=== PATIENT | male | born 1965 | race African-American/Black ===

== ENCOUNTER 2024-12-28 14:18 | Inpatient (IN) | payer BC, SELFPAY ==
[2024-12-28] VITALS (17 sets, daily range): BP systolic 101–135; BP diastolic 65–93; PULSE 108–128; RESP 16–36; TEMP 36.1–37.7; O2SAT 98–100; BMI 19.8
--- NOTE | ~2024-12-28 | XR_ITS ---
EXAMINATION: XR chest 1V portable DATE: 01/03/2025 05:56 INDICATION: Respiratory failure TECHNIQUE: frontal view of the chest was obtained. COMPARISON: Chest radiograph and CT dated 01/02/25 FINDINGS: Endotracheal tube tip 4.1 cm above the alejo. Nasogastric tube tip in proximal side port in the body of the stomach. Left upper extremity peripherally inserted central venous catheter (PICC) tip at th e superior cavoatrial junction. Basilar predominant gradient airspace opacities in the right mid to lower and left lower lung zones w ith blunting at costophrenic angles consistent with small to moderate-sized right and small left post erior layering pleural effusions with associated atelectasis and/or pneumonia. No pneumothorax. Heart size is normal. IMPRESSION: 1. Small to moderate-sized right and small left pleural effusions with associated atelectasis and/or pneumonia in the lower lung zones. Reviewed, dictated and finalized at location A. IMPRESSION: 1. Small to moderate-sized right and small left pleural effusions with associat ed atelectasis and/or pneumonia in the lower lung zones.
--- NOTE | ~2024-12-28 | CT_ITS ---
EXAMINATION: CTA chest abdomen pelvis DATE: 12/29/2024 14:23 INDICATION: Tachycardia and tachypnea TECHNIQUE: Computed tomographic angiography (CTA) of the chest, abdomen, and pelvis was performed wit hout and with 100 mL Omnipaque-350 intravenous contrast. Volume-rendered 3D-reconstructions of the ao rta and large arteries were constructed by the technologist on a separate workstation. Automated expo sure control and iterative reconstruction technique were employed. The dose-length product was 526.67 mGy-cm. COMPARISON: None FINDINGS: Chest: Small left and moderate-sized right posterior layering pleural effusions with dependent atelectasis i n both lungs. There are patchy opacities throughout both lungs and favor severe pulmonary edema over pneumonia. No pulmonary embolism. Enlargement of central pulmonary arteries consistent with pulmonary arterial hypertension. Cardiomegaly. There is reflux of injected contrast into the inferior vena cav a and hepatic veins consistent with tricuspid regurgitation. No pericardial effusion. Ectatic ascendi ng thoracic aorta measuring up to 3.9 cm in maximal diameter. No dissection. No pathologically enlarg ed thoracic lymphadenopathy. Moderate lower cervical and mild thoracic spondylosis. Abdomen and pelvis: Gastrojejunostomy tube extending through the stomach with distal tip in the proximal jejunum in the l eft upper quadrant. Hepatomegaly. Gallbladder, spleen, pancreas, bilateral adrenal glands and kidneys are normal. Large amount of stool throughout the colon with distal predominance with the stool fille d rectum measuring up to 6.7 x 9.6 cm diameter. No dilated bowel to suggest obstruction. Abdominal ao rta evident major branch vessels arising from the aorta are normal in caliber with no evident atheros clerotic plaque or dissection. No free intraperitoneal gas or fluid. No pathologically enlarged abdom inal or pelvic lymphadenopathy. Extensive body wall edema. Moderate spondylosis at L5-S1 with right-s ided erosive endplate changes. IMPRESSION: 1. Extensive patchy airspace opacities throughout both lungs and favor severe congestive heart failur e related pulmonary edema over pneumonia. 2. Small left and moderate sized right dependently layering pleural effusions with associated davion sive atelectasis in the dependent lungs. 3. Cardiomegaly with enlargement of the central pulmonary consistent with pulmonary arterial hyperten yovana. 4. Large amount of stool throughout the colon with 9.6 x 6.7 cm ball of stool the rectum consistent w ith likely constipation with fecal impaction. 5. Hepatomegaly. Reviewed, dictated and finalized at location A. IMPRESSION: 1. Extensive patchy airspace opacities throughout both lungs and favor severe c ongestive heart failure related pulmonary edema over pneumonia. 2. Small left and moderate sized right dependently layering pleural effusions w ith associated compressive atelectasis in the dependent lungs. 3. Cardiomegaly with enlargement of the central pulmonary consistent with pulmo nary arterial hypertension. 4. Large amount of stool throughout the colon with 9.6 x 6.7 cm ball of stool t he rectum consistent with likely constipation with fecal impaction. 5. Hepatomegaly.
--- NOTE | ~2024-12-28 | XR_ITS ---
Supine and upright views of the abdomen Clinical history: Small bowel obstruction COMPARISON: 01/03/2025 Findings: NG tube in place. Bowel gas pattern is similar to prior exam. No evidence for free air. No abnormal mass lesion or calcification is seen. Osseous structures are intact. Impression: Stable nonspecific bowel gas pattern with NG tube in place. Reviewed, dictated and finalized at [facility]. Impression: Stable nonspecific bowel gas pattern with NG tube in place.
--- NOTE | ~2024-12-28 | XR_ITS ---
Portable chest x-ray Comparison: 12/29/2024 Clinical History: Respiratory failure Findings: Endotracheal tube and left-sided PICC line are in place. Diffuse pulmonary consolidation i s present. No definite pleural effusion. Cardiomediastinal silhouette is stable. Bones and soft tiss ues are unremarkable. Impression: Diffuse bilateral pulmonary consolidation. Correlate for severe pulmonary edema, diffuse pneumonia, o r ARDS. Support tubes, as above. Reviewed, dictated and finalized at location M. Impression: Diffuse bilateral pulmonary consolidation. Correlate for severe pulmonary edema , diffuse pneumonia, or ARDS. Support tubes, as above.
--- NOTE | ~2024-12-28 | XR_ITS ---
Portable chest x-ray Comparison: 12/28/2024 Clinical History: CHF Findings: Small right pleural effusion present. There is extensive bilateral airspace consolidation. Cardiomediastinal silhouette is stable. Bones and soft tissues are unremarkable. Impression: Extensive bilateral airspace consolidation could reflect severe pulmonary edema versus diffuse pneumo kimberley. Small right pleural effusion. Reviewed, dictated and finalized at [facility]. Impression: Extensive bilateral airspace consolidation could reflect severe pulmonary edema versus diffuse pneumonia. Small right pleural effusion.
--- NOTE | ~2024-12-28 | XR_ITS ---
EXAMINATION: XR chest 1V portable DATE: 01/06/2025 06:05 INDICATION: Pulmonary vascular congestion TECHNIQUE: frontal view of the chest was obtained. COMPARISON: Chest radiograph dated 01/05/2025 FINDINGS: Endotracheal tube tip 4.2 cm above the alejo. Nasogastric tube extends below the left hemidiaphragm with distal tip collimated off the study. Left upper extremity peripherally inserted central venous catheter (PICC) tip at the superior cavoatrial junction. Mild patchy airspace opacities superimposed over hazy opacities in the bilateral mid and lower lung z ones consistent with small bilateral posterior layering pleural effusions with associated atelectasis and/or pneumonia. The cardiomediastinal silhouette is normal. IMPRESSION: 1. Unchanged small bilateral pleural effusions with associated atelectasis and/or pneumonia in the lo wer lung zones. Reviewed, dictated and finalized at location A. IMPRESSION: 1. Unchanged small bilateral pleural effusions with associated atelectasis and/ or pneumonia in the lower lung zones.
--- NOTE | ~2024-12-28 | XR_ITS ---
EXAMINATION: XR chest 1V portable DATE: 01/05/2025 06:08 INDICATION: Intubated TECHNIQUE: frontal view of the chest was obtained. COMPARISON: Chest radiograph dated 01/04/2025 FINDINGS: Endotracheal tube tip 5.0 cm above the alejo. Nasogastric tube proximal side port in the stomach and distal tip collimated beyond the inferior margin of the field of imaging. Left upper extremity perip herally inserted central venous catheter (PICC) tip at the high right atrium. Again seen are hazy opacities in the bilateral lower lung zones with blunting at costophrenic angles consistent with small bilateral pleural effusions and associated atelectasis versus pneumonia. No pne umothorax. The cardiomediastinal silhouette is normal. IMPRESSION: 1. Persistent small bilateral pleural effusions with bibasilar atelectasis and/or pneumonia. Reviewed, dictated and finalized at location A. IMPRESSION: 1. Persistent small bilateral pleural effusions with bibasilar atelectasis and/ or pneumonia.
--- NOTE | ~2024-12-28 | XR_ITS ---
Portable chest x-ray Comparison: 01/06/2025 Clinical History: Respiratory failure Findings: NG tube in place. Left-sided PICC line in place. Small right pleural effusion present. The re is mild to moderate pulmonary edema pattern. Cardiomediastinal silhouette is stable. Bones and so ft tissues are unremarkable. Impression: Mild to moderate pulmonary edema pattern with small right pleural effusion. Support tubes, as above. Reviewed, dictated and finalized at location . Impression: Mild to moderate pulmonary edema pattern with small right pleural effusion. Support tubes, as above.
--- NOTE | ~2024-12-28 | XR_ITS ---
EXAMINATION: XR abdomen/kub 1V DATE: 01/06/2025 06:05 INDICATION: Small bowel obstruction TECHNIQUE: A supine view of the abdomen was obtained. COMPARISON: 01/05/2025 FINDINGS: Nasogastric tube with distal tip near the gastric pylorus and proximal side port in the body the stom ach. Gastrojejunostomy tube which extends from the stomach through the duodenum with distal tip in th e proximal jejunum underlying the left hemidiaphragm. Unchanged large amount of gas scattered through out the colon. No dilated loops of gas-filled small bowel. Unchanged small foreign body projecting ov er the cecum. IMPRESSION: 1. No interval change in a nonspecific bowel gas pattern with prominent gas throughout the colon but no definitive dilated loops of small bowel to suggest obstruction. Reviewed, dictated and finalized at location A. IMPRESSION: 1. No interval change in a nonspecific bowel gas pattern with prominent gas thr oughout the colon but no definitive dilated loops of small bowel to suggest obs truction.
--- NOTE | ~2024-12-28 | XR_ITS ---
Supine and upright views of the abdomen Clinical history: Fecal impaction, ileus COMPARISON: 01/04/2025 at 5:13 AM Findings: NG tube in satisfactory position. No free air evident. There is air distended large and sma ll bowel. Moderate stool in the left colon.. No abnormal mass lesion or calcification is seen. Osseou s structures are intact. Impression: Nonspecific bowel gas pattern with moderate stool left colon. NG tube in place. Reviewed, dictated and finalized at location M. Impression: Nonspecific bowel gas pattern with moderate stool left colon. NG tube in place.
--- NOTE | ~2024-12-28 | XR_ITS ---
EXAMINATION: XR chest 1V portable DATE: 01/10/2025 06:09 INDICATION: Respiratory failure TECHNIQUE: frontal view of the chest was obtained. COMPARISON: Chest radiograph dated 01/09/2025 FINDINGS: No significant change in opacities in the right mid to lower and left lower lung zones. This includes a small right pleural effusion. No pneumothorax. Cardiomegaly. Left upper extremity peripherally ins erted central venous catheter (PICC) tip at the caudal superior vena cava. Partially visualized kenyatta rojejunostomy tube projecting over the visualized upper abdomen. Gaseous distention of the visualized colon. IMPRESSION: 1. Unchanged opacities in the right mid to lower and left lower lung zones which could represent atel ectasis, pneumonia, mild pulmonary edema or some combination thereof. 2. Small right pleural effusion. 3. Cardiomegaly. Reviewed, dictated and finalized at location A. IMPRESSION: 1. Unchanged opacities in the right mid to lower and left lower lung zones whic h could represent atelectasis, pneumonia, mild pulmonary edema or some combinat ion thereof. 2. Small right pleural effusion. 3. Cardiomegaly.
--- NOTE | ~2024-12-28 | XR_ITS ---
EXAMINATION: XR abdomen/kub 1V DATE: 01/05/2025 06:08 INDICATION: Small bowel obstruction TECHNIQUE: A supine view of the abdomen was obtained. COMPARISON: None. FINDINGS: Nasogastric tube tip in the gastric antrum and proximal side port in the body the stomach. Persistent gas within multiple loops of bowel which appear to dilate colonic. No definitive dilated loops of ga s-filled small bowel to suggest obstruction. Interval decrease in the amount of stool seen in the dis talon colon. Persistent small foreign body at the cecum. Small bilateral pleural effusions. IMPRESSION: 1. No significant change in nonspecific bowel gas pattern with prominent gas throughout the colon but no definitive dilated loops of small bowel to suggest obstruction. 2. Small bilateral pleural effusions. Reviewed, dictated and finalized at location A. IMPRESSION: 1. No significant change in nonspecific bowel gas pattern with prominent gas th roughout the colon but no definitive dilated loops of small bowel to suggest ob struction. 2. Small bilateral pleural effusions.
--- NOTE | ~2024-12-28 | XR_ITS ---
Portable chest x-ray Comparison: 01/07/2025 Clinical History: Respiratory failure Findings: Left-sided PICC line in place. Small right pleural effusion present. There is extensive londono zy bilateral airspace disease, right worse than left, sparing the apices. Cardiomediastinal silhouet te is stable. Bones and soft tissues are unremarkable. Impression: Moderate bilateral pulmonary edema, right worse than left, with small right pleural effusion. Correla te clinically for pneumonia. Left-sided PICC line in place. Reviewed, dictated and finalized at location M. Impression: Moderate bilateral pulmonary edema, right worse than left, with small right ple ural effusion. Correlate clinically for pneumonia. Left-sided PICC line in place.
--- NOTE | ~2024-12-28 | XR_ITS ---
XR chest 1V portable Ordering provider: Kelsi Jamil PA-C History: 59 years Male with . hypoxia . Comparison: None. FINDINGS: MEDIASTINUM: The cardiac silhouette is slightly enlarged. Congestive brayden. LUNGS: No pneumothorax. Bilateral alveolar and interstitial opacification suggestive of pulmonary mary ma versus pneumonia. Right moderate pleural effusion. OTHER: No free air under the diaphragm. IMPRESSION: Cardiomegaly with cardiac decompensation and pulmonary edema. Pneumonia is not excluded. A right pleu ral effusion. Reviewed, dictated and finalized at location A. IMPRESSION: Cardiomegaly with cardiac decompensation and pulmonary edema. Pneumonia is not excluded. A right pleural effusion.
--- NOTE | ~2024-12-28 | XR_ITS ---
Portable chest x-ray Comparison: 12/30/2024 Clinical History: Respiratory failure Findings: Endotracheal tube and left-sided PICC line are in place. Small right pleural effusion pres ent. Extensive hazy pulmonary disease present, right worse than left. Cardiomediastinal silhouette i s stable. Bones and soft tissues are unremarkable. Impression: Advanced pulmonary edema pattern, right worse than left. Correlate clinically for pneumonia. Small right pleural effusion. Support tubes, as above. Reviewed, dictated and finalized at location . Impression: Advanced pulmonary edema pattern, right worse than left. Correlate clinically f or pneumonia. Small right pleural effusion. Support tubes, as above.
--- NOTE | ~2024-12-28 | XR_ITS ---
XR abdomen obstructive series 01/02/2025 08:02 Indication: Abdominal distention Procedure: Supine and upright views of the abdomen Comparison: No prior studies for comparison. Findings: There is dilated small bowel and colon throughout the abdomen. Large amount of retained fec al material present in the distal colon or rectum. There is a residual catheter identified in the abd omen of indeterminate location. Cardiomegaly. Small pleural effusions. There is probable interstitial edema. Impression: 1: Dilated small bowel and colon with large amount of retained fecal material in the distal colon and rectum, consistent with fecal impaction with obstruction. 2: Residual catheter fragment present in the abdomen. Consider correlation with CT. 3: Cardiomegaly with pulmonary edema and small pleural effusions. Reviewed, dictated and finalized at location A. Impression: 1: Dilated small bowel and colon with large amount of retained fecal material i n the distal colon and rectum, consistent with fecal impaction with obstruction . 2: Residual catheter fragment present in the abdomen. Consider correlation with CT. 3: Cardiomegaly with pulmonary edema and small pleural effusions.
--- NOTE | ~2024-12-28 | XR_ITS ---
Portable chest x-ray Comparison: 01/08/2025 Clinical History: Respiratory failure Findings: Left-sided PICC line in place. There is extensive hazy bilateral airspace disease, right l jorge worse than left, with relative sparing of the left upper lobe. Small right pleural effusion prese nt. Cardiomediastinal silhouette is stable. Bones and soft tissues are unremarkable. Impression: Moderate pulmonary edema pattern, asymmetrically worse in the right lung than the left, with small ri ght pleural effusion. Correlate clinically for pneumonia. Left-sided PICC line. Reviewed, dictated and finalized at location . Impression: Moderate pulmonary edema pattern, asymmetrically worse in the right lung than t he left, with small right pleural effusion. Correlate clinically for pneumonia. Left-sided PICC line.
--- NOTE | ~2024-12-28 | CT_ITS ---
EXAMINATION: CT chest abdomen pelvis wo con DATE: 01/02/2025 10:02 INDICATION: Residual catheter fragment present in the abdomen TECHNIQUE: Computed tomography (CT) of the chest, abdomen, and pelvis was performed without intraveno us contrast. Automated exposure control and iterative reconstruction technique were employed. The dos e-length product was 393.83 mGy-cm. COMPARISON: KUB dated 01/02/[address] angiogram dated 12/29/2024 FINDINGS: CHEST CT: No significant interval change in small left and small to moderate-sized right posterior layering ple ural effusions with dependent compressive atelectasis developing partial collapse of the bilateral lo wer lobes. Mild residual smooth septal line thickening at the bilateral apices with interval resoluti on of the patchy airspace opacities in the remainder of the lungs consistent consistent with signific ant improvement in previously moderate, now minimal pulmonary edema. Endotracheal tube tip 3.5 cm abo ve the alejo. Left upper extremity peripherally inserted central venous catheter (PICC) tip at the superior cavoatrial junction. Mild cardia megaly. No pericardial effusion. Ectatic ascending thoracic aorta measuring up to 4.0 cm. There is diffuse body wall and mediastinal edema. No pathologically en larged thoracic lymphadenopathy. Lower cervical and mild thoracic spondylosis. ABDOMEN/PELVIS CT: Percutaneous gastrojejunostomy tube with distal tip in the small bowel in the left upper quadrant. Li keith, gallbladder, spleen, pancreas, bilateral adrenal glands and kidneys are normal. Again seen is a large amount of stool scattered throughout the distal colon suggestive of constipation. There is some fluid in the proximal colon consistent with diarrhea. Small foreign body within the cecum which has not changed since position since the prior study. Burdick catheter within the decompressed bladder. The re is additional extensive body wall, mesenteric and retroperitoneal edema. Moderate spondylosis at L 5-S1 with right-sided erosive endplate changes. IMPRESSION: 1. Significant improvement in previously moderate, now minimal pulmonary edema with unchanged small l eft and small to moderate-sized right pleural effusions. 2. Persistent large amount of stool in the distal colon suggestive of constipation with fluid consist ent with diarrhea and the more proximal colon. 3. No change in position of a small foreign body correlating with the finding on the earlier KUB whic h is located along the luminal side of the posterior wall of the cecum which could represent either a n ingested foreign body or a clip fixed to the wall given the lack of movement. Correlate with clinic al/surgical history. Reviewed, dictated and finalized at location A. IMPRESSION: 1. Significant improvement in previously moderate, now minimal pulmonary edema with unchanged small left and small to moderate-sized right pleural effusions. 2. Persistent large amount of stool in the distal colon suggestive of constipat ion with fluid consistent with diarrhea and the more proximal colon. 3. No change in position of a small foreign body correlating with the finding o n the earlier KUB which is located along the luminal side of the posterior wall of the cecum which could represent either an ingested foreign body or a clip f ixed to the wall given the lack of movement. Correlate with clinical/surgical h istory.
--- NOTE | ~2024-12-28 | XR_ITS ---
Portable chest x-ray Comparison: 12/31/2024 Clinical History: Respiratory failure Findings: Endotracheal tube and left-sided PICC line are in place. Small right pleural effusion pres ent. Minimal left pleural effusion present. There is hazy bibasilar airspace disease, right worse maxx n left. Cardiomediastinal silhouette is stable. Bones and soft tissues are unremarkable. Impression: [id number] pulmonary edema pattern, right worse than left, versus possibly pneumonia. Small right pleural effusion and minimal left pleural effusion. Support tubes, as above. Reviewed, dictated and finalized at location . Impression: [id number] pulmonary edema pattern, right worse than left, versus possibl y pneumonia. Small right pleural effusion and minimal left pleural effusion. Support tubes, as above.
--- NOTE | ~2024-12-28 | XR_ITS ---
Portable chest x-ray Comparison: 01/01/2025 Clinical History: Respiratory failure Findings: Endotracheal tube and left-sided PICC line are in place. Small right pleural effusion pres ent. There is mild hazy airspace disease in the right lung, especially the perihilar region and right lung base. Possible minimal left lung base. Cardiomediastinal silhouette is stable. Bones and soft tissues are unremarkable. Impression: Hazy bibasilar airspace disease, right worse than left, most likely asymmetric pulmonary edema. Corre late clinically for pneumonia. Small right pleural effusion. Support tubes, as above. Reviewed, dictated and finalized at location . Impression: Hazy bibasilar airspace disease, right worse than left, most likely asymmetric pulmonary edema. Correlate clinically for pneumonia. Small right pleural effusion. Support tubes, as above.
--- NOTE | ~2024-12-28 | XR_ITS ---
EXAMINATION: XR abdomen gastric tube insert DATE: 01/02/2025 11:20 INDICATION: Nasogastric tube placement TECHNIQUE: A supine view of the abdomen and lower chest was obtained for evaluation of feeding tube placement. COMPARISON: CT dated 01/02/2025 FINDINGS: Nasogastric tube tip in proximal side port in the body of the stomach. Percutaneous gastrostomy tube with distal tip in the jejunum projecting over the subdiaphragmatic left upper quadrant. Gaseous dist ention of the colon. Opacities in the bilateral mid and lower lungs corresponding to the bilateral pl eural effusions and associated atelectasis seen on prior CT. Mild cardiomegaly. IMPRESSION: 1. Nasogastric tube tip in proximal side port in the body of the stomach. Reviewed, dictated and finalized at location A.
--- NOTE | ~2024-12-28 | XR_ITS ---
EXAMINATION: XR chest ET placement DATE: 12/29/2024 15:32 INDICATION: Endotracheal tube placement TECHNIQUE: frontal view of the chest was obtained. COMPARISON: Chest radiograph and CT from earlier in the day on 12/29/2024 FINDINGS: Endotracheal tube tip 2.6 cm above the alejo. Extensive patchy airspace opacities throughout both lore ngs. Blunting at the bilateral cardiophrenic angles and right costophrenic angle corresponding to sma ll left and moderate-sized right pleural effusions on prior CT. Cardiomegaly. IMPRESSION: 1. Endotracheal tube tip in expected position 2.6 similar both the alejo. 2. Persistent diffuse bilateral lung disease and favor congestive heart failure related severe pulmon selvin edema over pneumonia. 2. Small left and moderate-sized pleural effusions. Reviewed, dictated and finalized at location A. IMPRESSION: 1. Endotracheal tube tip in expected position 2.6 similar both the alejo. 2. Persistent diffuse bilateral lung disease and favor congestive heart failure related severe pulmonary edema over pneumonia. 2. Small left and moderate-sized pleural effusions.
--- NOTE | ~2024-12-28 | XR_ITS ---
Portable chest x-ray Comparison: 01/03/2025 Clinical History: Respiratory failure Findings: Endotracheal tube, NG tube, and left-sided PICC line are in place. Small right pleural eff usion present with hazy right basilar and right midlung airspace disease. Probable cardiac airspace d isease. Cardiomediastinal silhouette is stable. Bones and soft tissues are unremarkable. Impression: Bibasilar pulmonary edema/atelectasis with small right pleural effusion. Support tubes, as above. Reviewed, dictated and finalized at location M. Impression: Bibasilar pulmonary edema/atelectasis with small right pleural effusion. Support tubes, as above.
--- NOTE | ~2024-12-28 | US_ITS ---
LEFT UPPER EXTREMITY VENOUS ULTRASOUND Ordering provider: Kelsi Jamil PA-C History: . edema . Comparison: None. FINDINGS: --JUGULAR: Patent and free of thrombus. Normal compressibility, phasic flow and augmentation. --SUBCLAVIAN: Patent and free of thrombus. Normal compressibility, phasic flow and augmentation. --AXILLARY: Patent and free of thrombus. Normal compressibility, phasic flow and augmentation. --BRACHIAL: Patent and free of thrombus. Normal compressibility, phasic flow and augmentation. --CEPHALIC: Patent and free of thrombus. Normal compressibility, phasic flow and augmentation. --BASILIC: Patent and free of thrombus. Normal compressibility, phasic flow and augmentation. --RADIAL: Patent and free of thrombus. Normal compressibility, phasic flow and augmentation. --ULNAR: Patent and free of thrombus. Normal compressibility, phasic flow and augmentation. RIGHT UPPER EXTREMITY VENOUS ULTRASOUND Ordering provider: Kelsi Jamil PA-C History: . edema . Comparison: None. FINDINGS: --JUGULAR: Patent and free of thrombus. Normal compressibility, phasic flow and augmentation. --SUBCLAVIAN: Patent and free of thrombus. Normal compressibility, phasic flow and augmentation. --AXILLARY: Patent and free of thrombus. Normal compressibility, phasic flow and augmentation. --BRACHIAL: Patent and free of thrombus. Normal compressibility, phasic flow and augmentation. --CEPHALIC: Patent and free of thrombus. Normal compressibility, phasic flow and augmentation. --BASILIC: Patent and free of thrombus. Normal compressibility, phasic flow and augmentation. --RADIAL: Patent and free of thrombus. Normal compressibility, phasic flow and augmentation. --ULNAR: Patent and free of thrombus. Normal compressibility, phasic flow and augmentation. IMPRESSION: Negative left and right upper extremity venous US. No deep vein thrombosis. Reviewed, dictated and finalized at location A.
--- NOTE | ~2024-12-28 | XR_ITS ---
EXAMINATION: XR abdomen obstructive series DATE: 01/03/2025 08:21 INDICATION: Ileus. Small bowel obstruction. TECHNIQUE: Frontal supine and upright views of the abdomen were obtained. COMPARISON: CT dated 01/02/2025 FINDINGS: Nasogastric tube tip and proximal side port in the body the stomach. Percutaneous gastrojejunostomy t ube extends from the stomach through the duodenum with the distal tip in the jejunum below the left h emidiaphragm. Scattered gas throughout the colon with large amount of distal colonic stool suggestive of constipation. No dilated loops of gas-filled small bowel to suggest obstruction. No free intraper itoneal gas. Again seen is a small foreign body projecting over the right pelvis in the region of t he cecum. Opacities at the bilateral lower lung zones consistent with small bilateral pleural effusio ns and associated axis and short heart size is normal. IMPRESSION: 1. Large amount of stool in the distal colon which can be seen with constipation. No free intraperin eal gas or dilated bowel to suggest obstruction. 2. Small bilateral pleural effusions with associated basilar atelectasis and/or pneumonia. 3. Unchanged small foreign body projecting over the cecum Reviewed, dictated and finalized at location A. IMPRESSION: 1. Large amount of stool in the distal colon which can be seen with constipati on. No free intraperineal gas or dilated bowel to suggest obstruction. 2. Small bilateral pleural effusions with associated basilar atelectasis and/or pneumonia. 3. Unchanged small foreign body projecting over the cecum
--- NOTE | 2024-12-28 14:32 | ECG_ITS ---
Test Date: 2024-12-28 14:26:13 Measurements Intervals [place] Rate: 122 P: 39 IN: 136 QRS: -60 QRSD: 150 T: 93 QT: 360 QTc: 515 Interpretive Statements SINUS TACHYCARDIA INTRAVENTRICULAR CONDUCTION DELAY [130+ ms QRS DURATION] ST-T WAVE ABNORMALITY, CONSIDER ANTEROLATERAL ISCHEMIA INFERIOR INFARCT, OLD No previous ECG available for comparison Electronically Signed On 12-30-2024 14:08:13 CDT by Edilia Sam M.D.
--- OUTSIDE RECORDS SUMMARY | 2024-12-28 14:33 | XMS_ITS | Continuity of Care Document ---
Author Organization [address] [place] [address] [address] [place] [address] Phone Care Team Providers Care Warehouse Incentive Selector Name Role Phone Mira Mckeon DPM Unavailable Unavailable Allergies, Adverse Reactions, Alerts Substance Reaction Status Criticality No Known Allergies Active No Inform ation Medications Medication Instructions Dosage Effective Dates (start - stop) Status Comments rivastigmine 4.6 mg/24 hour transdermal patch apply 1 patch by transdermal route every day . Do not apply to same area more than once every 14 days. 4.6 MG - Active olanzapine 5 mg tablet take 1 tablet by oral route every day 5 MG - Active risperidone 0.5 mg tablet take 2 tablet by oral route 2 times every day 1 MG - Active acetaminophen 325 mg tablet take 2 tablet by oral route every 6 hours as needed 650 MG - Active Problems Condition Type Effective Dates (start - stop) Clini jon Status Comments No Known Problems Procedures Procedure Date DEBRIDE NAIL 6 OR MORE FRAMES, PURCHASES FITTING OF SPECTACLES, EXCEPT FOR APHAKI A; BIFOCAL EYE EXAM NEW PATIENT TRIM SKIN LESION DEBRIDE NAIL 1-5 DEBRIDE NAIL 1-5 NURSING FAC CARE SUBSEQ TRIM SKIN LESION DEBRIDE NAIL 1-5 NURSING FAC CARE SUBSEQ DEBRIDE NAIL 1-5 NURSING FAC CARE SUBSEQ DEBRIDE NAIL 1- NURSING FAC CARE SUBSEQ TRIM SKIN LESION DEBRIDE NAIL 1- PPE DEBRIDE NAIL 6 OR MORE Paring/cutting 2-4 benign lesions DEBRIDEMENT OF NAIL(S) BY ANY METHOD(S); one TO five Subsequent Nursing Facility Care 2019 Advance Directives Directive Yes / No Effective Date File Name No Information Encounters Encounter Description Practice Location Reason(s) For Visit Diagnoses Date Provider Providers Copied on Encounter [address] [place] [address], [address] [place] [address], [id number], tel:[phone] [facility] No Information 2 ALISIA Rubio. [address] [place] [address], [address] [place] [address], [id number], tel:[phone] [facility] Peripheral vascular disease, unspecifiedTin ea unguium 2 Stoney Ortiz. [address] [facility], [address], [place], [place], [id number], [place]. tel:[phone] Referring Provider: Garrison Bello. [address] [place] [address], [address] [place] [address], [id number], tel:[phone] [facility] Presbyopia 2 ALISIA Lowery. [address] [place] [address], [address] [place] [address], [id number], [place] tel:[phone] [facility] Blurry vision (chief complaint) Combined forms of age-related cataract, bilateral 2 ALISIA Lowery. Referring Provider: Garrison Bello. NURSING FAC CARE SUBSEQ [address] [place] [address], [address] [place] [address], [id number], tel:[phone] [facility] Acquired absence of other left toe(s)Corns and callositiesTin ea unguiumPeriphe ral vascular disease, unspecified Dec- 1 Eveline [address]. [id number] [place] [address], [id number], . tel:[phone] Referring Provider: Garrison Bello. NURSING FAC CARE SUBSEQ [address] [place] [address], [address] [place] [address], [id number], tel:[phone] [facility] Acquired absence of other left toe(s)Corns and callositiesPer ipheral vascular disease, unspecifiedTin ea unguiumXerosis cutis 1 Eveline Messre. [address], [id number], [place]. tel:[phone] Referring Provider: Garrison Bello. NURSING FAC CARE SUBSEQ [address] [place] [address], [address] [place] [address], [id number], tel:[phone] [facility] Peripheral vascular disease, unspecifiedXer osis cutisTinea unguium [address] Evel[address]er. [id number] [place] [address], [id number], [place]. tel:[phone] Referring Provider: Garrison Bello. NURSING FAC CARE SUBSEQ [address] [place] [address], [address] [place] [address], [id number], tel:[phone] [facility] Peripheral vascular disease, unspecifiedAcq uired absence of other left toe(s)Tinea unguium 1 E[address]er. [id number] [place] [address], [id number], [place]. tel:[phone] Referring Provider: Garrison Bello. [address] [place] [address], [address] [place] [address], [place], [place], [id number], tel:[phone] [facility] Peripheral vascular disease, unspecifiedTin ea unguiumCorns and callosities 1 Eveline Messer. [address] [facility], [address], [place], [place], [id number], [place]. tel:[phone] Referring Provider: Garrison Bello. [address] [place] [address], [address] [facility] [address], [place], [place], [id number], [place] tel:[phone] [facility] No Information 1 Zionfabiola Lim. [address] [facility], [address], [place], [place], [id number], [place]. tel:[phone] Referring Provider: Garrison Bello. [address] [place] [address], [address] [facility] [address], [place], [place], [id number], [place] tel:[phone] [facility] Peripheral vascular disease, unspecifiedTin ea unguiumAcquire d absence of other left toe(s) 0 [facility]. [address] [facility], [address], [place], [place], [id number], [place]. tel:[phone] Referring Provider: Garrison Bello. Subsequent Nursing Facility Care [address] [place] [address], [address] [facility] [address], [place], [place], [id number], [place] tel:[phone] [facility] Acquired absence of other left toe(s)Tinea unguiumPeriphe ral vascular disease, unspecifiedCor ns and callosities 0 Luabandar Ortiz. [address] [facility], [address], [place], [place], [id number], [place]. tel:[phone] Referring Provider: Maggie ramos. [address] [place] [address], [address] [facility] [address], [place], [place], [id number], [place] tel:[phone] [facility] No Information 8 Lua Angel. [address] [facility], [address], [place], [place], [id number], [place]. tel:[phone] Family History Family Member Type Diagnosis Age At Onset No Information Payers Payer name Insurance type Covered democrat [place] Marlon vieira(s) Medicaid [facility] [id number] Social History Type Description Quantity Date Captured Comments Sex Male Smoking Status No Information Chief Complaint And Reason For Visit No Information Reason For Referral Reason For Referral No Information Plan Of Treatment Date Type Action Status Patient Education Toenail Fungus: Care In structions completed Patient Education Toenail Fungus: Care In structions completed Patient Education Toenail Fungus: Care In structions completed History Of Present Illness Encounter Date Complaint History Of Prese nt Illness Blurry vision The 55 year old male presents for evaluation of Blurry vision in the right eye and left eye. It occurs all the time. The onset was progressive. The symptom is constant. The condition is moderate. Functional Status Date Functional Assessmen t No Information Instructions Date Instruction Additional Infor mation 1-5 digital nails bi laterally were mycotic and dystrophic nails were debrided both in length and thickness as needed. The nails were debrided using a Dremel and nail nipper. I will follow up in 2-3 months for continued at risk foot care. Related to Tinea unguium Follow up - Return i n 12-15 months for cataract eval. Impression/Plan - Ca taracts are moderate and are affecting visual acuity; however, no treatment recommended at this time. We will monitor for progression. Related to Combined forms of age-related cataract, bilateral All of the calluses were debrided/pared to prevent further tissue breakdown and pain using aseptic technique. the patient tolerated the procedure well and the deformity and contributing prominences were padded/strapped as found necessary. Related to Corns and callosities All of the painful o r problematic thickened or mycotic nails described were debrided in both length and thickness as needed using aseptic technique utilizing both manual and electric debridement and the patient tolerated the procedure well. Related to Tinea unguium Patient was evaluate d for xerosis cutis marked by pronounced anhydrosis, scales , desquamation and fissuring and was ordered a prescription moisturizer to alleviate the symptoms and forestall potentially dangerous tissue breakdowns and infection. The condition will be reevaluated on the next visit. 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 Related to Tinea unguium All of the calluses were debrided/pared to prevent further tissue breakdown and pain using aseptic technique. the patient tolerated the procedure well and the deformity and contributing prominences were padded/strapped as found necessary. Related to Corns and callosities All of the painful o r problematic thickened or mycotic nails described were debrided in both length and thickness as needed using aseptic technique utilizing both manual and electric debridement and the patient tolerated the procedure well. Related to Tinea unguium Patient was evaluate d for xerosis cutis marked by pronounced anhydrosis, scales , desquamation and fissuring and was ordered a prescription moisturizer to alleviate the symptoms and forestall potentially dangerous tissue breakdowns and infection. The condition will be reevaluated on the next visit. 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 Related to Tinea unguium All of the painful o r problematic thickened or mycotic nails described were debrided in both length and thickness as needed using aseptic technique utilizing both manual and electric debridement and the patient tolerated the procedure well Related to Tinea unguium All of the calluses were debrided/pared to prevent further tissue breakdown and pain using aseptic technique. the patient tolerated the procedure well and the deformity and contributing prominences were padded/strapped as found necessary. Related to Corns and callosities 1-5 digital nails ri ght foot was mycotic and dystrophic nails were debrided both in length and thickness as needed. The nails were debrided using a Dremel and nail nipper. I will follow up in 2-3 months for continued at risk foot care. Related to Tinea unguium 1st and 4th metatars als had painful clavi of left foot with no digits. All of the calluses were debrided/pared to prevent further tissue breakdown and pain. 1-5 digital nails right foot were mycotic and dystrophic nails were debrided both in length and thickness as needed. The nails were debrided using a Dremel and nail nipper. I will follow up in 2-3 months for continued at risk foot care. Related to Corns and callosities Assessments Type Assessment Date No Information Patient Care Teams Name Effective Dates (start - stop) Status Members No Information
--- NOTE | 2024-12-28 14:40 | ED_ITS ---
HPI - SOB/Dyspnea General Chief Complaint: Shortness of Breath/Dyspnea <Kelsi Jamil PA-C - Last Filed: 12/28/24 17:07> Stated Complaint: SOB <MARIELLE Burger Last Filed: 12/28/24 17:07> Time Seen by Provider: 12/28/24 14:19 <MARIELLE Burger Last Filed: 12/28/24 17:07> Source: EMS <MARIELLE Burger Last Filed: 12/28/24 17:07> Mode of arrival: EMS <MARIELLE Burger Last Filed: 12/28/24 17:07> Limitations: other (patient is nonverbal) <MARIELLE Burger Last Filed: 12/28/24 17:07> History of Present Illness HPI Narrative: This is a 59 year old male that presents to the ER for low oxygen saturation. Patient found to be tachypneic and hypoxic at his facility. Sent to the ER for further management. <Kelsi Jamil PA-C - Last Filed: 12/28/24 17:07> Related Data Allergies/Adverse Reactions: Allergies Allergy/AdvReac Type Severity Reaction Status Date / Time No Known Allergies Allergy Verified 12/28/24 14:53 <Kelsi Jamil PA-C - Last Filed: 12/28/24 17:07> Review of Systems 2 Review of Systems: ROS unobtainable: Yes unobtainable due to mental status <Kelsi Jamil PA-C - Last Filed: 12/28/24 17:07> [facility] Past Medical History Medical History: Medical History (Updated 12/28/24 @ 17:04 by Zaida Steiner, MANUFACTURER REPRESENTATIVE) Idiopathic progressive neuropathy History of CHF (congestive heart failure) History of epilepsy History of schizophrenia History of gastroesophageal reflux (GERD) <MARIELLE Burger Last Filed: 12/28/24 17:07> Exam 2 Narrative: GENERAL: Chronically ill-appearing, thin, and in no acute distress. HEAD: Normocephalic, atraumatic. EYES: EOMI. ENT: Nares clear, no rhinorrhea or epistaxis. Mucous membranes moist. Oropharynx without tonsillar hypertrophy exudate or other lesions. NECK: Supple. No adenopathy or masses. CHEST: Lung sounds are coarse. No wheezes or rhonchi HEART: Regular rate and rhythm. No murmur heard. Normal peripheral pulses. ABDOMEN: Soft, nontender, nondistended, normal active bowel sounds. EXTREMITIES: Normal range of motion. No edema. SKIN: Warm, dry, no rash or wounds. NEURO: Alert. Does not move any of his limbs independently <Kelsi Jamil PA-C - Last Filed: 12/28/24 17:07> Course Course Emergency Course: I was able to update patient's sibling over the phone <Kelsi Jamil PA-C - Last Filed: 12/28/24 17:07> SOCIAL WORK PROGRAM COORDINATOR/PA Physician Supervision I agree with midlevel documentation; I performed the medical decision making component of this evaluation. I had independent [id number] time with the patient and performed my own independent evaluation and assessment. Patient is nonverbal not able to provide meaningful history or participate in examination. He has terrible appearing cardiac decompensation on bedside x-ray which shows pleural effusions bilaterally, cardiomegaly and potentially infiltrates. He is febrile, tachycardic, tachypneic. Started on appropriate antibiotic coverage and Lasix provided for significant fluid on his lungs causing hypoxemia and we will hold off on any fluid resuscitation given his cardiac function and status. Patient will be admitted to the hospital for further evaluation and care, IV antibiotics and IV diuresis. Hospitalist contacted and in agreement for IMU status. <Chaz Roldan MD - Last Filed: 12/28/24 17:44> Consultations Consultation #1: Spoke with hospitalist about patient and workup who accepts admission < Kelsi Jamil PA-C - Last Filed: 12/28/24 17:07> Date: 12/28/24 <MARIELLE Burger Last Filed: 12/28/24 17:07> Vital Signs Vital signs: Vital Signs Temperature 37.7 C H 12/28/24 14:15 Pulse Rate 120 H 12/28/24 14:15 Respiratory Rate 16 12/28/24 14:15 Blood Pressure 122/82 12/28/24 14:15 Pulse Oximetry 100 12/28/24 14:15 Oxygen Delivery Non-Rebreather Mask 12/28/24 14:15 Oxygen Flow Rate 15 12/28/24 14:15 Temperature 37.7 C H 12/28/24 14:15 Pulse Rate 114 H 12/28/24 16:38 Respiratory Rate 28 H 12/28/24 16:38 Blood Pressure 101/75 12/28/24 16:38 Pulse Oximetry 99 12/28/24 16:38 Oxygen Delivery Nasal Cannula 12/28/24 16:04 Oxygen Flow Rate 4 12/28/24 16:04 <Kelsi Jamil PA-C - Last Filed: 12/28/24 17:07> Vital Signs Temperature 37.7 C H 12/28/24 14:15 Pulse Rate 120 H 12/28/24 14:15 Respiratory Rate 16 12/28/24 14:15 Blood Pressure 122/82 12/28/24 14:15 Pulse Oximetry 100 12/28/24 14:15 Oxygen Delivery Non-Rebreather Mask 12/28/24 14:15 Oxygen Flow Rate 15 12/28/24 14:15 Temperature 37.7 C H 12/28/24 14:15 Pulse Rate 114 H 12/28/24 16:38 Respiratory Rate 28 H 12/28/24 16:38 Blood Pressure 101/75 12/28/24 16:38 Pulse Oximetry 99 12/28/24 16:38 Oxygen Delivery Nasal Cannula 12/28/24 16:04 Oxygen Flow Rate 4 12/28/24 16:04 <Chaz Roldan MD - Last Filed: 12/28/24 17:44> Procedures EJ/Peripheral Line Arm L: EJ/Peripheral Line Date: 12/28/24 <Chaz Roldan MD - Last Filed: 12/28/24 17:44> EJ/Peripheral Line Time: 15:00 <Chaz Roldan MD - Last Filed: 12/28/24 17:44> Time Out Performed: Yes <Chaz Roldan MD - Last Filed: 12/28/24 17:44> Skin Cleansed in Sterile Fashion: Yes <Chaz Roldan MD - Last Filed: 12/28/24 17:44> Ultrasound Guided: Yes <Chaz Roldan MD - Last Filed: 12/28/24 17:44> Size (gauge): 20 <Chaz Roldan MD - Last Filed: 12/28/24 17:44> IV Secured and Dressing Applied: Yes <Chaz Roldan MD - Last Filed: 12/28/24 17:44> Patient Tolerated Procedure: well and no complications <Chaz Roldan MD - Last Filed: 12/28/24 17:44> MDM - SOB/Dyspnea MDM Narrative Medical decision making narrative: Patient presents the emergency department for hypoxia. Reportedly in the 80s on room air at his facility. His lung sounds are coarse. He is borderline febrile and tachycardic. Currently in for L nasal cannula, maintaining oxygen saturation. Given nebulizer treatment, steroid. Blood cultures drawn. Patient started on IV antibiotics. Cbc without leukocytosis. Shows macrocytic anemia hemoglobin of 8.7, I do not have any previous blood work for comparison. Metabolic panel with normal kidney function. BNP is greater than 30,000. Chest x-ray shows cardiomegaly with pulmonary edema and a right-sided pleural effusion. Patient given a dose of IV Lasix. Will be admitted for further management. Spoke with hospitalist about patient and workup accepts admission. G tube seems to be clogged. Will put in consult for GI <Kelsi Jamil PA-C - Last Filed: 12/28/24 17:07> Differential Diagnosis Differential diagnosis: Likely congestive heart failure, community acquired pneumonia and other (DVT, sepsis, acute respiratory failure) <Kelsi Jamil PA-C - Last Filed: 12/28/24 17:07> Lab Data Attestation: I reviewed the patient's lab results. <Kelsi Jamil PA-C - Last Filed: 12/28/24 17:07> Result diagrams: 12/28/24 14:45 12/28/24 14:45 <MARIELLE Burger Last Filed: 12/28/24 17:07> Labs: Lab Results 12/28/24 12/28/24 12/28/24 Range/Units 14:45 14:45 15:01 WBC 6.4 (4.5-10.0) K/mm3 RBC 2.71 L (4.6-6.20) M/mm3 Hgb 8.7 L (14.0-18.0) g/dL Hct 28.7 L (42.0-52.0) % MCV 105.9 H (80-100) fl MCH 32.1 (26-34) pg MCHC 30.3 L (32-36) g/dl RDW 15.0 H (11.5-14.5) % Plt Count 281 (150-375) k/mm3 MPV 10.4 (7.4-10.4) fl Immature Gran % (Auto) 0.6 H (0-0.5) % Neut % (Auto) 72.1 (45.5-73.1) % Lymph % (Auto) 16.2 L (18.3-44.2) % Coke % (Auto) 10.7 H (2.6-8.5) % Eos % (Auto) 0.2 (0-4.4) % Baso % (Auto) 0.2 (0.2-1.2) % Lymph # (Auto) 1.03 (0.9-3.2) K/mm3 Coke # (Auto) 0.7 H (0.1-0.6) K/mm3 Eos # (Auto) 0.0 (0-0.3) K/mm3 Baso # (Auto) 0.0 (0.0-0.1) K/mm3 Abs Immat Gran (auto) 0.04 H (0.00-0.031) K/mm3 Absolute Neuts (auto) 4.6 (1.3-6.7) K/mm3 Absolute Nucleated RBC 0.060 H (0.0-0.012) K/mm3 Band Neutrophils % Not Reportable Nucleated RBC % 0.9 H (0.0-0.2) % Platelet Estimate Adequate (Adequate) Polychromasia 1+ Hypochromasia 1+ Anisocytosis 1+ Target Cells 1+ Schistocytes None seen PT 15.0 H (11.1-14.7) Seconds INR 1.1 APTT 32.5 (22.3-36.8) Seconds Methemoglobin 0.2 (0-1.5) %THb Sodium 144 (137-145) mmol/L Potassium 4.1 (3.4-5.0) mmol/L Chloride 104 (98-107) mmol/L Carbon Dioxide 31 H (22-30) mmol/L Anion Gap 9 (4-12) mmol/L BUN 25 H (9-20) mg/dL Creatinine 0.50 L (0.7-1.3) mg/dL Estim Creat Clear Calc 109 ml/min Estimated GFR > 60 (59 - ) Glucose 109 (65-110) mg/dL Lactic Acid 2.4 H (0.7-2.0) mmol/L Calcium 8.8 (8.4-10.2) mg/dL Total Bilirubin 0.5 (0.2-1.3) mg/dL AST 48 (17-59) U/L ALT 29 (6-50) U/L Alkaline Phosphatase 89 (38-126) U/L C-Reactive Protein 1.9 H (<1.0) mg/dL NT-Pro-B Natriuret Pep > 54181 H Cancelled (19.9-100) pg/mL Total Protein 8.0 (6.3-8.2) g/dL Albumin 3.8 (3.5-5.1) g/dL Urine Color (Yellow) Urine Appearance (Clear) Urine pH (5.0-9.0) Ur Specific [place] (1.001-1.035) Urine Protein (Negative) mg/dL Urine Glucose (UA) (Negative) mg/dL Urine Ketones (Negative) mg/dL Ur Blood (Man) (Negative) Urine Nitrate (Negative) Urine Bilirubin (Negative) Urine Urobilinogen (<2.0) mg/dL Add Ur Microanalysis Leukocyte Esterase Rfl (Negative) RASHMI/UL Urine RBC (0-2) /hpf Urine WBC (0-3) /hpf Ur Squamous Epith Cells (Few) /hpf Urine Bacteria /hpf Urine Casts Urine Mucus /lpf Influenza A (RT-PCR) Negative (Negative) Influenza B (RT-PCR) Negative (Negative) RSV (RT-PCR) Negative (Negative) SARS-CoV-2 RNA (RT-PCR) Negative (Negative) 12/28/24 Range/Units 15:04 WBC (4.5-10.0) K/mm3 RBC (4.6-6.20) M/mm3 Hgb (14.0-18.0) g/dL Hct (42.0-52.0) % MCV (80-100) fl MCH (26-34) pg MCHC (32-36) g/dl RDW (11.5-14.5) % Plt Count (150-375) k/mm3 MPV (7.4-10.4) fl Immature Gran % (Auto) (0-0.5) % Neut % (Auto) (45.5-73.1) % Lymph % (Auto) (18.3-44.2) % Coke % (Auto) (2.6-8.5) % Eos % (Auto) (0-4.4) % Baso % (Auto) (0.2-1.2) % Lymph # (Auto) (0.9-3.2) K/mm3 Coke # (Auto) (0.1-0.6) K/mm3 Eos # (Auto) (0-0.3) K/mm3 Baso # (Auto) (0.0-0.1) K/mm3 Abs Immat Gran (auto) (0.00-0.031) K/mm3 Absolute Neuts (auto) (1.3-6.7) K/mm3 Absolute Nucleated RBC (0.0-0.012) K/mm3 Band Neutrophils % Nucleated RBC % (0.0-0.2) % Platelet Estimate (Adequate) Polychromasia Hypochromasia Anisocytosis Target Cells Schistocytes PT (11.1-14.7) Seconds INR APTT (22.3-36.8) Seconds Methemoglobin (0-1.5) %THb Sodium (137-145) mmol/L Potassium (3.4-5.0) mmol/L Chloride (98-107) mmol/L Carbon Dioxide (22-30) mmol/L Anion Gap (4-12) mmol/L BUN (9-20) mg/dL Creatinine (0.7-1.3) mg/dL Estim Creat Clear Calc ml/min Estimated GFR (59 - ) Glucose (65-110) mg/dL Lactic Acid (0.7-2.0) mmol/L Calcium (8.4-10.2) mg/dL Total Bilirubin (0.2-1.3) mg/dL AST (17-59) U/L ALT (6-50) U/L Alkaline Phosphatase (38-126) U/L C-Reactive Protein (<1.0) mg/dL NT-Pro-B Natriuret Pep (19.9-100) pg/mL Total Protein (6.3-8.2) g/dL Albumin (3.5-5.1) g/dL Urine Color Dark yellow (Yellow) Urine Appearance Clear (Clear) Urine pH 5.5 (5.0-9.0) Ur Specific [place] 1.029 (1.001-1.035) Urine Protein 2+ H (Negative) mg/dL Urine Glucose (UA) Negative (Negative) mg/dL Urine Ketones Trace H (Negative) mg/dL Ur Blood (Man) Negative (Negative) Urine Nitrate Negative (Negative) Urine Bilirubin Negative (Negative) Urine Urobilinogen 2.0 H (<2.0) mg/dL Add Ur Microanalysis Reviewed Leukocyte Esterase Rfl 1+ H (Negative) RASHMI/UL Urine RBC 6-10 H (0-2) /hpf Urine WBC 11-20 H (0-3) /hpf Ur Squamous Epith Cells None seen (Few) /hpf Urine Bacteria None seen /hpf Urine Casts 0-2 Urine Mucus Present /lpf Influenza A (RT-PCR) (Negative) Influenza B (RT-PCR) (Negative) RSV (RT-PCR) (Negative) SARS-CoV-2 RNA (RT-PCR) (Negative) <Kelsi Jamil PA-C - Last Filed: 12/28/24 17:07> Lab Results 12/28/24 12/28/24 12/28/24 Range/Units 14:45 14:45 15:01 WBC 6.4 (4.5-10.0) K/mm3 RBC 2.71 L (4.6-6.20) M/mm3 Hgb 8.7 L (14.0-18.0) g/dL Hct 28.7 L (42.0-52.0) % MCV 105.9 H (80-100) fl MCH 32.1 (26-34) pg MCHC 30.3 L (32-36) g/dl RDW 15.0 H (11.5-14.5) % Plt Count 281 (150-375) k/mm3 MPV 10.4 (7.4-10.4) fl Immature Gran % (Auto) 0.6 H (0-0.5) % Neut % (Auto) 72.1 (45.5-73.1) % Lymph % (Auto) 16.2 L (18.3-44.2) % Coke % (Auto) 10.7 H (2.6-8.5) % Eos % (Auto) 0.2 (0-4.4) % Baso % (Auto) 0.2 (0.2-1.2) % Lymph # (Auto) 1.03 (0.9-3.2) K/mm3 Coke # (Auto) 0.7 H (0.1-0.6) K/mm3 Eos # (Auto) 0.0 (0-0.3) K/mm3 Baso # (Auto) 0.0 (0.0-0.1) K/mm3 Abs Immat Gran (auto) 0.04 H (0.00-0.031) K/mm3 Absolute Neuts (auto) 4.6 (1.3-6.7) K/mm3 Absolute Nucleated RBC 0.060 H (0.0-0.012) K/mm3 Band Neutrophils % Not Reportable Nucleated RBC % 0.9 H (0.0-0.2) % Platelet Estimate Adequate (Adequate) Polychromasia 1+ Hypochromasia 1+ Anisocytosis 1+ Target Cells 1+ Schistocytes None seen PT 15.0 H (11.1-14.7) Seconds INR 1.1 APTT 32.5 (22.3-36.8) Seconds Methemoglobin 0.2 (0-1.5) %THb Sodium 144 (137-145) mmol/L Potassium 4.1 (3.4-5.0) mmol/L Chloride 104 (98-107) mmol/L Carbon Dioxide 31 H (22-30) mmol/L Anion Gap 9 (4-12) mmol/L BUN 25 H (9-20) mg/dL Creatinine 0.50 L (0.7-1.3) mg/dL Estim Creat Clear Calc 109 ml/min Estimated GFR > 60 (59 - ) Glucose 109 (65-110) mg/dL Lactic Acid 2.4 H (0.7-2.0) mmol/L Calcium 8.8 (8.4-10.2) mg/dL Total Bilirubin 0.5 (0.2-1.3) mg/dL AST 48 (17-59) U/L ALT 29 (6-50) U/L Alkaline Phosphatase 89 (38-126) U/L C-Reactive Protein 1.9 H (<1.0) mg/dL NT-Pro-B Natriuret Pep > 95988 H Cancelled (19.9-100) pg/mL Total Protein 8.0 (6.3-8.2) g/dL Albumin 3.8 (3.5-5.1) g/dL Urine Color (Yellow) Urine Appearance (Clear) Urine pH (5.0-9.0) Ur Specific [place] (1.001-1.035) Urine Protein (Negative) mg/dL Urine Glucose (UA) (Negative) mg/dL Urine Ketones (Negative) mg/dL Ur Blood (Man) (Negative) Urine Nitrate (Negative) Urine Bilirubin (Negative) Urine Urobilinogen (<2.0) mg/dL Add Ur Microanalysis Leukocyte Esterase Rfl (Negative) RASHMI/UL Urine RBC (0-2) /hpf Urine WBC (0-3) /hpf Ur Squamous Epith Cells (Few) /hpf Urine Bacteria /hpf Urine Casts Urine Mucus /lpf Influenza A (RT-PCR) Negative (Negative) Influenza B (RT-PCR) Negative (Negative) RSV (RT-PCR) Negative (Negative) SARS-CoV-2 RNA (RT-PCR) Negative (Negative) 12/28/24 Range/Units 15:04 WBC (4.5-10.0) K/mm3 RBC (4.6-6.20) M/mm3 Hgb (14.0-18.0) g/dL Hct (42.0-52.0) % MCV (80-100) fl MCH (26-34) pg MCHC (32-36) g/dl RDW (11.5-14.5) % Plt Count (150-375) k/mm3 MPV (7.4-10.4) fl Immature Gran % (Auto) (0-0.5) % Neut % (Auto) (45.5-73.1) % Lymph % (Auto) (18.3-44.2) % Coke % (Auto) (2.6-8.5) % Eos % (Auto) (0-4.4) % Baso % (Auto) (0.2-1.2) % Lymph # (Auto) (0.9-3.2) K/mm3 Coke # (Auto) (0.1-0.6) K/mm3 Eos # (Auto) (0-0.3) K/mm3 Baso # (Auto) (0.0-0.1) K/mm3 Abs Immat Gran (auto) (0.00-0.031) K/mm3 Absolute Neuts (auto) (1.3-6.7) K/mm3 Absolute Nucleated RBC (0.0-0.012) K/mm3 Band Neutrophils % Nucleated RBC % (0.0-0.2) % Platelet Estimate (Adequate) Polychromasia Hypochromasia Anisocytosis Target Cells Schistocytes PT (11.1-14.7) Seconds INR APTT (22.3-36.8) Seconds Methemoglobin (0-1.5) %THb Sodium (137-145) mmol/L Potassium (3.4-5.0) mmol/L Chloride (98-107) mmol/L Carbon Dioxide (22-30) mmol/L Anion Gap (4-12) mmol/L BUN (9-20) mg/dL Creatinine (0.7-1.3) mg/dL Estim Creat Clear Calc ml/min Estimated GFR (59 - ) Glucose (65-110) mg/dL Lactic Acid (0.7-2.0) mmol/L Calcium (8.4-10.2) mg/dL Total Bilirubin (0.2-1.3) mg/dL AST (17-59) U/L ALT (6-50) U/L Alkaline Phosphatase (38-126) U/L C-Reactive Protein (<1.0) mg/dL NT-Pro-B Natriuret Pep (19.9-100) pg/mL Total Protein (6.3-8.2) g/dL Albumin (3.5-5.1) g/dL Urine Color Dark yellow (Yellow) Urine Appearance Clear (Clear) Urine pH 5.5 (5.0-9.0) Ur Specific [place] 1.029 (1.001-1.035) Urine Protein 2+ H (Negative) mg/dL Urine Glucose (UA) Negative (Negative) mg/dL Urine Ketones Trace H (Negative) mg/dL Ur Blood (Man) Negative (Negative) Urine Nitrate Negative (Negative) Urine Bilirubin Negative (Negative) Urine Urobilinogen 2.0 H (<2.0) mg/dL Add Ur Microanalysis Reviewed Leukocyte Esterase Rfl 1+ H (Negative) RASHMI/UL Urine RBC 6-10 H (0-2) /hpf Urine WBC 11-20 H (0-3) /hpf Ur Squamous Epith Cells None seen (Few) /hpf Urine Bacteria None seen /hpf Urine Casts 0-2 Urine Mucus Present /lpf Influenza A (RT-PCR) (Negative) Influenza B (RT-PCR) (Negative) RSV (RT-PCR) (Negative) SARS-CoV-2 RNA (RT-PCR) (Negative) <Chaz Roldan MD - Last Filed: 12/28/24 17:44> ABG Data ABG results: 12/28/24 15:01 Puncture Site Left radial ABG pH 7.503 H* ABG pCO2 33.1 L ABG pO2 198.6 H ABG PO2/FiO2 Ratio 1.99 ABG HCO3 25.4 ABG O2 Saturation 99.5 ABG O2 Content 14.0 L ABG Base Excess 2.4 A-a Gradient 481.3 Oxyhemoglobin 98.9 Carboxyhemoglobin 0.7 Reduced Hemoglobin 0.2 Total Hemoglobin 9.7 L O2 Delivery Device Non-rebreather mask O2 Liters/Min 15.0 FiO2 100 <Kelsi Jamil PA-C - Last Filed: 12/28/24 17:07> 12/28/24 15:01 Puncture Site Left radial ABG pH 7.503 H* ABG pCO2 33.1 L ABG pO2 198.6 H ABG PO2/FiO2 Ratio 1.99 ABG HCO3 25.4 ABG O2 Saturation 99.5 ABG O2 Content 14.0 L ABG Base Excess 2.4 A-a Gradient 481.3 Oxyhemoglobin 98.9 Carboxyhemoglobin 0.7 Reduced Hemoglobin 0.2 Total Hemoglobin 9.7 L O2 Delivery Device Non-rebreather mask O2 Liters/Min 15.0 FiO2 100 <Chaz Roldan MD - Last Filed: 12/28/24 17:44> Imaging Data Radiologist's impression: ITS Impressions Chest X-Ray 12/28/24 15:31 IMPRESSION: Cardiomegaly with cardiac decompensation and pulmonary edema. Pneumonia is not excluded. A right pleural effusion. Venous Doppler Study 12/28/24 15:55 IMPRESSION: Negative left and right upper extremity venous US. No deep vein thrombosis. <Kelsi Jamil PA-C - Last Filed: 12/28/24 17:07> ECG Data EKG #1: ECG completion date: 12/28/24 <Kelsi Jamil PA-C - Last Filed: 12/28/24 17:07> EKG Interpretation: tachycardia, sinus rhythm, prolonged QT and other (T wave inversions laterally) <Kelsi Jamil PA-C - Last Filed: 12/28/24 17:07> Critical Care Time Critical Care Time Critical Care Time: Yes <Kelsi Jamil PA-C - Last Filed: 12/28/24 17:07> Yes <Chaz Roldan MD - Last Filed: 12/28/24 17:44> Total Critical Care Time: 35 <Kelsi Jamil PA-C - Last Filed: 12/28/24 17:07> 35 <Chaz Roldan MD - Last Filed: 12/28/24 17:44> Discharge Plan Discharge Clinical Impression: Acute hypoxemic respiratory failure, Prolonged QT interval, Gastrostomy tube dysfunction Community acquired pneumonia Qualifiers: Laterality: unspecified laterality Qualified Code(s): J18.9 - Pneumonia, unspecified organism CHF exacerbation Qualifiers: Heart failure type: unspecified Qualified Code(s): I50.9 - Heart failure, unspecified <Kelsi Jamil PA-C - Last Filed: 12/28/24 17:07> Patient Disposition: Still a Patient <Kelsi Jamil PA-C - Last Filed: 12/28/24 17:07> Condition: Serious <MARIELLE Burger Last Filed: 12/28/24 17:07>
[2024-12-28] MEDS: IPRATROPIUM 0.5 MG/ALBUTEROL SULFATE 2.5 MG AMPUL.NEB 3 ML INHALATION (14:47)
[2024-12-28 14:55] LABS: Basophils Percent Auto 0.2 % (0.2-1.2); Eosinophils Percent Auto 0.2 % (0-4.4); Hematocrit 28.7 % (42.0-52.0); Hemoglobin 8.7 g/dL (14.0-18.0); Immature Granulocyte Absolute 0.04 K/mm3 (0.00-0.031); Immature Granulocyte Percent A 0.6 % (0-0.5); Lymphocytes Absolute Auto 1.03 K/mm3 (0.9-3.2); Lymphocytes Percent Auto 16.2 % (18.3-44.2); Mean Corpuscular HGB Conc 30.3 g/dl (32-36); Mean Corpuscular Hemoglobin 32.1 pg (26-34); Mean Corpuscular Volume 105.9 fl (80-100); Mean Platelet Volume 10.4 fl (7.4-10.4); Monocytes Absolute Auto 0.7 K/mm3 (0.1-0.6); Monocytes Percent Auto 10.7 % (2.6-8.5); Neutrophils Absolute Auto 4.6 K/mm3 (1.3-6.7); Neutrophils Percent Auto 72.1 % (45.5-73.1); Nucleated Red Blood Cells Perc 0.9 % (0.0-0.2); Platelet Count Result 281 k/mm3 (150-375); Red Blood Count 2.71 M/mm3 (4.6-6.20); White Blood Count 6.4 K/mm3 (4.5-10.0)
[2024-12-28] MEDS: methylPREDNISolone SOD SUCC 125 MG VIAL IV PUSH (14:59)
[2024-12-28 15:07] LABS: Lactic Acid Reflex 2.4 mmol/L (0.7-2.0)
[2024-12-28 15:09] LABS: Alanine Aminotransferase 29 U/L (6-50); Albumin Level 3.8 g/dL (3.5-5.1); Alkaline Phosphatase 89 U/L (38-126); Anion Gap 9 mmol/L (4-12); Aspartate Amino Transferase 48 U/L (17-59); Bilirubin,Total 0.5 mg/dL (0.2-1.3); Blood Urea Nitrogen 25 mg/dL (9-20); CRP 1.9 mg/dL (<1.0); Calcium 8.8 mg/dL (8.4-10.2); Carbon Dioxide 31 mmol/L (22-30); Chloride 104 mmol/L (98-107); Estimated CRCL calculation 109 ml/min; Estimated Glomerular Filt Rate > 60; Glucose 109 mg/dL (65-110); Potassium 4.1 mmol/L (3.4-5.0); Sodium 144 mmol/L (137-145)
[2024-12-28 15:09] LABS: Alveolar/Arterial O2 Gradient 481.3 mmHg; Base Excess ABG 2.4 mEq/l (+/-2.0); Carboxyhemoglobin 0.7 % THb (0-2.0); Fractional Inspired Oxygen 100 %; HCO3 ABG 25.4 mEq/l (22.0-26.0); Methemoglobin ABG 0.2 %THb (0-1.5); Oxygen Saturation ABG 99.5 % (95.0-100.0); Oxyhemoglobin 98.9 % THb (90.0-100.0); PCO2 ABG 33.1 mmHg (35.0-45.0); PO2 ABG 198.6 mmHg (80.0-100.0); PO2 FiO2 Ratio Arterial Blood 1.99 %; Reduced Hemoglobin 0.2 %THb (0-5.0); Total Hemoglobin 9.7 g/dL (12.0-18.0)
[2024-12-28 15:12] LABS: Device NON-REBREATHER MASK; Modified Allen's Test Pass; Site Drawn LEFT RADIAL; pH ABG 7.503 (7.350-7.450)
[2024-12-28 15:15] LABS: NT Pro B Type Natriuretic Pept > 30000 pg/mL (19.9-100)
[2024-12-28 15:16] LABS: INR 1.1
[2024-12-28 15:17] LABS: Partial Thromboplastin Time 32.5 Seconds (22.3-36.8)
[2024-12-28 15:26] LABS: Add Urine Microscopic? YES; Appearance Urine Clear (Clear); Bacteria Urine None Seen /hpf; Bilirubin Urine Negative (Negative); Blood Urine Negative (Negative); Color Urine Dark Yellow (Yellow); Glucose Urine UA Negative (Negative); Ketones Urine Trace mg/dL (Negative); Leukocyte Esterase Ur 1+ LEU/UL (Negative); Mucus Urine Present /lpf; Need Manual Microscopic Reviewed; Nitrate Urine Negative (Negative); Non Pathogenic Casts 0-2; Protein Urine 2+ mg/dL (Negative); Specific Grav Ur 1.029 (1.001-1.035); Squamous Epithelial Cell Urine None Seen /hpf (Few); pH Urine 5.5 (5.0-9.0)
[2024-12-28 15:31] LABS: Influenza A QL RT-PCR Negative (Negative); Influenza B QL RT-PCR Negative (Negative); RSV RNA, RT-PCR Negative (Negative); SARS-CoV-2 RNA PCR Negative (Negative)
--- NOTE | 2024-12-28 15:35 | PC.NURSE ---
Unable to flush G-tube. [facility] aware.
--- NOTE | 2024-12-28 15:39 | PC.NURSE ---
Blood cultures drawn by ERP.
[2024-12-28] MEDS: FUROSEMIDE INJ 40 MG/4 ML VIAL IV PUSH ×2 (15:40→21:11)
[2024-12-28] MEDS: AZITHROMYCIN 500 MG/NS 250 ML 500 MG/250 ML BAG 250 MG IVPB (15:41)
[2024-12-28] MEDS: ACETAMINOPHEN 650 MG SUPPOSITORY RECTAL (15:41)
[2024-12-28 16:05] LABS: Anisocytosis 1+; Hypochromasia 1+; Platelet Estimate Adequate (Adequate); Polychromasia 1+; Schistocytes None Seen; Target Cells 1+
--- NOTE | 2024-12-28 16:42 | P.HP_ITS ---
H&P: HPI History of Present Illness Date/Time: 12/28/24 16:42 Chief Complaint: Shortness of breath Narrative: 59-year-old male past medical history of CHF, epilepsy, schizophrenia, GERD, nonverbal and G-tube presents with shortness of breath. HPI is limited as patient history shelter and nonverbal. HPI gathered from chart. Patient was having shortness of breath at the shelter and issues with this G-tube severe unable to give him his medications. His lab work in the emergency room shows anemia at 8.7, ABG with pH of 7.503, pCO2 of 33.1, PO2 of 198, on 100% non-rebreather. BUN is 25, creatinine is 0.05, lactic acid is 2.4, C-reactive protein is 1.9[place] [address], UA shows trace ketones 1+ leukocyte esterase. Influenza A/B RSV and COVID negative. Chest x-ray shows cardiomegaly with cardiac decompensation pulmonary edema. Due to severe pulmonary edema it cannot tell if there is underlying pneumonia. Upper extremities are negative for DVT. EKG in the ED shows sinus tachycardia ra te of 122, QTC 515. Patient given 40 of IV Lasix, azithromycin, Rocephin, Solu-Medrol and a breathing treatment in the ED. Review of Systems Review of Systems: Patient is nonverbal ROS unobtainable: Yes unobtainable due to medical condition [facility] Past Medical History Medical History (Updated 12/29/24 @ 00:28 by Zaida Steiner, TORI) Idiopathic progressive neuropathy History of CHF (congestive heart failure) History of epilepsy History of schizophrenia History of gastroesophageal reflux (GERD) Family History Family History (Updated 12/28/24 @ 23:25 by Jaqueline Scales RN) Other Unknown family medical history Social History Social History Smoking status: Unknown if ever smoked Alcohol intake: unknown Substance use: unknown Spiritual care concerns: No Meds Home Medications and Allergies Home Medications ?Medication ?Instructions ?Recorded ?Confirmed ?Type bisacodyl 10 mg rectal suppository 10 mg RECTAL DAILY PRN constipation 12/28/24 12/28/24 History chlorpromazine 50 mg tablet 50 mg feeding tube Q8H 12/28/24 12/28/24 History cholecalciferol (vitamin D3) 25 25 mcg feeding tube DAILY 12/28/24 12/28/24 History mcg (1,000 unit) chewable tablet docusate sodium 50 mg/5 mL oral 100 mg feeding tube DAILY 12/28/24 12/28/24 History liquid folic acid 400 mcg tablet 400 mcg feeding tube DAILY 12/28/24 12/28/24 History gabapentin 100 mg capsule 100 mg feeding tube Q8H 12/28/24 12/28/24 History hydroxyzine HCl 10 mg tablet 10 mg feeding tube Q4H PRN dementia 12/28/24 12/28/24 History hydroxyzine HCl 10 mg/5 mL oral 10 mg feeding tube Q4H PRN anxiety 12/28/24 12/28/24 History solution lactulose 10 gram/15 mL oral 20 g feeding tube Q8H PRN 12/28/24 12/28/24 History solution constipation melatonin 5 mg tablet 5 mg feeding tube HS 12/28/24 12/28/24 History olanzapine 2.5 mg tablet 2.5 mg feeding tube BID 12/28/24 12/28/24 History polyethylene glycol 3350 17 gram 17 g feeding tube DAILY 12/28/24 12/28/24 History oral powder packet (Miralax) valproic acid (as sodium salt) 250 750 mg feeding tube BID 12/28/24 12/28/24 History mg/5 mL oral solution Allergies Allergy/AdvReac Type Severity Reaction Status Date / Time No Known Allergies Allergy Verified 12/28/24 14:53 Vital Signs Vital Signs - 24 hr 12/28/24 14:15 12/28/24 15:01 12/28/24 15:02 Temperature 99.8 F H Pulse Rate 120 H 124 H 123 H Respiratory Rate 16 33 H 23 H Blood Pressure 122/82 Pulse Oximetry 100 Oxygen Delivery Non-Rebreather Mask Oxygen Flow Rate 15 12/28/24 15:06 12/28/24 15:08 12/28/24 15:15 Temperature Pulse Rate 127 H 126 H 124 H Respiratory Rate 36 H 27 H 17 Blood Pressure 135/82 135/82 Pulse Oximetry 100 100 Oxygen Delivery Oxygen Flow Rate 12/28/24 15:15 12/28/24 15:16 12/28/24 15:32 Temperature Pulse Rate 127 H 128 H Respiratory Rate 29 H 28 H Blood Pressure 131/93 H Pulse Oximetry 100 100 99 Oxygen Delivery Nasal Cannula Oxygen Flow Rate 4 12/28/24 16:00 12/28/24 16:04 12/28/24 16:38 Temperature Pulse Rate 115 H 114 H Respiratory Rate 32 H 28 H Blood Pressure 115/82 101/75 Pulse Oximetry 100 100 99 Oxygen Delivery Nasal Cannula Oxygen Flow Rate 4 Exam Narrative: General: Chronically ill HEENT: normocephalic, atraumatic. Mucous membranes moist. EOMI, PERRLA, bilateral sclera anicteric, no conjunctival injection. Neck supple without JVD, lymphadenopathy, or bruit. Respiratory: clear to ascultation bilaterally. No rales/rhonic/wheezes. Cardiovascular: Regular rate and rhythm, normal S1-S2 upon ascultation. No murmurs, rubs, or clicks. PMI is nondisplaced, capillary refill less than 3 second. Abdomen: Soft, round, no pulsatile masses, nondistended and nontender. No rebound, no guarding. No CVA tenderness, no hepatosplenomegaly. Bowel sounds present to all four quadrants. No high pitch or tinkling sounds, resonant to percussion. G-tube Extremities: No cyanosis, clubbing, or edema present. Pulses are palpable 2/2. Hands contracted, upper extremity edema +3, right metatarsal amputations, well- healed Neuro: Alert and orientated x 0. PERRLA. Patient does not follow commands Skin: Warm, dry, and intact, without rash, erythema, or lesion. Psych: Flat H&P: Results Labs Labs: Short CBC 12/28/24 Range/Units 14:45 WBC 6.4 (4.5-10.0) K/mm3 Hgb 8.7 L (14.0-18.0) g/dL Hct 28.7 L (42.0-52.0) % Plt Count 281 (150-375) k/mm3 BMP 12/28/24 14:45 Sodium 144 Potassium 4.1 Chloride 104 Carbon Dioxide 31 H BUN 25 H Creatinine 0.50 L Glucose 109 Calcium 8.8 Liver Function 12/28/24 Range/Units 14:45 Total Bilirubin 0.5 (0.2-1.3) mg/dL AST 48 (17-59) U/L ALT 29 (6-50) U/L Alkaline Phosphatase 89 (38-126) U/L Albumin 3.8 (3.5-5.1) g/dL Urine 12/28/24 Range/Units 15:04 Urine Color Dark yellow (Yellow) Urine Appearance Clear (Clear) Urine pH 5.5 (5.0-9.0) Ur Specific Arthur 1.029 (1.001-1.035) Urine Protein 2+ H (Negative) mg/dL Urine Glucose (UA) Negative (Negative) mg/dL Assessment and Plan Assessment and plan (1) CHF exacerbation: Qualifiers: Heart failure type: unspecified Qualified Code(s): I50.9 - Heart failure, unspecified Code(s): I50.9 - Heart failure, unspecified Status: Acute Assessment and Plan: BNP over 30,000 40 IV Lasix given in ED Cardiology consulted Echocardiogram pending (2) Community acquired pneumonia: Qualifiers: Laterality: unspecified laterality Qualified Code(s): J18.9 - Pneumonia, unspecified organism Code(s): J18.9 - Pneumonia, unspecified organism Status: Acute Assessment and Plan: IV Rocephin and azithromycin Schedule breathing treatments Steroids for possible underlying COPD Legionella pneumococcal pending Repeat chest x-ray in a[facility] (3) Acute hypoxemic respiratory failure: Code(s): J96.01 - Acute respiratory failure with hypoxia Status: Acute Assessment and Plan: Secondary to CHF and pneumonia See plan above (4) UTI (urinary tract infection): Code(s): N39.0 - Urinary tract infection, site not specified Status: Acute Assessment and Plan: IV Rocephin Culture and sensitivity pending (5) Sepsis: Code(s): A41.9 - Sepsis, unspecified organism Status: Acute Assessment and Plan: Secondary to pneumonia and UTI No fluid bolus given to severe pulmonary edema IV Rocephin and azithromycin Repeat lactic Unable give fluid bolus, albumin ordered (6) Elevated troponin: Code(s): R79.89 - Other specified abnormal findings of blood chemistry Status: Acute Assessment and Plan: Likely due to hypoxia from sepsis, CHF and pneumonia EKG showing sinus tachycardia Trend troponins Unable do aspirin as patient peg tube is clogged Weight based Lovenox (7) Prolonged QT interval: Code(s): R94.31 - Abnormal electrocardiogram [ECG] [EKG] Status: Acute Assessment and Plan: Avoid QTC prolonging medications Repeat EKG in a.m. (8) Gastrostomy tube dysfunction: Code(s): K94.23 - Gastrostomy malfunction Status: Acute Assessment and Plan: GI consulted pending recommendations Hold home G-tube meds at this time (9) Anemia: Code(s): D64.9 - Anemia, unspecified Status: Acute Assessment and Plan: Anemia workup No signs of acute bleeding (10) Seizures: Code(s): R56.9 - Unspecified convulsions Status: Acute Assessment and Plan: Unable to give home meds at this time IV valproate ordered Quality VTE Prophylaxis VTE prophylaxis: mechanical ordered and pharmacologic ordered Hospitalist MIPS Advance Care Plan I have confirmed that the patient's Advanced Care Plan is present, code status is documented, or surrogate decision maker is listed in patient medical record.: Yes Medication Reconciliation I have utilized all available resources to obtain, update and review the patients current medications (includes all prescriptions, OTC, herbals, cannabis, and nutritional supplements).: Yes
[2024-12-28 16:52] LABS: Reflex Lactic Acid Yes or No Add Lactic
[2024-12-28 20:42] LABS: Glucose Point of Care 110 mg/dl (65-105)
[2024-12-28 23:00] LABS: Lactic Acid 3.3 mmol/L (0.7-2.0)
--- NOTE | 2024-12-28 23:22 | PC.NURSE ---
This patient, Fito King, was admitted to IMU Room 202-01. Patient/family oriented to hospital policies and general routines including ID bracelet, bed and alarms, visiting hours, pain management, procedures, bathroom and other care routines, personal items, smoking policy, room service/diet, and visiting hours. Information on how to activate the Rapid Response Team has been discussed. Patient/Family are encouraged to report perceived risks to care and to ask questions if they do not understand what they are told or what they should do.
[2024-12-28 23:52] LABS: Troponin I 0.054 ng/mL (0.000-0.034)
[2024-12-29] VITALS (27 sets, daily range): BP systolic 83–124; BP diastolic 62–79; PULSE 68–137; RESP 20–33; TEMP 37.2–37.8; O2SAT 89–100
[2024-12-29] MEDS: VALPROATE SODIUM INJ 250 MG in DEXTROSE 5% IN WATER 50 ML 52.5 MG IVPB ×4 (00:54→18:40)
[2024-12-29] MEDS: ENOXAPARIN 60 MG/0.6 ML SYRINGE 57 MG SUB-Q ×2 (00:54→12:13)
[2024-12-29] MEDS: ALBUMIN HUMAN 25% 25 GM/100 ML 100 ML IVPB (01:56)
[2024-12-29] MEDS: IPRATROPIUM 0.5 MG/ALBUTEROL SULFATE 2.5 MG AMPUL.NEB 3 ML INHALATION (02:41)
[2024-12-29 02:49] LABS: Hematocrit 28.6 % (42.0-52.0); Hemoglobin 8.9 g/dL (14.0-18.0); Immature Granulocyte Absolute 0.04 K/mm3 (0.00-0.031); Immature Granulocyte Percent A 0.6 % (0-0.5); Lymphocytes Absolute Auto 0.78 K/mm3 (0.9-3.2); Lymphocytes Percent Auto 11.1 % (18.3-44.2); Mean Corpuscular HGB Conc 31.1 g/dl (32-36); Mean Corpuscular Hemoglobin 32.1 pg (26-34); Mean Corpuscular Volume 103.2 fl (80-100); Mean Platelet Volume 10.7 fl (7.4-10.4); Monocytes Absolute Auto 0.5 K/mm3 (0.1-0.6); Monocytes Percent Auto 6.7 % (2.6-8.5); Neutrophils Absolute Auto 5.8 K/mm3 (1.3-6.7); Neutrophils Percent Auto 81.6 % (45.5-73.1); Nucleated Red Blood Cells Perc 1.3 % (0.0-0.2); Platelet Count Result 300 k/mm3 (150-375); Red Blood Count 2.77 M/mm3 (4.6-6.20)
[2024-12-29] MEDS: ACETAMINOPHEN 650 MG SUPPOSITORY RECTAL (03:02)
[2024-12-29 03:04] LABS: Iron 47 ug/dL (49-181)
[2024-12-29 03:05] LABS: Anion Gap 15 mmol/L (4-12); Blood Urea Nitrogen 32 mg/dL (9-20); Calcium 8.7 mg/dL (8.4-10.2); Carbon Dioxide 24 mmol/L (22-30); Chloride 106 mmol/L (98-107); Estimated CRCL calculation 91 ml/min; Estimated Glomerular Filt Rate > 60; Glucose 129 mg/dL (65-110); Potassium 4.2 mmol/L (3.4-5.0); Sodium 145 mmol/L (137-145)
[2024-12-29 03:12] LABS: Troponin I 0.059 ng/mL (0.000-0.034)
[2024-12-29 03:16] LABS: Percent Iron Saturation 17 % (20-50)
[2024-12-29 04:12] LABS: Folic Acid 15.1 ng/mL (2.76->20)
--- NOTE | 2024-12-29 04:53 | ECG_ITS ---
Test Date: 2024-12-29 05:06:14 Measurements Intervals [place] Rate: 124 P: 18 PA: 123 QRS: -64 QRSD: 137 T: 79 QT: 348 QTc: 500 Interpretive Statements SINUS TACHYCARDIA RIGHT BUNDLE BRANCH BLOCK INFERIOR INFARCT, OLD ST-T WAVE ABNORMALITY, CONSIDER LATERAL ISCHEMIA WARNING: DATA QUALITY MAY AFFECT INTERPRETATION Compared to ECG 12/28/2024 14:26:13 NO SIGNIFICANT CHANGES Electronically Signed On 12-30-2024 14:16:35 CDT by Edilia Sam M.D.
[2024-12-29] MEDS: SODIUM CHLORIDE 0.9% IV 1,000 ML 999 ML IV CONT (05:05)
[2024-12-29 06:04] LABS: Troponin I 0.068 ng/mL (0.000-0.034)
--- NOTE | 2024-12-29 07:34 | P.PNCROSS_ITS ---
Event Note Event Note Event Note: Nursing staff called because the patient was tachycardic and tachypneic. Patie nt does bilateral upper extremity edema right greater than left. Right upper extremity venous Doppler was negative for DVT. At the time of my evaluation the patient does not move is upper extremities at all in seemed to have some contractures. Mobility for the patient is unknown. Patient does not have any lower extremity edema or edema in the thighs or buttocks or other dependent areas. The patient does have some JVD. ABG earlier in the hospital stay demonstrated respiratory alkalosis. Patient is tachypneic but does not have any labored respirations. He does have a frequent cough. He has been febrile. The patient had been started on empiric antibiotic therapy on admission with Rocephin and azithromycin. Unfortunately the patient also has QT prolongation. Subsequently of stopped the azithromycin in will change the patient's antibiotic therapy to Rocephin,Flagyl and doxycycline. Flagyl is added to cover for possible aspiration given patient is at high risk. Will check MRSA PCR Echocardiogram has already been ordered for a.m. to evaluate cardiac structure and function and cardiology consult has been placed. The patient is having malfunction of his J-tube but his G-tube is still intact. Will reorder some of the patient's home medications that can be administered through the G-tube. However will discontinue hydroxyzine and Thorazine altogether due to patient's QT prolongation. The patient did have lactic acidosis and has had low urine output. I initially ordered a 1.5 L fluid bolus on the patient but after [id number] evaluation I discontinued bolus and instead ordered to fluids ago at 100 mL an hour and so closely monitor the patient's status. Although the patient does have JVD on exam he has febrile in meets criteria for sepsis. I suspect some of the prominence of his jugular veins is due to cachexia and body habitus. As the patient has not been receiving his tube feeds due to J-tube obstruction and I am suspicious he may be be intervascular volume depleted. Will give the 1.5 L with close monitoring. Will stop fluid resuscitation if developing increasing respiratory distress. Will monitor urine output closely. Above component of the patient's respiratory status is due to the fact that he cannot clear his secretions or have affective cough. Vest therapy was ordered. His ABG is consistent with a combination of acute on chronic respiratory alkalosis. Sepsis with pneumonia with high risk for aspiration pneumonia Acute on chronic respiratory alkalosis Acute hypoxic respiratory failure QT prolongation JVD Peripheral vascular disease Schizophrenia with tardive dyskinesia I would not be surprised if the patient's condition gets worse before it gets better. Will transition care to the daytime hospitalist update as to overnight events has been provided. 45 minute spent in critical care activities. Due to a high probability of clinically significant, life threatening deterioration, the patient required my highest level of preparedness to intervene emergently and I personally spent this critical care time directly and personally managing the patient. This critical care time included obtaining a history; examining the patient; pulse oximetry; ordering and review of studies; arranging urgent treatment with development of a management plan; evaluation of patient's response to treatment; frequent reassessment; and discussions with other providers. It was exclusive of separately billable procedures and treating other patients and teaching time. Please see Assessment and Plan section and the rest of the note for further information on patient assessment and treatment.
[2024-12-29 10:33] LABS: MRSA (PCR) NOT DETECTED (NOT DETECTE)
[2024-12-29] MEDS: PERFLUTREN LIPID MICROSPHERES 1.5 ML VIAL DILUTED TO 10 ML TOTAL VOLUME IV PUSH (10:40)
[2024-12-29 10:53] LABS: Hematocrit 27.8 % (42.0-52.0); Hemoglobin 8.1 g/dL (14.0-18.0); Mean Corpuscular HGB Conc 29.1 g/dl (32-36); Mean Corpuscular Hemoglobin 31.4 pg (26-34); Mean Corpuscular Volume 107.8 fl (80-100); Mean Platelet Volume 11.4 fl (7.4-10.4); Platelet Count Result 288 k/mm3 (150-375); Red Blood Count 2.58 M/mm3 (4.6-6.20); Red Cell Distribution Width 15.3 % (11.5-14.5)
[2024-12-29 11:17] LABS: Anion Gap 19 mmol/L (4-12); Blood Urea Nitrogen 39 mg/dL (9-20); Calcium 8.5 mg/dL (8.4-10.2); Carbon Dioxide 19 mmol/L (22-30); Chloride 107 mmol/L (98-107); Estimated CRCL calculation 66 ml/min; Estimated Glomerular Filt Rate > 60; Glucose 110 mg/dL (65-110); Potassium 4.2 mmol/L (3.4-5.0); Sodium 145 mmol/L (137-145)
[2024-12-29] MEDS: metroNIDAZOLE 500 MG/ISO 100ML 500 MG/100 ML BAG 100 MG IVPB ×2 (11:32→17:56)
[2024-12-29] MEDS: DOXYCYCLINE 100 MG/NS 100 ML 100 MG/100 ML BAG IVPB ×2 (11:36→21:02)
[2024-12-29] MEDS: SODIUM CHLORIDE 0.9% IV 800 ML 150 ML IV CONT (11:44)
[2024-12-29 11:48] LABS: Procalcitonin 0.3 ng/mL
--- NOTE | 2024-12-29 11:50 | ECG_ITS ---
Test Date: 2024-12-29 12:00:53 Measurements Intervals [place] Rate: 131 P: 1 HI: 74 QRS: -65 QRSD: 142 T: 101 QT: 340 QTc: 502 Interpretive Statements SINUS TACHYCARDIA WITH SHORT HI INTERVAL RIGHT BUNDLE BRANCH BLOCK INFERIOR INFARCT, OLD ST-T WAVE ABNORMALITY, CONSIDER LATERAL ISCHEMIA Compared to ECG 12/29/2024 05:06:14 NO SIGNIFICANT CHANGES Electronically Signed On 12-30-2024 14:37:57 CDT by Edilia Sam M.D.
--- NOTE | 2024-12-29 12:40 | P.CONCA_ITS ---
Assessment and Plan Assessment and plan (1) CHF exacerbation: Qualifiers: Heart failure type: unspecified Qualified Code(s): I50.9 - Heart failure, unspecified Code(s): I50.9 - Heart failure, unspecified Status: Acute Plan 59-year-old man with schizophrenia, seizures, heart failure with unknown systolic function, who is nonverbal with a G-tube transfer from shelter due to respiratory distress Acute hypoxic respiratory failure -likely multifactorial -antibiotic and diuretic regiment Acute decompensated systolic heart failure -unknown whether this is newly reduced systolic dysfunction -will treat with Lasix 40 mg IV b.i.d. -given lack of lower extremity swelling and unilateral upper extremity swelling, would recommend CTA neck,chest,abdomen for evidence of compression syndrome -once patient is more stable from respiratory standpoint, we will introduce guideline directed medical therapy -overall prognosis is poor Pneumonia -continue antibiotic therapy History of Present Illness History of Present Illness Consult date/time: 12/29/24 12:40 Requesting physician: Zaida Steiner APRN Consult reason: shortness of breath Reason For Visit: Sepsis.Pneumonia.CHF Exacerbation Narrative: 59-year-old man with schizophrenia, seizures, heart failure with unknown systolic function, who is nonverbal with a G-tube transfer from shelter due to respiratory distress. Given his medical condition, limited subjective history was obtainable and all subjective history was obtained through chart review Review of Systems 2 Review of Systems: ROS unobtainable: Yes unobtainable due to medical condition PMFSH Past Medical History Medical History (Updated 12/29/24 @ 07:22 by Linda Mayorga DO) History of jejunostomy tube placement Idiopathic progressive neuropathy History of CHF (congestive heart failure) History of epilepsy History of schizophrenia History of gastroesophageal reflux (GERD) Surgical History Surgical History (Updated 12/29/24 @ 07:22 by Linda Mayorga DO) Status post insertion of percutaneous endoscopic gastrostomy (PEG) tube Family History Family History (Updated 12/28/24 @ 23:25 by Jaqueline Scales RN) Other Unknown family medical history Social History Social History Smoking status: Unknown if ever smoked Alcohol intake: unknown Substance use: unknown Spiritual care concerns: No Meds Home Medications and Allergies Home Medications ?Medication ?Instructions ?Recorded ?Confirmed ?Type bisacodyl 10 mg rectal suppository 10 mg RECTAL DAILY PRN constipation 12/28/24 12/28/24 History chlorpromazine 50 mg tablet 50 mg feeding tube Q8H 12/28/24 12/28/24 History cholecalciferol (vitamin D3) 25 25 mcg feeding tube DAILY 12/28/24 12/28/24 History mcg (1,000 unit) chewable tablet docusate sodium 50 mg/5 mL oral 100 mg feeding tube DAILY 12/28/24 12/28/24 History liquid folic acid 400 mcg tablet 400 mcg feeding tube DAILY 12/28/24 12/28/24 History gabapentin 100 mg capsule 100 mg feeding tube Q8H 12/28/24 12/28/24 History hydroxyzine HCl 10 mg tablet 10 mg feeding tube Q4H PRN dementia 12/28/24 12/28/24 History hydroxyzine HCl 10 mg/5 mL oral 10 mg feeding tube Q4H PRN anxiety 12/28/24 12/28/24 History solution lactulose 10 gram/15 mL oral 20 g feeding tube Q8H PRN 12/28/24 12/28/24 History solution constipation melatonin 5 mg tablet 5 mg feeding tube HS 12/28/24 12/28/24 History olanzapine 2.5 mg tablet 2.5 mg feeding tube BID 12/28/24 12/28/24 History polyethylene glycol 3350 17 gram 17 g feeding tube DAILY 12/28/24 12/28/24 History oral powder packet (Miralax) valproic acid (as sodium salt) 250 750 mg feeding tube BID 12/28/24 12/28/24 History mg/5 mL oral solution Allergies Allergy/AdvReac Type Severity Reaction Status Date / Time No Known Allergies Allergy Verified 12/28/24 14:53 Vital Signs Vital Signs - 24 hr 12/28/24 14:15 12/28/24 15:01 12/28/24 15:02 Temperature 37.7 C H Pulse Rate 120 H 124 H 123 H Respiratory Rate 16 33 H 23 H Blood Pressure 122/82 Pulse Oximetry 100 Oxygen Delivery Non-Rebreather Mask Oxygen Flow Rate 15 12/28/24 15:06 12/28/24 15:08 12/28/24 15:15 Temperature Pulse Rate 127 H 126 H 124 H Respiratory Rate 36 H 27 H 17 Blood Pressure 135/82 135/82 Pulse Oximetry 100 100 Oxygen Delivery Oxygen Flow Rate 12/28/24 15:15 12/28/24 15:16 12/28/24 15:32 Temperature Pulse Rate 127 H 128 H Respiratory Rate 29 H 28 H Blood Pressure 131/93 H Pulse Oximetry 100 100 99 Oxygen Delivery Nasal Cannula Oxygen Flow Rate 4 12/28/24 16:00 12/28/24 16:04 12/28/24 16:38 Temperature Pulse Rate 115 H 114 H Respiratory Rate 32 H 28 H Blood Pressure 115/82 101/75 Pulse Oximetry 100 100 99 Oxygen Delivery Nasal Cannula Oxygen Flow Rate 4 12/28/24 18:44 12/28/24 19:00 12/28/24 20:00 Temperature 36.1 C L Pulse Rate 112 H 108 H Respiratory Rate 28 H 24 H Blood Pressure 121/80 118/65 Pulse Oximetry 100 99 100 Oxygen Delivery Nasal Cannula Oxygen Flow Rate 4 12/28/24 20:00 12/28/24 20:35 12/28/24 22:00 Temperature Pulse Rate 111 H 110 H Respiratory Rate Blood Pressure Pulse Oximetry 98 Oxygen Delivery Nasal Cannula Oxygen Flow Rate 4 12/28/24 23:11 12/29/24 00:00 12/29/24 00:00 Temperature 37.4 C Pulse Rate 117 H 117 H Respiratory Rate 26 H Blood Pressure 126/73 Pulse Oximetry 100 95 Oxygen Delivery Nasal Cannula Oxygen Flow Rate 3 12/29/24 00:31 12/29/24 02:00 12/29/24 02:38 Temperature 37.8 C H 37.7 C H Pulse Rate 122 H 125 H 126 H Respiratory Rate 26 H 28 H Blood Pressure 124/79 Pulse Oximetry 92 Oxygen Delivery Oxygen Flow Rate 12/29/24 02:40 12/29/24 02:55 12/29/24 03:26 Temperature 37.6 C H Pulse Rate 128 H 128 H 125 H Respiratory Rate 33 H 33 H 28 H Blood Pressure 109/68 Pulse Oximetry 96 Oxygen Delivery Oxygen Flow Rate 12/29/24 04:00 12/29/24 04:00 12/29/24 06:00 Temperature Pulse Rate 125 H 123 H Respiratory Rate Blood Pressure Pulse Oximetry 96 Oxygen Delivery Nasal Cannula Oxygen Flow Rate 4 12/29/24 07:47 12/29/24 08:00 12/29/24 09:51 Temperature 37.2 C Pulse Rate 124 H Respiratory Rate 22 H Blood Pressure 112/72 Pulse Oximetry 94 92 99 Oxygen Delivery Nasal Cannula Nasal Cannula Oxygen Flow Rate 4 4 12/29/24 09:59 12/29/24 11:29 12/29/24 12:00 Temperature 37.7 C H Pulse Rate 130 H Respiratory Rate 32 H Blood Pressure 121/74 Pulse Oximetry 89 L 93 94 Oxygen Delivery Nasal Cannula Nasal Cannula Oxygen Flow Rate 3 4 Exam 2 Const: Other: Ill appearing HENMT: Mouth: Yes moist mucous membranes Eyes: EOM: EOMs intact bilaterally Neck: Neck: no JVD Resp: Auscultation: rales Cardio: Rate: tachycardic Rhythm: regular rhythm GI: GI Palp: Yes Soft to palpation Extrem: Other: Right upper extremity swelling. Results Labs and Meds 12/29/24 05:12 12/29/24 10:56 Lab results: Cardiac Enzymes 12/28/24 12/28/24 12/29/24 Range/Units 14:45 23:16 02:30 AST 48 (17-59) U/L Troponin I 0.054 H* 0.059 H* (0.000-0.034) ng/mL 12/29/24 Range/Units 05:12 AST (17-59) U/L Troponin I 0.068 H* (0.000-0.034) ng/mL Coagulation 12/28/24 Range/Units 14:45 PT 15.0 H (11.1-14.7) Seconds APTT 32.5 (22.3-36.8) Seconds CBC 12/28/24 12/29/24 12/29/24 Range/Units 14:45 02:30 05:12 WBC 6.4 7.0 7.0 (4.5-10.0) K/mm3 RBC 2.71 L 2.77 L 2.58 L (4.6-6.20) M/mm3 Hgb 8.7 L 8.9 L 8.1 L (14.0-18.0) g/dL Hct 28.7 L 28.6 L 27.8 L (42.0-52.0) % Plt Count 281 300 288 (150-375) k/mm3 Lymph # (Auto) 1.03 0.78 L (0.9-3.2) K/mm3 Smith # (Auto) 0.7 H 0.5 (0.1-0.6) K/mm3 Eos # (Auto) 0.0 0.0 (0-0.3) K/mm3 Baso # (Auto) 0.0 0.0 (0.0-0.1) K/mm3 Comprehensive Metabolic Panel 12/28/24 12/29/24 12/29/24 Range/Units 14:45 02:30 10:56 Sodium 144 145 145 (137-145) mmol/L Potassium 4.1 4.2 4.2 (3.4-5.0) mmol/L Chloride 104 106 107 (98-107) mmol/L Carbon Dioxide 31 H 24 19 L (22-30) mmol/L BUN 25 H 32 H 39 H (9-20) mg/dL Creatinine 0.50 L 0.59 L 0.82 (0.7-1.3) mg/dL Glucose 109 129 H 110 (65-110) mg/dL Calcium 8.8 8.7 8.5 (8.4-10.2) mg/dL AST 48 (17-59) U/L ALT 29 (6-50) U/L Alkaline Phosphatase 89 (38-126) U/L Total Protein 8.0 (6.3-8.2) g/dL Albumin 3.8 (3.5-5.1) g/dL Intake and Output 12/28/24 12/29/24 12/29/24 23:59 07:59 15:59 Intake Total 250 518.7 586.3 Output Total 350 Balance 250 168.7 586.3 Intake: IV 250 518.7 586.3 Sodium Chloride 0.9% IV 1,000 466.2 533.8 ml @ 999 mls/hr IV CONT .Q1H1M STA Rx#:[id number] Azithromycin 500 mg/Ns 250 ml 250 500 mg In 250 ml @ 250 mls/hr IVPB ONCE STA Rx#:[id number] Valproate Sodium Inj 250 mg In 52.5 52.5 Dextrose 5% in Water 50 ml @ 52 .5 mls/hr IVPB Q6H DANI Rx#: [id number] Oral 0 Output: Catheter Urine 350 Urethral Catheter 350 Other: Number of Bowel Movements Today 1 Patient Weight 12/29/24 23:59 Weight 56.5 kg
--- NOTE | 2024-12-29 12:43 | IVDEFINITY ---
Prior to administration of IV Definity the patient was educated on the risks and benefits of the imaging enhancing agent including potential adverse side effects. The patient verbalized understanding. Allergies were verified. No exclusion criteria were identified and at least one of the following inclusion criteria were met: 1) physician request, 2) patient technically difficult to image (per the [place] [employer] guidelines of two or more segments not discernable within the apical view), or 3) questionable left ventricular function. ?
[2024-12-29 13:05] LABS: Reflex Lactic Acid Yes or No Add Lactic
--- NOTE | 2024-12-29 13:50 | P.PNIM_ITS ---
Progress Note: A&P Assessment and Plan (1) CHF exacerbation: Qualifiers: Heart failure type: unspecified Qualified Code(s): I50.9 - Heart failure, unspecified Code(s): I50.9 - Heart failure, unspecified Status: Acute Assessment and Plan: BNP over 30,000 40 IV Lasix given in ED Echocardiogram pending cardiology following (2) Community acquired pneumonia: Qualifiers: Laterality: unspecified laterality Qualified Code(s): J18.9 - Pneumonia, unspecified organism Code(s): J18.9 - Pneumonia, unspecified organism Status: Acute Assessment and Plan: IV Rocephin and azithromycin Schedule breathing treatments monitor (3) Acute hypoxemic respiratory failure: Code(s): J96.01 - Acute respiratory failure with hypoxia Status: Acute Assessment and Plan: Secondary to CHF and pneumonia See plan above (4) UTI (urinary tract infection): Code(s): N39.0 - Urinary tract infection, site not specified Status: Acute Assessment and Plan: IV Rocephin Culture and sensitivity pending (5) Sepsis: Code(s): A41.9 - Sepsis, unspecified organism Status: Acute Assessment and Plan: Secondary to pneumonia and UTI No fluid bolus given to severe pulmonary edema IV Rocephin and azithromycin Repeat lactic Unable give fluid bolus, albumin ordered (6) Elevated troponin: Code(s): R79.89 - Other specified abnormal findings of blood chemistry Status: Acute Assessment and Plan: Likely due to hypoxia from sepsis, CHF and pneumonia EKG showing sinus tachycardia with short LA Trend troponins Unable do aspirin as patient peg tube is clogged Weight based Lovenox cardiology following (7) Prolonged QT interval: Code(s): R94.31 - Abnormal electrocardiogram [ECG] [EKG] Status: Acute Assessment and Plan: Avoid QTC prolonging medications Repeat EKG in a.m. (8) Gastrostomy tube dysfunction: Code(s): K94.23 - Gastrostomy malfunction Status: Acute Assessment and Plan: Gi consulted restart tube feeds once repositioned (9) Anemia: Code(s): D64.9 - Anemia, unspecified Status: Acute Assessment and Plan: Anemia workup No signs of acute bleeding (10) Seizures: Code(s): R56.9 - Unspecified convulsions Status: Acute Assessment and Plan: Unable to give home meds at this time IV valproate Plan Sepsis with tachycardia lactic acid elevated, EKG showed short LA continue IVF, repeat Lactic acid CTA chest ordered Continue Abx Cardiology following monitor cosely DVT prophylaxis on Sq Lovenox Subjective Date/time seen: 12/29/24 13:50 Interval history: Comfortable at bedside Review of Systems Review of Systems: Patient is nonverbal ROS unobtainable: Yes unobtainable due to medical condition Exam Narrative: General: Chronically ill HEENT: normocephalic, atraumatic. Mucous membranes moist. EOMI, PERRLA, bilateral sclera anicteric, no conjunctival injection. Neck supple without JVD, lymphadenopathy, or bruit. Respiratory: clear to ascultation bilaterally. No rales/rhonic/wheezes. Cardiovascular: Regular rate and rhythm, normal S1-S2 upon ascultation. No murmurs, rubs, or clicks. PMI is nondisplaced, capillary refill less than 3 second. Abdomen: Soft, round, no pulsatile masses, nondistended and nontender. No rebound, no guarding. No CVA tenderness, no hepatosplenomegaly. Bowel sounds p resent to all four quadrants. No high pitch or tinkling sounds, resonant to percussion. G-tube Extremities: No cyanosis, clubbing, or edema present. Pulses are palpable 2/2. Hands contracted, upper extremity edema +3, right metatarsal amputations, well- healed Neuro: Alert and orientated x 0. PERRLA. Patient does not follow commands Skin: Warm, dry, and intact, without rash, erythema, or lesion. Psych: Flat Objective Data Vital Signs Vital Signs: Vital Signs - 24 hr 12/28/24 14:15 12/28/24 15:01 12/28/24 15:02 Temperature 99.8 F H Pulse Rate 120 H 124 H 123 H Respiratory Rate 16 33 H 23 H Blood Pressure 122/82 Pulse Oximetry 100 Oxygen Delivery Non-Rebreather Mask Oxygen Flow Rate 15 12/28/24 15:06 12/28/24 15:08 12/28/24 15:15 Temperature Pulse Rate 127 H 126 H 124 H Respiratory Rate 36 H 27 H 17 Blood Pressure 135/82 135/82 Pulse Oximetry 100 100 Oxygen Delivery Oxygen Flow Rate 12/28/24 15:15 12/28/24 15:16 12/28/24 15:32 Temperature Pulse Rate 127 H 128 H Respiratory Rate 29 H 28 H Blood Pressure 131/93 H Pulse Oximetry 100 100 99 Oxygen Delivery Nasal Cannula Oxygen Flow Rate 4 12/28/24 16:00 12/28/24 16:04 12/28/24 16:38 Temperature Pulse Rate 115 H 114 H Respiratory Rate 32 H 28 H Blood Pressure 115/82 101/75 Pulse Oximetry 100 100 99 Oxygen Delivery Nasal Cannula Oxygen Flow Rate 4 12/28/24 18:44 12/28/24 19:00 12/28/24 20:00 Temperature 97.0 F L Pulse Rate 112 H 108 H Respiratory Rate 28 H 24 H Blood Pressure 121/80 118/65 Pulse Oximetry 100 99 100 Oxygen Delivery Nasal Cannula Oxygen Flow Rate 4 12/28/24 20:00 12/28/24 20:35 12/28/24 22:00 Temperature Pulse Rate 111 H 110 H Respiratory Rate Blood Pressure Pulse Oximetry 98 Oxygen Delivery Nasal Cannula Oxygen Flow Rate 4 12/28/24 23:11 12/29/24 00:00 12/29/24 00:00 Temperature 99.3 F Pulse Rate 117 H 117 H Respiratory Rate 26 H Blood Pressure 126/73 Pulse Oximetry 100 95 Oxygen Delivery Nasal Cannula Oxygen Flow Rate 3 12/29/24 00:31 12/29/24 02:00 12/29/24 02:38 Temperature 100.1 F H 99.9 F H Pulse Rate 122 H 125 H 126 H Respiratory Rate 26 H 28 H Blood Pressure 124/79 Pulse Oximetry 92 Oxygen Delivery Oxygen Flow Rate 12/29/24 02:40 12/29/24 02:55 12/29/24 03:26 Temperature 99.7 F H Pulse Rate 128 H 128 H 125 H Respiratory Rate 33 H 33 H 28 H Blood Pressure 109/68 Pulse Oximetry 96 Oxygen Delivery Oxygen Flow Rate 12/29/24 04:00 12/29/24 04:00 12/29/24 06:00 Temperature Pulse Rate 125 H 123 H Respiratory Rate Blood Pressure Pulse Oximetry 96 Oxygen Delivery Nasal Cannula Oxygen Flow Rate 4 12/29/24 07:47 12/29/24 08:00 12/29/24 08:00 Temperature 98.9 F Pulse Rate 124 H 127 H Respiratory Rate 22 H Blood Pressure 112/72 Pulse Oximetry 94 92 Oxygen Delivery Nasal Cannula Oxygen Flow Rate 4 12/29/24 09:51 12/29/24 09:59 12/29/24 10:00 Temperature Pulse Rate 130 H Respiratory Rate Blood Pressure Pulse Oximetry 99 89 L Oxygen Delivery Nasal Cannula Nasal Cannula Oxygen Flow Rate 4 3 12/29/24 11:29 12/29/24 12:00 12/29/24 12:00 Temperature 99.9 F H Pulse Rate 130 H 132 H Respiratory Rate 32 H Blood Pressure 121/74 Pulse Oximetry 93 94 Oxygen Delivery Nasal Cannula Oxygen Flow Rate 4 Intake/Output Intake/Output: Intake & Output 12/26/24 12/27/24 12/28/24 12/29/24 23:59 23:59 23:59 23:59 Intake Total 300 1205.0 Output Total 350 Balance 300 855.0 Meds/Results Medications: Active Medications Generic Name Dose Route Start Last Admin Trade Name Freq PRN Reason Stop Dose Admin Albuterol/Ipratropium 3 ml 12/28/24 21:13 12/29/24 02:41 Ipratropium 0.5 Mg/Albuterol Sulfate 2.5 Mg Ampul.Neb 3 Ml INHALATION 3 ml Q6HRT PRN Administration Shortness Of Breath Or Wheezing Bisacodyl 10 mg 12/29/24 00:17 Bisacodyl 10 Mg Suppository RECTAL DAILY PRN constipation Docusate Sodium 100 mg 12/29/24 09:00 12/29/24 09:14 Docusate Sodium Liq 100 Mg/10 Ml Udc FEED TUBE Not Given DAILY [facility] Enoxaparin Sodium 57 mg 12/29/24 00:35 12/29/24 12:13 Enoxaparin 60 Mg/0.6 Ml Syringe SUB-Q 57 mg Q12HR DANI Administration Furosemide 40 mg 12/29/24 17:00 Furosemide Inj 40 Mg/4 Ml Vial IV PUSH BID [facility] Gabapentin 100 mg 12/29/24 06:00 12/29/24 13:23 Gabapentin 100 Mg Capsule FEED TUBE Not Given Q8HR DANI Ceftriaxone Sodium 1 gm in 50 mls @ 100 mls/hr 12/29/24 09:00 12/29/24 11:33 Rocephin 1 Gm/Ns 50 Ml IVPB 100 mls/hr Q24H DANI Administration Valproate Sodium 250 mg/ 52.5 mls @ 52.5 mls/hr 12/29/24 07:00 12/29/24 11:43 Dextrose IVPB Infused Q6H DANI Infusion Metronidazole 500 mg in 100 mls @ 100 mls/hr 12/29/24 07:25 12/29/24 13:23 Flagyl 500 Mg/Iso Soln 100 Ml IVPB Infused Q6HR DANI Infusion Doxycycline Hyclate 100 mg in 100 mls @ 100 mls/hr 12/29/24 22:00 Vibramycin 100 Mg/Ns 100 Ml IVPB Q12H [facility] Melatonin 5 mg 12/29/24 21:00 Melatonin 5 Mg Tablet FEED TUBE HS [facility] Olanzapine 2.5 mg 12/29/24 09:00 12/29/24 09:14 Olanzapine 2.5 Mg Tablet FEED TUBE Not Given BID [facility] Polyethylene Glycol 17 gm 12/29/24 09:00 12/29/24 09:14 Polyethylene Glycol 3350 17 Gm Powd.Pack FEED TUBE Not Given DAILY [facility] Prednisone 40 mg 12/29/24 08:00 12/29/24 09:14 Prednisone 20 Mg Tablet PO 01/03/25 07:59 Not Given DAILY@0800 [facility] Valproate Sodium 750 mg 12/29/24 09:00 Valproic Acid Liq 250 Mg/5 Ml Oral Solution Udc FEED TUBE BID [facility] Radiology Results: ITS Impressions Venous Doppler Study 12/28/24 15:55 IMPRESSION: Negative left and right upper extremity venous US. No deep vein thrombosis. Chest X-Ray 12/29/24 06:37 Impression: Extensive bilateral airspace consolidation could reflect severe pulmonary edema versus diffuse pneumonia. Small right pleural effusion. Labs Labs: Laboratory Results - last 24 hr 12/28/24 12/28/24 12/28/24 14:45 14:45 15:01 WBC 6.4 RBC 2.71 L Hgb 8.7 L Hct 28.7 L MCV 105.9 H MCH 32.1 MCHC 30.3 L RDW 15.0 H Plt Count 281 MPV 10.4 Immature Gran % (Auto) 0.6 H Neut % (Auto) 72.1 Lymph % (Auto) 16.2 L [place] % (Auto) 10.7 H Eos % (Auto) 0.2 Baso % (Auto) 0.2 Lymph # (Auto) 1.03 [place] # (Auto) 0.7 H Eos # (Auto) 0.0 Baso # (Auto) 0.0 Abs Immat Gran (auto) 0.04 H Absolute Neuts (auto) 4.6 Absolute Nucleated RBC 0.060 H Band Neutrophils % Not Reportable Nucleated RBC % 0.9 H Platelet Estimate Adequate Polychromasia 1+ Hypochromasia 1+ Anisocytosis 1+ Target Cells 1+ Schistocytes None seen PT 15.0 H INR 1.1 APTT 32.5 Puncture Site Left radial ABG pH 7.503 H* ABG pCO2 33.1 L ABG pO2 198.6 H ABG PO2/FiO2 Ratio 1.99 ABG HCO3 25.4 ABG O2 Saturation 99.5 ABG O2 Content 14.0 L ABG Base Excess 2.4 A-a Gradient 481.3 Oxyhemoglobin 98.9 Carboxyhemoglobin 0.7 Methemoglobin 0.2 Reduced Hemoglobin 0.2 Total Hemoglobin 9.7 L O2 Delivery Device Non-rebreather mask O2 Liters/Min 15.0 FiO2 100 Sodium 144 Potassium 4.1 Chloride 104 Carbon Dioxide 31 H Anion Gap 9 BUN 25 H Creatinine 0.50 L Estim Creat Clear Calc 109 Estimated GFR > 60 Glucose 109 POC Capillary Glucose Lactic Acid 2.4 H Calcium 8.8 Iron TIBC % Saturation Total Bilirubin 0.5 AST 48 ALT 29 Alkaline Phosphatase 89 Troponin I C-Reactive Protein 1.9 H NT-Pro-B Natriuret Pep > 51149 H Cancelled Total Protein 8.0 Albumin 3.8 Vitamin B12 Folate Procalcitonin Urine Color Urine Appearance Urine pH Ur Specific [place] Urine Protein Urine Glucose (UA) Urine Ketones Ur Blood (Man) Urine Nitrate Urine Bilirubin Urine Urobilinogen Add Ur Microanalysis Leukocyte Esterase Rfl Urine RBC Urine WBC Ur Squamous Epith Cells Urine Bacteria Urine Casts Urine Mucus Nasal MRSA (PCR) Influenza A (RT-PCR) Negative Influenza B (RT-PCR) Negative RSV (RT-PCR) Negative SARS-CoV-2 RNA (RT-PCR) Negative 12/28/24 12/28/24 12/28/24 15:04 19:35 22:38 WBC RBC Hgb Hct MCV MCH MCHC RDW Plt Count MPV Immature Gran % (Auto) Neut % (Auto) Lymph % (Auto) [place] % (Auto) Eos % (Auto) Baso % (Auto) Lymph # (Auto) [place] # (Auto) Eos # (Auto) Baso # (Auto) Abs Immat Gran (auto) Absolute Neuts (auto) Absolute Nucleated RBC Band Neutrophils % Nucleated RBC % Platelet Estimate Polychromasia Hypochromasia Anisocytosis Target Cells Schistocytes PT INR APTT Puncture Site ABG pH ABG pCO2 ABG pO2 ABG PO2/FiO2 Ratio ABG HCO3 ABG O2 Saturation ABG O2 Content ABG Base Excess A-a Gradient Oxyhemoglobin Carboxyhemoglobin Methemoglobin Reduced Hemoglobin Total Hemoglobin O2 Delivery Device O2 Liters/Min FiO2 Sodium Potassium Chloride Carbon Dioxide Anion Gap BUN Creatinine Estim Creat Clear Calc Estimated GFR Glucose POC Capillary Glucose 110 H Lactic Acid 3.3 H Calcium Iron TIBC % Saturation Total Bilirubin AST ALT Alkaline Phosphatase Troponin I C-Reactive Protein NT-Pro-B Natriuret Pep Total Protein Albumin Vitamin B12 Folate Procalcitonin Urine Color Dark yellow Urine Appearance Clear Urine pH 5.5 Ur Specific [place] 1.029 Urine Protein 2+ H Urine Glucose (UA) Negative Urine Ketones Trace H Ur Blood (Man) Negative Urine Nitrate Negative Urine Bilirubin Negative Urine Urobilinogen 2.0 H Add Ur Microanalysis Reviewed Leukocyte Esterase Rfl 1+ H Urine RBC 6-10 H Urine WBC 11-20 H Ur Squamous Epith Cells None seen Urine Bacteria None seen Urine Casts 0-2 Urine Mucus Present Nasal MRSA (PCR) Influenza A (RT-PCR) Influenza B (RT-PCR) RSV (RT-PCR) SARS-CoV-2 RNA (RT-PCR) 12/28/24 12/29/24 12/29/24 23:16 02:30 05:12 WBC 7.0 7.0 RBC 2.77 L 2.58 L Hgb 8.9 L 8.1 L Hct 28.6 L 27.8 L MCV 103.2 H 107.8 H MCH 32.1 31.4 MCHC 31.1 L 29.1 L RDW 15.0 H 15.3 H Plt Count 300 288 MPV 10.7 H 11.4 H Immature Gran % (Auto) 0.6 H Neut % (Auto) 81.6 H Lymph % (Auto) 11.1 L [place] % (Auto) 6.7 Eos % (Auto) 0.0 Baso % (Auto) 0.0 L Lymph # (Auto) 0.78 L [place] # (Auto) 0.5 Eos # (Auto) 0.0 Baso # (Auto) 0.0 Abs Immat Gran (auto) 0.04 H Absolute Neuts (auto) 5.8 Absolute Nucleated RBC 0.090 H Band Neutrophils % Nucleated RBC % 1.3 H Platelet Estimate Polychromasia Hypochromasia Anisocytosis Target Cells Schistocytes PT INR APTT Puncture Site ABG pH ABG pCO2 ABG pO2 ABG PO2/FiO2 Ratio ABG HCO3 ABG O2 Saturation ABG O2 Content ABG Base Excess A-a Gradient Oxyhemoglobin Carboxyhemoglobin Methemoglobin Reduced Hemoglobin Total Hemoglobin O2 Delivery Device O2 Liters/Min FiO2 Sodium 145 Potassium 4.2 Chloride 106 Carbon Dioxide 24 Anion Gap 15 H BUN 32 H Creatinine 0.59 L Estim Creat Clear Calc 91 Estimated GFR > 60 Glucose 129 H POC Capillary Glucose Lactic Acid Calcium 8.7 Iron 47 L TIBC 279 % Saturation 17 L Total Bilirubin AST ALT Alkaline Phosphatase Troponin I 0.054 H* 0.059 H* 0.068 H* C-Reactive Protein NT-Pro-B Natriuret Pep Total Protein Albumin Vitamin B12 890.0 Folate 15.1 Procalcitonin Urine Color Urine Appearance Urine pH Ur Specific [place] Urine Protein Urine Glucose (UA) Urine Ketones Ur Blood (Man) Urine Nitrate Urine Bilirubin Urine Urobilinogen Add Ur Microanalysis Leukocyte Esterase Rfl Urine RBC Urine WBC Ur Squamous Epith Cells Urine Bacteria Urine Casts Urine Mucus Nasal MRSA (PCR) Influenza A (RT-PCR) Influenza B (RT-PCR) RSV (RT-PCR) SARS-CoV-2 RNA (RT-PCR) 12/29/24 12/29/24 09:00 10:56 WBC RBC Hgb Hct MCV MCH MCHC RDW Plt Count MPV Immature Gran % (Auto) Neut % (Auto) Lymph % (Auto) [place] % (Auto) Eos % (Auto) Baso % (Auto) Lymph # (Auto) [place] # (Auto) Eos # (Auto) Baso # (Auto) Abs Immat Gran (auto) Absolute Neuts (auto) Absolute Nucleated RBC Band Neutrophils % Nucleated RBC % Platelet Estimate Polychromasia Hypochromasia Anisocytosis Target Cells Schistocytes PT INR APTT Puncture Site ABG pH ABG pCO2 ABG pO2 ABG PO2/FiO2 Ratio ABG HCO3 ABG O2 Saturation ABG O2 Content ABG Base Excess A-a Gradient Oxyhemoglobin Carboxyhemoglobin Methemoglobin Reduced Hemoglobin Total Hemoglobin O2 Delivery Device O2 Liters/Min FiO2 Sodium 145 Potassium 4.2 Chloride 107 Carbon Dioxide 19 L Anion Gap 19 H BUN 39 H Creatinine 0.82 Estim Creat Clear Calc 66 Estimated GFR > 60 Glucose 110 POC Capillary Glucose Lactic Acid 6.0 H* Calcium 8.5 Iron TIBC % Saturation Total Bilirubin AST ALT Alkaline Phosphatase Troponin I C-Reactive Protein NT-Pro-B Natriuret Pep Total Protein Albumin Vitamin B12 Folate Procalcitonin 0.3 Urine Color Urine Appearance Urine pH Ur Specific [place] Urine Protein Urine Glucose (UA) Urine Ketones Ur Blood (Man) Urine Nitrate Urine Bilirubin Urine Urobilinogen Add Ur Microanalysis Leukocyte Esterase Rfl Urine RBC Urine WBC Ur Squamous Epith Cells Urine Bacteria Urine Casts Urine Mucus Nasal MRSA (PCR) Not detected Influenza A (RT-PCR) Influenza B (RT-PCR) RSV (RT-PCR) SARS-CoV-2 RNA (RT-PCR) Quality VTE Prophylaxis VTE prophylaxis: mechanical ordered and pharmacologic ordered
--- NOTE | 2024-12-29 15:13 | WPDCNINT ---
Assessment and Plan Assessment and plan (1) Acute hypoxemic respiratory failure: Code(s): J96.01 - Acute respiratory failure with hypoxia Status: Acute Assessment and Plan: acute hypoxic respiratory failure likely secondary to congestive heart failure leading to pulmonary edema pleural effusions and possibility of community-acquired pneumonia on my examination patient was tachypneic cardiac tachypneic. Due to his mental status and hemodynamic instability we decided to intubate patient patient was transferred to ICU and emergently intubated after discussion with patient's sister. Post intubation chest x-ray received. ventilator settings and ABG reviewed wean FiO2 Lasix IV for the pulmonary edema management of pneumonia as below bronchodilator p.r.n. (2) Cardiomyopathy: Code(s): I42.9 - Cardiomyopathy, unspecified Status: Acute Assessment and Plan: patient does have history of congestive heart failure. 12/29 echocardiogram showed Summary 1. The left ventricle is mildly dilated with severely reduced systolic function. There is mild eccentric left ventricular hypertrophy. The left ventricular ejection fraction is visually estimated to be 15-20%. There is no left ventricular thrombus. 2. The right ventricle is normal in size with reduced systolic function. 3. The left atrium is severely dilated. 4. The aortic valve is trileaflet and thickened. The right coronary cusp is calcified and restricted. There is no hemodynamically significant stenosis. There is moderate aortic regurgitation. 5. The mitral valve leaflets are thickened but opens well. There is mild mitral regurgitation. 6. The tricuspid valve leaflets are sclerotic but opens well. There is moderate tricuspid regurgitation. There is moderate hypertension. The PASP is estimated to be 60 mmHg. 7. Dilated inferior vena cava with <50% collapse upon inspiration consistent with significantly elevated right atrial pressure, 15 mmHg. 8. There is left-sided pleural effusion Continue Lasix cardiology is following (3) CHF exacerbation: Qualifiers: Heart failure type: unspecified Qualified Code(s): I50.9 - Heart failure, unspecified Code(s): I50.9 - Heart failure, unspecified Status: Acute Assessment and Plan: see above (4) Sepsis: Code(s): A41.9 - Sepsis, unspecified organism Status: Acute Assessment and Plan: patient does have UTI and may have pneumonia. Pneumonia can not be community-acquired or aspiration considering his mental status elevated lactic acid can be secondary to sepsis or cardiogenic check procalcitonin continue Rocephin doxycycline and Flagyl blood and urine cultures (5) UTI (urinary tract infection): Code(s): N39.0 - Urinary tract infection, site not specified Status: Acute Assessment and Plan: see above (6) Community acquired pneumonia: Qualifiers: Laterality: unspecified laterality Qualified Code(s): J18.9 - Pneumonia, unspecified organism Code(s): J18.9 - Pneumonia, unspecified organism Status: Acute Assessment and Plan: see above (7) Seizures: Code(s): R56.9 - Unspecified convulsions Status: Acute Assessment and Plan: continue valproic acid and gabapentin (8) Tachycardia: Code(s): R00.0 - Tachycardia, unspecified Status: Acute Assessment and Plan: tachycardia secondary to cardiomyopathy, respiratory failure and possibly sepsis marginally improved after intubation and sedation (9) Swelling of right upper extremity: Code(s): M79.89 - Other specified soft tissue disorders Status: Acute Assessment and Plan: right upper extremity venous Dopplers were negative for DVT (10) Constipation: Qualifiers: Constipation type: chronic idiopathic constipation Qualified Code(s): K59.04 - Chronic idiopathic constipation Code(s): K59.00 - Constipation, unspecified Status: Acute Assessment and Plan: laxatives already ordered (11) Fecal impaction: Code(s): K56.41 - Fecal impaction Status: Acute Plan DVT prophylaxis - Lovenox Stress ulcer prophylaxis - Protonix Nutrition - npo Code Status - I had extensive discussion with patient's sister by phone. I updated her with patient's current status which involves respiratory failure, sepsis, cardiomyopathy. I also discussed goals of care. Patient's sister appears on informed of patient's medical problems and unrealistic of prognosis. She wants patient to be full code at this time. Patient was hence intubated and placed on mechanical ventilation. Total Critical Care Time - 40 minutes Due to a high probability of clinically significant, life threatening deterioration, the patient required my highest level of preparedness to intervene emergently and I personally spent this critical care time directly and personally managing the patient. This critical care time included obtaining a history; examining the patient; pulse oximetry; ordering and review of studies; arranging urgent treatment with development of a management plan; evaluation of patient's response to treatment; frequent reassessment; and discussions with other providers. It was exclusive of separately billable procedures and treating other patients and teaching time. 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 Patient had been tachypneic and hypoxic at the facility hence patient was sent to ER. patient is not responsive and does not answer any questions. . In the ER patient was found to be having diffuse bilateral infiltrates cardiomegaly. Workup in the ER showed anemia at 8.7, ABG with pH of 7.503, pCO2 of 33.1, PO2 of 198, on 100% non-rebreather. BUN is 25, creatinine is 0.05, lactic acid is 2.4, C-reactive protein [place] 1.9[place] [address], UA shows trace ketones 1+ leukocyte esterase. Influenza A/B RSV and COVID negative. Chest x-ray shows cardiomegaly with cardiac decompensation pulmonary edema. Upper extremities are negative for DVT. EKG in the ED shows sinus tachycardia rate of 122, QTC 515. Patient was given IV antibiotics and Lasix and admitted to IMU. Patient remained tachypneic tachycardic and hypoxic. He was given fluid bolus to see if that will help with tachycardia but that did not. Echocardiogram showed low EF of 15-20%. CTA of the chest done which did not show any pulmonary embolism. I was asked to evaluate patient due to persistent tachycardia and tachypnea. When I evaluated the patient patient was not responsive and did not provide any history. He was transferred to ICU and emergently intubated due to tachycardia and tachypnea. I spoke to patient's sister by phone and she wanted patient to be full code. Review of Systems Review of Systems: ROS unobtainable: Yes unobtainable due to medical condition and unobtainable due to mental status PMFSH Past Medical History Medical History History of jejunostomy tube placement Idiopathic progressive neuropathy History of CHF (congestive heart failure) History of epilepsy History of schizophrenia History of gastroesophageal reflux (GERD) Surgical History Surgical History Status post insertion of percutaneous endoscopic gastrostomy (PEG) tube Family History Family History Other Unknown family medical history Social History Social History Smoking status: Unknown if ever smoked Alcohol intake: unknown Substance use: unknown Spiritual care concerns: No Meds Home Medications and Allergies Home Medications ?Medication ?Instructions ?Recorded ?Confirmed ?Type bisacodyl 10 mg rectal suppository 10 mg RECTAL DAILY PRN constipation 12/28/24 12/28/24 History chlorpromazine 50 mg tablet 50 mg feeding tube Q8H 12/28/24 12/28/24 History cholecalciferol (vitamin D3) 25 25 mcg feeding tube DAILY 12/28/24 12/28/24 History mcg (1,000 unit) chewable tablet docusate sodium 50 mg/5 mL oral 100 mg feeding tube DAILY 12/28/24 12/28/24 History liquid folic acid 400 mcg tablet 400 mcg feeding tube DAILY 12/28/24 12/28/24 History gabapentin 100 mg capsule 100 mg feeding tube Q8H 12/28/24 12/28/24 History hydroxyzine HCl 10 mg tablet 10 mg feeding tube Q4H PRN dementia 12/28/24 12/28/24 History hydroxyzine HCl 10 mg/5 mL oral 10 mg feeding tube Q4H PRN anxiety 12/28/24 12/28/24 History solution lactulose 10 gram/15 mL oral 20 g feeding tube Q8H PRN 12/28/24 12/28/24 History solution constipation melatonin 5 mg tablet 5 mg feeding tube HS 12/28/24 12/28/24 History olanzapine 2.5 mg tablet 2.5 mg feeding tube BID 12/28/24 12/28/24 History polyethylene glycol 3350 17 gram 17 g feeding tube DAILY 12/28/24 12/28/24 History oral powder packet (Miralax) valproic acid (as sodium salt) 250 750 mg feeding tube BID 12/28/24 12/28/24 History mg/5 mL oral solution Allergies Allergy/AdvReac Type Severity Reaction Status Date / Time No Known Allergies Allergy Verified 12/28/24 14:53 Vital Signs Vital Signs - 24 hr 12/28/24 15:15 12/28/24 15:15 12/28/24 15:16 Temperature Pulse Rate 124 H 127 H 128 H Respiratory Rate 17 29 H 28 H Blood Pressure 131/93 H Pulse Oximetry 100 100 Oxygen Delivery Oxygen Flow Rate 12/28/24 15:32 12/28/24 16:00 12/28/24 16:04 Temperature Pulse Rate 115 H Respiratory Rate 32 H Blood Pressure 115/82 Pulse Oximetry 99 100 100 Oxygen Delivery Nasal Cannula Nasal Cannula Oxygen Flow Rate 4 4 12/28/24 16:38 12/28/24 18:44 12/28/24 19:00 Temperature 36.1 C L Pulse Rate 114 H 112 H 108 H Respiratory Rate 28 H 28 H 24 H Blood Pressure 101/75 121/80 118/65 Pulse Oximetry 99 100 99 Oxygen Delivery Oxygen Flow Rate 12/28/24 20:00 12/28/24 20:00 12/28/24 20:35 Temperature Pulse Rate 111 H Respiratory Rate Blood Pressure Pulse Oximetry 100 98 Oxygen Delivery Nasal Cannula Nasal Cannula Oxygen Flow Rate 4 4 12/28/24 22:00 12/28/24 23:11 12/29/24 00:00 Temperature 37.4 C Pulse Rate 110 H 117 H Respiratory Rate 26 H Blood Pressure 126/73 Pulse Oximetry 100 95 Oxygen Delivery Nasal Cannula Oxygen Flow Rate 3 12/29/24 00:00 12/29/24 00:31 12/29/24 02:00 Temperature 37.8 C H Pulse Rate 117 H 122 H 125 H Respiratory Rate 26 H Blood Pressure 124/79 Pulse Oximetry 92 Oxygen Delivery Oxygen Flow Rate 12/29/24 02:38 12/29/24 02:40 12/29/24 02:55 Temperature 37.7 C H Pulse Rate 126 H 128 H 128 H Respiratory Rate 28 H 33 H 33 H Blood Pressure Pulse Oximetry Oxygen Delivery Oxygen Flow Rate 12/29/24 03:26 12/29/24 04:00 12/29/24 04:00 Temperature 37.6 C H Pulse Rate 125 H 125 H Respiratory Rate 28 H Blood Pressure 109/68 Pulse Oximetry 96 96 Oxygen Delivery Nasal Cannula Oxygen Flow Rate 4 12/29/24 06:00 12/29/24 07:47 12/29/24 08:00 Temperature 37.2 C Pulse Rate 123 H 124 H Respiratory Rate 22 H Blood Pressure 112/72 Pulse Oximetry 94 92 Oxygen Delivery Nasal Cannula Oxygen Flow Rate 4 12/29/24 08:00 12/29/24 09:51 12/29/24 09:59 Temperature Pulse Rate 127 H Respiratory Rate Blood Pressure Pulse Oximetry 99 89 L Oxygen Delivery Nasal Cannula Nasal Cannula Oxygen Flow Rate 4 3 12/29/24 10:00 12/29/24 11:29 12/29/24 12:00 Temperature 37.7 C H Pulse Rate 130 H 130 H Respiratory Rate 32 H Blood Pressure 121/74 Pulse Oximetry 93 94 Oxygen Delivery Nasal Cannula Oxygen Flow Rate 4 12/29/24 12:00 12/29/24 14:00 Temperature Pulse Rate 132 H 137 H Respiratory Rate Blood Pressure Pulse Oximetry Oxygen Delivery Oxygen Flow Rate Exam Narrative: General: Pt is Drowsy unresponsive Lungs/Chest: Tachypneic and bilateral crackles. Cardiac: tachycardic. Normal S1 S2. No murmurs could be heard due to tachycardia Circulation: Pedal pulses are intact and symmetrical. Abdomen: Normal bowel sounds.. Soft. NT. ND. Extremities: he has left mid tarsal amputation, he has a signed off bone injury on his right hand with looks like a graft, right arm is swollen with edema : Burdick in place Neurologic: patient was drowsy and unresponsive. He open his eyes on sternal rub. Did not follow any commands does not move any extremities. Baseline function unknown. pupils were equal and reactive to light both eyes were asymmetric and bilateral down and out Skin: he has a large sternotomy incision scar in the midline of his chest. Results Labs 12/30/24 02:44 12/30/24 02:44 Labs: Impressions Chest/Abdomen/Pelvis CTA 12/29/24 14:43 IMPRESSION: 1. Extensive patchy airspace opacities throughout both lungs and favor severe congestive heart failure related pulmonary edema over pneumonia. 2. Small left and moderate sized right dependently layering pleural effusions with associated compressive atelectasis in the dependent lungs. 3. Cardiomegaly with enlargement of the central pulmonary consistent with pulmonary arterial hypertension. 4. Large amount of stool throughout the colon with 9.6 x 6.7 cm ball of stool the rectum consistent with likely constipation with fecal impaction. 5. Hepatomegaly. Chest X-Ray 12/29/24 15:33 IMPRESSION: 1. Endotracheal tube tip in expected position 2.6 similar both the alejo. 2. Persistent diffuse bilateral lung disease and favor congestive heart failure related severe pulmonary edema over pneumonia. 2. Small left and moderate-sized pleural effusions. Short CBC 12/28/24 12/29/24 12/29/24 Range/Units 14:45 02:30 05:12 WBC 6.4 7.0 7.0 (4.5-10.0) K/mm3 Hgb 8.7 L 8.9 L 8.1 L (14.0-18.0) g/dL Hct 28.7 L 28.6 L 27.8 L (42.0-52.0) % Plt Count 281 300 288 (150-375) k/mm3 BMP 12/28/24 12/29/24 12/29/24 14:45 02:30 10:56 Sodium 144 145 145 Potassium 4.1 4.2 4.2 Chloride 104 106 107 Carbon Dioxide 31 H 24 19 L BUN 25 H 32 H 39 H Creatinine 0.50 L 0.59 L 0.82 Glucose 109 129 H 110 Calcium 8.8 8.7 8.5 Cardiac Enzymes 12/28/24 12/29/24 12/29/24 Range/Units 23:16 02:30 05:12 Troponin I 0.054 H* 0.059 H* 0.068 H* (0.000-0.034) ng/mL Liver Function 12/28/24 Range/Units 14:45 Total Bilirubin 0.5 (0.2-1.3) mg/dL AST 48 (17-59) U/L ALT 29 (6-50) U/L Alkaline Phosphatase 89 (38-126) U/L Albumin 3.8 (3.5-5.1) g/dL Urine 12/28/24 Range/Units 15:04 Urine Color Dark yellow (Yellow) Urine Appearance Clear (Clear) Urine pH 5.5 (5.0-9.0) Ur Specific [place] 1.029 (1.001-1.035) Urine Protein 2+ H (Negative) mg/dL Urine Glucose (UA) Negative (Negative) mg/dL ECG Interpretation: sinus tachycardia Quality VTE Prophylaxis VTE prophylaxis: pharmacologic ordered Hospitalist MIPS Advance Care Plan I have confirmed that the patient's Advanced Care Plan is present, code status is documented, or surrogate decision maker is listed in patient medical record.: Yes Medication Reconciliation I have utilized all available resources to obtain, update and review the patients current medications (includes all prescriptions, OTC, herbals, cannabis, and nutritional supplements).: Yes
[2024-12-29] MEDS: ETOMIDATE 20 MG/10 ML AMPUL IV PUSH (15:22)
[2024-12-29] MEDS: SUCCINYLCHOLINE CHLORIDE 20 MG/ML 10 ML VIAL 100 MG IV PUSH (15:22)
[2024-12-29] MEDS: MIDAZOLAM HCL (*CRX) 2 MG/2 ML VIAL IV PUSH (15:28)
--- NOTE | 2024-12-29 15:30 | WPDPROCEDUR ---
Procedures Intubation Intubation Date: 12/29/24 Intubation Time: 15:15 Consent: Consent obtained from patient's sister A pre-procedural Time-Out was completed immediately before starting the procedure and confirmed: Patient Identification, Site, Procedure, Patient Position and the Availability of Requisite Equipment: Yes Sedative: etomidate Mg given: 20 Paralytic: succinylcholine Mg given: 100 Laryngoscope: fiber optic video scope Assist device used: fiber optic device ET tube size: 7.5 Tube secured depth (cm): 23 Tube secured location: lips Tube placement confirmation: visualized tube passing through cords, equal breath sounds bilaterally, no breath sounds over epigastrium and confirmation by capnometry Patient tolerated procedure: well Intubation complications: none
[2024-12-29] MEDS: dexmedeTOMIDine 400 MCG/100 ML 400 MCG/100 ML BAG IV CONT (15:39)
--- NOTE | 2024-12-29 16:00 | P.CONGI_ITS ---
Assessment and Plan Assessment and plan (1) Gastrostomy tube dysfunction: Code(s): K94.23 - Gastrostomy malfunction Status: Acute (2) Constipation: Qualifiers: Constipation type: chronic idiopathic constipation Qualified Code(s): K 59.04 - Chronic idiopathic constipation Code(s): K59.00 - Constipation, unspecified Status: Acute (3) Fecal impaction: Code(s): K56.41 - Fecal impaction Status: Acute Plan 1. Malfunction G-tube: Patient has a GJ tube but no information regarding when,why, or where this tube was placed. Nurse states that she was told that the J-tube is chronically clogged and recently there was difficulty flushing the G-tube. Nurse stated that prior to my visit she was able to clear the G-tube. Discussed that we would not be able to replace a GJ tube here so if G-tube stopped working the patient would have to be transferred if IR was unable to place tube. * Patient would likely benefit from a tube replacement, would recommend that longterm PCP follow up with the provider that placed his tube * Okay to continue tube feedings as long as G-tube is flushing 2. Constipation/ fecal impaction: CT showed a large amount of stool throughout the colon with 9.6 x 6.7 cm ball of stool in the rectum consistent with likely constipation with fecal impaction. According to medication list prior to admission the patient had been on a bowel regimen with MiraLax, lactulose, docusate daily and bisacodyl suppository daily. * Mineral oil enema now * Miralax daily * bisacodyl suppository daily Thank you very much for allowing me to share in the care of this patient. This report may have been done utilizing a voice recognition system. Attempts have been made to correct errors. However, there may be uncorrected grammatical, spelling, and recognition errors present. GI Consult Note Consult date/time: 12/29/24 16:00 Reason for consult: malfunctioning G-Tube HPI: Fito King is a 59 year old male with past medical surgical history of GJ tube, CHF, epilepsy, idiopathic progressive neuropathy, schizophrenia, and GERD. According to ER note patient presented to the emergency room 12/28/2024 from longterm for shortness of breath and G-tube difficulty. GI has been consulted for malfunctioning G-tube. The patient admitted for multiple issues including acute respiratory failure, CHF, pneumonia, sepsis, and elevated troponins. Patient with minimal medical surgical history known. Patient has a GJ tube but it is not known where or when this was placed. There was mention that the J tube has been chronically clogged. Earlier today they were having difficulty using the G-tube but RN states that she was finally able to get his G-tube to flush. No subjective information was obtained as the patient is nonverbal. ENDOSCOPY HISTORY: Colonoscopy an EGD history unknown LABS AND STOOL STUDIES: Labs 12/29/2024: Sodium 145, potassium 4.2, BUN 39, creatinine 0.82, GFR >60 WBC 7, Hgb 8, Hct 28, MCV 108, platelets 288 Total bilirubin 0.5, AST 48, ALT 29, Alkaline Phos 89, albumin 3.8 Total iron 47, TIBC 279, iron sat 17, B12 890, folate 15 Lactic acid 6.0, calcium 8.5 BNP > 30,000, CRP 1.9 Troponins positive times IMAGING: CT chestabd/pelvis w/contrast 12/29/2024: FINDINGS: Chest: Small left and moderate-sized right posterior layering pleural effusions with dependent atelectasis in both lungs. There are patchy opacities throughout both lungs and favor severe pulmonary edema over pneumonia. No pulmonary embolism. Enlargement of central pulmonary arteries consistent with pulmonary arterial hypertension. Cardiomegaly. There is reflux of injected contrast into the inferior vena cava and hepatic veins consistent with tricuspid regurgitation. No pericardial effusion. Ectatic ascending thoracic aorta measuring up to 3.9 cm in maximal diameter. No dissection. No pathologically enlarged thoracic lymphadenopathy. Moderate lower cervical and mild thoracic spondylosis. Abdomen and pelvis: Gastrojejunostomy tube extending through the stomach with distal tip in the proximal jejunum in the left upper quadrant. Hepatomegaly. Gallbladder, spleen, pancreas, bilateral adrenal glands and kidneys are normal. Large amount of stool throughout the colon with distal predominance with the stool filled rectum measuring up to 6.7 x 9.6 cm diameter. No dilated bowel to suggest obstruction. Abdominal aorta evident major branch vessels arising from the aorta are normal in caliber with no evident atherosclerotic plaque or dissection. No free intraperitoneal gas or fluid. No pathologically enlarged abdominal or pelvic lymphadenopathy. Extensive body wall edema. Moderate spondylosis at L5-S1 with right-sided erosive endplate changes. IMPRESSION: 1. Extensive patchy airspace opacities throughout both lungs and favor severe congestive heart failure related pulmonary edema over pneumonia. 2. Small left and moderate sized right dependently layering pleural effusions with associated compressive atelectasis in the dependent lungs. 3. Cardiomegaly with enlargement of the central pulmonary consistent with pulmonary arterial hypertension. 4. Large amount of stool throughout the colon with 9.6 x 6.7 cm ball of stool the rectum consistent with likely constipation with fecal impaction. 5. Hepatomegaly. Review of Systems 2 Review of Systems: ROS unobtainable: Yes unobtainable due to medical condition and unobtainable due to mental status PMFSH Past Medical History Medical History (Updated 12/29/24 @ 16:25 by Ml Oconnell APRN) History of jejunostomy tube placement Idiopathic progressive neuropathy History of CHF (congestive heart failure) History of epilepsy History of schizophrenia History of gastroesophageal reflux (GERD) Surgical History Surgical History (Updated 12/29/24 @ 07:22 by Linda Mayorga DO) Status post insertion of percutaneous endoscopic gastrostomy (PEG) tube Family History Family History (Updated 12/28/24 @ 23:25 by Jaqueline Scales RN) Other Unknown family medical history Social History Social History Smoking status: Unknown if ever smoked Alcohol intake: unknown Substance use: unknown Spiritual care concerns: No Meds Home Medications and Allergies Home Medications ?Medication ?Instructions ?Recorded ?Confirmed ?Type bisacodyl 10 mg rectal suppository 10 mg RECTAL DAILY PRN constipation 12/28/24 12/28/24 History chlorpromazine 50 mg tablet 50 mg feeding tube Q8H 12/28/24 12/28/24 History cholecalciferol (vitamin D3) 25 25 mcg feeding tube DAILY 12/28/24 12/28/24 History mcg (1,000 unit) chewable tablet docusate sodium 50 mg/5 mL oral 100 mg feeding tube DAILY 12/28/24 12/28/24 History liquid folic acid 400 mcg tablet 400 mcg feeding tube DAILY 12/28/24 12/28/24 History gabapentin 100 mg capsule 100 mg feeding tube Q8H 12/28/24 12/28/24 History hydroxyzine HCl 10 mg tablet 10 mg feeding tube Q4H PRN dementia 12/28/24 12/28/24 History hydroxyzine HCl 10 mg/5 mL oral 10 mg feeding tube Q4H PRN anxiety 12/28/24 12/28/24 History solution lactulose 10 gram/15 mL oral 20 g feeding tube Q8H PRN 12/28/24 12/28/24 History solution constipation melatonin 5 mg tablet 5 mg feeding tube HS 12/28/24 12/28/24 History olanzapine 2.5 mg tablet 2.5 mg feeding tube BID 12/28/24 12/28/24 History polyethylene glycol 3350 17 gram 17 g feeding tube DAILY 12/28/24 12/28/24 History oral powder packet (Miralax) valproic acid (as sodium salt) 250 750 mg feeding tube BID 12/28/24 12/28/24 History mg/5 mL oral solution Allergies Allergy/AdvReac Type Severity Reaction Status Date / Time No Known Allergies Allergy Verified 12/28/24 14:53 Vital Signs Vital Signs - 24 hr 12/28/24 16:04 12/28/24 16:38 12/28/24 18:44 Temperature Pulse Rate 114 H 112 H Respiratory Rate 28 H 28 H Blood Pressure 101/75 121/80 Pulse Oximetry 100 99 100 Oxygen Delivery Nasal Cannula Oxygen Flow Rate 4 Fraction of Inspired Oxygen 12/28/24 19:00 12/28/24 20:00 12/28/24 20:00 Temperature 97.0 F L Pulse Rate 108 H 111 H Respiratory Rate 24 H Blood Pressure 118/65 Pulse Oximetry 99 100 Oxygen Delivery Nasal Cannula Oxygen Flow Rate 4 Fraction of Inspired Oxygen 12/28/24 20:35 12/28/24 22:00 12/28/24 23:11 Temperature 99.3 F Pulse Rate 110 H 117 H Respiratory Rate 26 H Blood Pressure 126/73 Pulse Oximetry 98 100 Oxygen Delivery Nasal Cannula Oxygen Flow Rate 4 Fraction of Inspired Oxygen 12/29/24 00:00 12/29/24 00:00 12/29/24 00:31 Temperature 100.1 F H Pulse Rate 117 H 122 H Respiratory Rate 26 H Blood Pressure 124/79 Pulse Oximetry 95 92 Oxygen Delivery Nasal Cannula Oxygen Flow Rate 3 Fraction of Inspired Oxygen 12/29/24 02:00 12/29/24 02:38 12/29/24 02:40 Temperature 99.9 F H Pulse Rate 125 H 126 H 128 H Respiratory Rate 28 H 33 H Blood Pressure Pulse Oximetry Oxygen Delivery Oxygen Flow Rate Fraction of Inspired Oxygen 12/29/24 02:55 12/29/24 03:26 12/29/24 04:00 Temperature 99.7 F H Pulse Rate 128 H 125 H Respiratory Rate 33 H 28 H Blood Pressure 109/68 Pulse Oximetry 96 96 Oxygen Delivery Nasal Cannula Oxygen Flow Rate 4 Fraction of Inspired Oxygen 12/29/24 04:00 12/29/24 06:00 12/29/24 07:47 Temperature 98.9 F Pulse Rate 125 H 123 H 124 H Respiratory Rate 22 H Blood Pressure 112/72 Pulse Oximetry 94 Oxygen Delivery Oxygen Flow Rate Fraction of Inspired Oxygen 12/29/24 08:00 12/29/24 08:00 12/29/24 09:51 Temperature Pulse Rate 127 H Respiratory Rate Blood Pressure Pulse Oximetry 92 99 Oxygen Delivery Nasal Cannula Nasal Cannula Oxygen Flow Rate 4 4 Fraction of Inspired Oxygen 12/29/24 09:59 12/29/24 10:00 12/29/24 11:29 Temperature 99.9 F H Pulse Rate 130 H 130 H Respiratory Rate 32 H Blood Pressure 121/74 Pulse Oximetry 89 L 93 Oxygen Delivery Nasal Cannula Oxygen Flow Rate 3 Fraction of Inspired Oxygen 12/29/24 12:00 12/29/24 12:00 12/29/24 14:00 Temperature Pulse Rate 132 H 137 H Respiratory Rate Blood Pressure Pulse Oximetry 94 Oxygen Delivery Nasal Cannula Oxygen Flow Rate 4 Fraction of Inspired Oxygen 12/29/24 15:38 12/29/24 15:39 Temperature Pulse Rate 124 H 124 H Respiratory Rate 24 H Blood Pressure Pulse Oximetry 97 Oxygen Delivery Mechanical Ventilation Oxygen Flow Rate Fraction of Inspired Oxygen 100 Exam 2 Const: General: no acute distress HENMT: Mouth: Yes moist mucous membranes Eyes: Sclera: sclerae normal Pupils: Equal, round and reactive pupils present Resp: Auscultation: diminished lung sounds Cardio: Rate: regular rate GI: Inspection: distended GI Palp: Yes Soft to palpation, No Tenderness to palpation present (GI) and No Guarding due to palpation present (GI) A uscultation: normal bowel sounds Psych: Mental Status: mental status grossly abnormal Results Labs 12/29/24 05:12 12/29/24 10:56 Labs: Short CBC 12/28/24 12/29/24 12/29/24 Range/Units 14:45 02:30 05:12 WBC 6.4 7.0 7.0 (4.5-10.0) K/mm3 Hgb 8.7 L 8.9 L 8.1 L (14.0-18.0) g/dL Hct 28.7 L 28.6 L 27.8 L (42.0-52.0) % Plt Count 281 300 288 (150-375) k/mm3 BMP 12/28/24 12/29/24 12/29/24 14:45 02:30 10:56 Sodium 144 145 145 Potassium 4.1 4.2 4.2 Chloride 104 106 107 Carbon Dioxide 31 H 24 19 L BUN 25 H 32 H 39 H Creatinine 0.50 L 0.59 L 0.82 Glucose 109 129 H 110 Calcium 8.8 8.7 8.5 Cardiac Enzymes 12/28/24 12/29/24 12/29/24 Range/Units 23:16 02:30 05:12 Troponin I 0.054 H* 0.059 H* 0.068 H* (0.000-0.034) ng/mL Liver Function 12/28/24 Range/Units 14:45 Total Bilirubin 0.5 (0.2-1.3) mg/dL AST 48 (17-59) U/L ALT 29 (6-50) U/L Alkaline Phosphatase 89 (38-126) U/L Albumin 3.8 (3.5-5.1) g/dL
--- NOTE | 2024-12-29 16:46 | ECHO_ITS ---
Patient Info Name: Fito King Age: 59 years : 1965 Gender: Male Ht: 67 in Wt: 130 lbs BSA: 1.67 m2 HR: 123 bpm BP: 109 / 68 mmHg Technical Quality: Good Exam Date: 12/29/2024 10:07 AM Exam Location: Echo Lab Patient Status: Inpatient Admit Date: 12/29/2024 Staff Ordering Physician: Zaida Steiner APRN [employer] Operator: Alena Jacinto RDCS Attending Provider: Saritha Saeed MD Exam Type: CA echo dop color flow w con Study Info Complete two-dimensional, color flow and Doppler transthoracic echocardiogram is performed with contrast to opacify the left ventricle and to improve the deliniation of the left ventricle endocardial borders. Contrast/Agitated Saline Contrast/Ag. Saline: Definity Amount: 2.00 ml Administered By: Alena Jacinto RDCS Existing IV Access: Yes IV Access Condition: patent with no signs of infiltration Summary 1. The left ventricle is mildly dilated with severely reduced systolic function. There is mild eccentric left ventricular hypertrophy. The left ventricular ejection fraction is visually estimated to be 15-20%. There is no left ventricular thrombus. 2. The right ventricle is normal in size with reduced systolic function. 3. The left atrium is severely dilated. 4. The aortic valve is trileaflet and thickened. The right coronary cusp is calcified and restricted. There is no hemodynamically significant stenosis. There is moderate aortic regurgitation. 5. The mitral valve leaflets are thickened but opens well. There is mild mitral regurgitation. 6. The tricuspid valve leaflets are sclerotic but opens well. There is moderate tricuspid regurgitation. There is moderate hypertension. The PASP is estimated to be 60 mmHg. 7. Dilated inferior vena cava with <50% collapse upon inspiration consistent with significantly elevated right atrial pressure, 15 mmHg. 8. There is left-sided pleural effusion. Left Ventricle The left ventricle is mildly dilated with severely reduced systolic function. There is mild eccentric left ventricular hypertrophy. The left ventricular ejection fraction is visually estimated to be 15-20%. There is no left ventricular thrombus. Right Ventricle The right ventricle is normal in size with reduced systolic function. Left Atria The left atrium is severely dilated. Right Atria The right atrium is dilated. Atrial Septum The atrial septum is visually intact. Aortic Valve The aortic valve is trileaflet and thickened. The right coronary cusp is calcified and restricted. There is no hemodynamically significant stenosis. There is moderate aortic regurgitation. Mitral Valve The mitral valve leaflets are thickened but opens well. There is mild mitral regurgitation. Tricuspid Valve The tricuspid valve leaflets are sclerotic but opens well. There is moderate tricuspid regurgitation. There is moderate hypertension. The PASP is estimated to be 60 mmHg. Pericardium/Pleural There is left-sided pleural effusion. Pericardium is normal in appearance with no evidence for significant pericardial effusion. Inferior Vena Cava Dilated inferior vena cava with <50% collapse upon inspiration consistent with significantly elevated right atrial pressure, 15 mmHg. Dilated inferior vena cava with <50% collapse upon inspiration consistent with significantly elevated right atrial pressure, 15 mmHg. Aorta The aortic root at the level of the sinus of Valsalva measures 3.4 cm in diameter. Left Ventricular Outflow Tract Name Value Normal LVOT 2D LVOT Diameter 2.28 cm LVOT Doppler LVOT Peak Gradient 3 mmHg LVOT Mean Gradient 1 mmHg LVOT VTI 9.85 cm LVOT VTI/AV VTI Ratio 0.69 LVOT Stroke Volume 40.11 ml LVOT CO 4.58 l/min LVOT CI 2.75 L/min/m2 Pulmonic Valve Name Value Normal RVOT Doppler RVOT Peak Gradient 1 mmHg PV Doppler PV Peak Gradient 4 mmHg Mitral Valve Name Value Normal MV Doppler MV Decel [place] 1,102.88 cm/s2 MV PHT 0 s MV Area (PHT) 8.23 cm2 4.00-5.00 MV Regurgitation Doppler MR Peak Gradient 133 mmHg MV Diastolic Function MV E Peak Velocity 101.66 cm/s MV A Peak Velocity 45.51 cm/s MV E/A 2.23 MV Decel Time 0 s MV Annular TDI MV E/e' (Septal) 8.90 <=8.00 MV E/e' (Lateral) 9.72 <=8.00 MV E/e' (Average) 9.31 Tricuspid Valve Name Value Normal TV Regurgitation Doppler TR Peak Velocity 335.68 cm/s TR Peak Gradient 45 mmHg Estimated PAP/RSVP RA Pressure 15 mmHg <=5 PA Systolic Pressure 60 mmHg <36 RV Systolic Pressure 60 mmHg <36 Aorta Name Value Normal Ascending Aorta Ao Root Diameter (MM) 3.18 cm Ao Root Diam Index (MM) 1.91 cm/m2 Aortic Valve Name Value Normal AV Doppler AV Peak Velocity 126.68 cm/s AV Peak Gradient 6 mmHg AV Mean Gradient 4 mmHg AV VTI 14.25 cm AV Area (Cont Eq VTI) 2.82 cm2 >=3.00 AV Area (Cont Eq Luis) 2.60 cm2 AV Regurgitation 2D LVOT Area 4.07 cm2 AV Regurgitation Doppler AR Decel Time 1 s AR Decel [place] 455.69 cm/s2 AR PHT 0 s Ventricles Name Value Normal LV Dimensions 2D/MM IVS Diastolic Thickness (2D) 0.81 cm 0.60-1.00 LVID Diastole (2D) 6.09 cm 4.20-5.80 LVIW Diastolic Thickness (2D) 0.91 cm 0.60-1.00 LVID Systole (2D) 5.00 cm 2.50-4.00 LVOT Diameter 2.28 cm LV Mass (2D Cubed) 209.57 g 88.00-224.00 LV Mass Index (2D Cubed) 0.01 g/cm2 0.00-0.01 Relative Wall Thickness (2D) 0.30 LV Fractional Shortening/Ejection Fraction 2D/MM LV Fractional Shortening (2D) 18 % 25-43 LV EF (2D Teicholz) 36 % 52-72 LV Diastolic Volume (4C MOD) 139.98 ml LV EF (4C MOD) 24 % LV Diastolic Volume (2C MOD) 183.36 ml LV EF (2C MOD) 19 % LV Diastolic Volume (BP MOD) 164.83 ml 62.00-150.00 LV Diastolic Volume Index (BP MOD) 0.10 l/m2 0.03-0.07 LV Systolic Volume (BP MOD) 129.69 ml 21.00-61.00 LV Systolic Volume Index (BP MOD) 0.08 l/m2 0.01-0.03 LV EF (BP MOD) 21 % 52-72 LV Diastolic Length (4C) 9.00 cm LV Systolic Length (4C) 8.57 cm LV Stroke Volume (4C MOD) 33.32 ml Atria Name Value Normal LA Dimensions LA Dimension (MM) 4.72 cm 3.00-4.10 LA Volume (4C A-L) 93.64 ml LA Volume (BP A-L) 97.67 ml RA Dimensions RA Area (4C) 20.10 cm2 <=18.00 Report Signatures
[2024-12-29] MEDS: fentaNYL CITRATE INJ (*CRX) 100 MCG/2 ML VIAL 25 MCG IV PUSH (17:24)
[2024-12-29] MEDS: FUROSEMIDE INJ 40 MG/4 ML VIAL IV PUSH (17:56)
[2024-12-29] MEDS: PANTOPRAZOLE SODIUM IV 40 MG VIAL IV PUSH (17:56)
[2024-12-29 17:59] LABS: PCO2 ABG 32.1 mmHg (35.0-45.0); PO2 ABG 376.4 mmHg (80.0-100.0); pH ABG 7.367 (7.350-7.450)
[2024-12-29 18:00] LABS: Base Excess ABG 6.5 mEq/l (+/-2.0); Oxygen Saturation ABG 99.8 % (95.0-100.0); Total Hemoglobin 9.1 g/dL (12.0-18.0)
[2024-12-29 18:01] LABS: Oxyhemoglobin 98.9 % THb (90.0-100.0); PO2 FiO2 Ratio Arterial Blood 3.76 %
[2024-12-29 18:02] LABS: Device VENTILATOR; Oxygen Content ABG 13.7 %vol (16.0-22.0); Site Drawn RIGHT BRACHIAL
[2024-12-29] MEDS: SODIUM BICARBONATE TAB 650 MG TABLET PO (18:02)
[2024-12-29 18:03] LABS: Alveolar/Arterial O2 Gradient 304.5 mmHg
[2024-12-29 18:04] LABS: Arterial Blood Gas PEEP 8 cmH2O; Arterial Blood Gas Tidal Volume 350 ml; Arterial Blood Gas Vent Mode CMV; Arterial Blood Gas Ventilator rate 20 /MIN
[2024-12-29 18:09] LABS: Lactic Acid Reflex 7.1 mmol/L (0.7-2.0)
[2024-12-29 20:36] LABS: MRSA (PCR) NOT DETECTED (NOT DETECTE)
[2024-12-29] MEDS: GABAPENTIN 100 MG CAPSULE FEED TUBE (21:02)
[2024-12-29] MEDS: MINERAL OIL/WHITE PETROLATUM OINTMENT 1 APPLIC EACH EYE (21:02)
[2024-12-29 23:56] LABS: Glucose Point of Care 94 mg/dl (65-105)
[2024-12-30] VITALS (35 sets, daily range): BP systolic 78–110; BP diastolic 53–76; PULSE 59–109; RESP 16–20; TEMP 36.6–37.8; O2SAT 99–100; BMI 20.2
[2024-12-30] MEDS: metroNIDAZOLE 500 MG/ISO 100ML 500 MG/100 ML BAG 100 MG IVPB ×5 (00:14→23:53)
[2024-12-30] MEDS: VALPROATE SODIUM INJ 250 MG in DEXTROSE 5% IN WATER 50 ML 52.5 MG IVPB ×3 (00:14→18:18)
[2024-12-30] MEDS: NOREPINEPHRINE 8 MG/D5W 250 ML 8 MG/250 ML BAG 9.38 MG IV CONT (02:00)
--- NOTE | 2024-12-30 02:15 | P.PNCROSS_ITS ---
Event Note Event Note Event Note: Nurse called regarding blood culture positive for gram cocci in chains. Will s tart vancomycin and can be deescalated once MRSA negative
--- NOTE | 2024-12-30 02:15 | PM.EVENT ---
Event Note Event Note Event Note: Nurse called regarding blood culture positive for gram cocci in chains. Will start vancomycin and can be deescalated once MRSA negative
[2024-12-30 03:02] LABS: Basophils Percent Auto 0.1 % (0.2-1.2); Hematocrit 24.4 % (42.0-52.0); Hemoglobin 7.5 g/dL (14.0-18.0); Immature Granulocyte Absolute 0.05 K/mm3 (0.00-0.031); Immature Granulocyte Percent A 0.6 % (0-0.5); Lymphocytes Absolute Auto 1.18 K/mm3 (0.9-3.2); Lymphocytes Percent Auto 14.1 % (18.3-44.2); Mean Corpuscular HGB Conc 30.7 g/dl (32-36); Mean Corpuscular Hemoglobin 32.5 pg (26-34); Mean Corpuscular Volume 105.6 fl (80-100); Mean Platelet Volume 10.3 fl (7.4-10.4); Monocytes Absolute Auto 0.4 K/mm3 (0.1-0.6); Monocytes Percent Auto 4.9 % (2.6-8.5); Neutrophils Absolute Auto 6.7 K/mm3 (1.3-6.7); Neutrophils Percent Auto 80.3 % (45.5-73.1); Nucleated Red Blood Cells Perc 1.3 % (0.0-0.2); Platelet Count Result 204 k/mm3 (150-375); Red Blood Count 2.31 M/mm3 (4.6-6.20); White Blood Count 8.4 K/mm3 (4.5-10.0)
[2024-12-30] MEDS: VANCOMYCIN 1,500 MG/NS 500 ML 1,500 MG/500 ML BAG 250 MG IVPB (03:17)
[2024-12-30 03:18] LABS: Lactic Acid Reflex 1.3 mmol/L (0.7-2.0)
[2024-12-30] MEDS: dexmedeTOMIDine 400 MCG/100 ML 400 MCG/100 ML BAG 7.06 MCG IV CONT ×2 (03:21→16:51)
[2024-12-30 03:32] LABS: Albumin Level 3.5 g/dL (3.5-5.1); Alkaline Phosphatase 78 U/L (38-126); Anion Gap 9 mmol/L (4-12); Bilirubin,Total 0.8 mg/dL (0.2-1.3); Blood Urea Nitrogen 47 mg/dL (9-20); Calcium 8.3 mg/dL (8.4-10.2); Carbon Dioxide 29 mmol/L (22-30); Chloride 108 mmol/L (98-107); Estimated CRCL calculation 60 ml/min; Estimated Glomerular Filt Rate > 60; Glucose 93 mg/dL (65-110); Magnesium 2.3 mg/dL (1.6-2.3); Potassium 3.2 mmol/L (3.4-5.0); Sodium 146 mmol/L (137-145)
[2024-12-30 03:40] LABS: Alanine Aminotransferase 1031 U/L (6-50)
[2024-12-30 03:46] LABS: Aspartate Amino Transferase 1513 U/L (17-59)
[2024-12-30 03:47] LABS: Hypochromasia 1+; Platelet Estimate Adequate (Adequate)
[2024-12-30 03:48] LABS: Anisocytosis 1+; Macrocytosis 1+ (NORMAL); Schistocytes None Seen
[2024-12-30 05:11] LABS: MRSA (PCR) NOT DETECTED (NOT DETECTE)
[2024-12-30] MEDS: GABAPENTIN 100 MG CAPSULE FEED TUBE ×3 (05:20→21:28)
[2024-12-30 06:02] LABS: Alveolar/Arterial O2 Gradient 78.3 mmHg; Base Excess ABG 1.2 mEq/l (+/-2.0); Carboxyhemoglobin 0.9 % THb (0-2.0); Fractional Inspired Oxygen 35 %; HCO3 ABG 23.2 mEq/l (22.0-26.0); Oxygen Content ABG 12.1 %vol (16.0-22.0); Oxygen Saturation ABG 99.1 % (95.0-100.0); Oxyhemoglobin 98.5 % THb (90.0-100.0); PCO2 ABG 26.9 mmHg (35.0-45.0); Reduced Hemoglobin 0.6 %THb (0-5.0); Total Hemoglobin 8.5 g/dL (12.0-18.0)
[2024-12-30] MEDS: VALPROATE SODIUM INJ 250 MG in DEXTROSE 5% IN WATER 50 ML 52 MG IVPB (06:10)
[2024-12-30 06:35] LABS: Glucose Point of Care 94 mg/dl (65-105)
[2024-12-30 06:58] LABS: Arterial Blood Gas Ventilator rate 20 /MIN; Device VENTILATOR; Modified Allen's Test Pass; Site Drawn RIGHT RADIAL; pH ABG 7.553 (7.350-7.450)
[2024-12-30 06:59] LABS: Arterial Blood Gas PEEP 8 cmH2O; Arterial Blood Gas Tidal Volume 350 ml; Arterial Blood Gas Vent Mode CMV
[2024-12-30 08:01] LABS: Alveolar/Arterial O2 Gradient 304.5 mmHg; Base Excess ABG -6.5 mEq/l (+/-2.0); Carboxyhemoglobin 0.5 % THb (0-2.0); Device VENTILATOR; Fractional Inspired Oxygen 100 %; Methemoglobin ABG 0.3 %THb (0-1.5); Oxygen Content ABG 13.7 %vol (16.0-22.0); Oxygen Saturation ABG 99.8 % (95.0-100.0); Oxyhemoglobin 98.9 % THb (90.0-100.0); PCO2 ABG 32.1 mmHg (35.0-45.0); PO2 ABG 376.4 mmHg (80.0-100.0); PO2 FiO2 Ratio Arterial Blood 3.76 %; Reduced Hemoglobin 0.3 %THb (0-5.0); Site Drawn RIGHT BRACHIAL; Total Hemoglobin 9.1 g/dL (12.0-18.0); pH ABG 7.367 (7.350-7.450)
[2024-12-30 08:03] LABS: Arterial Blood Gas Ventilator rate 20 /MIN
[2024-12-30 08:04] LABS: Arterial Blood Gas PEEP 8 cmH2O; Arterial Blood Gas Tidal Volume 350 ml; Arterial Blood Gas Vent Mode CMV
--- NOTE | 2024-12-30 08:04 | WPDINTPN ---
Progress Note: A&P Assessment and Plan (1) Acute hypoxemic respiratory failure: Code(s): J96.01 - Acute respiratory failure with hypoxia Status: Acute Assessment and Plan: acute hypoxic respiratory failure likely secondary to congestive heart failure leading to pulmonary edema pleural effusions and possibility of community-acquired pneumonia on my examination patient was tachypneic cardiac tachypneic. Due to his mental status and hemodynamic instability we decided to intubate patient patient was transferred to ICU and emergently intubated after discussion with patient's sister. Post intubation chest x-ray received. ventilator settings and ABG reviewed wean FiO2 Lasix IV for the pulmonary edema management of pneumonia as below bronchodilator p.r.n. (2) Cardiomyopathy: Code(s): I42.9 - Cardiomyopathy, unspecified Status: Acute Assessment and Plan: patient does have history of congestive heart failure. 12/29 echocardiogram showed Summary 1. The left ventricle is mildly dilated with severely reduced systolic function. There is mild eccentric left ventricular hypertrophy. The left ventricular ejection fraction is visually estimated to be 15-20%. There is no left ventricular thrombus. 2. The right ventricle is normal in size with reduced systolic function. 3. The left atrium is severely dilated. 4. The aortic valve is trileaflet and thickened. The right coronary cusp is calcified and restricted. There is no hemodynamically significant stenosis. There is moderate aortic regurgitation. 5. The mitral valve leaflets are thickened but opens well. There is mild mitral regurgitation. 6. The tricuspid valve leaflets are sclerotic but opens well. There is moderate tricuspid regurgitation. There is moderate hypertension. The PASP is estimated to be 60 mmHg. 7. Dilated inferior vena cava with <50% collapse upon inspiration consistent with significantly elevated right atrial pressure, 15 mmHg. 8. There is left-sided pleural effusion Continue Lasix cardiology is following start low-dose dobutamine (3) CHF exacerbation: Qualifiers: Heart failure type: unspecified Qualified Code(s): I50.9 - Heart failure, unspecified Code(s): I50.9 - Heart failure, unspecified Status: Acute Assessment and Plan: see above (4) Sepsis: Code(s): A41.9 - Sepsis, unspecified organism Status: Acute Assessment and Plan: patient does have UTI and may have pneumonia. Pneumonia can not be community-acquired or aspiration considering his mental status elevated lactic acid can be secondary to sepsis or cardiogenic procalcitonin was intermediate at 0.3 blood culture 1/2 growing Gram-positive cocci add vancomycin continue Rocephin doxycycline and Flagyl urine cultures pending (5) UTI (urinary tract infection): Code(s): N39.0 - Urinary tract infection, site not specified Status: Acute Assessment and Plan: see above (6) Community acquired pneumonia: Qualifiers: Laterality: unspecified laterality Qualified Code(s): J18.9 - Pneumonia, unspecified organism Code(s): J18.9 - Pneumonia, unspecified organism Status: Acute Assessment and Plan: see above (7) Seizures: Code(s): R56.9 - Unspecified convulsions Status: Acute Assessment and Plan: continue valproic acid and gabapentin (8) Tachycardia: Code(s): R00.0 - Tachycardia, unspecified Status: Acute Assessment and Plan: tachycardia secondary to cardiomyopathy, respiratory failure and possibly sepsis improved after intubation and sedation (9) Swelling of right upper extremity: Code(s): M79.89 - Other specified soft tissue disorders Status: Acute Assessment and Plan: right upper extremity venous Dopplers were negative for DVT (10) Constipation: Qualifiers: Constipation type: chronic idiopathic constipation Qualified Code(s): K59.04 - Chronic idiopathic constipation Code(s): K59.00 - Constipation, unspecified Status: Acute Assessment and Plan: laxatives already ordered. Will also order enema GI consult ordered (11) Fecal impaction: Code(s): K56.41 - Fecal impaction Status: Acute Assessment and Plan: enema ordered (12) Elevated LFTs: Code(s): R79.89 - Other specified abnormal findings of blood chemistry Status: Acute Assessment and Plan: elevated LFTs likely secondary to shock liver and possible hepatic congestion . monitor levels at this time. (13) Electrolyte abnormality: Code(s): E87.8 - Other disorders of electrolyte and fluid balance, not elsewhere classified Status: Acute Assessment and Plan: Replace low potassium Check phosphorous Plan DVT prophylaxis - Lovenox Stress ulcer prophylaxis - Protonix Nutrition - npo. Start tube feeds Code Status - full code. 12/29 I had extensive discussion with patient's sister by phone. I updated her with patient's current status which involves respiratory failure, sepsis, cardiomyopathy. I also discussed goals of care. Patient's sister appears on informed of patient's medical problems and unrealistic of prognosis. She wants patient to be full code at this time. Patient was hence intubated and placed on mechanical ventilation. Total Critical Care Time - 30 minutes Due to a high probability of clinically significant, life threatening deterioration, the patient required my highest level of preparedness to intervene emergently and I personally spent this critical care time directly and personally managing the patient. This critical care time included obtaining a history; examining the patient; pulse oximetry; ordering and review of studies; arranging urgent treatment with development of a management plan; evaluation of patient's response to treatment; frequent reassessment; and discussions with other providers. It was exclusive of separately billable procedures and treating other patients and teaching time. Please see Assessment and Plan section and the rest of the note for further information on patient assessment and treatment Subjective Date/time seen: 12/30/24 overnight events reviewed. Patient after intubation was started on Precedex infusion and is tachycardia tachypnea has improved. he continues to be unresponsive. He has improved urine output with diuretics. He is afebrile overnight. Review of Systems Review of Systems: ROS unobtainable: Yes unobtainable due to endotracheal tube, unobtainable due to medical condition and unobtainable due to mental status Exam Narrative: General: Pt is Drowsy unresponsive Lungs/Chest: Tachypneic and bilateral crackles. Cardiac: tachycardic. Normal S1 S2. No murmurs could be heard due to tachycardia Circulation: Pedal pulses are intact and symmetrical. Abdomen: Normal bowel sounds.. Soft. NT. ND. Extremities: he has left mid tarsal amputation, he has a signed off bone injury on his right hand with looks like a graft, right arm is swollen with edema : Burdick in place Neurologic: patient was drowsy and unresponsive. He open his eyes on sternal rub. Did not follow any commands does not move any extremities. Baseline function unknown. pupils were equal and reactive to light both eyes were asymmetric and bilateral down and out Skin: he has a large sternotomy incision scar in the midline of his chest. Objective Data Vital Signs Vital Signs: Vital Signs - 24 hr 12/29/24 09:51 12/29/24 09:59 12/29/24 10:00 Temperature Pulse Rate 130 H Respiratory Rate Blood Pressure Pulse Oximetry 99 89 L Oxygen Delivery Nasal Cannula Nasal Cannula Oxygen Flow Rate 4 3 Fraction of Inspired Oxygen 12/29/24 11:29 12/29/24 12:00 12/29/24 12:00 Temperature 37.7 C H Pulse Rate 130 H 132 H Respiratory Rate 32 H Blood Pressure 121/74 Pulse Oximetry 93 94 Oxygen Delivery Nasal Cannula Oxygen Flow Rate 4 Fraction of Inspired Oxygen 12/29/24 14:00 12/29/24 15:38 12/29/24 15:39 Temperature Pulse Rate 137 H 124 H 124 H Respiratory Rate 24 H Blood Pressure Pulse Oximetry 97 Oxygen Delivery Mechanical Ventilation Oxygen Flow Rate Fraction of Inspired Oxygen 100 12/29/24 16:00 12/29/24 16:00 12/29/24 16:00 Temperature 37.8 C H Pulse Rate 127 H 127 H Respiratory Rate 27 H Blood Pressure 104/78 Pulse Oximetry 100 100 Oxygen Delivery Mechanical Ventilation Oxygen Flow Rate 50 Fraction of Inspired Oxygen 12/29/24 16:30 12/29/24 17:00 12/29/24 17:00 Temperature Pulse Rate 127 H 126 H Respiratory Rate 29 H 32 H Blood Pressure Pulse Oximetry Oxygen Delivery Mechanical Ventilation Oxygen Flow Rate Fraction of Inspired Oxygen 50 12/29/24 18:00 12/29/24 18:00 12/29/24 18:15 Temperature Pulse Rate 107 H 105 H Respiratory Rate 22 H Blood Pressure Pulse Oximetry Oxygen Delivery Mechanical Ventilation Oxygen Flow Rate Fraction of Inspired Oxygen 40 12/29/24 20:00 12/29/24 20:00 12/29/24 20:00 Temperature Pulse Rate 83 Respiratory Rate 20 Blood Pressure Pulse Oximetry 100 Oxygen Delivery Mechanical Ventilation Oxygen Flow Rate Fraction of Inspired Oxygen 40 40 12/29/24 20:00 12/29/24 20:00 12/29/24 20:52 Temperature 37.2 C Pulse Rate 84 84 80 Respiratory Rate 20 Blood Pressure 83/62 L Pulse Oximetry 100 100 Oxygen Delivery Mechanical Ventilation Oxygen Flow Rate Fraction of Inspired Oxygen 40 12/29/24 22:00 12/29/24 22:00 12/29/24 22:00 Temperature Pulse Rate 89 88 85 Respiratory Rate 20 20 Blood Pressure 101/70 Pulse Oximetry 100 Oxygen Delivery Oxygen Flow Rate Fraction of Inspired Oxygen 12/29/24 23:48 12/30/24 00:00 12/30/24 00:00 Temperature Pulse Rate 68 Respiratory Rate Blood Pressure Pulse Oximetry 100 100 Oxygen Delivery Mechanical Ventilation Mechanical Ventilation Oxygen Flow Rate Fraction of Inspired Oxygen 35 35 35 12/30/24 00:00 12/30/24 00:00 12/30/24 00:00 Temperature 36.6 C Pulse Rate 68 70 68 Respiratory Rate 20 20 Blood Pressure 88/61 L Pulse Oximetry 100 Oxygen Delivery Oxygen Flow Rate Fraction of Inspired Oxygen 12/30/24 02:00 12/30/24 02:00 12/30/24 02:00 Temperature Pulse Rate 65 65 65 Respiratory Rate 20 20 Blood Pressure 80/57 L Pulse Oximetry 100 Oxygen Delivery Oxygen Flow Rate Fraction of Inspired Oxygen 12/30/24 02:00 12/30/24 02:15 12/30/24 02:31 Temperature Pulse Rate 65 89 92 Respiratory Rate Blood Pressure 80/57 L 85/60 L Pulse Oximetry 100 Oxygen Delivery Mechanical Ventilation Oxygen Flow Rate Fraction of Inspired Oxygen 35 12/30/24 03:00 12/30/24 03:15 12/30/24 03:21 Temperature Pulse Rate 107 H 100 93 Respiratory Rate 20 Blood Pressure 109/76 106/71 Pulse Oximetry Oxygen Delivery Oxygen Flow Rate Fraction of Inspired Oxygen 12/30/24 03:21 12/30/24 03:30 12/30/24 03:45 Temperature Pulse Rate 93 90 88 Respiratory Rate 20 Blood Pressure 98/67 L 99/69 L Pulse Oximetry Oxygen Delivery Oxygen Flow Rate Fraction of Inspired Oxygen 12/30/24 04:00 12/30/24 04:00 12/30/24 04:00 Temperature 36.6 C Pulse Rate 72 72 72 Respiratory Rate 20 20 Blood Pressure 89/63 L 89/63 L Pulse Oximetry 100 Oxygen Delivery Oxygen Flow Rate Fraction of Inspired Oxygen 12/30/24 04:00 12/30/24 04:00 12/30/24 04:00 Temperature Pulse Rate 63 Respiratory Rate Blood Pressure Pulse Oximetry 99 Oxygen Delivery Mechanical Ventilation Oxygen Flow Rate Fraction of Inspired Oxygen 35 35 12/30/24 04:15 12/30/24 04:30 12/30/24 04:30 Temperature Pulse Rate 59 L 80 92 Respiratory Rate Blood Pressure 78/53 L 90/63 L Pulse Oximetry 100 Oxygen Delivery Mechanical Ventilation Oxygen Flow Rate Fraction of Inspired Oxygen 35 12/30/24 04:45 12/30/24 05:30 12/30/24 05:45 Temperature Pulse Rate 93 91 91 Respiratory Rate Blood Pressure 94/70 L 103/73 106/74 Pulse Oximetry Oxygen Delivery Oxygen Flow Rate Fraction of Inspired Oxygen 12/30/24 06:00 12/30/24 06:00 12/30/24 06:00 Temperature Pulse Rate 92 92 80 Respiratory Rate 20 Blood Pressure 98/65 L 98/65 L Pulse Oximetry 100 Oxygen Delivery Oxygen Flow Rate Fraction of Inspired Oxygen Intake/Output Intake/Output: Intake & Output 12/27/24 12/28/24 12/29/24 12/30/24 23:59 23:59 23:59 23:59 Intake Total 300 1604.8 867.8 Output Total 1000 700 Balance 300 604.8 167.8 Meds/Results Medications: Active Medications Generic Name Dose Route Start Last Admin Trade Name Freq PRN Reason Stop Dose Admin Albuterol/Ipratropium 3 ml 12/28/24 21:13 12/29/24 02:41 Ipratropium 0.5 Mg/Albuterol Sulfate 2.5 Mg Ampul.Neb 3 Ml INHALATION 3 ml Q6HRT PRN Administration Shortness Of Breath Or Wheezing Bisacodyl 10 mg 12/30/24 09:00 Bisacodyl 10 Mg Suppository RECTAL QAM DANI Dextrose 12.5 gm 12/30/24 08:02 Dextrose 50% 25 Gm/50 Ml Syringe IV PUSH PRN PRN Hypoglycemia Protocol Docusate Sodium 100 mg 12/29/24 09:00 12/29/24 09:14 Docusate Sodium Liq 100 Mg/10 Ml Udc FEED TUBE Not Given DAILY DANI Enoxaparin Sodium 40 mg 12/30/24 09:00 Enoxaparin 40 Mg/0.4 Ml Syringe SUB-Q QAM DANI Fentanyl Citrate 25 mcg 12/29/24 15:33 12/29/24 17:24 Fentanyl Citrate Inj (*Crx) 100 Mcg/2 Ml Vial IV PUSH 25 mcg Q1H PRN Administration Pain while on vent Furosemide 40 mg 12/29/24 17:00 12/29/24 17:56 Furosemide Inj 40 Mg/4 Ml Vial IV PUSH 40 mg BID DANI Administration Gabapentin 100 mg 12/29/24 06:00 12/30/24 05:20 Gabapentin 100 Mg Capsule FEED TUBE 100 mg Q8HR DANI Administration Glucagon 1 mg 12/30/24 08:02 Glucagon For Inj 1 Mg Vial IM PRN PRN Hypoglycemia Protocol Glucose 15 gm 12/30/24 08:02 Glucose Oral Gel 15 Gm Of Glucse In 37.5 Gm Tube PO PRN PRN Hypoglycemia Protocol Ceftriaxone Sodium 1 gm in 50 mls @ 100 mls/hr 12/29/24 09:00 12/29/24 14:38 Rocephin 1 Gm/Ns 50 Ml IVPB Infused Q24H DANI Infusion Valproate Sodium 250 mg/ 52.5 mls @ 52.5 mls/hr 12/29/24 07:00 12/30/24 07:11 Dextrose IVPB Infused Q6H DANI Infusion Metronidazole 500 mg in 100 mls @ 100 mls/hr 12/29/24 07:25 12/30/24 06:24 Flagyl 500 Mg/Iso Soln 100 Ml IVPB Infused Q6HR DANI Infusion Doxycycline Hyclate 100 mg in 100 mls @ 100 mls/hr 12/29/24 22:00 12/29/24 22:02 Vibramycin 100 Mg/Ns 100 Ml IVPB Infused Q12H DANI Infusion Dexmedetomidine HCl 400 mcg in 100 mls @ 7.063 mls/hr 12/29/24 15:10 12/30/24 04:00 Precedex 400 Mcg/100 Ml IV CONT 0.5 mcg/kg/hr .[id number] DANI 7.06 mls/hr Titration Protocol 0.5 MCG/KG/HR Norepinephrine Bitartrate 8 mg in 250 mls @ 5.625 mls/hr 12/29/24 19:05 12/30/24 06:00 Levophed 8 Mg/D5w 250 Ml IV CONT 1 mcg/min .Q24H DANI 1.88 mls/hr Titration Protocol 3 MCG/MIN Vancomycin HCl 1,000 mg in 250 mls @ 250 mls/hr 12/30/24 21:00 Vancomycin 1,000 Mg/Ns 250 Ml IVPB Q18H DANI Dobutamine HCl/Dextrose 250 mg in 250 mls @ 8.82 mls/hr 12/30/24 08:00 Dobutamine 250 Mg/D5w 250 Ml IV CONT .Q24H DANI 2.5 MCG/KG/MIN Dextrose 1,000 mls @ 100 mls/hr 12/30/24 08:02 Dextrose 5% 1,000 Ml IVPB PRN PRN Hypoglycemia Protocol Insulin Aspart 2 - 5 units 12/30/24 12:00 Insulin Aspart (*Bkc) 100 Units/Ml SUB-Q Q6HR [facility] Protocol Midazolam HCl 2 mg 12/29/24 15:10 Midazolam Hcl (*Crx) 2 Mg/2 Ml Vial IV PUSH Q5M PRN ventilator asynchrony Multi-Ingred Cream/Lotion/Oil/Oint 1 applic 12/29/24 21:00 12/29/24 21:02 Mineral Oil/White Petrolatum Ointment EACH EYE 1 applic Q12HR DANI Administration Pantoprazole Sodium 40 mg 12/29/24 15:15 12/29/24 17:56 Pantoprazole Sodium Iv 40 Mg Vial IV PUSH 40 mg QAM DANI Administration Polyethylene Glycol 17 gm 12/29/24 09:00 12/29/24 09:14 Polyethylene Glycol 3350 17 Gm Powd.Pack FEED TUBE Not Given DAILY DANI Polyethylene Glycol 17 gm 12/30/24 09:00 Polyethylene Glycol 3350 17 Gm Powd.Pack PO QAM DANI Sodium Bicarbonate 650 mg 12/29/24 17:00 12/29/24 18:02 Sodium Bicarbonate Tab 650 Mg Tablet PO 650 mg BID DANI Administration Valproate Sodium 750 mg 12/29/24 09:00 Valproic Acid Liq 250 Mg/5 Ml Oral Solution Udc FEED TUBE BID [facility] Radiology Results: ITS Impressions Venous Doppler Study 12/28/24 15:55 IMPRESSION: Negative left and right upper extremity venous US. No deep vein thrombosis. Chest/Abdomen/Pelvis CTA 12/29/24 14:43 IMPRESSION: 1. Extensive patchy airspace opacities throughout both lungs and favor severe congestive heart failure related pulmonary edema over pneumonia. 2. Small left and moderate sized right dependently layering pleural effusions with associated compressive atelectasis in the dependent lungs. 3. Cardiomegaly with enlargement of the central pulmonary consistent with pulmonary arterial hypertension. 4. Large amount of stool throughout the colon with 9.6 x 6.7 cm ball of stool the rectum consistent with likely constipation with fecal impaction. 5. Hepatomegaly. Chest X-Ray 12/30/24 06:02 Impression: Diffuse bilateral pulmonary consolidation. Correlate for severe pulmonary edema, diffuse pneumonia, or ARDS. Support tubes, as above. Labs Labs: Laboratory Results - last 24 hr 12/29/24 12/29/24 12/29/24 05:12 09:00 10:56 WBC 7.0 RBC 2.58 L Hgb 8.1 L Hct 27.8 L MCV 107.8 H MCH 31.4 MCHC 29.1 L RDW 15.3 H Plt Count 288 MPV 11.4 H Immature Gran % (Auto) Neut % (Auto) Lymph % (Auto) [place] % (Auto) Eos % (Auto) Baso % (Auto) Lymph # (Auto) [place] # (Auto) Eos # (Auto) Baso # (Auto) Abs Immat Gran (auto) Absolute Neuts (auto) Absolute Nucleated RBC Band Neutrophils % Nucleated RBC % Platelet Estimate Hypochromasia Anisocytosis Macrocytosis Schistocytes Puncture Site ABG pH ABG pCO2 ABG pO2 ABG PO2/FiO2 Ratio ABG HCO3 ABG O2 Saturation ABG O2 Content ABG Base Excess A-a Gradient Oxyhemoglobin Carboxyhemoglobin Methemoglobin Reduced Hemoglobin Total Hemoglobin O2 Delivery Device O2 Liters/Min Minute Volume Vent Rate Vent Mode FiO2 Tidal Volume PEEP Peak Inspir Pressure Pressure Support Sodium 145 Potassium 4.2 Chloride 107 Carbon Dioxide 19 L Anion Gap 19 H BUN 39 H Creatinine 0.82 Estim Creat Clear Calc 66 Estimated GFR > 60 Glucose 110 POC Capillary Glucose Lactic Acid 6.0 H* Calcium 8.5 Magnesium Total Bilirubin AST ALT Alkaline Phosphatase Total Protein Albumin Procalcitonin 0.3 Nasal MRSA (PCR) Not detected 12/29/24 12/29/24 12/29/24 16:46 16:46 16:46 WBC RBC Hgb Hct MCV MCH MCHC RDW Plt Count MPV Immature Gran % (Auto) Neut % (Auto) Lymph % (Auto) [place] % (Auto) Eos % (Auto) Baso % (Auto) Lymph # (Auto) [place] # (Auto) Eos # (Auto) Baso # (Auto) Abs Immat Gran (auto) Absolute Neuts (auto) Absolute Nucleated RBC Band Neutrophils % Nucleated RBC % Platelet Estimate Hypochromasia Anisocytosis Macrocytosis Schistocytes Puncture Site Right brachial Right brachial ABG pH 7.367 7.367 ABG pCO2 32.1 L ABG pO2 ABG PO2/FiO2 Ratio ABG HCO3 ABG O2 Saturation ABG O2 Content ABG Base Excess A-a Gradient Oxyhemoglobin Carboxyhemoglobin Methemoglobin Reduced Hemoglobin Total Hemoglobin O2 Delivery Device O2 Liters/Min Minute Volume Vent Rate Vent Mode FiO2 Tidal Volume PEEP Peak Inspir Pressure Pressure Support Sodium Potassium Chloride Carbon Dioxide Anion Gap BUN Creatinine Estim Creat Clear Calc Estimated GFR Glucose POC Capillary Glucose Lactic Acid Calcium Magnesium Total Bilirubin AST ALT Alkaline Phosphatase Total Protein Albumin Procalcitonin Nasal MRSA (PCR) 12/29/24 12/29/24 12/29/24 16:46 16:46 16:46 WBC RBC Hgb Hct MCV MCH MCHC RDW Plt Count MPV Immature Gran % (Auto) Neut % (Auto) Lymph % (Auto) [place] % (Auto) Eos % (Auto) Baso % (Auto) Lymph # (Auto) [place] # (Auto) Eos # (Auto) Baso # (Auto) Abs Immat Gran (auto) Absolute Neuts (auto) Absolute Nucleated RBC Band Neutrophils % Nucleated RBC % Platelet Estimate Hypochromasia Anisocytosis Macrocytosis Schistocytes Puncture Site ABG pH ABG pCO2 32.1 L ABG pO2 376.4 H 376.4 H ABG PO2/FiO2 Ratio 3.76 3.76 ABG HCO3 18.0 L ABG O2 Saturation ABG O2 Content ABG Base Excess A-a Gradient Oxyhemoglobin Carboxyhemoglobin Methemoglobin Reduced Hemoglobin Total Hemoglobin O2 Delivery Device O2 Liters/Min Minute Volume Vent Rate Vent Mode FiO2 Tidal Volume PEEP Peak Inspir Pressure Pressure Support Sodium Potassium Chloride Carbon Dioxide Anion Gap BUN Creatinine Estim Creat Clear Calc Estimated GFR Glucose POC Capillary Glucose Lactic Acid Calcium Magnesium Total Bilirubin AST ALT Alkaline Phosphatase Total Protein Albumin Procalcitonin Nasal MRSA (PCR) 12/29/24 12/29/24 12/29/24 16:46 16:46 16:46 WBC RBC Hgb Hct MCV MCH MCHC RDW Plt Count MPV Immature Gran % (Auto) Neut % (Auto) Lymph % (Auto) [place] % (Auto) Eos % (Auto) Baso % (Auto) Lymph # (Auto) [place] # (Auto) Eos # (Auto) Baso # (Auto) Abs Immat Gran (auto) Absolute Neuts (auto) Absolute Nucleated RBC Band Neutrophils % Nucleated RBC % Platelet Estimate Hypochromasia Anisocytosis Macrocytosis Schistocytes Puncture Site ABG pH ABG pCO2 ABG pO2 ABG PO2/FiO2 Ratio ABG HCO3 18.0 L ABG O2 Saturation 99.8 99.8 ABG O2 Content 13.7 L 13.7 L ABG Base Excess -6.5 A-a Gradient Oxyhemoglobin Carboxyhemoglobin Methemoglobin Reduced Hemoglobin Total Hemoglobin O2 Delivery Device O2 Liters/Min Minute Volume Vent Rate Vent Mode FiO2 Tidal Volume PEEP Peak Inspir Pressure Pressure Support Sodium Potassium Chloride Carbon Dioxide Anion Gap BUN Creatinine Estim Creat Clear Calc Estimated GFR Glucose POC Capillary Glucose Lactic Acid Calcium Magnesium Total Bilirubin AST ALT Alkaline Phosphatase Total Protein Albumin Procalcitonin Nasal MRSA (PCR) 12/29/24 12/29/24 12/29/24 16:46 16:46 16:46 WBC RBC Hgb Hct MCV MCH MCHC RDW Plt Count MPV Immature Gran % (Auto) Neut % (Auto) Lymph % (Auto) [place] % (Auto) Eos % (Auto) Baso % (Auto) Lymph # (Auto) [place] # (Auto) Eos # (Auto) Baso # (Auto) Abs Immat Gran (auto) Absolute Neuts (auto) Absolute Nucleated RBC Band Neutrophils % Nucleated RBC % Platelet Estimate Hypochromasia Anisocytosis Macrocytosis Schistocytes Puncture Site ABG pH ABG pCO2 ABG pO2 ABG PO2/FiO2 Ratio ABG HCO3 ABG O2 Saturation ABG O2 Content ABG Base Excess 6.5 A-a Gradient 304.5 304.5 Oxyhemoglobin 98.9 98.9 Carboxyhemoglobin 0.5 Methemoglobin 0.3 Reduced Hemoglobin 0.3 Total Hemoglobin 9.1 L O2 Delivery Device O2 Liters/Min Minute Volume Vent Rate Vent Mode FiO2 Tidal Volume PEEP Peak Inspir Pressure Pressure Support Sodium Potassium Chloride Carbon Dioxide Anion Gap BUN Creatinine Estim Creat Clear Calc Estimated GFR Glucose POC Capillary Glucose Lactic Acid Calcium Magnesium Total Bilirubin AST ALT Alkaline Phosphatase Total Protein Albumin Procalcitonin Nasal MRSA (PCR) 12/29/24 12/29/24 12/29/24 16:46 16:46 16:46 WBC RBC Hgb Hct MCV MCH MCHC RDW Plt Count MPV Immature Gran % (Auto) Neut % (Auto) Lymph % (Auto) [place] % (Auto) Eos % (Auto) Baso % (Auto) Lymph # (Auto) [place] # (Auto) Eos # (Auto) Baso # (Auto) Abs Immat Gran (auto) Absolute Neuts (auto) Absolute Nucleated RBC Band Neutrophils % Nucleated RBC % Platelet Estimate Hypochromasia Anisocytosis Macrocytosis Schistocytes Puncture Site ABG pH ABG pCO2 ABG pO2 ABG PO2/FiO2 Ratio ABG HCO3 ABG O2 Saturation ABG O2 Content ABG Base Excess A-a Gradient Oxyhemoglobin Carboxyhemoglobin Methemoglobin Reduced Hemoglobin Total Hemoglobin 9.1 L O2 Delivery Device Ventilator Ventilator O2 Liters/Min Not Reportable Not Reportable Minute Volume Not Reportable Vent Rate Vent Mode FiO2 Tidal Volume PEEP Peak Inspir Pressure Pressure Support Sodium Potassium Chloride Carbon Dioxide Anion Gap BUN Creatinine Estim Creat Clear Calc Estimated GFR Glucose POC Capillary Glucose Lactic Acid Calcium Magnesium Total Bilirubin AST ALT Alkaline Phosphatase Total Protein Albumin Procalcitonin Nasal MRSA (PCR) 12/29/24 12/29/24 12/29/24 16:46 16:46 16:46 WBC RBC Hgb Hct MCV MCH MCHC RDW Plt Count MPV Immature Gran % (Auto) Neut % (Auto) Lymph % (Auto) [place] % (Auto) Eos % (Auto) Baso % (Auto) Lymph # (Auto) [place] # (Auto) Eos # (Auto) Baso # (Auto) Abs Immat Gran (auto) Absolute Neuts (auto) Absolute Nucleated RBC Band Neutrophils % Nucleated RBC % Platelet Estimate Hypochromasia Anisocytosis Macrocytosis Schistocytes Puncture Site ABG pH ABG pCO2 ABG pO2 ABG PO2/FiO2 Ratio ABG HCO3 ABG O2 Saturation ABG O2 Content ABG Base Excess A-a Gradient Oxyhemoglobin Carboxyhemoglobin Methemoglobin Reduced Hemoglobin Total Hemoglobin O2 Delivery Device O2 Liters/Min Minute Volume Not Reportable Vent Rate 20 20 Vent Mode Cmv Cmv FiO2 100 Tidal Volume 350 PEEP Peak Inspir Pressure Pressure Support Sodium Potassium Chloride Carbon Dioxide Anion Gap BUN Creatinine Estim Creat Clear Calc Estimated GFR Glucose POC Capillary Glucose Lactic Acid Calcium Magnesium Total Bilirubin AST ALT Alkaline Phosphatase Total Protein Albumin Procalcitonin Nasal MRSA (PCR) 12/29/24 12/29/24 12/29/24 16:46 16:46 16:46 WBC RBC Hgb Hct MCV MCH MCHC RDW Plt Count MPV Immature Gran % (Auto) Neut % (Auto) Lymph % (Auto) [place] % (Auto) Eos % (Auto) Baso % (Auto) Lymph # (Auto) [place] # (Auto) Eos # (Auto) Baso # (Auto) Abs Immat Gran (auto) Absolute Neuts (auto) Absolute Nucleated RBC Band Neutrophils % Nucleated RBC % Platelet Estimate Hypochromasia Anisocytosis Macrocytosis Schistocytes Puncture Site ABG pH ABG pCO2 ABG pO2 ABG PO2/FiO2 Ratio ABG HCO3 ABG O2 Saturation ABG O2 Content ABG Base Excess A-a Gradient Oxyhemoglobin Carboxyhemoglobin Methemoglobin Reduced Hemoglobin Total Hemoglobin O2 Delivery Device O2 Liters/Min Minute Volume Vent Rate Vent Mode FiO2 Tidal Volume 350 PEEP 8 8 Peak Inspir Pressure Not Reportable Not Reportable Pressure Support Not Reportable Sodium Potassium Chloride Carbon Dioxide Anion Gap BUN Creatinine Estim Creat Clear Calc Estimated GFR Glucose POC Capillary Glucose Lactic Acid Calcium Magnesium Total Bilirubin AST ALT Alkaline Phosphatase Total Protein Albumin Procalcitonin Nasal MRSA (PCR) 12/29/24 12/29/24 12/30/24 16:46 23:54 02:44 WBC 8.4 RBC 2.31 L Hgb 7.5 L Hct 24.4 L MCV 105.6 H MCH 32.5 MCHC 30.7 L RDW 15.0 H Plt Count 204 MPV 10.3 Immature Gran % (Auto) 0.6 H Neut % (Auto) 80.3 H Lymph % (Auto) 14.1 L [place] % (Auto) 4.9 Eos % (Auto) 0.0 Baso % (Auto) 0.1 L Lymph # (Auto) 1.18 [place] # (Auto) 0.4 Eos # (Auto) 0.0 Baso # (Auto) 0.0 Abs Immat Gran (auto) 0.05 H Absolute Neuts (auto) 6.7 Absolute Nucleated RBC 0.110 H Band Neutrophils % Not Reportable Nucleated RBC % 1.3 H Platelet Estimate Adequate Hypochromasia 1+ Anisocytosis 1+ Macrocytosis 1+ Schistocytes None seen Puncture Site ABG pH ABG pCO2 ABG pO2 ABG PO2/FiO2 Ratio ABG HCO3 ABG O2 Saturation ABG O2 Content ABG Base Excess A-a Gradient Oxyhemoglobin Carboxyhemoglobin Methemoglobin Reduced Hemoglobin Total Hemoglobin O2 Delivery Device O2 Liters/Min Minute Volume Vent Rate Vent Mode FiO2 Tidal Volume PEEP Peak Inspir Pressure Pressure Support Not Reportable Sodium 146 H Potassium 3.2 L Chloride 108 H Carbon Dioxide 29 Anion Gap 9 BUN 47 H Creatinine 0.91 Estim Creat Clear Calc 60 Estimated GFR > 60 Glucose 93 POC Capillary Glucose 94 Lactic Acid 7.1 H* 1.3 Calcium 8.3 L Magnesium 2.3 Total Bilirubin 0.8 AST 1513 H ALT 1031 H Alkaline Phosphatase 78 Total Protein 7.0 Albumin 3.5 Procalcitonin Nasal MRSA (PCR) Not detected 12/30/24 12/30/24 12/30/24 03:28 06:01 06:28 WBC RBC Hgb Hct MCV MCH MCHC RDW Plt Count MPV Immature Gran % (Auto) Neut % (Auto) Lymph % (Auto) [place] % (Auto) Eos % (Auto) Baso % (Auto) Lymph # (Auto) [place] # (Auto) Eos # (Auto) Baso # (Auto) Abs Immat Gran (auto) Absolute Neuts (auto) Absolute Nucleated RBC Band Neutrophils % Nucleated RBC % Platelet Estimate Hypochromasia Anisocytosis Macrocytosis Schistocytes Puncture Site Right radial ABG pH 7.553 H* ABG pCO2 26.9 L ABG pO2 140.0 H ABG PO2/FiO2 Ratio 4.00 ABG HCO3 23.2 ABG O2 Saturation 99.1 ABG O2 Content 12.1 L ABG Base Excess 1.2 A-a Gradient 78.3 Oxyhemoglobin 98.5 Carboxyhemoglobin 0.9 Methemoglobin 0.0 Reduced Hemoglobin 0.6 Total Hemoglobin 8.5 L O2 Delivery Device Ventilator O2 Liters/Min Not Reportable Minute Volume Not Reportable Vent Rate 20 Vent Mode Cmv FiO2 35 Tidal Volume 350 PEEP 8 Peak Inspir Pressure Not Reportable Pressure Support Not Reportable Sodium Potassium Chloride Carbon Dioxide Anion Gap BUN Creatinine Estim Creat Clear Calc Estimated GFR Glucose POC Capillary Glucose 94 Lactic Acid Calcium Magnesium Total Bilirubin AST ALT Alkaline Phosphatase Total Protein Albumin Procalcitonin Nasal MRSA (PCR) Not detected Quality VTE Prophylaxis VTE prophylaxis: pharmacologic ordered
[2024-12-30] MEDS: POTASSIUM CHLORIDE 20 MEQ PACKET (FOR LIQUID) 40 MEQ FEED TUBE (09:17)
[2024-12-30 09:18] LABS: Phosphorus 3.9 mg/dL (2.5-4.5)
[2024-12-30] MEDS: BISACODYL 10 MG SUPPOSITORY RECTAL (09:18)
[2024-12-30] MEDS: DOBUTamine 250 MG/D5W 250 ML 250 MG/250 ML BAG 8.82 MG IV CONT (09:18)
[2024-12-30] MEDS: DOXYCYCLINE 100 MG/NS 100 ML 100 MG/100 ML BAG IVPB ×2 (09:19→21:24)
[2024-12-30] MEDS: PANTOPRAZOLE SODIUM IV 40 MG VIAL IV PUSH (09:19)
[2024-12-30] MEDS: DOCUSATE SODIUM LIQ 100 MG/10 ML UDC FEED TUBE (09:19)
[2024-12-30] MEDS: FUROSEMIDE INJ 40 MG/4 ML VIAL IV PUSH ×2 (09:19→16:29)
[2024-12-30] MEDS: ENOXAPARIN 40 MG/0.4 ML SYRINGE SUB-Q (09:20)
[2024-12-30] MEDS: polyethylene glycoL 3350 17 GM POWD.PACK PO (09:20)
[2024-12-30] MEDS: MINERAL OIL/WHITE PETROLATUM OINTMENT 1 APPLIC EACH EYE ×2 (09:20→20:13)
[2024-12-30] MEDS: SODIUM BICARBONATE TAB 650 MG TABLET PO ×2 (09:20→16:29)
--- NOTE | 2024-12-30 09:43 | P.PNCA_ITS ---
Progress Note: A&P Assessment and Plan (1) CHF exacerbation: Qualifiers: Heart failure type: unspecified Qualified Code(s): I50.9 - Heart failure, unspecified Code(s): I50.9 - Heart failure, unspecified Status: Acute Plan 59-year-old man with schizophrenia, seizures, heart failure with severely reduced systolic function, who is nonverbal with a G-tube transfer from correction due to respiratory distress Acute hypoxic respiratory failure -likely multifactorial -antibiotic and diuretic regiment Acute decompensated systolic heart failure -unknown whether this is newly reduced systolic dysfunction -will treat with Lasix 40 mg IV b.i.d. -CTA negative for evidence of compression syndrome -once patient is more stable from respiratory standpoint, we will introduce guideline directed medical therapy -overall prognosis is poor Pneumonia -continue antibiotic therapy Subjective Date/time seen: 12/30/24 09:43 Interval history: Cardiology follow up visit Remains intubated and sedated. Review of Systems Review of Systems: ROS unobtainable: Yes unobtainable due to medical condition Exam Const: Other: Ill appearing HENMT: Mouth: Yes moist mucous membranes Eyes: EOM: EOMs intact bilaterally Neck: Neck: no JVD Resp: Auscultation: rales and rhonchi Other: mechanically ventilated Cardio: Rate: tachycardic Rhythm: regular rhythm Extrem: Other: Right upper extremity swelling. Objective Data Vital Signs Vital Signs: Vital Signs - 24 hr 12/29/24 09:51 12/29/24 09:59 12/29/24 10:00 Temperature Pulse Rate 130 H Respiratory Rate Blood Pressure Pulse Oximetry 99 89 L Oxygen Delivery Nasal Cannula Nasal Cannula Oxygen Flow Rate 4 3 Fraction of Inspired Oxygen 12/29/24 11:29 12/29/24 12:00 12/29/24 12:00 Temperature 37.7 C H Pulse Rate 130 H 132 H Respiratory Rate 32 H Blood Pressure 121/74 Pulse Oximetry 93 94 Oxygen Delivery Nasal Cannula Oxygen Flow Rate 4 Fraction of Inspired Oxygen 12/29/24 14:00 12/29/24 15:38 12/29/24 15:39 Temperature Pulse Rate 137 H 124 H 124 H Respiratory Rate 24 H Blood Pressure Pulse Oximetry 97 Oxygen Delivery Mechanical Ventilation Oxygen Flow Rate Fraction of Inspired Oxygen 100 12/29/24 16:00 12/29/24 16:00 12/29/24 16:00 Temperature 37.8 C H Pulse Rate 127 H 127 H Respiratory Rate 27 H Blood Pressure 104/78 Pulse Oximetry 100 100 Oxygen Delivery Mechanical Ventilation Oxygen Flow Rate 50 Fraction of Inspired Oxygen 12/29/24 16:30 12/29/24 17:00 12/29/24 17:00 Temperature Pulse Rate 127 H 126 H Respiratory Rate 29 H 32 H Blood Pressure Pulse Oximetry Oxygen Delivery Mechanical Ventilation Oxygen Flow Rate Fraction of Inspired Oxygen 50 12/29/24 18:00 12/29/24 18:00 12/29/24 18:15 Temperature Pulse Rate 107 H 105 H Respiratory Rate 22 H Blood Pressure Pulse Oximetry Oxygen Delivery Mechanical Ventilation Oxygen Flow Rate Fraction of Inspired Oxygen 40 12/29/24 20:00 12/29/24 20:00 12/29/24 20:00 Temperature Pulse Rate 83 Respiratory Rate 20 Blood Pressure Pulse Oximetry 100 Oxygen Delivery Mechanical Ventilation Oxygen Flow Rate Fraction of Inspired Oxygen 40 40 12/29/24 20:00 12/29/24 20:00 12/29/24 20:52 Temperature 37.2 C Pulse Rate 84 84 80 Respiratory Rate 20 Blood Pressure 83/62 L Pulse Oximetry 100 100 Oxygen Delivery Mechanical Ventilation Oxygen Flow Rate Fraction of Inspired Oxygen 40 12/29/24 22:00 12/29/24 22:00 12/29/24 22:00 Temperature Pulse Rate 89 88 85 Respiratory Rate 20 20 Blood Pressure 101/70 Pulse Oximetry 100 Oxygen Delivery Oxygen Flow Rate Fraction of Inspired Oxygen 12/29/24 23:48 12/30/24 00:00 12/30/24 00:00 Temperature Pulse Rate 68 Respiratory Rate Blood Pressure Pulse Oximetry 100 100 Oxygen Delivery Mechanical Ventilation Mechanical Ventilation Oxygen Flow Rate Fraction of Inspired Oxygen 35 35 35 12/30/24 00:00 12/30/24 00:00 12/30/24 00:00 Temperature 36.6 C Pulse Rate 68 70 68 Respiratory Rate 20 20 Blood Pressure 88/61 L Pulse Oximetry 100 Oxygen Delivery Oxygen Flow Rate Fraction of Inspired Oxygen 12/30/24 02:00 12/30/24 02:00 12/30/24 02:00 Temperature Pulse Rate 65 65 65 Respiratory Rate 20 20 Blood Pressure 80/57 L Pulse Oximetry 100 Oxygen Delivery Oxygen Flow Rate Fraction of Inspired Oxygen 12/30/24 02:00 12/30/24 02:15 12/30/24 02:31 Temperature Pulse Rate 65 89 92 Respiratory Rate Blood Pressure 80/57 L 85/60 L Pulse Oximetry 100 Oxygen Delivery Mechanical Ventilation Oxygen Flow Rate Fraction of Inspired Oxygen 35 12/30/24 03:00 12/30/24 03:15 12/30/24 03:21 Temperature Pulse Rate 107 H 100 93 Respiratory Rate 20 Blood Pressure 109/76 106/71 Pulse Oximetry Oxygen Delivery Oxygen Flow Rate Fraction of Inspired Oxygen 12/30/24 03:21 12/30/24 03:30 12/30/24 03:45 Temperature Pulse Rate 93 90 88 Respiratory Rate 20 Blood Pressure 98/67 L 99/69 L Pulse Oximetry Oxygen Delivery Oxygen Flow Rate Fraction of Inspired Oxygen 12/30/24 04:00 12/30/24 04:00 12/30/24 04:00 Temperature 36.6 C Pulse Rate 72 72 72 Respiratory Rate 20 20 Blood Pressure 89/63 L 89/63 L Pulse Oximetry 100 Oxygen Delivery Oxygen Flow Rate Fraction of Inspired Oxygen 12/30/24 04:00 12/30/24 04:00 12/30/24 04:00 Temperature Pulse Rate 63 Respiratory Rate Blood Pressure Pulse Oximetry 99 Oxygen Delivery Mechanical Ventilation Oxygen Flow Rate Fraction of Inspired Oxygen 35 35 12/30/24 04:15 12/30/24 04:30 12/30/24 04:30 Temperature Pulse Rate 59 L 80 92 Respiratory Rate Blood Pressure 78/53 L 90/63 L Pulse Oximetry 100 Oxygen Delivery Mechanical Ventilation Oxygen Flow Rate Fraction of Inspired Oxygen 35 12/30/24 04:45 12/30/24 05:30 12/30/24 05:45 Temperature Pulse Rate 93 91 91 Respiratory Rate Blood Pressure 94/70 L 103/73 106/74 Pulse Oximetry Oxygen Delivery Oxygen Flow Rate Fraction of Inspired Oxygen 12/30/24 06:00 12/30/24 06:00 12/30/24 06:00 Temperature Pulse Rate 92 92 80 Respiratory Rate 20 Blood Pressure 98/65 L 98/65 L Pulse Oximetry 100 Oxygen Delivery Oxygen Flow Rate Fraction of Inspired Oxygen 12/30/24 08:00 12/30/24 08:00 12/30/24 09:13 Temperature 36.7 C Pulse Rate 74 72 93 Respiratory Rate 20 Blood Pressure 87/61 L 91/63 L Pulse Oximetry 100 100 Oxygen Delivery Mechanical Ventilation Oxygen Flow Rate Fraction of Inspired Oxygen 30 12/30/24 09:26 Temperature Pulse Rate Respiratory Rate Blood Pressure Pulse Oximetry 100 Oxygen Delivery Mechanical Ventilation Oxygen Flow Rate Fraction of Inspired Oxygen 30 Intake/Output Intake/Output: Intake & Output 12/27/24 12/28/24 12/29/24 12/30/24 23:59 23:59 23:59 23:59 Intake Total 300 1604.8 871.6 Output Total 1000 700 Balance 300 604.8 171.6 Meds/Results Medications: Active Medications Generic Name Dose Route Start Last Admin Trade Name Freq PRN Reason Stop Dose Admin Albuterol/Ipratropium 3 ml 12/28/24 21:13 12/29/24 02:41 Ipratropium 0.5 Mg/Albuterol Sulfate 2.5 Mg Ampul.Neb 3 Ml INHALATION 3 ml Q6HRT PRN Administration Shortness Of Breath Or Wheezing Bisacodyl 10 mg 12/30/24 09:00 Bisacodyl 10 Mg Suppository RECTAL QAM DANI Dextrose 12.5 gm 12/30/24 08:02 Dextrose 50% 25 Gm/50 Ml Syringe IV PUSH PRN PRN Hypoglycemia Protocol Docusate Sodium 100 mg 12/29/24 09:00 12/29/24 09:14 Docusate Sodium Liq 100 Mg/10 Ml Udc FEED TUBE Not Given DAILY [facility] Enoxaparin Sodium 40 mg 12/30/24 09:00 Enoxaparin 40 Mg/0.4 Ml Syringe SUB-Q QAM DANI Fentanyl Citrate 25 mcg 12/29/24 15:33 12/29/24 17:24 Fentanyl Citrate Inj (*Crx) 100 Mcg/2 Ml Vial IV PUSH 25 mcg Q1H PRN Administration Pain while on vent Furosemide 40 mg 12/29/24 17:00 12/29/24 17:56 Furosemide Inj 40 Mg/4 Ml Vial IV PUSH 40 mg BID DANI Administration Gabapentin 100 mg 12/29/24 06:00 12/30/24 05:20 Gabapentin 100 Mg Capsule FEED TUBE 100 mg Q8HR DANI Administration Glucagon 1 mg 12/30/24 08:02 Glucagon For Inj 1 Mg Vial IM PRN PRN Hypoglycemia Protocol Glucose 15 gm 12/30/24 08:02 Glucose Oral Gel 15 Gm Of Glucse In 37.5 Gm Tube PO PRN PRN Hypoglycemia Protocol Ceftriaxone Sodium 1 gm in 50 mls @ 100 mls/hr 12/29/24 09:00 12/29/24 14:38 Rocephin 1 Gm/Ns 50 Ml IVPB Infused Q24H DANI Infusion Valproate Sodium 250 mg/ 52.5 mls @ 52.5 mls/hr 12/29/24 07:00 12/30/24 07:11 Dextrose IVPB Infused Q6H DANI Infusion Metronidazole 500 mg in 100 mls @ 100 mls/hr 12/29/24 07:25 12/30/24 06:24 Flagyl 500 Mg/Iso Soln 100 Ml IVPB Infused Q6HR DANI Infusion Doxycycline Hyclate 100 mg in 100 mls @ 100 mls/hr 12/29/24 22:00 12/29/24 22:02 Vibramycin 100 Mg/Ns 100 Ml IVPB Infused Q12H DANI Infusion Dexmedetomidine HCl 400 mcg in 100 mls @ 7.063 mls/hr 12/29/24 15:10 12/30/24 04:00 Precedex 400 Mcg/100 Ml IV CONT 0.5 mcg/kg/hr .[id number] DANI 7.06 mls/hr Titration Protocol 0.5 MCG/KG/HR Norepinephrine Bitartrate 8 mg in 250 mls @ 5.625 mls/hr 12/29/24 19:05 12/30/24 08:00 Levophed 8 Mg/D5w 250 Ml IV CONT 3 mcg/min .Q24H DANI 5.63 mls/hr Titration Protocol 3 MCG/MIN Vancomycin HCl 1,000 mg in 250 mls @ 250 mls/hr 12/30/24 21:00 Vancomycin 1,000 Mg/Ns 250 Ml IVPB Q18H DANI Dobutamine HCl/Dextrose 250 mg in 250 mls @ 8.82 mls/hr 12/30/24 08:00 Dobutamine 250 Mg/D5w 250 Ml IV CONT .Q24H DANI 2.5 MCG/KG/MIN Dextrose 1,000 mls @ 100 mls/hr 12/30/24 08:02 Dextrose 5% 1,000 Ml IVPB PRN PRN Hypoglycemia Protocol Potassium Chloride 100 mls @ 25 mls/hr 12/30/24 08:15 Kcl 40 Meq/Water 100 Ml IVPB 12/30/24 12:14 ONCE ONE Insulin Aspart 2 - 5 units 12/30/24 12:00 Insulin Aspart (*Bkc) 100 Units/Ml SUB-Q Q6HR DANI Protocol Midazolam HCl 2 mg 12/29/24 15:10 Midazolam Hcl (*Crx) 2 Mg/2 Ml Vial IV PUSH Q5M PRN ventilator asynchrony Multi-Ingred Cream/Lotion/Oil/Oint 1 applic 12/29/24 21:00 12/29/24 21:02 Mineral Oil/White Petrolatum Ointment EACH EYE 1 applic Q12HR DANI Administration Pantoprazole Sodium 40 mg 12/29/24 15:15 12/29/24 17:56 Pantoprazole Sodium Iv 40 Mg Vial IV PUSH 40 mg QAM DANI Administration Polyethylene Glycol 17 gm 12/30/24 09:00 Polyethylene Glycol 3350 17 Gm Powd.Pack PO QAM DANI Sodium Bicarbonate 650 mg 12/29/24 17:00 12/29/24 18:02 Sodium Bicarbonate Tab 650 Mg Tablet PO 650 mg BID DANI Administration Valproate Sodium 750 mg 12/29/24 09:00 Valproic Acid Liq 250 Mg/5 Ml Oral Solution Udc FEED TUBE BID DANI Radiology Results: ITS Impressions Venous Doppler Study 12/28/24 15:55 IMPRESSION: Negative left and right upper extremity venous US. No deep vein thrombosis. Chest/Abdomen/Pelvis CTA 12/29/24 14:43 IMPRESSION: 1. Extensive patchy airspace opacities throughout both lungs and favor severe congestive heart failure related pulmonary edema over pneumonia. 2. Small left and moderate sized right dependently layering pleural effusions with associated compressive atelectasis in the dependent lungs. 3. Cardiomegaly with enlargement of the central pulmonary consistent with pulmonary arterial hypertension. 4. Large amount of stool throughout the colon with 9.6 x 6.7 cm ball of stool the rectum consistent with likely constipation with fecal impaction. 5. Hepatomegaly. Chest X-Ray 12/30/24 06:02 Impression: Diffuse bilateral pulmonary consolidation. Correlate for severe pulmonary edema, diffuse pneumonia, or ARDS. Support tubes, as above. Labs Labs: Laboratory Results - last 24 hr 12/29/24 12/29/24 12/29/24 05:12 09:00 10:56 WBC 7.0 RBC 2.58 L Hgb 8.1 L Hct 27.8 L MCV 107.8 H MCH 31.4 MCHC 29.1 L RDW 15.3 H Plt Count 288 MPV 11.4 H Immature Gran % (Auto) Neut % (Auto) Lymph % (Auto) Crawford % (Auto) Eos % (Auto) Baso % (Auto) Lymph # (Auto) Crawford # (Auto) Eos # (Auto) Baso # (Auto) Abs Immat Gran (auto) Absolute Neuts (auto) Absolute Nucleated RBC Band Neutrophils % Nucleated RBC % Platelet Estimate Hypochromasia Anisocytosis Macrocytosis Schistocytes Puncture Site ABG pH ABG pCO2 ABG pO2 ABG PO2/FiO2 Ratio ABG HCO3 ABG O2 Saturation ABG O2 Content ABG Base Excess A-a Gradient Oxyhemoglobin Carboxyhemoglobin Methemoglobin Reduced Hemoglobin Total Hemoglobin O2 Delivery Device O2 Liters/Min Minute Volume Vent Rate Vent Mode FiO2 Tidal Volume PEEP Peak Inspir Pressure Pressure Support Sodium 145 Potassium 4.2 Chloride 107 Carbon Dioxide 19 L Anion Gap 19 H BUN 39 H Creatinine 0.82 Estim Creat Clear Calc 66 Estimated GFR > 60 Glucose 110 POC Capillary Glucose Lactic Acid 6.0 H* Calcium 8.5 Phosphorus Magnesium Total Bilirubin AST ALT Alkaline Phosphatase Total Protein Albumin Procalcitonin 0.3 Nasal MRSA (PCR) Not detected 12/29/24 12/29/24 12/29/24 16:46 16:46 16:46 WBC RBC Hgb Hct MCV MCH MCHC RDW Plt Count MPV Immature Gran % (Auto) Neut % (Auto) Lymph % (Auto) Crawford % (Auto) Eos % (Auto) Baso % (Auto) Lymph # (Auto) Crawford # (Auto) Eos # (Auto) Baso # (Auto) Abs Immat Gran (auto) Absolute Neuts (auto) Absolute Nucleated RBC Band Neutrophils % Nucleated RBC % Platelet Estimate Hypochromasia Anisocytosis Macrocytosis Schistocytes Puncture Site Right brachial Right brachial ABG pH 7.367 7.367 ABG pCO2 32.1 L ABG pO2 ABG PO2/FiO2 Ratio ABG HCO3 ABG O2 Saturation ABG O2 Content ABG Base Excess A-a Gradient Oxyhemoglobin Carboxyhemoglobin Methemoglobin Reduced Hemoglobin Total Hemoglobin O2 Delivery Device O2 Liters/Min Minute Volume Vent Rate Vent Mode FiO2 Tidal Volume PEEP Peak Inspir Pressure Pressure Support Sodium Potassium Chloride Carbon Dioxide Anion Gap BUN Creatinine Estim Creat Clear Calc Estimated GFR Glucose POC Capillary Glucose Lactic Acid Calcium Phosphorus Magnesium Total Bilirubin AST ALT Alkaline Phosphatase Total Protein Albumin Procalcitonin Nasal MRSA (PCR) 12/29/24 12/29/24 12/29/24 16:46 16:46 16:46 WBC RBC Hgb Hct MCV MCH MCHC RDW Plt Count MPV Immature Gran % (Auto) Neut % (Auto) Lymph % (Auto) Crawford % (Auto) Eos % (Auto) Baso % (Auto) Lymph # (Auto) Crawford # (Auto) Eos # (Auto) Baso # (Auto) Abs Immat Gran (auto) Absolute Neuts (auto) Absolute Nucleated RBC Band Neutrophils % Nucleated RBC % Platelet Estimate Hypochromasia Anisocytosis Macrocytosis Schistocytes Puncture Site ABG pH ABG pCO2 32.1 L ABG pO2 376.4 H 376.4 H ABG PO2/FiO2 Ratio 3.76 3.76 ABG HCO3 18.0 L ABG O2 Saturation ABG O2 Content ABG Base Excess A-a Gradient Oxyhemoglobin Carboxyhemoglobin Methemoglobin Reduced Hemoglobin Total Hemoglobin O2 Delivery Device O2 Liters/Min Minute Volume Vent Rate Vent Mode FiO2 Tidal Volume PEEP Peak Inspir Pressure Pressure Support Sodium Potassium Chloride Carbon Dioxide Anion Gap BUN Creatinine Estim Creat Clear Calc Estimated GFR Glucose POC Capillary Glucose Lactic Acid Calcium Phosphorus Magnesium Total Bilirubin AST ALT Alkaline Phosphatase Total Protein Albumin Procalcitonin Nasal MRSA (PCR) 12/29/24 12/29/24 12/29/24 16:46 16:46 16:46 WBC RBC Hgb Hct MCV MCH MCHC RDW Plt Count MPV Immature Gran % (Auto) Neut % (Auto) Lymph % (Auto) Crawford % (Auto) Eos % (Auto) Baso % (Auto) Lymph # (Auto) Crawford # (Auto) Eos # (Auto) Baso # (Auto) Abs Immat Gran (auto) Absolute Neuts (auto) Absolute Nucleated RBC Band Neutrophils % Nucleated RBC % Platelet Estimate Hypochromasia Anisocytosis Macrocytosis Schistocytes Puncture Site ABG pH ABG pCO2 ABG pO2 ABG PO2/FiO2 Ratio ABG HCO3 18.0 L ABG O2 Saturation 99.8 99.8 ABG O2 Content 13.7 L 13.7 L ABG Base Excess -6.5 A-a Gradient Oxyhemoglobin Carboxyhemoglobin Methemoglobin Reduced Hemoglobin Total Hemoglobin O2 Delivery Device O2 Liters/Min Minute Volume Vent Rate Vent Mode FiO2 Tidal Volume PEEP Peak Inspir Pressure Pressure Support Sodium Potassium Chloride Carbon Dioxide Anion Gap BUN Creatinine Estim Creat Clear Calc Estimated GFR Glucose POC Capillary Glucose Lactic Acid Calcium Phosphorus Magnesium Total Bilirubin AST ALT Alkaline Phosphatase Total Protein Albumin Procalcitonin Nasal MRSA (PCR) 12/29/24 12/29/24 12/29/24 16:46 16:46 16:46 WBC RBC Hgb Hct MCV MCH MCHC RDW Plt Count MPV Immature Gran % (Auto) Neut % (Auto) Lymph % (Auto) Crawford % (Auto) Eos % (Auto) Baso % (Auto) Lymph # (Auto) Crawford # (Auto) Eos # (Auto) Baso # (Auto) Abs Immat Gran (auto) Absolute Neuts (auto) Absolute Nucleated RBC Band Neutrophils % Nucleated RBC % Platelet Estimate Hypochromasia Anisocytosis Macrocytosis Schistocytes Puncture Site ABG pH ABG pCO2 ABG pO2 ABG PO2/FiO2 Ratio ABG HCO3 ABG O2 Saturation ABG O2 Content ABG Base Excess 6.5 A-a Gradient 304.5 304.5 Oxyhemoglobin 98.9 98.9 Carboxyhemoglobin 0.5 Methemoglobin 0.3 Reduced Hemoglobin 0.3 Total Hemoglobin 9.1 L O2 Delivery Device O2 Liters/Min Minute Volume Vent Rate Vent Mode FiO2 Tidal Volume PEEP Peak Inspir Pressure Pressure Support Sodium Potassium Chloride Carbon Dioxide Anion Gap BUN Creatinine Estim Creat Clear Calc Estimated GFR Glucose POC Capillary Glucose Lactic Acid Calcium Phosphorus Magnesium Total Bilirubin AST ALT Alkaline Phosphatase Total Protein Albumin Procalcitonin Nasal MRSA (PCR) 12/29/24 12/29/24 12/29/24 16:46 16:46 16:46 WBC RBC Hgb Hct MCV MCH MCHC RDW Plt Count MPV Immature Gran % (Auto) Neut % (Auto) Lymph % (Auto) Crawford % (Auto) Eos % (Auto) Baso % (Auto) Lymph # (Auto) Crawford # (Auto) Eos # (Auto) Baso # (Auto) Abs Immat Gran (auto) Absolute Neuts (auto) Absolute Nucleated RBC Band Neutrophils % Nucleated RBC % Platelet Estimate Hypochromasia Anisocytosis Macrocytosis Schistocytes Puncture Site ABG pH ABG pCO2 ABG pO2 ABG PO2/FiO2 Ratio ABG HCO3 ABG O2 Saturation ABG O2 Content ABG Base Excess A-a Gradient Oxyhemoglobin Carboxyhemoglobin Methemoglobin Reduced Hemoglobin Total Hemoglobin 9.1 L O2 Delivery Device Ventilator Ventilator O2 Liters/Min Not Reportable Not Reportable Minute Volume Not Reportable Vent Rate Vent Mode FiO2 Tidal Volume PEEP Peak Inspir Pressure Pressure Support Sodium Potassium Chloride Carbon Dioxide Anion Gap BUN Creatinine Estim Creat Clear Calc Estimated GFR Glucose POC Capillary Glucose Lactic Acid Calcium Phosphorus Magnesium Total Bilirubin AST ALT Alkaline Phosphatase Total Protein Albumin Procalcitonin Nasal MRSA (PCR) 12/29/24 12/29/24 12/29/24 16:46 16:46 16:46 WBC RBC Hgb Hct MCV MCH MCHC RDW Plt Count MPV Immature Gran % (Auto) Neut % (Auto) Lymph % (Auto) Crawford % (Auto) Eos % (Auto) Baso % (Auto) Lymph # (Auto) Crawford # (Auto) Eos # (Auto) Baso # (Auto) Abs Immat Gran (auto) Absolute Neuts (auto) Absolute Nucleated RBC Band Neutrophils % Nucleated RBC % Platelet Estimate Hypochromasia Anisocytosis Macrocytosis Schistocytes Puncture Site ABG pH ABG pCO2 ABG pO2 ABG PO2/FiO2 Ratio ABG HCO3 ABG O2 Saturation ABG O2 Content ABG Base Excess A-a Gradient Oxyhemoglobin Carboxyhemoglobin Methemoglobin Reduced Hemoglobin Total Hemoglobin O2 Delivery Device O2 Liters/Min Minute Volume Not Reportable Vent Rate 20 20 Vent Mode Cmv Cmv FiO2 100 Tidal Volume 350 PEEP Peak Inspir Pressure Pressure Support Sodium Potassium Chloride Carbon Dioxide Anion Gap BUN Creatinine Estim Creat Clear Calc Estimated GFR Glucose POC Capillary Glucose Lactic Acid Calcium Phosphorus Magnesium Total Bilirubin AST ALT Alkaline Phosphatase Total Protein Albumin Procalcitonin Nasal MRSA (PCR) 12/29/24 12/29/24 12/29/24 16:46 16:46 16:46 WBC RBC Hgb Hct MCV MCH MCHC RDW Plt Count MPV Immature Gran % (Auto) Neut % (Auto) Lymph % (Auto) Crawford % (Auto) Eos % (Auto) Baso % (Auto) Lymph # (Auto) Crawford # (Auto) Eos # (Auto) Baso # (Auto) Abs Immat Gran (auto) Absolute Neuts (auto) Absolute Nucleated RBC Band Neutrophils % Nucleated RBC % Platelet Estimate Hypochromasia Anisocytosis Macrocytosis Schistocytes Puncture Site ABG pH ABG pCO2 ABG pO2 ABG PO2/FiO2 Ratio ABG HCO3 ABG O2 Saturation ABG O2 Content ABG Base Excess A-a Gradient Oxyhemoglobin Carboxyhemoglobin Methemoglobin Reduced Hemoglobin Total Hemoglobin O2 Delivery Device O2 Liters/Min Minute Volume Vent Rate Vent Mode FiO2 Tidal Volume 350 PEEP 8 8 Peak Inspir Pressure Not Reportable Not Reportable Pressure Support Not Reportable Sodium Potassium Chloride Carbon Dioxide Anion Gap BUN Creatinine Estim Creat Clear Calc Estimated GFR Glucose POC Capillary Glucose Lactic Acid Calcium Phosphorus Magnesium Total Bilirubin AST ALT Alkaline Phosphatase Total Protein Albumin Procalcitonin Nasal MRSA (PCR) 12/29/24 12/29/24 12/30/24 16:46 23:54 02:44 WBC 8.4 RBC 2.31 L Hgb 7.5 L Hct 24.4 L MCV 105.6 H MCH 32.5 MCHC 30.7 L RDW 15.0 H Plt Count 204 MPV 10.3 Immature Gran % (Auto) 0.6 H Neut % (Auto) 80.3 H Lymph % (Auto) 14.1 L Crawford % (Auto) 4.9 Eos % (Auto) 0.0 Baso % (Auto) 0.1 L Lymph # (Auto) 1.18 Crawford # (Auto) 0.4 Eos # (Auto) 0.0 Baso # (Auto) 0.0 Abs Immat Gran (auto) 0.05 H Absolute Neuts (auto) 6.7 Absolute Nucleated RBC 0.110 H Band Neutrophils % Not Reportable Nucleated RBC % 1.3 H Platelet Estimate Adequate Hypochromasia 1+ Anisocytosis 1+ Macrocytosis 1+ Schistocytes None seen Puncture Site ABG pH ABG pCO2 ABG pO2 ABG PO2/FiO2 Ratio ABG HCO3 ABG O2 Saturation ABG O2 Content ABG Base Excess A-a Gradient Oxyhemoglobin Carboxyhemoglobin Methemoglobin Reduced Hemoglobin Total Hemoglobin O2 Delivery Device O2 Liters/Min Minute Volume Vent Rate Vent Mode FiO2 Tidal Volume PEEP Peak Inspir Pressure Pressure Support Not Reportable Sodium 146 H Potassium 3.2 L Chloride 108 H Carbon Dioxide 29 Anion Gap 9 BUN 47 H Creatinine 0.91 Estim Creat Clear Calc 60 Estimated GFR > 60 Glucose 93 POC Capillary Glucose 94 Lactic Acid 7.1 H* 1.3 Calcium 8.3 L Phosphorus 3.9 Magnesium 2.3 Total Bilirubin 0.8 AST 1513 H ALT 1031 H Alkaline Phosphatase 78 Total Protein 7.0 Albumin 3.5 Procalcitonin Nasal MRSA (PCR) Not detected 12/30/24 12/30/24 12/30/24 03:28 06:01 06:28 WBC RBC Hgb Hct MCV MCH MCHC RDW Plt Count MPV Immature Gran % (Auto) Neut % (Auto) Lymph % (Auto) Crawford % (Auto) Eos % (Auto) Baso % (Auto) Lymph # (Auto) Crawford # (Auto) Eos # (Auto) Baso # (Auto) Abs Immat Gran (auto) Absolute Neuts (auto) Absolute Nucleated RBC Band Neutrophils % Nucleated RBC % Platelet Estimate Hypochromasia Anisocytosis Macrocytosis Schistocytes Puncture Site Right radial ABG pH 7.553 H* ABG pCO2 26.9 L ABG pO2 140.0 H ABG PO2/FiO2 Ratio 4.00 ABG HCO3 23.2 ABG O2 Saturation 99.1 ABG O2 Content 12.1 L ABG Base Excess 1.2 A-a Gradient 78.3 Oxyhemoglobin 98.5 Carboxyhemoglobin 0.9 Methemoglobin 0.0 Reduced Hemoglobin 0.6 Total Hemoglobin 8.5 L O2 Delivery Device Ventilator O2 Liters/Min Not Reportable Minute Volume Not Reportable Vent Rate 20 Vent Mode Cmv FiO2 35 Tidal Volume 350 PEEP 8 Peak Inspir Pressure Not Reportable Pressure Support Not Reportable Sodium Potassium Chloride Carbon Dioxide Anion Gap BUN Creatinine Estim Creat Clear Calc Estimated GFR Glucose POC Capillary Glucose 94 Lactic Acid Calcium Phosphorus Magnesium Total Bilirubin AST ALT Alkaline Phosphatase Total Protein Albumin Procalcitonin Nasal MRSA (PCR) Not detected
[2024-12-30] MEDS: KCL 40 MEQ/WATER 100 ML 100 ML 25 ML IVPB (09:56)
[2024-12-30] MEDS: fentaNYL CITRATE INJ (*CRX) 100 MCG/2 ML VIAL 25 MCG IV PUSH (11:54)
[2024-12-30 12:01] LABS: Glucose Point of Care 92 mg/dl (65-105)
[2024-12-30 18:28] LABS: Glucose Point of Care 95 mg/dl (65-105)
[2024-12-30] MEDS: VANCOMYCIN 1,000 MG/NS 250 ML 1,000 MG/250 ML BAG 250 MG IVPB (20:12)
[2024-12-31] VITALS (24 sets, daily range): BP systolic 85–120; BP diastolic 48–79; PULSE 88–118; RESP 14–22; TEMP 36.3–39; O2SAT 97–100
[2024-12-31 00:06] LABS: Glucose Point of Care 111 mg/dl (65-105)
[2024-12-31] MEDS: VALPROATE SODIUM INJ 250 MG in DEXTROSE 5% IN WATER 50 ML 52.5 MG IVPB ×4 (00:57→18:07)
[2024-12-31 05:01] LABS: Alveolar/Arterial O2 Gradient 62.4 mmHg; Base Excess ABG 3.7 mEq/l (+/-2.0); Carboxyhemoglobin 0.9 % THb (0-2.0); Fractional Inspired Oxygen 30 %; HCO3 ABG 27.4 mEq/l (22.0-26.0); Oxygen Content ABG 12.6 %vol (16.0-22.0); Oxygen Saturation ABG 98.2 % (95.0-100.0); Oxyhemoglobin 97.3 % THb (90.0-100.0); PCO2 ABG 37.5 mmHg (35.0-45.0); PO2 ABG 107.4 mmHg (80.0-100.0); PO2 FiO2 Ratio Arterial Blood 3.58 %; Reduced Hemoglobin 1.8 %THb (0-5.0); Total Hemoglobin 9.1 g/dL (12.0-18.0); pH ABG 7.481 (7.350-7.450)
[2024-12-31 05:03] LABS: Modified Allen's Test Pass; Site Drawn RIGHT RADIAL
[2024-12-31 05:04] LABS: Device VENTILATOR
[2024-12-31 05:05] LABS: Arterial Blood Gas PEEP 8 cmH2O; Arterial Blood Gas Tidal Volume 320 ml; Arterial Blood Gas Vent Mode CMV; Arterial Blood Gas Ventilator rate 16 /MIN
[2024-12-31 05:06] LABS: Hematocrit 26.9 % (42.0-52.0); Hemoglobin 8.2 g/dL (14.0-18.0); Mean Corpuscular HGB Conc 30.5 g/dl (32-36); Mean Corpuscular Volume 105.1 fl (80-100); Mean Platelet Volume 10.1 fl (7.4-10.4); Platelet Count Result 184 k/mm3 (150-375); Red Blood Count 2.56 M/mm3 (4.6-6.20); White Blood Count 6.7 K/mm3 (4.5-10.0)
[2024-12-31 05:15] LABS: Estimated CRCL calculation 82 ml/min; Estimated Glomerular Filt Rate > 60
[2024-12-31 05:16] LABS: Lactic Acid Reflex 0.8 mmol/L (0.7-2.0)
[2024-12-31] MEDS: GABAPENTIN 100 MG CAPSULE FEED TUBE ×3 (05:18→21:14)
[2024-12-31] MEDS: metroNIDAZOLE 500 MG/ISO 100ML 500 MG/100 ML BAG 100 MG IVPB ×4 (05:19→23:46)
[2024-12-31 05:51] LABS: Anion Gap 7 mmol/L (4-12); Blood Urea Nitrogen 37 mg/dL (9-20); Calcium 7.9 mg/dL (8.4-10.2); Carbon Dioxide 30 mmol/L (22-30); Chloride 112 mmol/L (98-107); Estimated CRCL calculation 84 ml/min; Estimated Glomerular Filt Rate > 60; Glucose 127 mg/dL (65-110); Sodium 149 mmol/L (137-145)
[2024-12-31] MEDS: POTASSIUM CHLORIDE 20 MEQ PACKET (FOR LIQUID) 40 MEQ PO (06:30)
[2024-12-31] MEDS: POTASSIUM CHLORIDE INJ 40 MEQ in SODIUM CHLORIDE 0.9% IV 500 ML 130 MEQ IVPB (06:48)
[2024-12-31] MEDS: dexmedeTOMIDine 400 MCG/100 ML 400 MCG/100 ML BAG 7.06 MCG IV CONT (06:56)
--- NOTE | 2024-12-31 08:11 | PC.NURSE ---
This RN spoke with Dr. Rice regarding SBP in the 80's. New order to maintain MAP > 65, if needed may restart Levophed infusion.
--- NOTE | 2024-12-31 08:14 | P.PNINT_ITS ---
Progress Note: A&P Assessment and Plan (1) Acute hypoxemic respiratory failure: Code(s): J96.01 - Acute respiratory failure with hypoxia Status: Acute Assessment and Plan: acute hypoxic respiratory failure likely secondary to congestive heart failure leading to pulmonary edema pleural effusions and possibility of community- acquired pneumonia on my examination patient was tachypneic cardiac tachypneic. Due to his mental status and hemodynamic instability we decided to intubate patient patient was transferred to ICU and emergently intubated after discussion with patient's sister. Post intubation chest x-ray received. ventilator settings and ABG reviewed . Decrease tidal volume to 300 wean FiO2 continue Lasix IV for the pulmonary edema management of pneumonia as below bronchodilator p.r.n. will need additional diuresis before weaning trial. (2) Cardiomyopathy: Code(s): I42.9 - Cardiomyopathy, unspecified Status: Acute Assessment and Plan: patient does have history of congestive heart failure. 12/29 echocardiogram showed Summary 1. The left ventricle is mildly dilated with severely reduced systolic function. There is mild eccentric left ventricular hypertrophy. The left ventricular ejection fraction is visually estimated to be 15-20%. There is no left ventricular thrombus. 2. The right ventricle is normal in size with reduced systolic function. 3. The left atrium is severely dilated. 4. The aortic valve is trileaflet and thickened. The right coronary cusp is calcified and restricted. There is no hemodynamically significant stenosis. There is moderate aortic regurgitation. 5. The mitral valve leaflets are thickened but opens well. There is mild mitral regurgitation. 6. The tricuspid valve leaflets are sclerotic but opens well. There is moderate tricuspid regurgitation. There is moderate hypertension. The PASP is estimated to be 60 mmHg. 7. Dilated inferior vena cava with <50% collapse upon inspiration consistent with significantly elevated right atrial pressure, 15 mmHg. 8. There is left-sided pleural effusion Continue Lasix cardiology is following Continues low-dose dobutamine (3) CHF exacerbation: Qualifiers: Heart failure type: unspecified Qualified Code(s): I50.9 - Heart failure, unspecified Code(s): I50.9 - Heart failure, unspecified Status: Acute Assessment and Plan: see above (4) Sepsis: Code(s): A41.9 - Sepsis, unspecified organism Status: Acute Assessment and Plan: patient does have UTI and may have pneumonia. Pneumonia can not be community- acquired or aspiration considering his mental status elevated lactic acid can be secondary to sepsis or cardiogenic procalcitonin was intermediate at 0.3 blood culture 1/2 growing Staph hominis which is likely contaminant discontinue vancomycin continue Rocephin doxycycline and Flagyl urine cultures negative (5) UTI (urinary tract infection): Code(s): N39.0 - Urinary tract infection, site not specified Status: Acute Assessment and Plan: see above (6) Community acquired pneumonia: Qualifiers: Laterality: unspecified laterality Qualified Code(s): J18.9 - Pneumonia, unspecified organism Code(s): J18.9 - Pneumonia, unspecified organism Status: Acute Assessment and Plan: see above (7) Seizures: Code(s): R56.9 - Unspecified convulsions Status: Acute Assessment and Plan: continue valproic acid and gabapentin (8) Tachycardia: Code(s): R00.0 - Tachycardia, unspecified Status: Acute Assessment and Plan: tachycardia secondary to cardiomyopathy, respiratory failure and possibly sepsis improved after intubation and sedation (9) Swelling of right upper extremity: Code(s): M79.89 - Other specified soft tissue disorders Status: Acute Assessment and Plan: right upper extremity venous Dopplers were negative for DVT elevation further evaluation and testing deferred at this time. Plan to diurese and achieve euvolemia possible at this time (10) Constipation: Qualifiers: Constipation type: chronic idiopathic constipation Qualified Code(s): K59.04 - Chronic idiopathic constipation Code(s): K59.00 - Constipation, unspecified Status: Acute Assessment and Plan: laxatives already ordered. patient received an enema yesterday evaluate by GI (11) Fecal impaction: Code(s): K56.41 - Fecal impaction Status: Acute Assessment and Plan: enema ordered (12) Elevated LFTs: Code(s): R79.89 - Other specified abnormal findings of blood chemistry Status: Acute Assessment and Plan: elevated LFTs likely secondary to shock liver and possible hepatic congestion . monitor levels at this time. (13) Electrolyte abnormality: Code(s): E87.8 - Other disorders of electrolyte and fluid balance, not elsewhere classified Status: Acute Assessment and Plan: Replace low potassium increase free water flush Plan DVT prophylaxis - Lovenox Stress ulcer prophylaxis - Protonix Nutrition - npo. Start tube feeds Code Status - full code. 12/29 I had extensive discussion with patient's sister by phone. I updated her with patient's current status which involves respiratory failure, sepsis, cardiomyopathy. I also discussed goals of care. Patient's sister appears on informed of patient's medical problems and unrealistic of prognosis. She wants patient to be full code at this time. Patient was hence intubated and placed on mechanical ventilation. Total Critical Care Time - 30 minutes Due to a high probability of clinically significant, life threatening deterioration, the patient required my highest level of preparedness to intervene emergently and I personally spent this critical care time directly and personally managing the patient. This critical care time included obtaining a history; examining the patient; pulse oximetry; ordering and review of studies; arranging urgent treatment with development of a management plan; evaluation of patient's response to treatment; frequent reassessment; and discussions with other providers. It was exclusive of separately billable procedures and treating other patients and teaching time. Please see Assessment and Plan section and the rest of the note for further information on patient assessment and treatment Subjective Date/time seen: 12/31/24 Overnight events reviewed. Afebrile Continues to be on mechanical ventilation 30% FiO2 and 8 of PEEP Continues to be on dobutamine at 2.5 mics Continues to be sedated with 0.5 Precedex tolerating tube feeds. Good urine output in response to diuretics. Review of Systems Review of Systems: ROS unobtainable: Yes unobtainable due to endotracheal tube, unobtainable due to medical condition and unobtainable due to mental status Exam Narrative: General: Pt is Drowsy unresponsive Lungs/Chest: Tachypneic and bilateral crackles. Cardiac: tachycardic. Normal S1 S2. No murmurs could be heard due to tachycardia Circulation: Pedal pulses are intact and symmetrical. Abdomen: Normal bowel sounds.. Soft. NT. ND. Extremities: he has left mid tarsal amputation, he has a signed off bone injury on his right hand with looks like a graft, right arm is swollen with edema : Burdick in place Neurologic: patient was drowsy and unresponsive. He open his eyes on sternal rub. Did not follow any commands does not move any extremities. Baseline function unknown. pupils were equal and reactive to light both eyes were asymmetric and bilateral down and out Skin: he has a large sternotomy incision scar in the midline of his chest. Objective Data Vital Signs Vital Signs: Vital Signs - 24 hr 12/30/24 09:13 12/30/24 09:18 12/30/24 09:26 Temperature Pulse Rate 93 94 Respiratory Rate Blood Pressure 109/71 Pulse Oximetry 100 100 Oxygen Delivery Mechanical Ventilation Mechanical Ventilation Fraction of Inspired Oxygen 30 30 12/30/24 10:00 12/30/24 10:00 12/30/24 10:00 Temperature 36.8 C Pulse Rate 103 H 100 100 Respiratory Rate 18 Blood Pressure 110/73 109/73 Pulse Oximetry 100 Oxygen Delivery Fraction of Inspired Oxygen 12/30/24 10:00 12/30/24 10:00 12/30/24 11:00 Temperature Pulse Rate 101 H 101 H 107 H Respiratory Rate 20 Blood Pressure 110/73 108/75 Pulse Oximetry Oxygen Delivery Fraction of Inspired Oxygen 12/30/24 11:30 12/30/24 12:00 12/30/24 12:00 Temperature Pulse Rate 106 H 109 H 107 H Respiratory Rate 17 Blood Pressure 95/65 L Pulse Oximetry 100 Oxygen Delivery Mechanical Ventilation Fraction of Inspired Oxygen 30 12/30/24 12:00 12/30/24 12:00 12/30/24 12:00 Temperature Pulse Rate 107 H 107 H Respiratory Rate Blood Pressure 95/65 L Pulse Oximetry Oxygen Delivery Fraction of Inspired Oxygen 30 12/30/24 12:00 12/30/24 12:00 12/30/24 14:00 Temperature 37.3 C Pulse Rate 107 H 107 H 108 H Respiratory Rate 17 17 Blood Pressure 94/67 L Pulse Oximetry 100 100 Oxygen Delivery Mechanical Ventilation Fraction of Inspired Oxygen 30 12/30/24 14:00 12/30/24 14:00 12/30/24 14:00 Temperature 37.4 C Pulse Rate 108 H 108 H 108 H Respiratory Rate 16 18 Blood Pressure 100/75 101/71 Pulse Oximetry 100 Oxygen Delivery Fraction of Inspired Oxygen 12/30/24 14:00 12/30/24 15:40 12/30/24 16:00 Temperature Pulse Rate 108 H 88 88 Respiratory Rate 16 Blood Pressure 101/71 Pulse Oximetry 100 100 Oxygen Delivery Mechanical Ventilation Mechanical Ventilation Fraction of Inspired Oxygen 30 30 12/30/24 16:00 12/30/24 16:00 12/30/24 16:00 Temperature 37.3 C Pulse Rate 88 102 H Respiratory Rate 16 Blood Pressure 104/73 Pulse Oximetry 100 Oxygen Delivery Fraction of Inspired Oxygen 30 12/30/24 16:00 12/30/24 16:00 12/30/24 16:00 Temperature Pulse Rate 106 H 101 H 101 H Respiratory Rate 18 Blood Pressure 93/66 L 93/66 L Pulse Oximetry Oxygen Delivery Fraction of Inspired Oxygen 12/30/24 16:51 12/30/24 16:51 12/30/24 17:00 Temperature Pulse Rate 103 H 103 H 103 H Respiratory Rate 16 16 Blood Pressure Pulse Oximetry 100 Oxygen Delivery Mechanical Ventilation Fraction of Inspired Oxygen 30 12/30/24 18:00 12/30/24 18:00 12/30/24 18:00 Temperature Pulse Rate 104 H 102 H 103 H Respiratory Rate 16 Blood Pressure 108/71 108/71 Pulse Oximetry 100 Oxygen Delivery Fraction of Inspired Oxygen 12/30/24 18:00 12/30/24 18:00 12/30/24 19:34 Temperature Pulse Rate 104 H 103 H 86 Respiratory Rate 16 Blood Pressure 108/71 Pulse Oximetry 100 Oxygen Delivery Mechanical Ventilation Fraction of Inspired Oxygen 30 12/30/24 20:00 12/30/24 20:00 12/30/24 20:00 Temperature Pulse Rate 86 86 85 Respiratory Rate 16 18 Blood Pressure 101/66 Pulse Oximetry 100 Oxygen Delivery Mechanical Ventilation Fraction of Inspired Oxygen 30 12/30/24 20:00 12/30/24 20:00 12/30/24 20:00 Temperature 37.3 C Pulse Rate 85 85 Respiratory Rate 18 Blood Pressure 101/66 Pulse Oximetry 100 Oxygen Delivery Fraction of Inspired Oxygen 30 12/30/24 20:00 12/30/24 22:00 12/30/24 22:00 Temperature Pulse Rate 85 86 86 Respiratory Rate 16 Blood Pressure 101/66 102/66 Pulse Oximetry 100 Oxygen Delivery Fraction of Inspired Oxygen 12/30/24 22:00 12/30/24 22:00 12/30/24 22:00 Temperature Pulse Rate 86 86 86 Respiratory Rate 16 Blood Pressure 102/66 102/66 Pulse Oximetry Oxygen Delivery Fraction of Inspired Oxygen 12/30/24 23:20 12/31/24 00:00 12/31/24 00:00 Temperature Pulse Rate 88 89 Respiratory Rate 17 Blood Pressure Pulse Oximetry 100 100 Oxygen Delivery Mechanical Ventilation Mechanical Ventilation Fraction of Inspired Oxygen 30 30 30 12/31/24 00:00 12/31/24 00:00 12/31/24 00:00 Temperature 38.3 C H Pulse Rate 89 89 89 Respiratory Rate 17 17 Blood Pressure 97/68 L 97/68 L Pulse Oximetry 100 Oxygen Delivery Fraction of Inspired Oxygen 12/31/24 00:00 12/31/24 02:00 12/31/24 02:00 Temperature 37.1 C Pulse Rate 89 100 100 Respiratory Rate 16 Blood Pressure 107/78 Pulse Oximetry 100 Oxygen Delivery Fraction of Inspired Oxygen 12/31/24 02:00 12/31/24 02:00 12/31/24 02:32 Temperature Pulse Rate 100 100 100 Respiratory Rate 16 Blood Pressure 107/78 Pulse Oximetry 100 Oxygen Delivery Mechanical Ventilation Fraction of Inspired Oxygen 30 12/31/24 04:00 12/31/24 04:00 12/31/24 04:00 Temperature 37.2 C Pulse Rate 99 99 Respiratory Rate 16 16 Blood Pressure 109/79 Pulse Oximetry 100 100 Oxygen Delivery Mechanical Ventilation Fraction of Inspired Oxygen 30 30 12/31/24 04:00 12/31/24 04:00 12/31/24 04:00 Temperature Pulse Rate 99 99 99 Respiratory Rate 16 Blood Pressure 109/79 Pulse Oximetry Oxygen Delivery Fraction of Inspired Oxygen 12/31/24 04:46 12/31/24 06:00 12/31/24 06:00 Temperature Pulse Rate 95 96 96 Respiratory Rate 15 Blood Pressure 120/78 Pulse Oximetry 100 100 Oxygen Delivery Mechanical Ventilation Fraction of Inspired Oxygen 30 12/31/24 06:00 12/31/24 06:00 12/31/24 06:56 Temperature Pulse Rate 96 96 105 H Respiratory Rate 15 15 Blood Pressure 120/78 Pulse Oximetry Oxygen Delivery Fraction of Inspired Oxygen 12/31/24 06:56 12/31/24 08:00 Temperature 36.4 C Pulse Rate 105 H 106 H Respiratory Rate 15 14 Blood Pressure 85/67 L Pulse Oximetry 100 Oxygen Delivery Fraction of Inspired Oxygen Intake/Output Intake/Output: Intake & Output 12/28/24 12/29/24 12/30/24 12/31/24 23:59 23:59 23:59 23:59 Intake Total 300 1604.8 2074.5 942.4 Output Total 1000 2500 500 Balance 300 604.8 -425.5 442.4 Meds/Results Medications: Active Medications Generic Name Dose Route Start Last Admin Trade Name Freq PRN Reason Stop Dose Admin Albuterol/Ipratropium 3 ml 12/28/24 21:13 12/29/24 02:41 Ipratropium 0.5 Mg/Albuterol Sulfate 2.5 Mg Ampul.Neb 3 Ml INHALATION 3 ml Q6HRT PRN Administration Shortness Of Breath Or Wheezing Bisacodyl 10 mg 12/30/24 09:00 12/30/24 09:18 Bisacodyl 10 Mg Suppository RECTAL 10 mg QAM DANI Administration Dextrose 12.5 gm 12/30/24 08:02 Dextrose 50% 25 Gm/50 Ml Syringe IV PUSH PRN PRN Hypoglycemia Protocol Docusate Sodium 100 mg 12/29/24 09:00 12/30/24 09:19 Docusate Sodium Liq 100 Mg/10 Ml Udc FEED TUBE 100 mg DAILY DANI Administration Enoxaparin Sodium 40 mg 12/30/24 09:00 12/30/24 09:20 Enoxaparin 40 Mg/0.4 Ml Syringe SUB-Q 40 mg QAM DANI Administration Fentanyl Citrate 25 mcg 12/29/24 15:33 12/30/24 11:54 Fentanyl Citrate Inj (*Crx) 100 Mcg/2 Ml Vial IV PUSH 25 mcg Q1H PRN Administration Pain while on vent Furosemide 40 mg 12/29/24 17:00 12/30/24 16:29 Furosemide Inj 40 Mg/4 Ml Vial IV PUSH 40 mg BID DNAI Administration Gabapentin 100 mg 12/29/24 06:00 12/31/24 05:18 Gabapentin 100 Mg Capsule FEED TUBE 100 mg Q8HR DANI Administration Glucagon 1 mg 12/30/24 08:02 Glucagon For Inj 1 Mg Vial IM PRN PRN Hypoglycemia Protocol Glucose 15 gm 12/30/24 08:02 Glucose Oral Gel 15 Gm Of Glucse In 37.5 Gm Tube PO PRN PRN Hypoglycemia Protocol Ceftriaxone Sodium 1 gm in 50 mls @ 100 mls/hr 12/29/24 09:00 12/30/24 11:23 Rocephin 1 Gm/Ns 50 Ml IVPB 01/05/25 08:59 Infused Q24H DANI Infusion Valproate Sodium 250 mg/ 52.5 mls @ 52.5 mls/hr 12/29/24 07:00 12/31/24 07:31 Dextrose IVPB Infused Q6H DANI Infusion Metronidazole 500 mg in 100 mls @ 100 mls/hr 12/29/24 07:25 12/31/24 06:19 Flagyl 500 Mg/Iso Soln 100 Ml IVPB 01/03/25 07:24 Infused Q6HR DANI Infusion Doxycycline Hyclate 100 mg in 100 mls @ 100 mls/hr 12/29/24 22:00 12/30/24 22:24 Vibramycin 100 Mg/Ns 100 Ml IVPB 01/03/25 21:59 Infused Q12H DANI Infusion Dexmedetomidine HCl 400 mcg in 100 mls @ 7.063 mls/hr 12/29/24 15:10 12/31/24 06:56 Precedex 400 Mcg/100 Ml IV CONT 0.5 mcg/kg/hr .[id number] DANI 7.06 mls/hr Administration Protocol 0.5 MCG/KG/HR Dobutamine HCl/Dextrose 250 mg in 250 mls @ 8.82 mls/hr 12/30/24 08:00 12/31/24 06:00 Dobutamine 250 Mg/D5w 250 Ml IV CONT 2.5 mcg/kg/min .Q24H DANI 8.82 mls/hr Infusion 2.5 MCG/KG/MIN Dextrose 1,000 mls @ 100 mls/hr 12/30/24 08:02 Dextrose 5% 1,000 Ml IVPB PRN PRN Hypoglycemia Protocol Potassium Chloride 40 meq/ 520 mls @ 130 mls/hr 12/31/24 06:25 12/31/24 06:48 Sodium Chloride IVPB 12/31/24 10:24 130 mls/hr ONCE ONE Administration Insulin Aspart 2 - 5 units 12/30/24 12:00 12/31/24 05:44 Insulin Aspart (*Bkc) 100 Units/Ml SUB-Q Not Given Q6HR DANI Protocol Midazolam HCl 2 mg 12/29/24 15:10 Midazolam Hcl (*Crx) 2 Mg/2 Ml Vial IV PUSH Q5M PRN ventilator asynchrony Multi-Ingred Cream/Lotion/Oil/Oint 1 applic 12/29/24 21:00 12/30/24 20:13 Mineral Oil/White Petrolatum Ointment EACH EYE 1 applic Q12HR DANI Administration Pantoprazole Sodium 40 mg 12/29/24 15:15 12/30/24 09:19 Pantoprazole Sodium Iv 40 Mg Vial IV PUSH 40 mg QAM DANI Administration Polyethylene Glycol 17 gm 12/30/24 09:00 12/30/24 09:20 Polyethylene Glycol 3350 17 Gm Powd.Pack PO 17 gm QAM DANI Administration Potassium Chloride 40 meq 12/31/24 12:00 Potassium Chloride 20 Meq Packet (For Liquid) FEED TUBE 12/31/24 12:01 ONCE ONE Sodium Bicarbonate 650 mg 12/29/24 17:00 12/30/24 16:29 Sodium Bicarbonate Tab 650 Mg Tablet PO 650 mg BID DANI Administration Valproate Sodium 750 mg 12/29/24 09:00 Valproic Acid Liq 250 Mg/5 Ml Oral Solution Udc FEED TUBE BID [facility] Radiology Results: ITS Impressions Venous Doppler Study 12/28/24 15:55 IMPRESSION: Negative left and right upper extremity venous US. No deep vein thrombosis. Chest/Abdomen/Pelvis CTA 12/29/24 14:43 IMPRESSION: 1. Extensive patchy airspace opacities throughout both lungs and favor severe congestive heart failure related pulmonary edema over pneumonia. 2. Small left and moderate sized right dependently layering pleural effusions with associated compressive atelectasis in the dependent lungs. 3. Cardiomegaly with enlargement of the central pulmonary consistent with pulmonary arterial hypertension. 4. Large amount of stool throughout the colon with 9.6 x 6.7 cm ball of stool the rectum consistent with likely constipation with fecal impaction. 5. Hepatomegaly. Chest X-Ray 12/31/24 06:21 Impression: Advanced pulmonary edema pattern, right worse than left. Correlate clinically for pneumonia. Small right pleural effusion. Support tubes, as above. Labs Labs: Laboratory Results - last 24 hr 12/30/24 12/30/24 12/30/24 02:44 11:53 18:19 WBC RBC Hgb Hct MCV MCH MCHC RDW Plt Count MPV Puncture Site ABG pH ABG pCO2 ABG pO2 ABG PO2/FiO2 Ratio ABG HCO3 ABG O2 Saturation ABG O2 Content ABG Base Excess A-a Gradient Oxyhemoglobin Carboxyhemoglobin Methemoglobin Reduced Hemoglobin Total Hemoglobin O2 Delivery Device O2 Liters/Min Minute Volume Vent Rate Vent Mode FiO2 Tidal Volume PEEP Peak Inspir Pressure Pressure Support Sodium Potassium Chloride Carbon Dioxide Anion Gap BUN Creatinine Estim Creat Clear Calc Estimated GFR Glucose POC Capillary Glucose 92 95 Lactic Acid Calcium Phosphorus 3.9 12/30/24 12/31/24 12/31/24 23:47 04:44 04:50 WBC 6.7 RBC 2.56 L Hgb 8.2 L Hct 26.9 L MCV 105.1 H MCH 32.0 MCHC 30.5 L RDW 15.0 H Plt Count 184 MPV 10.1 Puncture Site ABG pH ABG pCO2 ABG pO2 ABG PO2/FiO2 Ratio ABG HCO3 ABG O2 Saturation ABG O2 Content ABG Base Excess A-a Gradient Oxyhemoglobin Carboxyhemoglobin Methemoglobin Reduced Hemoglobin Total Hemoglobin O2 Delivery Device O2 Liters/Min Minute Volume Vent Rate Vent Mode FiO2 Tidal Volume PEEP Peak Inspir Pressure Pressure Support Sodium 149 H Potassium 3.0 L Chloride 112 H Carbon Dioxide 30 Anion Gap 7 BUN 37 H D Creatinine 0.71 0.68 L Estim Creat Clear Calc 84 82 Estimated GFR > 60 > 60 Glucose 127 H POC Capillary Glucose 111 H Lactic Acid 0.8 Calcium 7.9 L Phosphorus 12/31/24 04:52 WBC RBC Hgb Hct MCV MCH MCHC RDW Plt Count MPV Puncture Site Right radial ABG pH 7.481 H ABG pCO2 37.5 ABG pO2 107.4 H ABG PO2/FiO2 Ratio 3.58 ABG HCO3 27.4 H ABG O2 Saturation 98.2 ABG O2 Content 12.6 L ABG Base Excess 3.7 A-a Gradient 62.4 Oxyhemoglobin 97.3 Carboxyhemoglobin 0.9 Methemoglobin 0.0 Reduced Hemoglobin 1.8 Total Hemoglobin 9.1 L O2 Delivery Device Ventilator O2 Liters/Min Not Reportable Minute Volume Not Reportable Vent Rate 16 Vent Mode Cmv FiO2 30 Tidal Volume 320 PEEP 8 Peak Inspir Pressure Not Reportable Pressure Support Not Reportable Sodium Potassium Chloride Carbon Dioxide Anion Gap BUN Creatinine Estim Creat Clear Calc Estimated GFR Glucose POC Capillary Glucose Lactic Acid Calcium Phosphorus Quality VTE Prophylaxis VTE prophylaxis: pharmacologic ordered
[2024-12-31] MEDS: DOXYCYCLINE 100 MG/NS 100 ML 100 MG/100 ML BAG IVPB ×2 (08:31→21:14)
[2024-12-31] MEDS: PANTOPRAZOLE SODIUM IV 40 MG VIAL IV PUSH (08:33)
[2024-12-31] MEDS: polyethylene glycoL 3350 17 GM POWD.PACK PO (08:33)
[2024-12-31] MEDS: ENOXAPARIN 40 MG/0.4 ML SYRINGE SUB-Q (08:33)
[2024-12-31] MEDS: FUROSEMIDE INJ 40 MG/4 ML VIAL IV PUSH ×2 (08:33→17:20)
[2024-12-31] MEDS: DOCUSATE SODIUM LIQ 100 MG/10 ML UDC FEED TUBE (08:33)
[2024-12-31] MEDS: SODIUM BICARBONATE TAB 650 MG TABLET PO ×2 (08:33→17:20)
[2024-12-31] MEDS: MINERAL OIL/WHITE PETROLATUM OINTMENT 1 APPLIC EACH EYE ×2 (08:33→21:14)
[2024-12-31] MEDS: BISACODYL 10 MG SUPPOSITORY RECTAL (08:50)
--- NOTE | 2024-12-31 10:12 | PM.PNCARD ---
Progress Note: A&P Assessment and Plan (1) CHF exacerbation: Qualifiers: Heart failure type: unspecified Qualified Code(s): I50.9 - Heart failure, unspecified Code(s): I50.9 - Heart failure, unspecified Status: Acute Plan 59-year-old man with schizophrenia, seizures, heart failure with severely reduced systolic function, who is nonverbal with a G-tube transfer from snf due to respiratory distress Acute hypoxic respiratory failure -Likely multifactorial -Antibiotic and diuretic regiment Acute decompensated systolic heart failure -Last echocardiogram from 08/19/2024 showed LVEF 25-30%, moderate MR, moderate AR. Echocardiogram here shows LVEF 15-20%. -Continue IV Lasix. -Continue low-dose Dobutamine for now. -Once patient is more stable and off of Dobutamine, we will introduce guideline directed medical therapy -Overall prognosis is poor Pneumonia -Continue antibiotic therapy Recommendations and plan discussed with ICU Physician. Subjective Date/time seen: 12/31/24 10:12 Interval history: Reason for visit: CHF HPI: 59-year-old man with schizophrenia, seizures, heart failure with unknown systolic function, who is nonverbal with a G-tube transfer from snf due to respiratory distress. Given his medical condition, limited subjective history was obtainable and all subjective history was obtained through chart review. Date of service 12/30: Remains intubated and sedated. Date of service 12/31: Remains intubated/sedated. On Dobutamine drip. Review of Systems Review of Systems: ROS unobtainable: Yes unobtainable due to endotracheal tube Exam Const: Other: Intubated, sedated HENMT: Other: OETT in place Resp: Other: On mechanical ventilation Cardio: Rate: tachycardic Rhythm: regular rhythm Heart sounds: no murmurs Other: + Lower extremity swelling Neuro: Other: Sedated Objective Data Vital Signs Vital Signs: Vital Signs - 24 hr 12/30/24 11:00 12/30/24 11:30 12/30/24 12:00 Temperature Pulse Rate 107 H 106 H 109 H Respiratory Rate 17 Blood Pressure 108/75 Pulse Oximetry 100 Oxygen Delivery Mechanical Ventilation Fraction of Inspired Oxygen 30 12/30/24 12:00 12/30/24 12:00 12/30/24 12:00 Temperature Pulse Rate 107 H 107 H 107 H Respiratory Rate Blood Pressure 95/65 L 95/65 L Pulse Oximetry Oxygen Delivery Fraction of Inspired Oxygen 12/30/24 12:00 12/30/24 12:00 12/30/24 12:00 Temperature 37.3 C Pulse Rate 107 H 107 H Respiratory Rate 17 17 Blood Pressure 94/67 L Pulse Oximetry 100 100 Oxygen Delivery Mechanical Ventilation Fraction of Inspired Oxygen 30 30 12/30/24 14:00 12/30/24 14:00 12/30/24 14:00 Temperature 37.4 C Pulse Rate 108 H 108 H 108 H Respiratory Rate 16 18 Blood Pressure 100/75 Pulse Oximetry 100 Oxygen Delivery Fraction of Inspired Oxygen 12/30/24 14:00 12/30/24 14:00 12/30/24 15:40 Temperature Pulse Rate 108 H 108 H 88 Respiratory Rate Blood Pressure 101/71 101/71 Pulse Oximetry 100 Oxygen Delivery Mechanical Ventilation Fraction of Inspired Oxygen 30 12/30/24 16:00 12/30/24 16:00 12/30/24 16:00 Temperature Pulse Rate 88 88 Respiratory Rate 16 Blood Pressure Pulse Oximetry 100 Oxygen Delivery Mechanical Ventilation Fraction of Inspired Oxygen 30 30 12/30/24 16:00 12/30/24 16:00 12/30/24 16:00 Temperature 37.3 C Pulse Rate 102 H 106 H 101 H Respiratory Rate 16 18 Blood Pressure 104/73 93/66 L Pulse Oximetry 100 Oxygen Delivery Fraction of Inspired Oxygen 12/30/24 16:00 12/30/24 16:51 12/30/24 16:51 Temperature Pulse Rate 101 H 103 H 103 H Respiratory Rate 16 16 Blood Pressure 93/66 L Pulse Oximetry Oxygen Delivery Fraction of Inspired Oxygen 12/30/24 17:00 12/30/24 18:00 12/30/24 18:00 Temperature Pulse Rate 103 H 104 H 102 H Respiratory Rate 16 Blood Pressure 108/71 Pulse Oximetry 100 100 Oxygen Delivery Mechanical Ventilation Fraction of Inspired Oxygen 30 12/30/24 18:00 12/30/24 18:00 12/30/24 18:00 Temperature Pulse Rate 103 H 104 H 103 H Respiratory Rate 16 Blood Pressure 108/71 108/71 Pulse Oximetry Oxygen Delivery Fraction of Inspired Oxygen 12/30/24 19:34 12/30/24 20:00 12/30/24 20:00 Temperature Pulse Rate 86 86 86 Respiratory Rate 16 Blood Pressure 101/66 Pulse Oximetry 100 Oxygen Delivery Mechanical Ventilation Fraction of Inspired Oxygen 30 05/13/25 20:00 12/30/24 20:00 12/30/24 20:00 Temperature 37.3 C Pulse Rate 85 85 Respiratory Rate 18 18 Blood Pressure 101/66 Pulse Oximetry 100 100 Oxygen Delivery Mechanical Ventilation Fraction of Inspired Oxygen 30 30 12/30/24 20:00 12/30/24 20:00 12/30/24 22:00 Temperature Pulse Rate 85 85 86 Respiratory Rate Blood Pressure 101/66 Pulse Oximetry Oxygen Delivery Fraction of Inspired Oxygen 12/30/24 22:00 12/30/24 22:00 12/30/24 22:00 Temperature Pulse Rate 86 86 86 Respiratory Rate 16 16 Blood Pressure 102/66 102/66 Pulse Oximetry 100 Oxygen Delivery Fraction of Inspired Oxygen 12/30/24 22:00 12/30/24 23:20 12/31/24 00:00 Temperature Pulse Rate 86 88 Respiratory Rate Blood Pressure 102/66 Pulse Oximetry 100 Oxygen Delivery Mechanical Ventilation Fraction of Inspired Oxygen 30 30 12/31/24 00:00 12/31/24 00:00 12/31/24 00:00 Temperature 38.3 C H Pulse Rate 89 89 89 Respiratory Rate 17 17 Blood Pressure 97/68 L 97/68 L Pulse Oximetry 100 100 Oxygen Delivery Mechanical Ventilation Fraction of Inspired Oxygen 30 12/31/24 00:00 12/31/24 00:00 12/31/24 02:00 Temperature 37.1 C Pulse Rate 89 89 100 Respiratory Rate 17 16 Blood Pressure 107/78 Pulse Oximetry 100 Oxygen Delivery Fraction of Inspired Oxygen 12/31/24 02:00 12/31/24 02:00 12/31/24 02:00 Temperature Pulse Rate 100 100 100 Respiratory Rate 16 Blood Pressure 107/78 Pulse Oximetry Oxygen Delivery Fraction of Inspired Oxygen 12/31/24 02:32 12/31/24 04:00 12/31/24 04:00 Temperature Pulse Rate 100 99 Respiratory Rate 16 Blood Pressure Pulse Oximetry 100 100 Oxygen Delivery Mechanical Ventilation Mechanical Ventilation Fraction of Inspired Oxygen 30 30 30 12/31/24 04:00 12/31/24 04:00 12/31/24 04:00 Temperature 37.2 C Pulse Rate 99 99 99 Respiratory Rate 16 16 Blood Pressure 109/79 109/79 Pulse Oximetry 100 Oxygen Delivery Fraction of Inspired Oxygen 12/31/24 04:00 12/31/24 04:46 12/31/24 06:00 Temperature Pulse Rate 99 95 96 Respiratory Rate Blood Pressure Pulse Oximetry 100 Oxygen Delivery Mechanical Ventilation Fraction of Inspired Oxygen 30 12/31/24 06:00 12/31/24 06:00 12/31/24 06:00 Temperature Pulse Rate 96 96 96 Respiratory Rate 15 15 Blood Pressure 120/78 120/78 Pulse Oximetry 100 Oxygen Delivery Fraction of Inspired Oxygen 12/31/24 06:56 12/31/24 06:56 12/31/24 08:00 Temperature 36.4 C Pulse Rate 105 H 105 H 106 H Respiratory Rate 15 15 14 Blood Pressure 85/67 L Pulse Oximetry 100 Oxygen Delivery Fraction of Inspired Oxygen 12/31/24 08:00 12/31/24 08:00 12/31/24 08:00 Temperature Pulse Rate 106 H 106 H Respiratory Rate 14 Blood Pressure 85/67 L Pulse Oximetry 100 Oxygen Delivery Mechanical Ventilation Fraction of Inspired Oxygen 30 30 12/31/24 08:00 12/31/24 08:00 12/31/24 08:36 Temperature Pulse Rate 106 H 106 H 105 H Respiratory Rate 14 Blood Pressure Pulse Oximetry 100 Oxygen Delivery Mechanical Ventilation Fraction of Inspired Oxygen 30 12/31/24 10:00 12/31/24 10:00 12/31/24 10:04 Temperature Pulse Rate 105 H 105 H 105 H Respiratory Rate 15 Blood Pressure 108/70 108/70 Pulse Oximetry 100 Oxygen Delivery Fraction of Inspired Oxygen 12/31/24 10:04 Temperature Pulse Rate 105 H Respiratory Rate 16 Blood Pressure Pulse Oximetry Oxygen Delivery Fraction of Inspired Oxygen Intake/Output Intake/Output: Intake & Output 12/28/24 12/29/24 12/30/24 12/31/24 23:59 23:59 23:59 23:59 Intake Total 300 1604.8 2074.5 1100.3 Output Total 1000 2500 500 Balance 300 604.8 -425.5 600.3 Meds/Results Medications: Active Medications Generic Name Dose Route Start Last Admin Trade Name Freq PRN Reason Stop Dose Admin Albuterol/Ipratropium 3 ml 12/28/24 21:13 12/29/24 02:41 Ipratropium 0.5 Mg/Albuterol Sulfate 2.5 Mg Ampul.Neb 3 Ml INHALATION 3 ml Q6HRT PRN Administration Shortness Of Breath Or Wheezing Bisacodyl 10 mg 12/30/24 09:00 12/31/24 08:50 Bisacodyl 10 Mg Suppository RECTAL 10 mg QAM DANI Administration Dextrose 12.5 gm 12/30/24 08:02 Dextrose 50% 25 Gm/50 Ml Syringe IV PUSH PRN PRN Hypoglycemia Protocol Docusate Sodium 100 mg 12/29/24 09:00 12/31/24 08:33 Docusate Sodium Liq 100 Mg/10 Ml Udc FEED TUBE 100 mg DAILY DANI Administration Enoxaparin Sodium 40 mg 12/30/24 09:00 12/31/24 08:33 Enoxaparin 40 Mg/0.4 Ml Syringe SUB-Q 40 mg QAM DANI Administration Fentanyl Citrate 25 mcg 12/29/24 15:33 12/30/24 11:54 Fentanyl Citrate Inj (*Crx) 100 Mcg/2 Ml Vial IV PUSH 25 mcg Q1H PRN Administration Pain while on vent Furosemide 40 mg 12/29/24 17:00 12/31/24 08:33 Furosemide Inj 40 Mg/4 Ml Vial IV PUSH 40 mg BID DANI Administration Gabapentin 100 mg 12/29/24 06:00 12/31/24 05:18 Gabapentin 100 Mg Capsule FEED TUBE 100 mg Q8HR DANI Administration Glucagon 1 mg 12/30/24 08:02 Glucagon For Inj 1 Mg Vial IM PRN PRN Hypoglycemia Protocol Glucose 15 gm 12/30/24 08:02 Glucose Oral Gel 15 Gm Of Glucse In 37.5 Gm Tube PO PRN PRN Hypoglycemia Protocol Ceftriaxone Sodium 1 gm in 50 mls @ 100 mls/hr 12/29/24 09:00 12/31/24 08:31 Rocephin 1 Gm/Ns 50 Ml IVPB 01/05/25 08:59 100 mls/hr Q24H DANI Administration Valproate Sodium 250 mg/ 52.5 mls @ 52.5 mls/hr 12/29/24 07:00 12/31/24 07:31 Dextrose IVPB Infused Q6H DANI Infusion Metronidazole 500 mg in 100 mls @ 100 mls/hr 12/29/24 07:25 12/31/24 06:19 Flagyl 500 Mg/Iso Soln 100 Ml IVPB 01/03/25 07:24 Infused Q6HR DANI Infusion Doxycycline Hyclate 100 mg in 100 mls @ 100 mls/hr 12/29/24 22:00 12/31/24 09:31 Vibramycin 100 Mg/Ns 100 Ml IVPB 01/03/25 21:59 Infused Q12H DANI Infusion Dexmedetomidine HCl 400 mcg in 100 mls @ 7.063 mls/hr 12/29/24 15:10 12/31/24 10:04 Precedex 400 Mcg/100 Ml IV CONT 0.5 mcg/kg/hr .[id number] DANI 7.06 mls/hr Titration Protocol 0.5 MCG/KG/HR Dobutamine HCl/Dextrose 250 mg in 250 mls @ 8.82 mls/hr 12/30/24 08:00 12/31/24 10:04 Dobutamine 250 Mg/D5w 250 Ml IV CONT 2.5 mcg/kg/min .Q24H DANI 8.82 mls/hr Infusion 2.5 MCG/KG/MIN Dextrose 1,000 mls @ 100 mls/hr 12/30/24 08:02 Dextrose 5% 1,000 Ml IVPB PRN PRN Hypoglycemia Protocol Potassium Chloride 40 meq/ 520 mls @ 130 mls/hr 12/31/24 06:25 12/31/24 06:48 Sodium Chloride IVPB 12/31/24 10:24 130 mls/hr ONCE ONE Administration Insulin Aspart 2 - 5 units 12/30/24 12:00 12/31/24 05:44 Insulin Aspart (*Bkc) 100 Units/Ml SUB-Q Not Given Q6HR DANI Protocol Midazolam HCl 2 mg 12/29/24 15:10 Midazolam Hcl (*Crx) 2 Mg/2 Ml Vial IV PUSH Q5M PRN ventilator asynchrony Multi-Ingred Cream/Lotion/Oil/Oint 1 applic 12/29/24 21:00 12/31/24 08:33 Mineral Oil/White Petrolatum Ointment EACH EYE 1 applic Q12HR DANI Administration Pantoprazole Sodium 40 mg 12/29/24 15:15 12/31/24 08:33 Pantoprazole Sodium Iv 40 Mg Vial IV PUSH 40 mg QAM DANI Administration Polyethylene Glycol 17 gm 12/30/24 09:00 12/31/24 08:33 Polyethylene Glycol 3350 17 Gm Powd.Pack PO 17 gm QAM DANI Administration Potassium Chloride 40 meq 12/31/24 12:00 Potassium Chloride 20 Meq Packet (For Liquid) FEED TUBE 12/31/24 12:01 ONCE ONE Sodium Bicarbonate 650 mg 12/29/24 17:00 12/31/24 08:33 Sodium Bicarbonate Tab 650 Mg Tablet PO 650 mg BID DANI Administration Valproate Sodium 750 mg 12/29/24 09:00 Valproic Acid Liq 250 Mg/5 Ml Oral Solution Udc FEED TUBE BID [facility] Radiology Results: ITS Impressions Venous Doppler Study 12/28/24 15:55 IMPRESSION: Negative left and right upper extremity venous US. No deep vein thrombosis. Chest/Abdomen/Pelvis CTA 12/29/24 14:43 IMPRESSION: 1. Extensive patchy airspace opacities throughout both lungs and favor severe congestive heart failure related pulmonary edema over pneumonia. 2. Small left and moderate sized right dependently layering pleural effusions with associated compressive atelectasis in the dependent lungs. 3. Cardiomegaly with enlargement of the central pulmonary consistent with pulmonary arterial hypertension. 4. Large amount of stool throughout the colon with 9.6 x 6.7 cm ball of stool the rectum consistent with likely constipation with fecal impaction. 5. Hepatomegaly. Chest X-Ray 12/31/24 06:21 Impression: Advanced pulmonary edema pattern, right worse than left. Correlate clinically for pneumonia. Small right pleural effusion. Support tubes, as above. Labs Labs: Laboratory Results - last 24 hr 12/30/24 12/30/24 12/30/24 11:53 18:19 23:47 WBC RBC Hgb Hct MCV MCH MCHC RDW Plt Count MPV Puncture Site ABG pH ABG pCO2 ABG pO2 ABG PO2/FiO2 Ratio ABG HCO3 ABG O2 Saturation ABG O2 Content ABG Base Excess A-a Gradient Oxyhemoglobin Carboxyhemoglobin Methemoglobin Reduced Hemoglobin Total Hemoglobin O2 Delivery Device O2 Liters/Min Minute Volume Vent Rate Vent Mode FiO2 Tidal Volume PEEP Peak Inspir Pressure Pressure Support Sodium Potassium Chloride Carbon Dioxide Anion Gap BUN Creatinine Estim Creat Clear Calc Estimated GFR Glucose POC Capillary Glucose 92 95 111 H Lactic Acid Calcium 12/31/24 12/31/24 12/31/24 04:44 04:50 04:52 WBC 6.7 RBC 2.56 L Hgb 8.2 L Hct 26.9 L MCV 105.1 H MCH 32.0 MCHC 30.5 L RDW 15.0 H Plt Count 184 MPV 10.1 Puncture Site Right radial ABG pH 7.481 H ABG pCO2 37.5 ABG pO2 107.4 H ABG PO2/FiO2 Ratio 3.58 ABG HCO3 27.4 H ABG O2 Saturation 98.2 ABG O2 Content 12.6 L ABG Base Excess 3.7 A-a Gradient 62.4 Oxyhemoglobin 97.3 Carboxyhemoglobin 0.9 Methemoglobin 0.0 Reduced Hemoglobin 1.8 Total Hemoglobin 9.1 L O2 Delivery Device Ventilator O2 Liters/Min Not Reportable Minute Volume Not Reportable Vent Rate 16 Vent Mode Cmv FiO2 30 Tidal Volume 320 PEEP 8 Peak Inspir Pressure Not Reportable Pressure Support Not Reportable Sodium 149 H Potassium 3.0 L Chloride 112 H Carbon Dioxide 30 Anion Gap 7 BUN 37 H D Creatinine 0.71 0.68 L Estim Creat Clear Calc 84 82 Estimated GFR > 60 > 60 Glucose 127 H POC Capillary Glucose Lactic Acid 0.8 Calcium 7.9 L
--- NOTE | 2024-12-31 10:45 | PCFNICU ---
ICU Rounding Note: Pt current nutrition is Vital AF at 20 ml/hr. Nutrition recommendation: Goal rate at 60 ml/hr. Last recorded weight is 62.95 kg, up from 56 kg on admit. Bowel Motility: +BM reported 12/30 Labs Reviewed: Glu 127, NA 149, K 3.0, Cr 0.68, Hct 26.9, Hgb 8.2 Meds Noted: NovoLog, Lantus, Miralax, Precedex Skin: WNL Additional Notes: Patient remains on a mechanical vent. Tube feedings are being tolerated of Vital AF 1.2 at 20 ml/hr. Spoke with Portal Administrator today, plans to advance by 10 ml q 4 hours to goal of 40 ml/hr today. Flush increased to 100 ml q 4 hours 2/2 to elevated Na level. Following daily in ICU rounds. Will reassess every Sunday and Sunday.
[2024-12-31] MEDS: POTASSIUM CHLORIDE 20 MEQ PACKET (FOR LIQUID) 40 MEQ FEED TUBE (12:24)
[2024-12-31] MEDS: DOBUTamine 250 MG/D5W 250 ML 250 MG/250 ML BAG 8.82 MG IV CONT (12:37)
[2024-12-31 12:46] LABS: Glucose Point of Care 116 mg/dl (65-105)
[2024-12-31 17:38] LABS: Glucose Point of Care 141 mg/dl (65-105)
[2024-12-31 17:48] LABS: Anion Gap 9 mmol/L (4-12); Blood Urea Nitrogen 37 mg/dL (9-20); Calcium 7.8 mg/dL (8.4-10.2); Carbon Dioxide 26 mmol/L (22-30); Chloride 111 mmol/L (98-107); Estimated CRCL calculation 92 ml/min; Estimated Glomerular Filt Rate > 60; Glucose 146 mg/dL (65-110); Potassium 4.6 mmol/L (3.4-5.0); Sodium 146 mmol/L (137-145)
[2024-12-31] MEDS: fentaNYL CITRATE INJ (*CRX) 100 MCG/2 ML VIAL 25 MCG IV PUSH (19:50)
[2024-12-31] MEDS: dexmedeTOMIDine 400 MCG/100 ML 400 MCG/100 ML BAG 8.48 MCG IV CONT (21:13)
[2025-01-01] VITALS (28 sets, daily range): BP systolic 107–147; BP diastolic 66–81; PULSE 88–114; RESP 15–19; TEMP 35.9–38.2; O2SAT 93–100
[2025-01-01 00:02] LABS: Glucose Point of Care 120 mg/dl (65-105)
[2025-01-01] MEDS: VALPROATE SODIUM INJ 250 MG in DEXTROSE 5% IN WATER 50 ML 52.5 MG IVPB ×2 (00:16→06:40)
[2025-01-01] MEDS: GABAPENTIN 100 MG CAPSULE FEED TUBE ×3 (05:19→21:11)
[2025-01-01] MEDS: metroNIDAZOLE 500 MG/ISO 100ML 500 MG/100 ML BAG 100 MG IVPB ×4 (05:19→23:57)
[2025-01-01 05:20] LABS: Hematocrit 26.3 % (42.0-52.0); Hemoglobin 7.9 g/dL (14.0-18.0); Mean Corpuscular Hemoglobin 31.9 pg (26-34); Mean Platelet Volume 10.4 fl (7.4-10.4); Platelet Count Result 167 k/mm3 (150-375); Red Blood Count 2.48 M/mm3 (4.6-6.20); White Blood Count 5.5 K/mm3 (4.5-10.0)
[2025-01-01 05:33] LABS: Lactic Acid Reflex 1.3 mmol/L (0.7-2.0)
[2025-01-01 05:36] LABS: Alkaline Phosphatase 78 U/L (38-126); Anion Gap 6 mmol/L (4-12); Aspartate Amino Transferase 726 U/L (17-59); Bilirubin,Total 0.8 mg/dL (0.2-1.3); Blood Urea Nitrogen 34 mg/dL (9-20); Calcium 7.7 mg/dL (8.4-10.2); Carbon Dioxide 29 mmol/L (22-30); Chloride 112 mmol/L (98-107); Estimated CRCL calculation 98 ml/min; Estimated Glomerular Filt Rate > 60; Glucose 125 mg/dL (65-110); Magnesium 2.1 mg/dL (1.6-2.3); Phosphorus 2.4 mg/dL (2.5-4.5); Potassium 3.5 mmol/L (3.4-5.0); Sodium 147 mmol/L (137-145)
[2025-01-01 05:44] LABS: Alanine Aminotransferase 863 U/L (6-50)
[2025-01-01] MEDS: dexmedeTOMIDine 400 MCG/100 ML 400 MCG/100 ML BAG 8.48 MCG IV CONT (06:43)
[2025-01-01] MEDS: polyethylene glycoL 3350 17 GM POWD.PACK PO (08:00)
[2025-01-01] MEDS: DOCUSATE SODIUM LIQ 100 MG/10 ML UDC FEED TUBE (08:00)
[2025-01-01] MEDS: PANTOPRAZOLE SODIUM IV 40 MG VIAL IV PUSH (08:01)
[2025-01-01] MEDS: SODIUM BICARBONATE TAB 650 MG TABLET PO (08:02)
[2025-01-01] MEDS: ENOXAPARIN 40 MG/0.4 ML SYRINGE SUB-Q (08:02)
[2025-01-01] MEDS: BISACODYL 10 MG SUPPOSITORY RECTAL (08:03)
[2025-01-01] MEDS: MINERAL OIL/WHITE PETROLATUM OINTMENT 1 APPLIC EACH EYE ×2 (08:06→21:11)
[2025-01-01] MEDS: DOXYCYCLINE 100 MG/NS 100 ML 100 MG/100 ML BAG IVPB ×2 (09:10→21:10)
[2025-01-01] MEDS: FUROSEMIDE INJ 40 MG/4 ML VIAL IV PUSH (09:12)
[2025-01-01 10:32] LABS: Fractional Inspired Oxygen 25 %; HCO3 ABG 24.1 mEq/l (22.0-26.0); Oxygen Content ABG 13.4 %vol (16.0-22.0); Oxygen Saturation ABG 97.8 % (95.0-100.0); Oxyhemoglobin 96.2 % THb (90.0-100.0); PCO2 ABG 32.3 mmHg (35.0-45.0); PO2 ABG 94.9 mmHg (80.0-100.0); Total Hemoglobin 9.8 g/dL (12.0-18.0)
[2025-01-01] MEDS: POTASSIUM CHLORIDE 20 MEQ PACKET (FOR LIQUID) 40 MEQ FEED TUBE (10:35)
[2025-01-01] MEDS: KCL 40 MEQ/WATER 100 ML 100 ML 25 ML IVPB (10:36)
[2025-01-01 10:40] LABS: Arterial Blood Gas PEEP 8 cmH2O; Arterial Blood Gas Vent Mode CMV; Arterial Blood Gas Ventilator rate 16 /MIN; Device VENTILATOR; Modified Allen's Test Pass; Site Drawn LEFT RADIAL
[2025-01-01 10:41] LABS: Arterial Blood Gas Tidal Volume 300 ml
--- NOTE | 2025-01-01 10:45 | P.PNINT_ITS ---
Progress Note: A&P Assessment and Plan (1) Acute hypoxemic respiratory failure: Code(s): J96.01 - Acute respiratory failure with hypoxia Status: Acute Assessment and Plan: Acute hypoxic respiratory failure likely secondary to congestive heart failure, cardiomyopathy, pulmonary edema, possible pneumonia, pleural effusion -12/29: patient was in the intermediate Unit, was tachycardic, tachypneic, hemodynamic instability, patient was transferred to ICU and emergently intubated after discussion with patient's sister. -12/29/2024: Intubated in the ICU -Chest x-ray and ABGs reviewed, ventilator adjusted -will switch Lasix to Diuril due to hypernatremia - management of pneumonia as below -bronchodilator p.r.n. -continue diuresis -sedated with Precedex infusion, his eyes, does not follow commands. Looks comfortable, patient is nonverbal at baseline (2) Cardiomyopathy: Code(s): I42.9 - Cardiomyopathy, unspecified Status: Acute Assessment and Plan: patient does have history of congestive heart failure. Now cardiomyopathy with EF of 15-20% -appreciate cardiology following the base -continue dobutamine for inotropic support -continue diuresis -patient be started on guideline directed medical therapy once of dobutamine and more stable 12/29 echocardiogram showed Summary 1. The left ventricle is mildly dilated with severely reduced systolic function. There is mild eccentric left ventricular hypertrophy. The left ventricular ejection fraction is visually estimated to be 15-20%. There is no left ventricular thrombus. 2. The right ventricle is normal in size with reduced systolic function. 3. The left atrium is severely dilated. 4. The aortic valve is trileaflet and thickened. The right coronary cusp is calcified and restricted. There is no hemodynamically significant stenosis. There is moderate aortic regurgitation. 5. The mitral valve leaflets are thickened but opens well. There is mild mitral regurgitation. 6. The tricuspid valve leaflets are sclerotic but opens well. There is moderate tricuspid regurgitation. There is moderate hypertension. The PASP is estimated to be 60 mmHg. 7. Dilated inferior vena cava with <50% collapse upon inspiration consistent with significantly elevated right atrial pressure, 15 mmHg. 8. There is left-sided pleural effusion (3) CHF exacerbation: Qualifiers: Heart failure type: unspecified Qualified Code(s): I50.9 - Heart failure, unspecified Code(s): I50.9 - Heart failure, unspecified Status: Acute Assessment and Plan: Continue treatment as above (4) Sepsis: Code(s): A41.9 - Sepsis, unspecified organism Status: Acute Assessment and Plan: Patient does have UTI and may have pneumonia. Possible community-acquired or aspiration - elevated lactic acid can be secondary to sepsis or cardiogenic -procalcitonin was intermediate at 0.3 - blood culture 1/2 growing Staph hominis which is likely contaminant - discontinue vancomycin - continue Rocephin doxycycline and Flagyl for total of 5 days -urine cultures negative -sputum cultures pending (5) UTI (urinary tract infection): Code(s): N39.0 - Urinary tract infection, site not specified Status: Acute Assessment and Plan: Urine cultures are negative (6) Community acquired pneumonia: Qualifiers: Laterality: unspecified laterality Qualified Code(s): J18.9 - Pneumonia, unspecified organism Code(s): J18.9 - Pneumonia, unspecified organism Status: Acute Assessment and Plan: Treatment as above (7) Seizures: Code(s): R56.9 - Unspecified convulsions Status: Acute Assessment and Plan: continue valproic acid and gabapentin (8) Tachycardia: Code(s): R00.0 - Tachycardia, unspecified Status: Acute Assessment and Plan: tachycardia secondary to cardiomyopathy, respiratory failure and possibly sepsis improved after intubation and sedation (9) Swelling of right upper extremity: Code(s): M79.89 - Other specified soft tissue disorders Status: Acute Assessment and Plan: right upper extremity venous Dopplers were negative for DVT -elevate right upper extremity on pillows further evaluation and testing deferred at this time. Plan to diurese and achieve euvolemia possible at this time (10) Constipation: Qualifiers: Constipation type: chronic idiopathic constipation Qualified Code(s): K59.04 - Chronic idiopathic constipation Code(s): K59.00 - Constipation, unspecified Status: Acute Assessment and Plan: Patient on bowel regimen -appreciate GI evaluation, daily bisacodyl suppositories have been ordered by them, also received mineral oil enema on 12/29 -patient had a bowel movement (11) Fecal impaction: Code(s): K56.41 - Fecal impaction Status: Acute Assessment and Plan: Patient has had a bowel movement (12) Elevated LFTs: Code(s): R79.89 - Other specified abnormal findings of blood chemistry Status: Acute Assessment and Plan: elevated LFTs likely secondary to shock liver and possible hepatic congestion, cardiogenic shock. -LFTs improving -continue to monitor (13) Electrolyte abnormality: Code(s): E87.8 - Other disorders of electrolyte and fluid balance, not elsewhere classified Status: Acute Assessment and Plan: Will replace potassium Plan DVT prophylaxis - Lovenox Stress ulcer prophylaxis - Protonix Nutrition -continue tube feeds, advance to goal Code Status - full code. 12/29 I had extensive discussion with patient's sister by phone. I updated her with patient's current status which involves respiratory failure, sepsis, cardiomyopathy. I also discussed goals of care. Patient's sister appears on informed of patient's medical problems and unrealistic of prognosis. She wants patient to be full code at this time. Patient was hence intubated and placed on mechanical ventilation. Total Critical Care Time - 33 minutes Due to a high probability of clinically significant, life threatening deterioration, the patient required my highest level of preparedness to intervene emergently and I personally spent this critical care time directly and personally managing the patient. This critical care time included obtaining a history; examining the patient; pulse oximetry; ordering and review of studies; arranging urgent treatment with development of a management plan; evaluation of patient's response to treatment; frequent reassessment; and discussions with other providers. It was exclusive of separately billable procedures and treating other patients and teaching time. Please see Assessment and Plan section and the rest of the note for further information on patient assessment and treatment Subjective Date/time seen: 01/01/25 10:45 Interval history: Reason for visit: CHF exacerbate, acute respiratory failure requiring intubation on 12/29/2024, pneumonia, UTI, cardiomyopathy HPI: 59-year-old man with schizophrenia, seizures, heart failure with unknown systolic function, who is nonverbal with a G-tube transfer from residential due to respiratory distress. 01/01/2025: Patient seen examined the ICU, remains intubated on CMV mode of ventilation, peep of 8, 25% FiO2. Sedated with Precedex infusion. Urine output has been adequate in response to diuresis, afebrile, hemodynamically stable. Patient opens his eyes but not following commands Review of Systems Review of Systems: ROS unobtainable: Yes unobtainable due to endotracheal tube, unobtainable due to medical condition and unobtainable due to mental status Exam Narrative: General: Intubated, on Precedex, opens his eyes, in no acute distress HEENT: Pupils equal and reactive, sclera is clear, ETT in place Lungs/Chest: Coarse breath sounds bilaterally, rales RT > LT, no wheezing Cardiac: S1-S2 normal, regular rate and rhythm, Circulation: Pedal pulses are intact and symmetrical. Abdomen: Normal bowel sounds.. Soft. NT. ND. G-tube in place Extremities: he has left mid tarsal amputation, he has a signed off bone injury on his right hand with looks like a graft, : Burdick in place Neurologic: Intubated, on Precedex, opens his eyes, does not follow simple commands. Skin: he has a large sternotomy incision scar in the midline of his chest. Objective Data Vital Signs Vital Signs: Vital Signs - 24 hr 12/31/24 11:40 12/31/24 12:00 12/31/24 12:00 Temperature Pulse Rate 89 88 88 Respiratory Rate 19 Blood Pressure 112/63 Pulse Oximetry 100 Oxygen Delivery Mechanical Ventilation Fraction of Inspired Oxygen 30 12/31/24 12:00 12/31/24 12:00 12/31/24 12:00 Temperature 97.4 F L Pulse Rate 88 99 Respiratory Rate 19 19 Blood Pressure 112/63 Pulse Oximetry 100 100 Oxygen Delivery Mechanical Ventilation Fraction of Inspired Oxygen 30 30 12/31/24 12:00 12/31/24 12:37 12/31/24 12:37 Temperature Pulse Rate 90 99 99 Respiratory Rate Blood Pressure 118/72 118/72 Pulse Oximetry Oxygen Delivery Fraction of Inspired Oxygen 12/31/24 14:00 12/31/24 14:00 12/31/24 14:00 Temperature Pulse Rate 90 90 90 Respiratory Rate 16 16 Blood Pressure 103/58 L 103/58 L Pulse Oximetry 100 Oxygen Delivery Fraction of Inspired Oxygen 12/31/24 14:00 12/31/24 14:03 12/31/24 16:00 Temperature Pulse Rate 103 H 96 98 Respiratory Rate Blood Pressure Pulse Oximetry 100 Oxygen Delivery Mechanical Ventilation Fraction of Inspired Oxygen 30 12/31/24 16:00 12/31/24 16:00 12/31/24 16:00 Temperature 98.3 F Pulse Rate 98 97 Respiratory Rate 16 20 Blood Pressure 106/48 L Pulse Oximetry 100 100 Oxygen Delivery Mechanical Ventilation Fraction of Inspired Oxygen 30 30 12/31/24 16:00 12/31/24 16:00 12/31/24 17:08 Temperature Pulse Rate 97 97 102 H Respiratory Rate 20 Blood Pressure 106/48 L Pulse Oximetry 99 Oxygen Delivery Mechanical Ventilation Fraction of Inspired Oxygen 30 12/31/24 18:00 12/31/24 18:00 12/31/24 18:00 Temperature Pulse Rate 99 100 100 Respiratory Rate 21 H 22 H Blood Pressure 118/63 118/63 Pulse Oximetry 100 Oxygen Delivery Fraction of Inspired Oxygen 12/31/24 18:00 12/31/24 19:43 12/31/24 20:00 Temperature Pulse Rate 100 118 H 115 H Respiratory Rate 22 H 20 Blood Pressure Pulse Oximetry 100 Oxygen Delivery Mechanical Ventilation Fraction of Inspired Oxygen 30 12/31/24 20:00 12/31/24 20:00 12/31/24 20:00 Temperature 102.2 F H Pulse Rate 115 H 115 H Respiratory Rate 20 Blood Pressure 112/69 Pulse Oximetry 100 Oxygen Delivery Fraction of Inspired Oxygen 25 12/31/24 20:00 12/31/24 20:00 12/31/24 20:18 Temperature Pulse Rate 115 H 115 H 111 H Respiratory Rate 20 Blood Pressure 112/69 Pulse Oximetry 97 Oxygen Delivery Mechanical Ventilation Fraction of Inspired Oxygen 30 12/31/24 21:13 12/31/24 21:13 12/31/24 22:00 Temperature Pulse Rate 109 H 109 H 104 H Respiratory Rate 19 19 Blood Pressure Pulse Oximetry Oxygen Delivery Fraction of Inspired Oxygen 12/31/24 22:00 12/31/24 22:00 12/31/24 22:00 Temperature 101.8 F H Pulse Rate 104 H 104 H 104 H Respiratory Rate 17 17 Blood Pressure 110/71 110/71 Pulse Oximetry 100 Oxygen Delivery Fraction of Inspired Oxygen 01/01/25 00:00 01/01/25 00:00 01/01/25 00:00 Temperature 99.1 F Pulse Rate 104 H 104 H Respiratory Rate 18 18 Blood Pressure 118/68 Pulse Oximetry 99 99 Oxygen Delivery Mechanical Ventilation Fraction of Inspired Oxygen 25 30 01/01/25 00:00 01/01/25 00:00 01/01/25 00:00 Temperature Pulse Rate 104 H 104 H 104 H Respiratory Rate 18 Blood Pressure 118/68 Pulse Oximetry Oxygen Delivery Fraction of Inspired Oxygen 01/01/25 02:00 01/01/25 02:00 01/01/25 02:00 Temperature Pulse Rate 101 H 101 H 101 H Respiratory Rate 16 16 Blood Pressure 110/72 Pulse Oximetry 100 Oxygen Delivery Fraction of Inspired Oxygen 01/01/25 02:00 01/01/25 02:29 01/01/25 04:00 Temperature Pulse Rate 101 H 97 98 Respiratory Rate 19 Blood Pressure 110/72 Pulse Oximetry 97 Oxygen Delivery Mechanical Ventilation Fraction of Inspired Oxygen 30 01/01/25 04:00 01/01/25 04:00 01/01/25 04:00 Temperature Pulse Rate 98 98 Respiratory Rate 19 Blood Pressure 118/73 Pulse Oximetry 99 Oxygen Delivery Mechanical Ventilation Fraction of Inspired Oxygen 30 25 01/01/25 04:00 01/01/25 04:00 01/01/25 06:00 Temperature 98.4 F Pulse Rate 98 98 96 Respiratory Rate 19 16 Blood Pressure 118/73 Pulse Oximetry 100 Oxygen Delivery Fraction of Inspired Oxygen 01/01/25 06:00 01/01/25 06:00 01/01/25 06:00 Temperature Pulse Rate 96 96 96 Respiratory Rate 16 Blood Pressure 147/66 H 147/66 H Pulse Oximetry 97 Oxygen Delivery Fraction of Inspired Oxygen 01/01/25 06:05 01/01/25 06:43 01/01/25 06:43 Temperature Pulse Rate 97 97 97 Respiratory Rate 18 18 Blood Pressure Pulse Oximetry 97 Oxygen Delivery Mechanical Ventilation Fraction of Inspired Oxygen 30 01/01/25 07:30 01/01/25 07:44 01/01/25 07:55 Temperature Pulse Rate 96 96 Respiratory Rate 16 Blood Pressure Pulse Oximetry 96 97 Oxygen Delivery Mechanical Ventilation Mechanical Ventilation Fraction of Inspired Oxygen 30 25 30 01/01/25 07:59 01/01/25 08:00 01/01/25 08:00 Temperature 96.6 F L Pulse Rate 94 94 94 Respiratory Rate 16 16 Blood Pressure 145/67 H 145/67 H Pulse Oximetry 100 Oxygen Delivery Fraction of Inspired Oxygen 01/01/25 08:00 01/01/25 10:00 01/01/25 10:00 Temperature 96.6 F L Pulse Rate 95 88 98 Respiratory Rate 15 Blood Pressure 140/75 Pulse Oximetry 100 Oxygen Delivery Fraction of Inspired Oxygen 01/01/25 10:00 01/01/25 10:00 01/01/25 10:42 Temperature Pulse Rate 98 98 103 H Respiratory Rate 16 Blood Pressure 131/75 Pulse Oximetry 98 Oxygen Delivery Mechanical Ventilation Fraction of Inspired Oxygen 25 Intake/Output Intake/Output: Intake & Output 12/29/24 12/30/24 12/31/24 01/01/25 23:59 23:59 23:59 23:59 Intake Total 1604.8 2074.5 2389.9 1698.6 Output Total 1000 2500 1600 900 Balance 604.8 -425.5 789.9 798.6 Meds/Results Medications: Active Medications Generic Name Dose Route Start Last Admin Trade Name Freq PRN Reason Stop Dose Admin Albuterol/Ipratropium 3 ml 12/28/24 21:13 12/29/24 02:41 Ipratropium 0.5 Mg/Albuterol Sulfate 2.5 Mg Ampul.Neb 3 Ml INHALATION 3 ml Q6HRT PRN Administration Shortness Of Breath Or Wheezing Bisacodyl 10 mg 12/30/24 09:00 01/01/25 08:03 Bisacodyl 10 Mg Suppository RECTAL 10 mg QAM DANI Administration Chlorothiazide Sodium 500 mg 01/01/25 21:00 Chlorothiazide 500 Mg Vial IV PUSH 01/02/25 09:01 Q12H DANI Dextrose 12.5 gm 12/30/24 08:02 Dextrose 50% 25 Gm/50 Ml Syringe IV PUSH PRN PRN Hypoglycemia Protocol Docusate Sodium 100 mg 12/29/24 09:00 01/01/25 08:00 Docusate Sodium Liq 100 Mg/10 Ml Udc FEED TUBE 100 mg DAILY DANI Administration Enoxaparin Sodium 40 mg 12/30/24 09:00 01/01/25 08:02 Enoxaparin 40 Mg/0.4 Ml Syringe SUB-Q 40 mg QAM DANI Administration Fentanyl Citrate 25 mcg 12/29/24 15:33 12/31/24 19:50 Fentanyl Citrate Inj (*Crx) 100 Mcg/2 Ml Vial IV PUSH 25 mcg Q1H PRN Administration Pain while on vent Gabapentin 100 mg 12/29/24 06:00 01/01/25 05:19 Gabapentin 100 Mg Capsule FEED TUBE 100 mg Q8HR DANI Administration Glucagon 1 mg 12/30/24 08:02 Glucagon For Inj 1 Mg Vial IM PRN PRN Hypoglycemia Protocol Glucose 15 gm 12/30/24 08:02 Glucose Oral Gel 15 Gm Of Glucse In 37.5 Gm Tube PO PRN PRN Hypoglycemia Protocol Ceftriaxone Sodium 1 gm in 50 mls @ 100 mls/hr 12/29/24 09:00 01/01/25 10:42 Rocephin 1 Gm/Ns 50 Ml IVPB 01/05/25 08:59 Infused Q24H DANI Infusion Valproate Sodium 250 mg/ 52.5 mls @ 52.5 mls/hr 12/29/24 07:00 01/01/25 08:08 Dextrose IVPB Infused Q6H DANI Infusion Metronidazole 500 mg in 100 mls @ 100 mls/hr 12/29/24 07:25 01/01/25 06:19 Flagyl 500 Mg/Iso Soln 100 Ml IVPB 01/03/25 07:24 Infused Q6HR DANI Infusion Doxycycline Hyclate 100 mg in 100 mls @ 100 mls/hr 12/29/24 22:00 01/01/25 10:42 Vibramycin 100 Mg/Ns 100 Ml IVPB 01/03/25 21:59 Infused Q12H DANI Infusion Dexmedetomidine HCl 400 mcg in 100 mls @ 8.475 mls/hr 12/29/24 15:10 01/01/25 10:00 Precedex 400 Mcg/100 Ml IV CONT 0.6 mcg/kg/hr .[id number] DANI 8.48 mls/hr Titration Protocol 0.6 MCG/KG/HR Dobutamine HCl/Dextrose 250 mg in 250 mls @ 8.82 mls/hr 12/30/24 08:00 01/01/25 10:00 Dobutamine 250 Mg/D5w 250 Ml IV CONT 2.5 mcg/kg/min .Q24H DANI 8.82 mls/hr Infusion 2.5 MCG/KG/MIN Dextrose 1,000 mls @ 100 mls/hr 12/30/24 08:02 Dextrose 5% 1,000 Ml IVPB PRN PRN Hypoglycemia Protocol Potassium Chloride 100 mls @ 25 mls/hr 01/01/25 09:19 01/01/25 10:36 Kcl 40 Meq/Water 100 Ml IVPB 01/01/25 13:18 25 mls/hr ONCE ONE Administration Insulin Aspart 2 - 5 units 12/30/24 12:00 01/01/25 05:46 Insulin Aspart (*Bkc) 100 Units/Ml SUB-Q Not Given Q6HR [facility] Protocol Midazolam HCl 2 mg 12/29/24 15:10 Midazolam Hcl (*Crx) 2 Mg/2 Ml Vial IV PUSH Q5M PRN ventilator asynchrony Multi-Ingred Cream/Lotion/Oil/Oint 1 applic 12/29/24 21:00 01/01/25 08:06 Mineral Oil/White Petrolatum Ointment EACH EYE 1 applic Q12HR DANI Administration Pantoprazole Sodium 40 mg 12/29/24 15:15 01/01/25 08:01 Pantoprazole Sodium Iv 40 Mg Vial IV PUSH 40 mg QAM DANI Administration Polyethylene Glycol 17 gm 12/30/24 09:00 01/01/25 08:00 Polyethylene Glycol 3350 17 Gm Powd.Pack PO 17 gm QAM DANI Administration Valproate Sodium 750 mg 12/29/24 09:00 Valproic Acid Liq 250 Mg/5 Ml Oral Solution Udc FEED TUBE BID [facility] Radiology Results: ITS Impressions Venous Doppler Study 12/28/24 15:55 IMPRESSION: Negative left and right upper extremity venous US. No deep vein thrombosis. Chest/Abdomen/Pelvis CTA 12/29/24 14:43 IMPRESSION: 1. Extensive patchy airspace opacities throughout both lungs and favor severe congestive heart failure related pulmonary edema over pneumonia. 2. Small left and moderate sized right dependently layering pleural effusions with associated compressive atelectasis in the dependent lungs. 3. Cardiomegaly with enlargement of the central pulmonary consistent with pulmonary arterial hypertension. 4. Large amount of stool throughout the colon with 9.6 x 6.7 cm ball of stool the rectum consistent with likely constipation with fecal impaction. 5. Hepatomegaly. Chest X-Ray 01/01/25 06:05 Impression: [id number] pulmonary edema pattern, right worse than left, versus possibly pneumonia. Small right pleural effusion and minimal left pleural effusion. Support tubes, as above. Labs Labs: Laboratory Results - last 24 hr 12/31/24 12/31/24 12/31/24 12:19 17:24 17:25 WBC RBC Hgb Hct MCV MCH MCHC RDW Plt Count MPV Puncture Site ABG pH ABG pCO2 ABG pO2 ABG PO2/FiO2 Ratio ABG HCO3 ABG O2 Saturation ABG O2 Content ABG Base Excess A-a Gradient Oxyhemoglobin Total Hemoglobin O2 Delivery Device O2 Liters/Min Minute Volume Vent Rate Vent Mode FiO2 Tidal Volume PEEP Peak Inspir Pressure Pressure Support Sodium 146 H Potassium 4.6 Chloride 111 H Carbon Dioxide 26 Anion Gap 9 BUN 37 H Creatinine 0.64 L Estim Creat Clear Calc 92 Estimated GFR > 60 Glucose 146 H POC Capillary Glucose 116 H 141 H Lactic Acid Calcium 7.8 L Phosphorus Magnesium Total Bilirubin AST ALT Alkaline Phosphatase Total Protein Albumin 12/31/24 01/01/25 01/01/25 23:44 05:06 10:19 WBC 5.5 RBC 2.48 L Hgb 7.9 L Hct 26.3 L MCV 106.0 H MCH 31.9 MCHC 30.0 L RDW 15.0 H Plt Count 167 MPV 10.4 Puncture Site Left radial ABG pH 7.490 H ABG pCO2 32.3 L ABG pO2 94.9 ABG PO2/FiO2 Ratio 3.80 ABG HCO3 24.1 ABG O2 Saturation 97.8 ABG O2 Content 13.4 L ABG Base Excess 1.0 A-a Gradient 45.0 Oxyhemoglobin 96.2 Total Hemoglobin 9.8 L O2 Delivery Device Ventilator O2 Liters/Min Not Reportable Minute Volume Not Reportable Vent Rate 16 Vent Mode Cmv FiO2 25 Tidal Volume 300 PEEP 8 Peak Inspir Pressure Not Reportable Pressure Support Not Reportable Sodium 147 H Potassium 3.5 Chloride 112 H Carbon Dioxide 29 Anion Gap 6 BUN 34 H Creatinine 0.59 L Estim Creat Clear Calc 98 Estimated GFR > 60 Glucose 125 H POC Capillary Glucose 120 H Lactic Acid 1.3 Calcium 7.7 L Phosphorus 2.4 L Magnesium 2.1 Total Bilirubin 0.8 AST 726 H ALT 863 H Alkaline Phosphatase 78 Total Protein 7.0 Albumin 3.0 L Quality VTE Prophylaxis VTE prophylaxis: pharmacologic ordered
--- NOTE | 2025-01-01 11:21 | PCNFU ---
Nutrition Follow-Up Complete: Suboptimal Energy Intake as related to mechanical vent as evidenced by tube feedings. Goal: Meet estimated nutritional needs Patient is progressing towards goal. We will continue current goal. Pt current nutrition is Vital AF 1.2 at 40 ml/hr. Nutrition recommendation: goal rate 60 ml/hr. Last recorded weight is 61.9 kg, up from 56 kg on admit. Bowel Motility:+BM reported 12/31 Labs Reviewed:PO4 2.4, Glu 125, Na 147, Alb 3.0, Hct 26.3, Hgb 7.9 Meds Noted: NovoLog, Lantus, Precedex, Miralax, Colace, Protonix Skin: WNL Additional Notes: Patient remains on a mechanical vent. Tube feedings are being tolerated of Vital AF 1.2 at 40 ml/hr. Plans to increased to goal rate of 60 ml/hr today, which will providing 1584 kcal/99 gm protein/1074 ml water. Meeting 94% kcal needs at 30 kcal/kg and 100% protein needs at 1.8 gm/kg. Agree with diet orders. Following daily in ICU rounds and reassess every Sunday and Sunday.
--- NOTE | 2025-01-01 12:03 | P.PNCA_ITS ---
Progress Note: A&P Assessment and Plan (1) CHF exacerbation: Qualifiers: Heart failure type: unspecified Qualified Code(s): I50.9 - Heart failure, unspecified Code(s): I50.9 - Heart failure, unspecified Status: Acute Plan 59-year-old man with schizophrenia and seizures who is nonverbal with a G-tube transfer from [facility] due to respiratory distress now found to have systolic heart failure and possible pneumonia Acute decompensated systolic heart failure -according to his documented I/O, he has been net positive for the last 2 days -Lasix has been switched to chlorthalidone due to hypernatremia -continue dobutamine drip -overall poor prognosis when taken into consideration his other chronic conditions Moderate mitral regurgitation -will reassess likely a outpatient clinic once euvolemic Moderate aortic regurgitation -outpatient surveillance echocardiogram Subjective Date/time seen: 01/01/25 12:03 Interval history: Patient is intubated and sedated. Review of Systems Review of Systems: ROS unobtainable: Yes unobtainable due to endotracheal tube Exam Const: Other: Appears ill and cachectic HENMT: Mouth: Yes moist mucous membranes Neck: Neck: no JVD Resp: Auscultation: rales Cardio: Rate: regular rate Rhythm: regular rhythm Extrem: General: no pedal edema Objective Data Vital Signs Vital Signs: Vital Signs - 24 hr 12/31/24 12:37 12/31/24 12:37 12/31/24 14:00 Temperature Pulse Rate 99 99 90 Respiratory Rate 16 Blood Pressure 118/72 118/72 Pulse Oximetry Oxygen Delivery Fraction of Inspired Oxygen 12/31/24 14:00 12/31/24 14:00 12/31/24 14:00 Temperature Pulse Rate 90 90 103 H Respiratory Rate 16 Blood Pressure 103/58 L 103/58 L Pulse Oximetry 100 Oxygen Delivery Fraction of Inspired Oxygen 12/31/24 14:03 12/31/24 16:00 12/31/24 16:00 Temperature Pulse Rate 96 98 Respiratory Rate Blood Pressure Pulse Oximetry 100 Oxygen Delivery Mechanical Ventilation Fraction of Inspired Oxygen 30 30 12/31/24 16:00 12/31/24 16:00 12/31/24 16:00 Temperature 36.8 C Pulse Rate 98 97 97 Respiratory Rate 16 20 20 Blood Pressure 106/48 L Pulse Oximetry 100 100 Oxygen Delivery Mechanical Ventilation Fraction of Inspired Oxygen 30 12/31/24 16:00 12/31/24 17:08 12/31/24 18:00 Temperature Pulse Rate 97 102 H 99 Respiratory Rate 21 H Blood Pressure 106/48 L 118/63 Pulse Oximetry 99 100 Oxygen Delivery Mechanical Ventilation Fraction of Inspired Oxygen 30 12/31/24 18:00 12/31/24 18:00 12/31/24 18:00 Temperature Pulse Rate 100 100 100 Respiratory Rate 22 H Blood Pressure 118/63 Pulse Oximetry Oxygen Delivery Fraction of Inspired Oxygen 12/31/24 19:43 12/31/24 20:00 12/31/24 20:00 Temperature Pulse Rate 118 H 115 H Respiratory Rate 22 H 20 Blood Pressure Pulse Oximetry 100 Oxygen Delivery Mechanical Ventilation Fraction of Inspired Oxygen 30 25 12/31/24 20:00 12/31/24 20:00 12/31/24 20:00 Temperature 39.0 C H Pulse Rate 115 H 115 H 115 H Respiratory Rate 20 20 Blood Pressure 112/69 Pulse Oximetry 100 Oxygen Delivery Fraction of Inspired Oxygen 12/31/24 20:00 12/31/24 20:18 12/31/24 21:13 Temperature Pulse Rate 115 H 111 H 109 H Respiratory Rate 19 Blood Pressure 112/69 Pulse Oximetry 97 Oxygen Delivery Mechanical Ventilation Fraction of Inspired Oxygen 30 12/31/24 21:13 12/31/24 22:00 12/31/24 22:00 Temperature 38.8 C H Pulse Rate 109 H 104 H 104 H Respiratory Rate 19 17 Blood Pressure 110/71 Pulse Oximetry 100 Oxygen Delivery Fraction of Inspired Oxygen 12/31/24 22:00 12/31/24 22:00 01/01/25 00:00 Temperature Pulse Rate 104 H 104 H Respiratory Rate 17 Blood Pressure 110/71 Pulse Oximetry Oxygen Delivery Fraction of Inspired Oxygen 25 01/01/25 00:00 01/01/25 00:00 01/01/25 00:00 Temperature 37.3 C Pulse Rate 104 H 104 H 104 H Respiratory Rate 18 18 Blood Pressure 118/68 Pulse Oximetry 99 99 Oxygen Delivery Mechanical Ventilation Fraction of Inspired Oxygen 30 01/01/25 00:00 01/01/25 00:00 01/01/25 02:00 Temperature Pulse Rate 104 H 104 H 101 H Respiratory Rate 18 16 Blood Pressure 118/68 110/72 Pulse Oximetry 100 Oxygen Delivery Fraction of Inspired Oxygen 01/01/25 02:00 01/01/25 02:00 01/01/25 02:00 Temperature Pulse Rate 101 H 101 H 101 H Respiratory Rate 16 Blood Pressure 110/72 Pulse Oximetry Oxygen Delivery Fraction of Inspired Oxygen 01/01/25 02:29 01/01/25 04:00 01/01/25 04:00 Temperature Pulse Rate 97 98 98 Respiratory Rate 19 Blood Pressure 118/73 Pulse Oximetry 97 Oxygen Delivery Mechanical Ventilation Fraction of Inspired Oxygen 30 01/01/25 04:00 01/01/25 04:00 01/01/25 04:00 Temperature 36.9 C Pulse Rate 98 98 Respiratory Rate 19 19 Blood Pressure 118/73 Pulse Oximetry 99 100 Oxygen Delivery Mechanical Ventilation Fraction of Inspired Oxygen 30 25 01/01/25 04:00 01/01/25 06:00 01/01/25 06:00 Temperature Pulse Rate 98 96 96 Respiratory Rate 16 16 Blood Pressure 147/66 H Pulse Oximetry 97 Oxygen Delivery Fraction of Inspired Oxygen 01/01/25 06:00 01/01/25 06:00 01/01/25 06:05 Temperature Pulse Rate 96 96 97 Respiratory Rate Blood Pressure 147/66 H Pulse Oximetry 97 Oxygen Delivery Mechanical Ventilation Fraction of Inspired Oxygen 30 01/01/25 06:43 01/01/25 06:43 01/01/25 07:30 Temperature Pulse Rate 97 97 96 Respiratory Rate 18 18 16 Blood Pressure Pulse Oximetry 96 Oxygen Delivery Mechanical Ventilation Fraction of Inspired Oxygen 30 01/01/25 07:44 01/01/25 07:55 01/01/25 07:59 Temperature 35.9 C L Pulse Rate 96 94 Respiratory Rate 16 Blood Pressure 145/67 H Pulse Oximetry 97 100 Oxygen Delivery Mechanical Ventilation Fraction of Inspired Oxygen 25 01/01/25 08:00 01/01/25 08:00 01/01/25 08:00 Temperature Pulse Rate 94 94 95 Respiratory Rate 16 Blood Pressure 145/67 H Pulse Oximetry Oxygen Delivery Fraction of Inspired Oxygen 01/01/25 10:00 01/01/25 10:00 01/01/25 10:00 Temperature 35.9 C L Pulse Rate 88 98 98 Respiratory Rate 15 16 Blood Pressure 140/75 Pulse Oximetry 100 Oxygen Delivery Fraction of Inspired Oxygen 01/01/25 10:00 01/01/25 10:42 01/01/25 11:50 Temperature Pulse Rate 98 103 H Respiratory Rate Blood Pressure 131/75 Pulse Oximetry 98 99 Oxygen Delivery Mechanical Ventilation Mechanical Ventilation Fraction of Inspired Oxygen 01/01/25 11:53 Temperature Pulse Rate Respiratory Rate Blood Pressure Pulse Oximetry Oxygen Delivery Fraction of Inspired Oxygen 25 Intake/Output Intake/Output: Intake & Output 12/29/24 12/30/24 12/31/24 01/01/25 23:59 23:59 23:59 23:59 Intake Total 1604.8 2074.5 2389.9 1698.6 Output Total 1000 2500 1600 900 Balance 604.8 -425.5 789.9 798.6 Meds/Results Medications: Active Medications Generic Name Dose Route Start Last Admin Trade Name Freq PRN Reason Stop Dose Admin Albuterol/Ipratropium 3 ml 12/28/24 21:13 12/29/24 02:41 Ipratropium 0.5 Mg/Albuterol Sulfate 2.5 Mg Ampul.Neb 3 Ml INHALATION 3 ml Q6HRT PRN Administration Shortness Of Breath Or Wheezing Bisacodyl 10 mg 12/30/24 09:00 01/01/25 08:03 Bisacodyl 10 Mg Suppository RECTAL 10 mg QAM DANI Administration Chlorothiazide Sodium 500 mg 01/01/25 21:00 Chlorothiazide 500 Mg Vial IV PUSH 01/02/25 09:01 Q12H DANI Dextrose 12.5 gm 12/30/24 08:02 Dextrose 50% 25 Gm/50 Ml Syringe IV PUSH PRN PRN Hypoglycemia Protocol Docusate Sodium 100 mg 12/29/24 09:00 01/01/25 08:00 Docusate Sodium Liq 100 Mg/10 Ml Udc FEED TUBE 100 mg DAILY DANI Administration Enoxaparin Sodium 40 mg 12/30/24 09:00 01/01/25 08:02 Enoxaparin 40 Mg/0.4 Ml Syringe SUB-Q 40 mg QAM DANI Administration Fentanyl Citrate 25 mcg 12/29/24 15:33 12/31/24 19:50 Fentanyl Citrate Inj (*Crx) 100 Mcg/2 Ml Vial IV PUSH 25 mcg Q1H PRN Administration Pain while on vent Gabapentin 100 mg 12/29/24 06:00 01/01/25 05:19 Gabapentin 100 Mg Capsule FEED TUBE 100 mg Q8HR DANI Administration Glucagon 1 mg 12/30/24 08:02 Glucagon For Inj 1 Mg Vial IM PRN PRN Hypoglycemia Protocol Glucose 15 gm 12/30/24 08:02 Glucose Oral Gel 15 Gm Of Glucse In 37.5 Gm Tube PO PRN PRN Hypoglycemia Protocol Ceftriaxone Sodium 1 gm in 50 mls @ 100 mls/hr 12/29/24 09:00 01/01/25 10:42 Rocephin 1 Gm/Ns 50 Ml IVPB 01/05/25 08:59 Infused Q24H DANI Infusion Valproate Sodium 250 mg/ 52.5 mls @ 52.5 mls/hr 12/29/24 07:00 01/01/25 08:08 Dextrose IVPB Infused Q6H DANI Infusion Metronidazole 500 mg in 100 mls @ 100 mls/hr 12/29/24 07:25 01/01/25 11:41 Flagyl 500 Mg/Iso Soln 100 Ml IVPB 01/03/25 07:24 100 mls/hr Q6HR DANI Administration Doxycycline Hyclate 100 mg in 100 mls @ 100 mls/hr 12/29/24 22:00 01/01/25 10:42 Vibramycin 100 Mg/Ns 100 Ml IVPB 01/03/25 21:59 Infused Q12H DANI Infusion Dexmedetomidine HCl 400 mcg in 100 mls @ 8.475 mls/hr 12/29/24 15:10 01/01/25 10:00 Precedex 400 Mcg/100 Ml IV CONT 0.6 mcg/kg/hr .[id number] DANI 8.48 mls/hr Titration Protocol 0.6 MCG/KG/HR Dobutamine HCl/Dextrose 250 mg in 250 mls @ 8.82 mls/hr 12/30/24 08:00 01/01/25 10:00 Dobutamine 250 Mg/D5w 250 Ml IV CONT 2.5 mcg/kg/min .Q24H DANI 8.82 mls/hr Infusion 2.5 MCG/KG/MIN Dextrose 1,000 mls @ 100 mls/hr 12/30/24 08:02 Dextrose 5% 1,000 Ml IVPB PRN PRN Hypoglycemia Protocol Potassium Chloride 100 mls @ 25 mls/hr 01/01/25 09:19 01/01/25 10:36 Kcl 40 Meq/Water 100 Ml IVPB 01/01/25 13:18 25 mls/hr ONCE ONE Administration Insulin Aspart 2 - 5 units 12/30/24 12:00 01/01/25 05:46 Insulin Aspart (*Bkc) 100 Units/Ml SUB-Q Not Given Q6HR [facility] Protocol Midazolam HCl 2 mg 12/29/24 15:10 Midazolam Hcl (*Crx) 2 Mg/2 Ml Vial IV PUSH Q5M PRN ventilator asynchrony Multi-Ingred Cream/Lotion/Oil/Oint 1 applic 12/29/24 21:00 01/01/25 08:06 Mineral Oil/White Petrolatum Ointment EACH EYE 1 applic Q12HR DANI Administration Pantoprazole Sodium 40 mg 12/29/24 15:15 01/01/25 08:01 Pantoprazole Sodium Iv 40 Mg Vial IV PUSH 40 mg QAM DANI Administration Polyethylene Glycol 17 gm 12/30/24 09:00 01/01/25 08:00 Polyethylene Glycol 3350 17 Gm Powd.Pack PO 17 gm QAM DANI Administration Valproate Sodium 750 mg 12/29/24 09:00 Valproic Acid Liq 250 Mg/5 Ml Oral Solution Udc FEED TUBE BID [facility] Radiology Results: ITS Impressions Venous Doppler Study 12/28/24 15:55 IMPRESSION: Negative left and right upper extremity venous US. No deep vein thrombosis. Chest/Abdomen/Pelvis CTA 12/29/24 14:43 IMPRESSION: 1. Extensive patchy airspace opacities throughout both lungs and favor severe congestive heart failure related pulmonary edema over pneumonia. 2. Small left and moderate sized right dependently layering pleural effusions with associated compressive atelectasis in the dependent lungs. 3. Cardiomegaly with enlargement of the central pulmonary consistent with p ulmonary arterial hypertension. 4. Large amount of stool throughout the colon with 9.6 x 6.7 cm ball of stool the rectum consistent with likely constipation with fecal impaction. 5. Hepatomegaly. Chest X-Ray 01/01/25 06:05 Impression: [id number] pulmonary edema pattern, right worse than left, versus possibly pneumonia. Small right pleural effusion and minimal left pleural effusion. Support tubes, as above. Labs Labs: Laboratory Results - last 24 hr 12/31/24 12/31/24 12/31/24 12:19 17:24 17:25 WBC RBC Hgb Hct MCV MCH MCHC RDW Plt Count MPV Puncture Site ABG pH ABG pCO2 ABG pO2 ABG PO2/FiO2 Ratio ABG HCO3 ABG O2 Saturation ABG O2 Content ABG Base Excess A-a Gradient Oxyhemoglobin Total Hemoglobin O2 Delivery Device O2 Liters/Min Minute Volume Vent Rate Vent Mode FiO2 Tidal Volume PEEP Peak Inspir Pressure Pressure Support Sodium 146 H Potassium 4.6 Chloride 111 H Carbon Dioxide 26 Anion Gap 9 BUN 37 H Creatinine 0.64 L Estim Creat Clear Calc 92 Estimated GFR > 60 Glucose 146 H POC Capillary Glucose 116 H 141 H Lactic Acid Calcium 7.8 L Phosphorus Magnesium Total Bilirubin AST ALT Alkaline Phosphatase Total Protein Albumin 12/31/24 01/01/25 01/01/25 23:44 05:06 10:19 WBC 5.5 RBC 2.48 L Hgb 7.9 L Hct 26.3 L MCV 106.0 H MCH 31.9 MCHC 30.0 L RDW 15.0 H Plt Count 167 MPV 10.4 Puncture Site Left radial ABG pH 7.490 H ABG pCO2 32.3 L ABG pO2 94.9 ABG PO2/FiO2 Ratio 3.80 ABG HCO3 24.1 ABG O2 Saturation 97.8 ABG O2 Content 13.4 L ABG Base Excess 1.0 A-a Gradient 45.0 Oxyhemoglobin 96.2 Total Hemoglobin 9.8 L O2 Delivery Device Ventilator O2 Liters/Min Not Reportable Minute Volume Not Reportable Vent Rate 16 Vent Mode Cmv FiO2 25 Tidal Volume 300 PEEP 8 Peak Inspir Pressure Not Reportable Pressure Support Not Reportable Sodium 147 H Potassium 3.5 Chloride 112 H Carbon Dioxide 29 Anion Gap 6 BUN 34 H Creatinine 0.59 L Estim Creat Clear Calc 98 Estimated GFR > 60 Glucose 125 H POC Capillary Glucose 120 H Lactic Acid 1.3 Calcium 7.7 L Phosphorus 2.4 L Magnesium 2.1 Total Bilirubin 0.8 AST 726 H ALT 863 H Alkaline Phosphatase 78 Total Protein 7.0 Albumin 3.0 L
[2025-01-01 12:48] LABS: Glucose Point of Care 124 mg/dl (65-105)
[2025-01-01 15:08] LABS: Pneumococcal Antigen Urine NOT DETECTED
[2025-01-01] MEDS: VALPROIC ACID LIQ 250 MG/5 ML ORAL SOLUTION UDC 750 MG FEED TUBE (16:46)
[2025-01-01] MEDS: DOBUTamine 250 MG/D5W 250 ML 250 MG/250 ML BAG 8.82 MG IV CONT (16:49)
[2025-01-01] MEDS: dexmedeTOMIDine 400 MCG/100 ML 400 MCG/100 ML BAG 9.89 MCG IV CONT (16:57)
[2025-01-01 17:20] LABS: Glucose Point of Care 129 mg/dl (65-105)
[2025-01-01] MEDS: CHLOROTHIAZIDE 500 MG VIAL IV PUSH (21:29)
[2025-01-01] MEDS: WATER, STERILE FOR INJECTION 10 ML VIAL 20 ML XX (21:55)
[2025-01-01] MEDS: fentaNYL CITRATE INJ (*CRX) 100 MCG/2 ML VIAL 25 MCG IV PUSH (22:00)
[2025-01-02] VITALS (37 sets, daily range): BP systolic 57–158; BP diastolic 41–82; PULSE 60–122; RESP 13–22; TEMP 36.7–37.2; O2SAT 93–100
[2025-01-02 00:09] LABS: Glucose Point of Care 104 mg/dl (65-105)
[2025-01-02] MEDS: fentaNYL CITRATE INJ (*CRX) 100 MCG/2 ML VIAL 25 MCG IV PUSH (01:32)
[2025-01-02] MEDS: dexmedeTOMIDine 400 MCG/100 ML 400 MCG/100 ML BAG 11.3 MCG IV CONT (02:15)
[2025-01-02] MEDS: MIDAZOLAM HCL (*CRX) 2 MG/2 ML VIAL IV PUSH ×2 (03:15→10:39)
[2025-01-02] MEDS: GABAPENTIN 100 MG CAPSULE FEED TUBE (05:10)
[2025-01-02] MEDS: metroNIDAZOLE 500 MG/ISO 100ML 500 MG/100 ML BAG 100 MG IVPB ×4 (05:10→23:52)
[2025-01-02 05:17] LABS: Hematocrit 26.2 % (42.0-52.0); Hemoglobin 8.1 g/dL (14.0-18.0); Mean Corpuscular HGB Conc 30.9 g/dl (32-36); Mean Corpuscular Hemoglobin 31.9 pg (26-34); Mean Corpuscular Volume 103.1 fl (80-100); Platelet Count Result 158 k/mm3 (150-375); Red Blood Count 2.54 M/mm3 (4.6-6.20); White Blood Count 4.7 K/mm3 (4.5-10.0)
[2025-01-02 05:27] LABS: Lactic Acid Reflex 1.1 mmol/L (0.7-2.0)
[2025-01-02 05:28] LABS: Alanine Aminotransferase 725 U/L (6-50); Albumin Level 2.9 g/dL (3.5-5.1); Alkaline Phosphatase 77 U/L (38-126); Anion Gap 6 mmol/L (4-12); Aspartate Amino Transferase 471 U/L (17-59); Bilirubin,Total 0.6 mg/dL (0.2-1.3); Blood Urea Nitrogen 26 mg/dL (9-20); Calcium 7.8 mg/dL (8.4-10.2); Carbon Dioxide 28 mmol/L (22-30); Chloride 111 mmol/L (98-107); Estimated CRCL calculation 109 ml/min; Estimated Glomerular Filt Rate > 60; Glucose 101 mg/dL (65-110); Magnesium 2.2 mg/dL (1.6-2.3); Phosphorus 2.7 mg/dL (2.5-4.5); Potassium 3.5 mmol/L (3.4-5.0); Sodium 145 mmol/L (137-145)
[2025-01-02 05:39] LABS: Alveolar/Arterial O2 Gradient 31.5 mmHg; Base Excess ABG 0.6 mEq/l (+/-2.0); Carboxyhemoglobin 1.1 % THb (0-2.0); Fractional Inspired Oxygen 25 %; HCO3 ABG 24.2 mEq/l (22.0-26.0); Methemoglobin ABG 0.1 %THb (0-1.5); Oxygen Content ABG 14.1 %vol (16.0-22.0); Oxygen Saturation ABG 98.1 % (95.0-100.0); Oxyhemoglobin 97.2 % THb (90.0-100.0); PCO2 ABG 34.6 mmHg (35.0-45.0); PO2 ABG 105.7 mmHg (80.0-100.0); PO2 FiO2 Ratio Arterial Blood 4.23 %; Reduced Hemoglobin 1.6 %THb (0-5.0); Total Hemoglobin 10.2 g/dL (12.0-18.0); pH ABG 7.462 (7.350-7.450)
--- NOTE | 2025-01-02 08:40 | WPDINTPN ---
Progress Note: A&P Assessment and Plan (1) Obstructive ileus of small intestine due to impaction: Code(s): K56.699 - Other intestinal obstruction unspecified as to partial versus complete obstruction; K56.49 - Other impaction of intestine Status: Acute Assessment and Plan: Abdominal distension, obstructive series dilated small bowel and colon with large amounts of fecal impaction in the distal colon and rectum, consistent with obstruction. Residual catheter fragment present in the abdomen consider correlation with CT -CT abdomen and pelvis has been ordered -surgery consulted -GI already following the patient (2) Acute hypoxemic respiratory failure: Code(s): J96.01 - Acute respiratory failure with hypoxia Status: Acute Assessment and Plan: Acute hypoxic respiratory failure likely secondary to congestive heart failure, cardiomyopathy, pulmonary edema, possible pneumonia, pleural effusion -12/29: patient was in the intermediate Unit, was tachycardic, tachypneic, hemodynamic instability, patient was transferred to ICU and emergently intubated after discussion with patient's sister. -12/29/2024: Intubated in the ICU -Chest x-ray and ABGs reviewed, ventilator adjusted -continue Diuril and monitor urine output - management of pneumonia as below -bronchodilator p.r.n. -sedated with Precedex infusion, his eyes, does not follow commands. Looks comfortable, patient is nonverbal at baseline (3) Cardiomyopathy: Code(s): I42.9 - Cardiomyopathy, unspecified Status: Acute Assessment and Plan: patient does have history of congestive heart failure. Now cardiomyopathy with EF of 15-20% -appreciate cardiology following the base -continue dobutamine for inotropic support -continue diuresis -patient be started on guideline directed medical therapy once of dobutamine and more stable -p.r.n. hydralazine for elevated blood pressure 12/29 echocardiogram showed Summary 1. The left ventricle is mildly dilated with severely reduced systolic function. There is mild eccentric left ventricular hypertrophy. The left ventricular ejection fraction is visually estimated to be 15-20%. There is no left ventricular thrombus. 2. The right ventricle is normal in size with reduced systolic function. 3. The left atrium is severely dilated. 4. The aortic valve is trileaflet and thickened. The right coronary cusp is calcified and restricted. There is no hemodynamically significant stenosis. There is moderate aortic regurgitation. 5. The mitral valve leaflets are thickened but opens well. There is mild mitral regurgitation. 6. The tricuspid valve leaflets are sclerotic but opens well. There is moderate tricuspid regurgitation. There is moderate hypertension. The PASP is estimated to be 60 mmHg. 7. Dilated inferior vena cava with <50% collapse upon inspiration consistent with significantly elevated right atrial pressure, 15 mmHg. 8. There is left-sided pleural effusion (4) CHF exacerbation: Qualifiers: Heart failure type: unspecified Qualified Code(s): I50.9 - Heart failure, unspecified Code(s): I50.9 - Heart failure, unspecified Status: Acute Assessment and Plan: Continue treatment as above (5) Sepsis: Code(s): A41.9 - Sepsis, unspecified organism Status: Acute Assessment and Plan: Patient does have UTI and may have pneumonia. Possible community-acquired or aspiration - elevated lactic acid can be secondary to sepsis or cardiogenic -procalcitonin was intermediate at 0.3 - blood culture 1/2 growing Staph hominis which is likely contaminant - discontinue vancomycin - continue Rocephin doxycycline and Flagyl for total of 5 days -urine cultures negative -sputum cultures pending (6) UTI (urinary tract infection): Code(s): N39.0 - Urinary tract infection, site not specified Status: Acute Assessment and Plan: Urine cultures are negative (7) Community acquired pneumonia: Qualifiers: Laterality: unspecified laterality Qualified Code(s): J18.9 - Pneumonia, unspecified organism Code(s): J18.9 - Pneumonia, unspecified organism Status: Acute Assessment and Plan: Treatment as above (8) Seizures: Code(s): R56.9 - Unspecified convulsions Status: Acute Assessment and Plan: continue valproic acid -hold gabapentin as patient has gabapentin bowel obstruct (9) Tachycardia: Code(s): R00.0 - Tachycardia, unspecified Status: Acute Assessment and Plan: tachycardia secondary to cardiomyopathy, respiratory failure and possibly sepsis improved after intubation and sedation (10) Swelling of right upper extremity: Code(s): M79.89 - Other specified soft tissue disorders Status: Acute Assessment and Plan: right upper extremity venous Dopplers were negative for DVT -elevate right upper extremity on pillows further evaluation and testing deferred at this time. Plan to diurese and achieve euvolemia possible at this time (11) Constipation: Qualifiers: Constipation type: chronic idiopathic constipation Qualified Code(s): K59.04 - Chronic idiopathic constipation Code(s): K59.00 - Constipation, unspecified Status: Acute Assessment and Plan: Patient on bowel regimen currently on hold as patient has obstruction -GI follow-up -appreciate GI evaluation, daily bisacodyl suppositories have been ordered by them, also received mineral oil enema on 12/29 (12) Fecal impaction: Code(s): K56.41 - Fecal impaction Status: Acute Assessment and Plan: 01/01: Obstructive series showed fecal impaction and bowel obstruction -CT abdomen and pelvis has been ordered (13) Elevated LFTs: Code(s): R79.89 - Other specified abnormal findings of blood chemistry Status: Acute Assessment and Plan: elevated LFTs likely secondary to shock liver and possible hepatic congestion, cardiogenic shock. -LFTs improving -continue to monitor (14) Electrolyte abnormality: Code(s): E87.8 - Other disorders of electrolyte and fluid balance, not elsewhere classified Status: Acute Assessment and Plan: Aggressively replace potassium Plan DVT prophylaxis - Lovenox Stress ulcer prophylaxis - Protonix Nutrition -c will hold tube feeds due to bowel obstruction, G tube to suction Code Status - full code. 12/29 I had extensive discussion with patient's sister by phone. I updated her with patient's current status which involves respiratory failure, sepsis, cardiomyopathy. I also discussed goals of care. Patient's sister appears on informed of patient's medical problems and unrealistic of prognosis. She wants patient to be full code at this time. Patient was hence intubated and placed on mechanical ventilation. Total Critical Care Time - 34 minutes Due to a high probability of clinically significant, life threatening deterioration, the patient required my highest level of preparedness to intervene emergently and I personally spent this critical care time directly and personally managing the patient. This critical care time included obtaining a history; examining the patient; pulse oximetry; ordering and review of studies; arranging urgent treatment with development of a management plan; evaluation of patient's response to treatment; frequent reassessment; and discussions with other providers. It was exclusive of separately billable procedures and treating other patients and teaching time. Please see Assessment and Plan section and the rest of the note for further information on patient assessment and treatment Subjective Date/time seen: 01/02/25 08:40 Interval history: Reason for visit: CHF exacerbate, acute respiratory failure requiring intubation on 12/29/2024, pneumonia, UTI, cardiomyopathy HPI: 59-year-old man with schizophrenia, seizures, heart failure with unknown systolic function, who is nonverbal with a G-tube transfer from assisted due to respiratory distress. 01/02/2025: Patient seen and examined the ICU, remains intubated on CMV mode of ventilation, peep of 8, 25% FiO2. Sedated with Precedex infusion. Patient opens his eyes, does not follow simple commands. Urine output has been adequate in response to diuresis, afebrile, hypertensive through the night. Sodium levels improving Review of Systems Review of Systems: ROS unobtainable: Yes unobtainable due to endotracheal tube, unobtainable due to medical condition and unobtainable due to mental status Exam Narrative: General: Intubated, on Precedex, opens his eyes, in no acute distress HEENT: Pupils equal and reactive, sclera is clear, ETT in place Lungs/Chest: Coarse breath sounds bilaterally, rales RT > LT, no wheezing Cardiac: S1-S2 normal, regular rate and rhythm, Circulation: Pedal pulses are intact and symmetrical. Abdomen: More firm since yesterday, Abdominal distended, nontender, hypoactive bowel sounds. G-tube in place Extremities: he has left mid tarsal amputation, he has a signed off bone injury on his right hand with looks like a graft, : Burdick in place Neurologic: Intubated, on Precedex, opens his eyes, does not follow simple commands. Skin: he has a large sternotomy incision scar in the midline of his chest. Objective Data Vital Signs Vital Signs: Vital Signs - 24 hr 01/01/25 10:01/01/25 10:01/01/25 10:00 Temperature 96.6 F L Pulse Rate 88 98 98 Respiratory Rate 15 16 Blood Pressure 140/75 Pulse Oximetry 100 Oxygen Delivery Fraction of Inspired Oxygen 01/01/25 10:01/01/25 10:42 01/01/25 11:50 Temperature Pulse Rate 98 103 H Respiratory Rate Blood Pressure 131/75 Pulse Oximetry 98 99 Oxygen Delivery Mechanical Ventilation Mechanical Ventilation Fraction of Inspired Oxygen 01/01/25 11:53 01/01/25 12:00 01/01/25 12:00 Temperature 97.7 F Pulse Rate 107 H 107 H Respiratory Rate 15 15 Blood Pressure 114/77 Pulse Oximetry 99 Oxygen Delivery Fraction of Inspired Oxygen 25 01/01/25 12:00 01/01/25 12:00 01/01/25 14:00 Temperature Pulse Rate 107 H 105 H 108 H Respiratory Rate 17 Blood Pressure 114/77 Pulse Oximetry Oxygen Delivery Fraction of Inspired Oxygen 01/01/25 14:00 01/01/25 14:00 01/01/25 14:00 Temperature Pulse Rate 108 H 108 H 108 H Respiratory Rate 17 Blood Pressure 107/71 107/71 Pulse Oximetry 100 Oxygen Delivery Fraction of Inspired Oxygen 01/01/25 14:06 01/01/25 15:46 01/01/25 15:46 Temperature Pulse Rate 106 H 105 H Respiratory Rate Blood Pressure Pulse Oximetry 100 100 Oxygen Delivery Mechanical Ventilation Mechanical Ventilation Fraction of Inspired Oxygen 25 25 25 01/01/25 16:00 01/01/25 16:00 01/01/25 16:00 Temperature 98.5 F Pulse Rate 106 H 106 H 106 H Respiratory Rate 17 16 Blood Pressure 111/74 111/74 Pulse Oximetry 100 Oxygen Delivery Fraction of Inspired Oxygen 01/01/25 16:00 01/01/25 16:44 01/01/25 16:49 Temperature Pulse Rate 105 H 108 H 109 H Respiratory Rate 18 Blood Pressure 121/74 Pulse Oximetry Oxygen Delivery Fraction of Inspired Oxygen 01/01/25 16:49 01/01/25 16:57 01/01/25 16:57 Temperature Pulse Rate 109 H 107 H 107 H Respiratory Rate 17 17 Blood Pressure 121/74 Pulse Oximetry Oxygen Delivery Fraction of Inspired Oxygen 01/01/25 18:00 01/01/25 18:00 01/01/25 18:00 Temperature 98.4 F Pulse Rate 108 H 109 H 109 H Respiratory Rate 18 18 Blood Pressure 126/81 Pulse Oximetry 96 Oxygen Delivery Fraction of Inspired Oxygen 01/01/25 18:00 01/01/25 18:09 01/01/25 20:00 Temperature Pulse Rate 109 H 102 H 114 H Respiratory Rate 18 Blood Pressure 126/81 Pulse Oximetry 96 94 Oxygen Delivery Mechanical Ventilation Mechanical Ventilation Fraction of Inspired Oxygen 01/01/25 20:00 01/01/25 20:00 01/01/25 20:00 Temperature 100.7 F H Pulse Rate 114 H 114 H Respiratory Rate 18 18 Blood Pressure 123/81 Pulse Oximetry 94 Oxygen Delivery Fraction of Inspired Oxygen 25 01/01/25 20:00 01/01/25 20:00 01/01/25 20:16 Temperature Pulse Rate 114 H 114 H 114 H Respiratory Rate Blood Pressure 123/81 Pulse Oximetry 94 Oxygen Delivery Mechanical Ventilation Fraction of Inspired Oxygen 25 01/01/25 22:00 01/01/25 22:00 01/01/25 22:00 Temperature Pulse Rate 106 H 106 H 106 H Respiratory Rate 17 17 Blood Pressure 126/76 126/76 Pulse Oximetry 93 Oxygen Delivery Fraction of Inspired Oxygen 01/01/25 22:00 01/01/25 23:00 01/02/25 00:00 Temperature Pulse Rate 106 H 106 H 104 H Respiratory Rate 18 Blood Pressure Pulse Oximetry 94 94 Oxygen Delivery Mechanical Ventilation Mechanical Ventilation Fraction of Inspired Oxygen 01/02/25 00:00 01/02/25 00:00 01/02/25 00:00 Temperature 99 F Pulse Rate 104 H 104 H Respiratory Rate 18 18 Blood Pressure 129/79 Pulse Oximetry 94 Oxygen Delivery Fraction of Inspired Oxygen 25 01/02/25 00:00 01/02/25 00:00 01/02/25 02:00 Temperature Pulse Rate 104 H 104 H 101 H Respiratory Rate Blood Pressure 129/79 Pulse Oximetry 94 Oxygen Delivery Mechanical Ventilation Fraction of Inspired Oxygen 25 01/02/25 02:00 01/02/25 02:00 01/02/25 02:00 Temperature Pulse Rate 101 H 101 H 101 H Respiratory Rate 13 Blood Pressure 124/74 Pulse Oximetry Oxygen Delivery Fraction of Inspired Oxygen 01/02/25 02:00 01/02/25 02:15 01/02/25 02:15 Temperature Pulse Rate 101 H 99 99 Respiratory Rate 13 15 15 Blood Pressure 124/74 Pulse Oximetry 93 Oxygen Delivery Fraction of Inspired Oxygen 01/02/25 03:45 01/02/25 04:00 01/02/25 04:00 Temperature Pulse Rate 102 H 101 H 105 H Respiratory Rate 14 22 H Blood Pressure 157/70 H Pulse Oximetry Oxygen Delivery Fraction of Inspired Oxygen 01/02/25 04:00 01/02/25 04:00 01/02/25 04:00 Temperature Pulse Rate 101 H 101 H Respiratory Rate 22 H Blood Pressure Pulse Oximetry 99 Oxygen Delivery Mechanical Ventilation Fraction of Inspired Oxygen 25 01/02/25 04:00 01/02/25 05:28 01/02/25 05:45 Temperature 98.9 F Pulse Rate 101 H 81 101 H Respiratory Rate 22 H 15 Blood Pressure 157/70 H Pulse Oximetry 100 100 Oxygen Delivery Mechanical Ventilation Fraction of Inspired Oxygen 25 01/02/25 06:00 01/02/25 06:00 01/02/25 06:00 Temperature Pulse Rate 84 84 84 Respiratory Rate 15 Blood Pressure 152/59 H Pulse Oximetry Oxygen Delivery Fraction of Inspired Oxygen 01/02/25 06:00 01/02/25 07:38 Temperature Pulse Rate 84 88 Respiratory Rate 15 Blood Pressure 152/59 H Pulse Oximetry 100 100 Oxygen Delivery Mechanical Ventilation Fraction of Inspired Oxygen 25 Intake/Output Intake/Output: Intake & Output 12/30/24 12/31/24 01/01/25 01/02/25 23:59 23:59 23:59 23:59 Intake Total 2074.5 2389.9 3063.1 1254.7 Output Total 2500 1600 2000 750 Balance -425.5 789.9 1063.1 504.7 Meds/Results Medications: Active Medications Generic Name Dose Route Start Last Admin Trade Name Freq PRN Reason Stop Dose Admin Albuterol/Ipratropium 3 ml 12/28/24 21:13 12/29/24 02:41 Ipratropium 0.5 Mg/Albuterol Sulfate 2.5 Mg Ampul.Neb 3 Ml INHALATION 3 ml Q6HRT PRN Administration Shortness Of Breath Or Wheezing Bisacodyl 10 mg 12/30/24 09:00 01/01/25 08:03 Bisacodyl 10 Mg Suppository RECTAL 10 mg QAM DANI Administration Chlorothiazide Sodium 500 mg 01/01/25 21:00 01/01/25 21:29 Chlorothiazide 500 Mg Vial IV PUSH 01/02/25 09:01 500 mg Q12H DANI Administration Dextrose 12.5 gm 12/30/24 08:02 Dextrose 50% 25 Gm/50 Ml Syringe IV PUSH PRN PRN Hypoglycemia Protocol Docusate Sodium 100 mg 12/29/24 09:00 01/01/25 08:00 Docusate Sodium Liq 100 Mg/10 Ml Udc FEED TUBE 100 mg DAILY DANI Administration Enoxaparin Sodium 40 mg 12/30/24 09:00 01/01/25 08:02 Enoxaparin 40 Mg/0.4 Ml Syringe SUB-Q 40 mg QAM DANI Administration Fentanyl Citrate 25 mcg 12/29/24 15:33 01/02/25 01:32 Fentanyl Citrate Inj (*Crx) 100 Mcg/2 Ml Vial IV PUSH 25 mcg Q1H PRN Administration Pain while on vent Gabapentin 100 mg 12/29/24 06:00 01/02/25 05:10 Gabapentin 100 Mg Capsule FEED TUBE 100 mg Q8HR DANI Administration Glucagon 1 mg 12/30/24 08:02 Glucagon For Inj 1 Mg Vial IM PRN PRN Hypoglycemia Protocol Glucose 15 gm 12/30/24 08:02 Glucose Oral Gel 15 Gm Of Glucse In 37.5 Gm Tube PO PRN PRN Hypoglycemia Protocol Hydralazine HCl 10 mg 01/02/25 07:32 Hydralazine Hcl 20 Mg/Ml Vial IV PUSH Q4H PRN Blood Pressure - High Ceftriaxone Sodium 1 gm in 50 mls @ 100 mls/hr 12/29/24 09:00 01/01/25 10:42 Rocephin 1 Gm/Ns 50 Ml IVPB 01/05/25 08:59 Infused Q24H DANI Infusion Metronidazole 500 mg in 100 mls @ 100 mls/hr 12/29/24 07:25 01/02/25 05:10 Flagyl 500 Mg/Iso Soln 100 Ml IVPB 01/03/25 07:24 100 mls/hr Q6HR DANI Administration Doxycycline Hyclate 100 mg in 100 mls @ 100 mls/hr 12/29/24 22:00 01/01/25 22:10 Vibramycin 100 Mg/Ns 100 Ml IVPB 01/03/25 21:59 Infused Q12H DANI Infusion Dexmedetomidine HCl 400 mcg in 100 mls @ 14.125 mls/hr 12/29/24 15:10 01/02/25 06:00 Precedex 400 Mcg/100 Ml IV CONT 1 mcg/kg/hr .Q7H5M DANI 14.13 mls/hr Titration Protocol 1 MCG/KG/HR Dobutamine HCl/Dextrose 250 mg in 250 mls @ 8.82 mls/hr 12/30/24 08:00 01/02/25 06:00 Dobutamine 250 Mg/D5w 250 Ml IV CONT 2.5 mcg/kg/min .Q24H DANI 8.82 mls/hr Infusion 2.5 MCG/KG/MIN Dextrose 1,000 mls @ 100 mls/hr 12/30/24 08:02 Dextrose 5% 1,000 Ml IVPB PRN PRN Hypoglycemia Protocol Potassium Chloride 100 mls @ 25 mls/hr 01/02/25 07:39 Kcl 40 Meq/Water 100 Ml IVPB 01/02/25 11:38 ONCE ONE Valproate Sodium 250 mg/ 52.5 mls @ 52.5 mls/hr 01/02/25 12:00 Dextrose IVPB Q6HR [facility] Insulin Aspart 2 - 5 units 12/30/24 12:00 01/02/25 06:15 Insulin Aspart (*Bkc) 100 Units/Ml SUB-Q Not Given Q6HR [facility] Protocol Lisinopril 10 mg 01/02/25 09:00 Lisinopril 10 Mg Tablet PO DAILY DANI Metoprolol Tartrate 12.5 mg 01/02/25 09:00 Metoprolol Tartrate 12.5 Mg Tablet PO Q12HR [facility] Midazolam HCl 2 mg 12/29/24 15:10 01/02/25 03:15 Midazolam Hcl (*Crx) 2 Mg/2 Ml Vial IV PUSH 2 mg Q5M PRN Administration ventilator asynchrony Multi-Ingred Cream/Lotion/Oil/Oint 1 applic 12/29/24 21:00 01/01/25 21:11 Mineral Oil/White Petrolatum Ointment EACH EYE 1 applic Q12HR DANI Administration Pantoprazole Sodium 40 mg 12/29/24 15:15 01/01/25 08:01 Pantoprazole Sodium Iv 40 Mg Vial IV PUSH 40 mg QAM DANI Administration Polyethylene Glycol 17 gm 12/30/24 09:00 01/01/25 08:00 Polyethylene Glycol 3350 17 Gm Powd.Pack PO 17 gm QAM DANI Administration Radiology Results: ITS Impressions Venous Doppler Study 12/28/24 15:55 IMPRESSION: Negative left and right upper extremity venous US. No deep vein thrombosis. Chest/Abdomen/Pelvis CTA 12/29/24 14:43 IMPRESSION: 1. Extensive patchy airspace opacities throughout both lungs and favor severe congestive heart failure related pulmonary edema over pneumonia. 2. Small left and moderate sized right dependently layering pleural effusions with associated compressive atelectasis in the dependent lungs. 3. Cardiomegaly with enlargement of the central pulmonary consistent with pulmonary arterial hypertension. 4. Large amount of stool throughout the colon with 9.6 x 6.7 cm ball of stool the rectum consistent with likely constipation with fecal impaction. 5. Hepatomegaly. Chest X-Ray 01/02/25 05:31 Impression: Hazy bibasilar airspace disease, right worse than left, most likely asymmetric pulmonary edema. Correlate clinically for pneumonia. Small right pleural effusion. Support tubes, as above. Abdomen X-Ray 01/02/25 08:04 Impression: 1: Dilated small bowel and colon with large amount of retained fecal material in the distal colon and rectum, consistent with fecal impaction with obstruction. 2: Residual catheter fragment present in the abdomen. Consider correlation with CT. 3: Cardiomegaly with pulmonary edema and small pleural effusions. Labs Labs: Laboratory Results - last 24 hr 12/28/24 01/01/25 01/01/25 15:04 10:19 12:12 WBC RBC Hgb Hct MCV MCH MCHC RDW Plt Count MPV Puncture Site Left radial ABG pH 7.490 H ABG pCO2 32.3 L ABG pO2 94.9 ABG PO2/FiO2 Ratio 3.80 ABG HCO3 24.1 ABG O2 Saturation 97.8 ABG O2 Content 13.4 L ABG Base Excess 1.0 A-a Gradient 45.0 Oxyhemoglobin 96.2 Total Hemoglobin 9.8 L O2 Delivery Device Ventilator O2 Liters/Min Not Reportable Minute Volume Not Reportable Vent Rate 16 Vent Mode Cmv FiO2 25 Tidal Volume 300 PEEP 8 Peak Inspir Pressure Not Reportable Pressure Support Not Reportable Sodium Potassium Chloride Carbon Dioxide Anion Gap BUN Creatinine Estim Creat Clear Calc Estimated GFR Glucose POC Capillary Glucose 124 H Lactic Acid Calcium Phosphorus Magnesium Total Bilirubin AST ALT Alkaline Phosphatase Total Protein Albumin Urine Pneumococcal Ag Not detected 01/01/25 01/01/25 01/02/25 17:13 23:57 05:08 WBC 4.7 RBC 2.54 L Hgb 8.1 L Hct 26.2 L MCV 103.1 H MCH 31.9 MCHC 30.9 L RDW 15.0 H Plt Count 158 MPV 10.0 Puncture Site ABG pH ABG pCO2 ABG pO2 ABG PO2/FiO2 Ratio ABG HCO3 ABG O2 Saturation ABG O2 Content ABG Base Excess A-a Gradient Oxyhemoglobin Total Hemoglobin O2 Delivery Device O2 Liters/Min Minute Volume Vent Rate Vent Mode FiO2 Tidal Volume PEEP Peak Inspir Pressure Pressure Support Sodium 145 Potassium 3.5 Chloride 111 H Carbon Dioxide 28 Anion Gap 6 BUN 26 H Creatinine 0.53 L Estim Creat Clear Calc 109 Estimated GFR > 60 Glucose 101 POC Capillary Glucose 129 H 104 Lactic Acid 1.1 Calcium 7.8 L Phosphorus 2.7 Magnesium 2.2 Total Bilirubin 0.6 AST 471 H ALT 725 H Alkaline Phosphatase 77 Total Protein 6.0 L Albumin 2.9 L Urine Pneumococcal Ag Quality VTE Prophylaxis VTE prophylaxis: pharmacologic ordered
[2025-01-02] MEDS: KCL 40 MEQ/WATER 100 ML 100 ML 25 ML IVPB ×2 (08:52→12:59)
[2025-01-02] MEDS: DOXYCYCLINE 100 MG/NS 100 ML 100 MG/100 ML BAG IVPB ×2 (08:52→20:44)
[2025-01-02] MEDS: PANTOPRAZOLE SODIUM IV 40 MG VIAL IV PUSH (08:52)
[2025-01-02] MEDS: ENOXAPARIN 40 MG/0.4 ML SYRINGE SUB-Q (08:52)
[2025-01-02] MEDS: BISACODYL 10 MG SUPPOSITORY RECTAL (08:53)
[2025-01-02] MEDS: MINERAL OIL/WHITE PETROLATUM OINTMENT 1 APPLIC EACH EYE ×2 (08:54→20:44)
[2025-01-02] MEDS: dexmedeTOMIDine 400 MCG/100 ML 400 MCG/100 ML BAG 14.13 MCG IV CONT ×3 (09:50→23:52)
--- NOTE | 2025-01-02 10:33 | PCNFU ---
Nutrition Follow-Up Complete: Suboptimal Energy Intake as related to mechanical vent as evidenced by tube feedings. Meet estimated nutritional needs - Not progressing with goal, TF on hold today Goal: Pt current nutrition is Vital AF 1.2 @ goal rate 60 ml/h with 100 ml flushes q 6 hours. ON HOLD because of fecal impaction causing obstruction Nutrition recommendation: Advance tube feedings, start at trickle 20 ml/h when restarted Last recorded weight is 62.7 kg. Bowel Motility: Small BM 01/01. Fecal impaction Labs Reviewed: Hgb 8.1, Hct 26.2, Alb 2.9, BUN 26, Cre 0.53 Meds Noted: Precedex, dobutamine, protonix, novolog, colace, miralax Skin: No skin issues Additional Notes: Pt is nonverbal at baseline. Existing PEG tube. Vital AF 1.2 is on hold pending resolution of obstruction. Will reassess every Sunday and Sunday.
[2025-01-02] MEDS: BUMETANIDE INJ 1 MG/4 ML VIAL IV PUSH (10:39)
--- NOTE | 2025-01-02 11:19 | PM.PNCARD ---
Progress Note: A&P Assessment and Plan (1) CHF exacerbation: Qualifiers: Heart failure type: unspecified Qualified Code(s): I50.9 - Heart failure, unspecified Code(s): I50.9 - Heart failure, unspecified Status: Acute Plan 59-year-old man with schizophrenia and seizures who is nonverbal with a G-tube transfer from group home due to respiratory distress now found to have systolic heart failure and possible pneumonia Acute decompensated systolic heart failure -Now on IV Bumex, continue -Will stop his Dobutamine drip today and see how he does -Not able to take oral meds at this time due to bowel obstruction, but when able to take pills, agree with starting Lisinopril and Metoprolol. Uptitrate heart failure GDMT as tolerated. -Overall poor prognosis when taken into consideration his other chronic conditions Bowel obstruction -General Surgery consulted Moderate mitral regurgitation -Will reassess likely a outpatient clinic once euvolemic Moderate aortic regurgitation -Outpatient surveillance echocardiogram Recommendations and plan discussed with ICU Physician. Subjective Date/time seen: 01/02/25 11:19 Interval history: Reason for visit: CHF HPI: 59-year-old man with schizophrenia, seizures, heart failure with unknown systolic function, who is nonverbal with a G-tube transfer from group home due to respiratory distress. Given his medical condition, limited subjective history was obtainable and all subjective history was obtained through chart review. Date of service 12/30: Remains intubated and sedated. Date of service 12/31: Remains intubated/sedated. On Dobutamine drip. Date of service 01/01: Patient is intubated and sedated. Date of service 01/02: Remains intubated. Now has a bowel obstruction. Continues to diurese. Review of Systems Review of Systems: ROS unobtainable: Yes unobtainable due to endotracheal tube Exam Const: Other: Intubated, sedated HENMT: Other: OETT in place Resp: Other: On mechanical ventilation Cardio: Rate: regular rate Rhythm: regular rhythm Heart sounds: no murmurs Other: + Lower extremity swelling Neuro: Other: Sedated Objective Data Vital Signs Vital Signs: Vital Signs - 24 hr 01/01/25 11:50 01/01/25 11:53 01/01/25 12:00 Temperature 36.5 C Pulse Rate 107 H Respiratory Rate 15 Blood Pressure 114/77 Pulse Oximetry 99 99 Oxygen Delivery Mechanical Ventilation Fraction of Inspired Oxygen 25 25 01/01/25 12:00 01/01/25 12:00 01/01/25 12:00 Temperature Pulse Rate 107 H 107 H 105 H Respiratory Rate 15 Blood Pressure 114/77 Pulse Oximetry Oxygen Delivery Fraction of Inspired Oxygen 01/01/25 14:00 01/01/25 14:00 01/01/25 14:00 Temperature Pulse Rate 108 H 108 H 108 H Respiratory Rate 17 Blood Pressure 107/71 Pulse Oximetry Oxygen Delivery Fraction of Inspired Oxygen 01/01/25 14:00 01/01/25 14:06 01/01/25 15:46 Temperature Pulse Rate 108 H 106 H 105 H Respiratory Rate 17 Blood Pressure 107/71 Pulse Oximetry 100 100 100 Oxygen Delivery Mechanical Ventilation Mechanical Ventilation Fraction of Inspired Oxygen 25 25 01/01/25 15:46 01/01/25 16:00 01/01/25 16:00 Temperature Pulse Rate 106 H 106 H Respiratory Rate 17 Blood Pressure 111/74 Pulse Oximetry Oxygen Delivery Fraction of Inspired Oxygen 25 01/01/25 16:00 01/01/25 16:00 01/01/25 16:44 Temperature 36.9 C Pulse Rate 106 H 105 H 108 H Respiratory Rate 16 18 Blood Pressure 111/74 Pulse Oximetry 100 Oxygen Delivery Fraction of Inspired Oxygen 01/01/25 16:49 01/01/25 16:49 01/01/25 16:57 Temperature Pulse Rate 109 H 109 H 107 H Respiratory Rate 17 Blood Pressure 121/74 121/74 Pulse Oximetry Oxygen Delivery Fraction of Inspired Oxygen 01/01/25 16:57 01/01/25 18:00 01/01/25 18:00 Temperature 36.9 C Pulse Rate 107 H 108 H 109 H Respiratory Rate 17 18 Blood Pressure 126/81 Pulse Oximetry 96 Oxygen Delivery Fraction of Inspired Oxygen 01/01/25 18:00 01/01/25 18:00 01/01/25 18:09 Temperature Pulse Rate 109 H 109 H 102 H Respiratory Rate 18 Blood Pressure 126/81 Pulse Oximetry 96 Oxygen Delivery Mechanical Ventilation Fraction of Inspired Oxygen 25 01/01/25 20:00 01/01/25 20:00 01/01/25 20:00 Temperature 38.2 C H Pulse Rate 114 H 114 H Respiratory Rate 18 18 Blood Pressure 123/81 Pulse Oximetry 94 94 Oxygen Delivery Mechanical Ventilation Fraction of Inspired Oxygen 25 25 01/01/25 20:00 01/01/25 20:00 01/01/25 20:00 Temperature Pulse Rate 114 H 114 H 114 H Respiratory Rate 18 Blood Pressure 123/81 Pulse Oximetry Oxygen Delivery Fraction of Inspired Oxygen 01/01/25 20:16 01/01/25 22:00 01/01/25 22:00 Temperature Pulse Rate 114 H 106 H 106 H Respiratory Rate 17 17 Blood Pressure 126/76 Pulse Oximetry 94 93 Oxygen Delivery Mechanical Ventilation Fraction of Inspired Oxygen 25 01/01/25 22:00 01/01/25 22:00 01/01/25 23:00 Temperature Pulse Rate 106 H 106 H 106 H Respiratory Rate Blood Pressure 126/76 Pulse Oximetry 94 Oxygen Delivery Mechanical Ventilation Fraction of Inspired Oxygen 25 01/02/25 00:00 01/02/25 00:00 01/02/25 00:00 Temperature 37.2 C Pulse Rate 104 H 104 H Respiratory Rate 18 18 Blood Pressure 129/79 Pulse Oximetry 94 94 Oxygen Delivery Mechanical Ventilation Fraction of Inspired Oxygen 25 01/02/25 00:00 01/02/25 00:00 01/02/25 00:00 Temperature Pulse Rate 104 H 104 H 104 H Respiratory Rate 18 Blood Pressure 129/79 Pulse Oximetry Oxygen Delivery Fraction of Inspired Oxygen 01/02/25 02:00 01/02/25 02:00 01/02/25 02:00 Temperature Pulse Rate 101 H 101 H 101 H Respiratory Rate 13 Blood Pressure 124/74 Pulse Oximetry 94 Oxygen Delivery Mechanical Ventilation Fraction of Inspired Oxygen 25 01/02/25 02:00 01/02/25 02:00 01/02/25 02:15 Temperature Pulse Rate 101 H 101 H 99 Respiratory Rate 13 15 Blood Pressure 124/74 Pulse Oximetry 93 Oxygen Delivery Fraction of Inspired Oxygen 01/02/25 02:15 01/02/25 03:45 01/02/25 04:00 Temperature Pulse Rate 99 102 H 101 H Respiratory Rate 15 14 22 H Blood Pressure Pulse Oximetry Oxygen Delivery Fraction of Inspired Oxygen 01/02/25 04:00 01/02/25 04:00 01/02/25 04:00 Temperature Pulse Rate 105 H 101 H 101 H Respiratory Rate 22 H Blood Pressure 157/70 H Pulse Oximetry 99 Oxygen Delivery Mechanical Ventilation Fraction of Inspired Oxygen 01/02/25 04:00 01/02/25 04:00 01/02/25 05:28 Temperature 37.2 C Pulse Rate 101 H 81 Respiratory Rate 22 H Blood Pressure 157/70 H Pulse Oximetry 100 100 Oxygen Delivery Mechanical Ventilation Fraction of Inspired Oxygen 01/02/25 05:45 01/02/25 06:00 01/02/25 06:00 Temperature Pulse Rate 101 H 84 84 Respiratory Rate 15 15 Blood Pressure 152/59 H Pulse Oximetry Oxygen Delivery Fraction of Inspired Oxygen 01/02/25 06:00 01/02/25 06:00 01/02/25 07:38 Temperature Pulse Rate 84 84 88 Respiratory Rate 15 Blood Pressure 152/59 H Pulse Oximetry 100 100 Oxygen Delivery Mechanical Ventilation Fraction of Inspired Oxygen 01/02/25 09:50 01/02/25 09:50 01/02/25 10:15 Temperature Pulse Rate 91 91 100 Respiratory Rate 13 13 Blood Pressure Pulse Oximetry 98 Oxygen Delivery Mechanical Ventilation Fraction of Inspired Oxygen 01/02/25 11:11 Temperature Pulse Rate 76 Respiratory Rate Blood Pressure 149/69 H Pulse Oximetry Oxygen Delivery Fraction of Inspired Oxygen Intake/Output Intake/Output: Intake & Output 12/30/24 12/31/24 01/01/25 01/02/25 23:59 23:59 23:59 23:59 Intake Total 2074.5 2389.9 3063.1 1354.5 Output Total 2500 1600 2000 750 Balance -425.5 789.9 1063.1 604.5 Meds/Results Medications: Active Medications Generic Name Dose Route Start Last Admin Trade Name Freq PRN Reason Stop Dose Admin Albuterol/Ipratropium 3 ml 12/28/24 21:13 12/29/24 02:41 Ipratropium 0.5 Mg/Albuterol Sulfate 2.5 Mg Ampul.Neb 3 Ml INHALATION 3 ml Q6HRT PRN Administration Shortness Of Breath Or Wheezing Bisacodyl 10 mg 12/30/24 09:00 01/02/25 08:53 Bisacodyl 10 Mg Suppository RECTAL 10 mg QAM DANI Administration Bumetanide 1 mg 01/02/25 10:15 01/02/25 10:39 Bumetanide Inj 1 Mg/4 Ml Vial IV PUSH 1 mg Q12HR DANI Administration Dextrose 12.5 gm 12/30/24 08:02 Dextrose 50% 25 Gm/50 Ml Syringe IV PUSH PRN PRN Hypoglycemia Protocol Docusate Sodium 100 mg 12/29/24 09:00 01/01/25 08:00 Docusate Sodium Liq 100 Mg/10 Ml Udc FEED TUBE 100 mg DAILY DANI Administration Enoxaparin Sodium 40 mg 12/30/24 09:00 01/02/25 08:52 Enoxaparin 40 Mg/0.4 Ml Syringe SUB-Q 40 mg QAM DANI Administration Fentanyl Citrate 25 mcg 12/29/24 15:33 01/02/25 01:32 Fentanyl Citrate Inj (*Crx) 100 Mcg/2 Ml Vial IV PUSH 25 mcg Q1H PRN Administration Pain while on vent Gabapentin 100 mg 12/29/24 06:00 01/02/25 05:10 Gabapentin 100 Mg Capsule FEED TUBE 100 mg Q8HR DANI Administration Glucagon 1 mg 12/30/24 08:02 Glucagon For Inj 1 Mg Vial IM PRN PRN Hypoglycemia Protocol Glucose 15 gm 12/30/24 08:02 Glucose Oral Gel 15 Gm Of Glucse In 37.5 Gm Tube PO PRN PRN Hypoglycemia Protocol Hydralazine HCl 10 mg 01/02/25 07:32 Hydralazine Hcl 20 Mg/Ml Vial IV PUSH Q4H PRN Blood Pressure - High Ceftriaxone Sodium 1 gm in 50 mls @ 100 mls/hr 12/29/24 09:00 01/02/25 08:52 Rocephin 1 Gm/Ns 50 Ml IVPB 01/05/25 08:59 100 mls/hr Q24H DANI Administration Metronidazole 500 mg in 100 mls @ 100 mls/hr 12/29/24 07:25 01/02/25 05:10 Flagyl 500 Mg/Iso Soln 100 Ml IVPB 01/03/25 07:24 100 mls/hr Q6HR DANI Administration Doxycycline Hyclate 100 mg in 100 mls @ 100 mls/hr 12/29/24 22:00 01/02/25 08:52 Vibramycin 100 Mg/Ns 100 Ml IVPB 01/03/25 21:59 100 mls/hr Q12H DANI Administration Dexmedetomidine HCl 400 mcg in 100 mls @ 14.125 mls/hr 12/29/24 15:10 01/02/25 09:50 Precedex 400 Mcg/100 Ml IV CONT 1 mcg/kg/hr .Q7H5M DANI 14.13 mls/hr Administration Protocol 1 MCG/KG/HR Dobutamine HCl/Dextrose 250 mg in 250 mls @ 8.82 mls/hr 12/30/24 08:00 01/02/25 11:11 Dobutamine 250 Mg/D5w 250 Ml IV CONT 0 mcg/kg/min .Q24H DANI 0 mls/hr Infusion 2.5 MCG/KG/MIN Dextrose 1,000 mls @ 100 mls/hr 12/30/24 08:02 Dextrose 5% 1,000 Ml IVPB PRN PRN Hypoglycemia Protocol Potassium Chloride 100 mls @ 25 mls/hr 01/02/25 07:39 01/02/25 08:52 Kcl 40 Meq/Water 100 Ml IVPB 01/02/25 11:38 25 mls/hr ONCE ONE Administration Valproate Sodium 250 mg/ 52.5 mls @ 52.5 mls/hr 01/02/25 12:00 Dextrose IVPB Q6HR DANI Potassium Chloride 100 mls @ 25 mls/hr 01/02/25 12:00 Kcl 40 Meq/Water 100 Ml IVPB 01/02/25 15:59 ONCE ONE Insulin Aspart 2 - 5 units 12/30/24 12:00 01/02/25 06:15 Insulin Aspart (*Bkc) 100 Units/Ml SUB-Q Not Given Q6HR [facility] Protocol Lisinopril 10 mg 01/02/25 09:00 Lisinopril 10 Mg Tablet PO DAILY [facility] Metoprolol Tartrate 12.5 mg 01/02/25 09:00 Metoprolol Tartrate 12.5 Mg Tablet PO Q12HR [facility] Midazolam HCl 2 mg 12/29/24 15:10 01/02/25 10:39 Midazolam Hcl (*Crx) 2 Mg/2 Ml Vial IV PUSH 2 mg Q5M PRN Administration ventilator asynchrony Multi-Ingred Cream/Lotion/Oil/Oint 1 applic 12/29/24 21:00 01/02/25 08:54 Mineral Oil/White Petrolatum Ointment EACH EYE 1 applic Q12HR DANI Administration Pantoprazole Sodium 40 mg 12/29/24 15:15 01/02/25 08:52 Pantoprazole Sodium Iv 40 Mg Vial IV PUSH 40 mg QAM DANI Administration Polyethylene Glycol 17 gm 12/30/24 09:00 01/01/25 08:00 Polyethylene Glycol 3350 17 Gm Powd.Pack PO 17 gm QAM DANI Administration Radiology Results: ITS Impressions Venous Doppler Study 12/28/24 15:55 IMPRESSION: Negative left and right upper extremity venous US. No deep vein thrombosis. Chest/Abdomen/Pelvis CTA 12/29/24 14:43 IMPRESSION: 1. Extensive patchy airspace opacities throughout both lungs and favor severe congestive heart failure related pulmonary edema over pneumonia. 2. Small left and moderate sized right dependently layering pleural effusions with associated compressive atelectasis in the dependent lungs. 3. Cardiomegaly with enlargement of the central pulmonary consistent with pulmonary arterial hypertension. 4. Large amount of stool throughout the colon with 9.6 x 6.7 cm ball of stool the rectum consistent with likely constipation with fecal impaction. 5. Hepatomegaly. Chest X-Ray 01/02/25 05:31 Impression: Hazy bibasilar airspace disease, right worse than left, most likely asymmetric pulmonary edema. Correlate clinically for pneumonia. Small right pleural effusion. Support tubes, as above. Abdomen X-Ray 01/02/25 08:04 Impression: 1: Dilated small bowel and colon with large amount of retained fecal material in the distal colon and rectum, consistent with fecal impaction with obstruction. 2: Residual catheter fragment present in the abdomen. Consider correlation with CT. 3: Cardiomegaly with pulmonary edema and small pleural effusions. Chest/Abdomen/Pelvis CT 01/02/25 10:10 IMPRESSION: 1. Significant improvement in previously moderate, now minimal pulmonary edema with unchanged small left and small to moderate-sized right pleural effusions. 2. Persistent large amount of stool in the distal colon suggestive of constipation with fluid consistent with diarrhea and the more proximal colon. 3. No change in position of a small foreign body correlating with the finding on the earlier KUB which is located along the luminal side of the posterior wall of the cecum which could represent either an ingested foreign body or a clip fixed to the wall given the lack of movement. Correlate with clinical/surgical history. Labs Labs: Laboratory Results - last 24 hr 12/28/24 01/01/25 01/01/25 15:04 12:12 17:13 WBC RBC Hgb Hct MCV MCH MCHC RDW Plt Count MPV Sodium Potassium Chloride Carbon Dioxide Anion Gap BUN Creatinine Estim Creat Clear Calc Estimated GFR Glucose POC Capillary Glucose 124 H 129 H Lactic Acid Calcium Phosphorus Magnesium Total Bilirubin AST ALT Alkaline Phosphatase Total Protein Albumin Urine Pneumococcal Ag Not detected 01/01/25 01/02/25 23:57 05:08 WBC 4.7 RBC 2.54 L Hgb 8.1 L Hct 26.2 L MCV 103.1 H MCH 31.9 MCHC 30.9 L RDW 15.0 H Plt Count 158 MPV 10.0 Sodium 145 Potassium 3.5 Chloride 111 H Carbon Dioxide 28 Anion Gap 6 BUN 26 H Creatinine 0.53 L Estim Creat Clear Calc 109 Estimated GFR > 60 Glucose 101 POC Capillary Glucose 104 Lactic Acid 1.1 Calcium 7.8 L Phosphorus 2.7 Magnesium 2.2 Total Bilirubin 0.6 AST 471 H ALT 725 H Alkaline Phosphatase 77 Total Protein 6.0 L Albumin 2.9 L Urine Pneumococcal Ag
[2025-01-02 11:46] LABS: Glucose Point of Care 99 mg/dl (65-105)
[2025-01-02] MEDS: NOREPINEPHRINE 8 MG/D5W 250 ML 8 MG/250 ML BAG 9.38 MG IV CONT (13:00)
[2025-01-02] MEDS: VALPROATE SODIUM INJ 250 MG in DEXTROSE 5% IN WATER 50 ML 52.5 MG IVPB ×2 (13:07→18:00)
--- NOTE | 2025-01-02 14:10 | P.PNGI_ITS ---
Progress Note: A&P Assessment and Plan (1) Fecal impaction: Code(s): K56.41 - Fecal impaction Status: Acute Assessment and Plan: This patient with multiple severe chronic conditions, including CHF, is now suffering an acute exacerbation of what appears to be a chronic bowel issue, evidenced by massive rectal dilatation on CT. Of note, he developed likely resolving ischemic hepatopathy three days prior, indicative of diffuse hypoperfusion exacerbated by his poor systolic function, placing intestinal ischemia in the differential diagnosis. However, the presentation seems more consistent with an adynamic ileus secondary to his multiple severe medical problems and critical illness rather than a mechanical obstruction. Given this, surgery is unlikely to be beneficial, and the patient is a poor surgical candidate. After discussion with the on-call service station console operator, the safest and least invasive intervention at this time is a trial of soap suds enemas every 6 hours, hoping to resolve the colonic impaction. The patient's overall prognosis remains poor given his dependence on two pressors and the low likelihood of successful extubation. Subjective Date/time seen: 01/02/25 14:10 Interval history: Our service was re-consulted due to the new finding of intestinal obstruction and marked abdominal distension in this complex patient. Briefly, this nonverbal patient with schizophrenia and severe CHF (EF 15-20%), admitted on December 28 for respiratory failure secondary to CHF exacerbation with suspected pneumonia and bilateral pleural effusions, has further deteriorated. Despite a previously reported issue of a clogged PEG -PEJ tube that was subsequently found to be functioning, the patient developed significant abdominal distension over the past [address]. [address] scan revealed massive dilatation of the rectum with abundant fecal material extending proximally to the sigmoid and descending colon, resulting in significant dilatation of the colon and small bowel loops, consistent with an obstruction. This morning he had a severe episode of hypotension after his dobutamine drip was discontinued, and was restarted along with his preexistent norepinephrine drip. Exam Narrative: Patient intubated, sedated, with orogastric, Burdick and gastrostomy tubes. Abdomen: Bowel sounds completely absent, markedly distended, tympanitic, midline supraumbilical scar from previous surgery. Extremities: 2+ pitting edema. Objective Data Vital Signs Vital Signs: Vital Signs - 24 hr 01/01/25 15:46 01/01/25 15:46 01/01/25 16:00 Temperature Pulse Rate 105 H 106 H Respiratory Rate Blood Pressure 111/74 Pulse Oximetry 100 Oxygen Delivery Mechanical Ventilation Fraction of Inspired Oxygen 01/01/25 16:00 01/01/25 16:00 01/01/25 16:00 Temperature 98.5 F Pulse Rate 106 H 106 H 105 H Respiratory Rate 17 16 Blood Pressure 111/74 Pulse Oximetry 100 Oxygen Delivery Fraction of Inspired Oxygen 01/01/25 16:44 01/01/25 16:49 01/01/25 16:49 Temperature Pulse Rate 108 H 109 H 109 H Respiratory Rate 18 Blood Pressure 121/74 121/74 Pulse Oximetry Oxygen Delivery Fraction of Inspired Oxygen 01/01/25 16:57 01/01/25 16:57 01/01/25 18:00 Temperature Pulse Rate 107 H 107 H 108 H Respiratory Rate 17 17 Blood Pressure Pulse Oximetry Oxygen Delivery Fraction of Inspired Oxygen 01/01/25 18:00 01/01/25 18:00 01/01/25 18:00 Temperature 98.4 F Pulse Rate 109 H 109 H 109 H Respiratory Rate 18 18 Blood Pressure 126/81 126/81 Pulse Oximetry 96 Oxygen Delivery Fraction of Inspired Oxygen 01/01/25 18:09 01/01/25 20:00 01/01/25 20:00 Temperature Pulse Rate 102 H 114 H Respiratory Rate 18 Blood Pressure Pulse Oximetry 96 94 Oxygen Delivery Mechanical Ventilation Mechanical Ventilation Fraction of Inspired Oxygen 01/01/25 20:00 01/01/25 20:00 01/01/25 20:00 Temperature 100.7 F H Pulse Rate 114 H 114 H 114 H Respiratory Rate 18 18 Blood Pressure 123/81 123/81 Pulse Oximetry 94 Oxygen Delivery Fraction of Inspired Oxygen 01/01/25 20:00 01/01/25 20:16 01/01/25 22:00 Temperature Pulse Rate 114 H 114 H 106 H Respiratory Rate 17 Blood Pressure 126/76 Pulse Oximetry 94 93 Oxygen Delivery Mechanical Ventilation Fraction of Inspired Oxygen 01/01/25 22:00 01/01/25 22:00 01/01/25 22:00 Temperature Pulse Rate 106 H 106 H 106 H Respiratory Rate 17 Blood Pressure 126/76 Pulse Oximetry Oxygen Delivery Fraction of Inspired Oxygen 01/01/25 23:00 01/02/25 00:00 01/02/25 00:00 Temperature Pulse Rate 106 H 104 H Respiratory Rate 18 Blood Pressure Pulse Oximetry 94 94 Oxygen Delivery Mechanical Ventilation Mechanical Ventilation Fraction of Inspired Oxygen 25 25 25 01/02/25 00:00 01/02/25 00:00 01/02/25 00:00 Temperature 99 F Pulse Rate 104 H 104 H 104 H Respiratory Rate 18 18 Blood Pressure 129/79 129/79 Pulse Oximetry 94 Oxygen Delivery Fraction of Inspired Oxygen 01/02/25 00:00 01/02/25 02:00 01/02/25 02:00 Temperature Pulse Rate 104 H 101 H 101 H Respiratory Rate 13 Blood Pressure Pulse Oximetry 94 Oxygen Delivery Mechanical Ventilation Fraction of Inspired Oxygen 25 01/02/25 02:00 01/02/25 02:00 01/02/25 02:00 Temperature Pulse Rate 101 H 101 H 101 H Respiratory Rate 13 Blood Pressure 124/74 124/74 Pulse Oximetry 93 Oxygen Delivery Fraction of Inspired Oxygen 01/02/25 02:15 01/02/25 02:15 01/02/25 03:45 Temperature Pulse Rate 99 99 102 H Respiratory Rate 15 15 14 Blood Pressure Pulse Oximetry Oxygen Delivery Fraction of Inspired Oxygen 01/02/25 04:00 01/02/25 04:00 01/02/25 04:00 Temperature Pulse Rate 101 H 105 H 101 H Respiratory Rate 22 H 22 H Blood Pressure 157/70 H Pulse Oximetry 99 Oxygen Delivery Mechanical Ventilation Fraction of Inspired Oxygen 25 01/02/25 04:00 01/02/25 04:00 01/02/25 04:00 Temperature 98.9 F Pulse Rate 101 H 101 H Respiratory Rate 22 H Blood Pressure 157/70 H Pulse Oximetry 100 Oxygen Delivery Fraction of Inspired Oxygen 25 01/02/25 05:28 01/02/25 05:45 01/02/25 06:00 Temperature Pulse Rate 81 101 H 84 Respiratory Rate 15 15 Blood Pressure Pulse Oximetry 100 Oxygen Delivery Mechanical Ventilation Fraction of Inspired Oxygen 25 01/02/25 06:00 01/02/25 06:00 01/02/25 06:00 Temperature Pulse Rate 84 84 84 Respiratory Rate 15 Blood Pressure 152/59 H 152/59 H Pulse Oximetry 100 Oxygen Delivery Fraction of Inspired Oxygen 01/02/25 07:38 01/02/25 08:00 01/02/25 09:50 Temperature Pulse Rate 88 97 91 Respiratory Rate 13 13 Blood Pressure Pulse Oximetry 100 97 Oxygen Delivery Mechanical Ventilation Mechanical Ventilation Fraction of Inspired Oxygen 25 25 01/02/25 09:50 01/02/25 10:15 01/02/25 11:11 Temperature Pulse Rate 91 100 76 Respiratory Rate 13 Blood Pressure 149/69 H Pulse Oximetry 98 Oxygen Delivery Mechanical Ventilation Fraction of Inspired Oxygen 01/02/25 13:00 01/02/25 13:05 01/02/25 13:15 Temperature Pulse Rate 80 75 85 Respiratory Rate Blood Pressure 86/41 L 77/41 L 57/45 L Pulse Oximetry Oxygen Delivery Fraction of Inspired Oxygen 01/02/25 13:16 01/02/25 13:20 01/02/25 13:30 Temperature Pulse Rate 60 86 88 Respiratory Rate Blood Pressure 57/45 L 77/58 L 133/76 Pulse Oximetry Oxygen Delivery Fraction of Inspired Oxygen 01/02/25 13:55 Temperature Pulse Rate 88 Respiratory Rate Blood Pressure 117/74 Pulse Oximetry Oxygen Delivery Fraction of Inspired Oxygen Intake/Output Intake/Output: Intake & Output 12/30/24 12/31/24 01/01/25 01/02/25 23:59 23:59 23:59 23:59 Intake Total 2074.5 2389.9 3063.1 1624.1 Output Total 2500 1600 2000 750 Balance -425.5 789.9 1063.1 874.1 Meds/Results Medications: Active Medications Generic Name Dose Route Start Last Admin Trade Name Freq PRN Reason Stop Dose Admin Albuterol/Ipratropium 3 ml 12/28/24 21:13 12/29/24 02:41 Ipratropium 0.5 Mg/Albuterol Sulfate 2.5 Mg Ampul.Neb 3 Ml INHALATION 3 ml Q6HRT PRN Administration Shortness Of Breath Or Wheezing Bisacodyl 10 mg 12/30/24 09:00 01/02/25 08:53 Bisacodyl 10 Mg Suppository RECTAL 10 mg QAM DANI Administration Bumetanide 1 mg 01/02/25 10:15 01/02/25 10:39 Bumetanide Inj 1 Mg/4 Ml Vial IV PUSH 1 mg Q12HR DANI Administration Dextrose 12.5 gm 12/30/24 08:02 Dextrose 50% 25 Gm/50 Ml Syringe IV PUSH PRN PRN Hypoglycemia Protocol Docusate Sodium 100 mg 12/29/24 09:00 01/01/25 08:00 Docusate Sodium Liq 100 Mg/10 Ml Udc FEED TUBE 100 mg DAILY DANI Administration Enoxaparin Sodium 40 mg 12/30/24 09:00 01/02/25 08:52 Enoxaparin 40 Mg/0.4 Ml Syringe SUB-Q 40 mg QAM DANI Administration Fentanyl Citrate 25 mcg 12/29/24 15:33 01/02/25 01:32 Fentanyl Citrate Inj (*Crx) 100 Mcg/2 Ml Vial IV PUSH 25 mcg Q1H PRN Administration Pain while on vent Gabapentin 100 mg 12/29/24 06:00 01/02/25 05:10 Gabapentin 100 Mg Capsule FEED TUBE 100 mg Q8HR DANI Administration Glucagon 1 mg 12/30/24 08:02 Glucagon For Inj 1 Mg Vial IM PRN PRN Hypoglycemia Protocol Glucose 15 gm 12/30/24 08:02 Glucose Oral Gel 15 Gm Of Glucse In 37.5 Gm Tube PO PRN PRN Hypoglycemia Protocol Hydralazine HCl 10 mg 01/02/25 07:32 Hydralazine Hcl 20 Mg/Ml Vial IV PUSH Q4H PRN Blood Pressure - High Ceftriaxone Sodium 1 gm in 50 mls @ 100 mls/hr 12/29/24 09:00 01/02/25 09:22 Rocephin 1 Gm/Ns 50 Ml IVPB 01/05/25 08:59 Infused Q24H DANI Infusion Metronidazole 500 mg in 100 mls @ 100 mls/hr 12/29/24 07:25 01/02/25 13:07 Flagyl 500 Mg/Iso Soln 100 Ml IVPB 01/03/25 07:24 100 mls/hr Q6HR DANI Administration Doxycycline Hyclate 100 mg in 100 mls @ 100 mls/hr 12/29/24 22:00 01/02/25 09:52 Vibramycin 100 Mg/Ns 100 Ml IVPB 01/03/25 21:59 Infused Q12H DANI Infusion Dexmedetomidine HCl 400 mcg in 100 mls @ 14.125 mls/hr 12/29/24 15:10 01/02/25 09:50 Precedex 400 Mcg/100 Ml IV CONT 1 mcg/kg/hr .Q7H5M DANI 14.13 mls/hr Administration Protocol 1 MCG/KG/HR Dextrose 1,000 mls @ 100 mls/hr 12/30/24 08:02 Dextrose 5% 1,000 Ml IVPB PRN PRN Hypoglycemia Protocol Valproate Sodium 250 mg/ 52.5 mls @ 52.5 mls/hr 01/02/25 12:00 01/02/25 13:07 Dextrose IVPB 52.5 mls/hr Q6HR DANI Administration Potassium Chloride 100 mls @ 25 mls/hr 01/02/25 12:00 Kcl 40 Meq/Water 100 Ml IVPB 01/02/25 15:59 ONCE ONE Dobutamine HCl/Dextrose 250 mg in 250 mls @ 2.5 mls/hr 01/02/25 13:20 Dobutamine 250 Mg/D5w 250 Ml IV CONT .Q24H DANI Norepinephrine Bitartrate 8 mg in 250 mls @ 18.75 mls/hr 01/02/25 13:20 01/02/25 13:55 Levophed 8 Mg/D5w 250 Ml IV CONT 10 mcg/min .[id number] DANI 18.75 mls/hr Titration Protocol 10 MCG/MIN Insulin Aspart 2 - 5 units 12/30/24 12:00 01/02/25 12:20 Insulin Aspart (*Bkc) 100 Units/Ml SUB-Q Not Given Q6HR [facility] Protocol Lisinopril 10 mg 01/02/25 09:00 Lisinopril 10 Mg Tablet PO DAILY DANI Metoprolol Tartrate 12.5 mg 01/02/25 09:00 Metoprolol Tartrate 12.5 Mg Tablet PO Q12HR DANI Midazolam HCl 2 mg 12/29/24 15:10 01/02/25 10:39 Midazolam Hcl (*Crx) 2 Mg/2 Ml Vial IV PUSH 2 mg Q5M PRN Administration ventilator asynchrony Multi-Ingred Cream/Lotion/Oil/Oint 1 applic 12/29/24 21:00 01/02/25 08:54 Mineral Oil/White Petrolatum Ointment EACH EYE 1 applic Q12HR DANI Administration Pantoprazole Sodium 40 mg 12/29/24 15:15 01/02/25 08:52 Pantoprazole Sodium Iv 40 Mg Vial IV PUSH 40 mg QAM DANI Administration Polyethylene Glycol 17 gm 12/30/24 09:00 01/01/25 08:00 Polyethylene Glycol 3350 17 Gm Powd.Pack PO 17 gm QAM DANI Administration Radiology Results: ITS Impressions Venous Doppler Study 12/28/24 15:55 IMPRESSION: Negative left and right upper extremity venous US. No deep vein thrombosis. Chest/Abdomen/Pelvis CTA 12/29/24 14:43 IMPRESSION: 1. Extensive patchy airspace opacities throughout both lungs and favor severe congestive heart failure related pulmonary edema over pneumonia. 2. Small left and moderate sized right dependently layering pleural effusions with associated compressive atelectasis in the dependent lungs. 3. Cardiomegaly with enlargement of the central pulmonary consistent with pulmonary arterial hypertension. 4. Large amount of stool throughout the colon with 9.6 x 6.7 cm ball of stool the rectum consistent with likely constipation with fecal impaction. 5. Hepatomegaly. Chest X-Ray 01/02/25 05:31 Impression: Hazy bibasilar airspace disease, right worse than left, most likely asymmetric pulmonary edema. Correlate clinically for pneumonia. Small right pleural effusion. Support tubes, as above. Chest/Abdomen/Pelvis CT 01/02/25 10:10 IMPRESSION: 1. Significant improvement in previously moderate, now minimal pulmonary edema with unchanged small left and small to moderate-sized right pleural effusions. 2. Persistent large amount of stool in the distal colon suggestive of constipation with fluid consistent with diarrhea and the more proximal colon. 3. No change in position of a small foreign body correlating with the finding on the earlier KUB which is located along the luminal side of the posterior wall of the cecum which could represent either an ingested foreign body or a clip fixed to the wall given the lack of movement. Correlate with clinical/surgical history. Abdomen X-Ray 01/02/25 11:34 IMPRESSION: 1. Nasogastric tube tip in proximal side port in the body of the stomach. Labs Labs: Laboratory Results - last 24 hr 12/28/24 01/01/25 01/01/25 15:04 17:13 23:57 WBC RBC Hgb Hct MCV MCH MCHC RDW Plt Count MPV Sodium Potassium Chloride Carbon Dioxide Anion Gap BUN Creatinine Estim Creat Clear Calc Estimated GFR Glucose POC Capillary Glucose 129 H 104 Lactic Acid Calcium Phosphorus Magnesium Total Bilirubin AST ALT Alkaline Phosphatase Total Protein Albumin Urine Pneumococcal Ag Not detected 01/02/25 01/02/25 05:08 11:44 WBC 4.7 RBC 2.54 L Hgb 8.1 L Hct 26.2 L MCV 103.1 H MCH 31.9 MCHC 30.9 L RDW 15.0 H Plt Count 158 MPV 10.0 Sodium 145 Potassium 3.5 Chloride 111 H Carbon Dioxide 28 Anion Gap 6 BUN 26 H Creatinine 0.53 L Estim Creat Clear Calc 109 Estimated GFR > 60 Glucose 101 POC Capillary Glucose 99 Lactic Acid 1.1 Calcium 7.8 L Phosphorus 2.7 Magnesium 2.2 Total Bilirubin 0.6 AST 471 H ALT 725 H Alkaline Phosphatase 77 Total Protein 6.0 L Albumin 2.9 L Urine Pneumococcal Ag
[2025-01-02 14:13] LABS: Lactic Acid Reflex 1.2 mmol/L (0.7-2.0)
[2025-01-02] MEDS: DOBUTamine 250 MG/D5W 250 ML 250 MG/250 ML BAG IV CONT (17:21)
[2025-01-02 18:44] LABS: Glucose Point of Care 101 mg/dl (65-105)
[2025-01-03] VITALS (39 sets, daily range): BP systolic 97–129; BP diastolic 61–86; PULSE 77–92; RESP 14–20; TEMP 35.7–36.9; O2SAT 97–100
[2025-01-03] MEDS: VALPROATE SODIUM INJ 250 MG in DEXTROSE 5% IN WATER 50 ML 52.5 MG IVPB ×4 (00:20→18:04)
[2025-01-03 00:32] LABS: Glucose Point of Care 110 mg/dl (65-105)
[2025-01-03 05:23] LABS: Hematocrit 27.4 % (42.0-52.0); Hemoglobin 8.3 g/dL (14.0-18.0); Mean Corpuscular HGB Conc 30.3 g/dl (32-36); Mean Corpuscular Volume 105.8 fl (80-100); Platelet Count Result 182 k/mm3 (150-375); Red Blood Count 2.59 M/mm3 (4.6-6.20); White Blood Count 5.6 K/mm3 (4.5-10.0)
[2025-01-03] MEDS: metroNIDAZOLE 500 MG/ISO 100ML 500 MG/100 ML BAG 100 MG IVPB (05:23)
[2025-01-03 05:33] LABS: Lactic Acid Reflex 0.8 mmol/L (0.7-2.0)
[2025-01-03 05:34] LABS: Alanine Aminotransferase 536 U/L (6-50); Albumin Level 2.8 g/dL (3.5-5.1); Alkaline Phosphatase 76 U/L (38-126); Anion Gap 5 mmol/L (4-12); Aspartate Amino Transferase 245 U/L (17-59); Bilirubin,Total 0.6 mg/dL (0.2-1.3); Blood Urea Nitrogen 25 mg/dL (9-20); Calcium 7.9 mg/dL (8.4-10.2); Carbon Dioxide 26 mmol/L (22-30); Chloride 111 mmol/L (98-107); Estimated CRCL calculation 126 ml/min; Estimated Glomerular Filt Rate > 60; Glucose 109 mg/dL (65-110); Magnesium 2.1 mg/dL (1.6-2.3); Phosphorus 2.7 mg/dL (2.5-4.5); Potassium 3.7 mmol/L (3.4-5.0); Sodium 142 mmol/L (137-145)
[2025-01-03 05:48] LABS: Alveolar/Arterial O2 Gradient 64.6 mmHg; Fractional Inspired Oxygen 25 %; HCO3 ABG 22.3 mEq/l (22.0-26.0); Methemoglobin ABG 0.3 %THb (0-1.5); Oxygen Content ABG 12.1 %vol (16.0-22.0); Oxygen Saturation ABG 96.1 % (95.0-100.0); Oxyhemoglobin 93.9 % THb (90.0-100.0); PCO2 ABG 31.7 mmHg (35.0-45.0); PO2 FiO2 Ratio Arterial Blood 3.04 %; Reduced Hemoglobin 4.8 %THb (0-5.0); Total Hemoglobin 9.1 g/dL (12.0-18.0); pH ABG 7.465 (7.350-7.450)
[2025-01-03 05:49] LABS: Arterial Blood Gas Vent Mode CMV; Arterial Blood Gas Ventilator rate 14 /MIN; Device VENTILATOR; Modified Allen's Test Pass; Site Drawn RIGHT RADIAL
[2025-01-03 05:50] LABS: Arterial Blood Gas PEEP 8 cmH2O; Arterial Blood Gas Tidal Volume 300 ml
[2025-01-03] MEDS: dexmedeTOMIDine 400 MCG/100 ML 400 MCG/100 ML BAG 8.48 MCG IV CONT (08:51)
[2025-01-03] MEDS: BISACODYL 10 MG SUPPOSITORY RECTAL (08:51)
[2025-01-03] MEDS: PANTOPRAZOLE SODIUM IV 40 MG VIAL IV PUSH (08:51)
[2025-01-03] MEDS: BUMETANIDE INJ 1 MG/4 ML VIAL IV PUSH ×2 (08:51→21:31)
[2025-01-03] MEDS: ENOXAPARIN 40 MG/0.4 ML SYRINGE SUB-Q (08:52)
[2025-01-03] MEDS: KCL 40 MEQ/WATER 100 ML 100 ML 25 ML IVPB (08:52)
[2025-01-03] MEDS: MINERAL OIL/WHITE PETROLATUM OINTMENT 1 APPLIC EACH EYE ×2 (08:53→21:31)
[2025-01-03] MEDS: DOXYCYCLINE 100 MG/NS 100 ML 100 MG/100 ML BAG IVPB (10:39)
[2025-01-03] MEDS: DOBUTamine 250 MG/D5W 250 ML 250 MG/250 ML BAG 9.92 MG IV CONT (10:40)
[2025-01-03 12:03] LABS: Glucose Point of Care 102 mg/dl (65-105)
--- NOTE | 2025-01-03 14:10 | PM.PNCARD ---
Progress Note: A&P Assessment and Plan (1) CHF exacerbation: Qualifiers: Heart failure type: unspecified Qualified Code(s): I50.9 - Heart failure, unspecified Code(s): I50.9 - Heart failure, unspecified Status: Acute Plan 59-year-old man with schizophrenia and seizures who is nonverbal with a G-tube transfer from assisted due to respiratory distress now found to have systolic heart failure and possible pneumonia Acute decompensated systolic heart failure -Now on IV Bumex, continue -dobutamine drip was restarted yesterday. Continue -Not able to take oral meds at this time due to bowel obstruction, but when able to take pills, agree with starting Lisinopril and Metoprolol. Uptitrate heart failure GDMT as tolerated. -Overall poor prognosis when taken into consideration his other chronic conditions. Creatinine 0.45 today. Potassium normal. Follow electrolytes Bowel obstruction -General Surgery following Moderate mitral regurgitation -Will reassess likely a outpatient clinic once euvolemic Moderate aortic regurgitation -Outpatient surveillance echocardiogram Recommendations and plan discussed with ICU Physician. Subjective Date/time seen: 01/03/25 14:10 Interval history: Reason for visit: CHF HPI: 59-year-old man with schizophrenia, seizures, heart failure with unknown systolic function, who is nonverbal with a G-tube transfer from assisted due to respiratory distress. Given his medical condition, limited subjective history was obtainable and all subjective history was obtained through chart review. Date of service 12/30: Remains intubated and sedated. Date of service 12/31: Remains intubated/sedated. On Dobutamine drip. Date of service 01/01: Patient is intubated and sedated. Date of service 01/02: Remains intubated. Now has a bowel obstruction. Continues to diurese. Date of service 01/03/2025: Intubated but awakens. Some swelling Review of Systems Review of Systems: ROS unobtainable: Yes unobtainable due to endotracheal tube and unobtainable due to medical condition Exam Const: Other: Intubated, sedated HENMT: Mouth: Yes moist mucous membranes Other: OETT in place Eyes: Sclera: sclerae normal Neck: Neck: no JVD Resp: Auscultation: rales and rhonchi Other: On mechanical ventilation Cardio: Rate: regular rate Rhythm: regular rhythm Heart sounds: no murmurs Other: + Lower extremity swelling Skin: General skin exam: normal color Neuro: Other: Sedated Extrem: General: pedal edema Other: Right upper extremity swelling. Objective Data Vital Signs Vital Signs: Vital Signs - 24 hr 01/02/25 15:00 01/02/25 16:00 01/02/25 16:00 Temperature Pulse Rate 110 H 106 H 92 Respiratory Rate 17 Blood Pressure 127/81 Pulse Oximetry 100 Oxygen Delivery Mechanical Ventilation Fraction of Inspired Oxygen 25 01/02/25 16:00 01/02/25 16:00 01/02/25 16:00 Temperature Pulse Rate 110 H 94 Respiratory Rate 15 Blood Pressure 111/77 Pulse Oximetry Oxygen Delivery Fraction of Inspired Oxygen 01/02/25 17:06 01/02/25 17:20 01/02/25 17:20 Temperature Pulse Rate 91 116 H 116 H Respiratory Rate 19 19 Blood Pressure Pulse Oximetry 100 Oxygen Delivery Mechanical Ventilation Fraction of Inspired Oxygen 01/02/25 17:21 01/02/25 18:00 01/02/25 18:00 Temperature Pulse Rate 115 H 119 H 110 H Respiratory Rate 19 Blood Pressure 120/77 119/82 Pulse Oximetry 100 Oxygen Delivery Fraction of Inspired Oxygen 01/02/25 18:00 01/02/25 18:00 01/02/25 19:44 Temperature Pulse Rate 93 122 H 93 Respiratory Rate 17 Blood Pressure 121/82 Pulse Oximetry 100 Oxygen Delivery Mechanical Ventilation Fraction of Inspired Oxygen 25 01/02/25 19:47 01/02/25 20:00 01/02/25 20:00 Temperature Pulse Rate 92 91 Respiratory Rate 16 Blood Pressure 109/73 Pulse Oximetry 100 Oxygen Delivery Mechanical Ventilation Fraction of Inspired Oxygen 25 01/02/25 20:00 01/02/25 20:00 01/02/25 20:00 Temperature Pulse Rate 91 93 Respiratory Rate 19 Blood Pressure 109/73 Pulse Oximetry 100 Oxygen Delivery Mechanical Ventilation Fraction of Inspired Oxygen 25 25 01/02/25 20:00 01/02/25 20:00 01/02/25 20:46 Temperature 36.7 C Pulse Rate 93 94 90 Respiratory Rate 19 Blood Pressure 109/73 112/72 Pulse Oximetry 100 Oxygen Delivery Fraction of Inspired Oxygen 01/02/25 22:00 01/02/25 22:00 01/02/25 22:00 Temperature Pulse Rate 92 92 91 Respiratory Rate 16 16 Blood Pressure 111/72 Pulse Oximetry 100 Oxygen Delivery Fraction of Inspired Oxygen 01/02/25 22:00 01/02/25 22:00 01/02/25 23:01 Temperature Pulse Rate 91 92 88 Respiratory Rate Blood Pressure 111/72 111/72 Pulse Oximetry 100 Oxygen Delivery Mechanical Ventilation Fraction of Inspired Oxygen 25 01/02/25 23:52 01/02/25 23:52 01/03/25 00:00 Temperature Pulse Rate 84 84 84 Respiratory Rate 14 14 14 Blood Pressure Pulse Oximetry 99 Oxygen Delivery Mechanical Ventilation Fraction of Inspired Oxygen 01/03/25 00:00 01/03/25 00:00 01/03/25 00:00 Temperature 36.9 C Pulse Rate 85 85 Respiratory Rate 14 Blood Pressure 97/65 L Pulse Oximetry 100 Oxygen Delivery Fraction of Inspired Oxygen 01/03/25 00:01 01/03/25 00:01 01/03/25 00:01 Temperature Pulse Rate 85 85 85 Respiratory Rate 14 Blood Pressure 97/65 L 97/65 L Pulse Oximetry Oxygen Delivery Fraction of Inspired Oxygen 01/03/25 01:31 01/03/25 02:00 01/03/25 02:00 Temperature Pulse Rate 84 85 84 Respiratory Rate 14 Blood Pressure 101/67 Pulse Oximetry 99 100 Oxygen Delivery Mechanical Ventilation Fraction of Inspired Oxygen 01/03/25 02:00 01/03/25 02:00 01/03/25 02:00 Temperature Pulse Rate 84 84 84 Respiratory Rate 14 Blood Pressure 101/67 101/67 Pulse Oximetry Oxygen Delivery Fraction of Inspired Oxygen 01/03/25 03:16 01/03/25 03:18 01/03/25 04:00 Temperature 36.7 C Pulse Rate 84 84 Respiratory Rate 14 14 Blood Pressure 114/73 Pulse Oximetry 100 98 Oxygen Delivery Mechanical Ventilation Fraction of Inspired Oxygen 01/03/25 04:00 01/03/25 04:00 01/03/25 04:00 Temperature Pulse Rate 88 88 84 Respiratory Rate 14 Blood Pressure 114/73 114/73 Pulse Oximetry Oxygen Delivery Fraction of Inspired Oxygen 01/03/25 04:00 01/03/25 05:30 01/03/25 06:00 Temperature Pulse Rate 84 78 78 Respiratory Rate 15 Blood Pressure 109/73 Pulse Oximetry 100 99 Oxygen Delivery Mechanical Ventilation Fraction of Inspired Oxygen 01/03/25 06:00 01/03/25 06:00 01/03/25 06:00 Temperature Pulse Rate 78 78 78 Respiratory Rate 15 Blood Pressure 109/73 109/73 Pulse Oximetry Oxygen Delivery Fraction of Inspired Oxygen 01/03/25 06:00 01/03/25 07:41 01/03/25 08:00 Temperature Pulse Rate 78 79 78 Respiratory Rate 16 Blood Pressure Pulse Oximetry 100 Oxygen Delivery Mechanical Ventilation Fraction of Inspired Oxygen 01/03/25 08:00 01/03/25 08:00 01/03/25 08:00 Temperature 36.7 C Pulse Rate 78 78 78 Respiratory Rate 16 Blood Pressure 111/73 111/73 Pulse Oximetry 98 Oxygen Delivery Fraction of Inspired Oxygen 01/03/25 08:00 01/03/25 08:00 01/03/25 08:51 Temperature Pulse Rate 77 Respiratory Rate 14 Blood Pressure Pulse Oximetry 98 Oxygen Delivery Mechanical Ventilation Fraction of Inspired Oxygen 01/03/25 08:51 01/03/25 10:00 01/03/25 10:00 Temperature Pulse Rate 77 89 89 Respiratory Rate 14 14 Blood Pressure 111/75 Pulse Oximetry Oxygen Delivery Fraction of Inspired Oxygen 01/03/25 10:00 01/03/25 10:00 01/03/25 10:40 Temperature Pulse Rate 89 89 85 Respiratory Rate 14 Blood Pressure 111/75 116/76 Pulse Oximetry 98 Oxygen Delivery Fraction of Inspired Oxygen 01/03/25 11:05 01/03/25 11:48 01/03/25 11:49 Temperature Pulse Rate 78 Respiratory Rate Blood Pressure Pulse Oximetry 100 98 Oxygen Delivery Mechanical Ventilation Mechanical Ventilation Fraction of Inspired Oxygen 01/03/25 12:00 01/03/25 12:00 01/03/25 12:00 Temperature Pulse Rate 78 78 82 Respiratory Rate 16 Blood Pressure 111/75 Pulse Oximetry Oxygen Delivery Fraction of Inspired Oxygen 01/03/25 12:00 Temperature 36.5 C Pulse Rate 78 Respiratory Rate 16 Blood Pressure 111/75 Pulse Oximetry 100 Oxygen Delivery Fraction of Inspired Oxygen Intake/Output Intake/Output: Intake & Output 12/31/24 01/01/25 01/02/25 01/03/25 23:59 23:59 23:59 23:59 Intake Total 2389.9 3063.1 2330.0 692.6 Output Total 1600 2000 1300 350 Balance 789.9 1063.1 1030.0 342.6 Meds/Results Medications: Active Medications Generic Name Dose Route Start Last Admin Trade Name Freq PRN Reason Stop Dose Admin Albuterol/Ipratropium 3 ml 12/28/24 21:13 12/29/24 02:41 Ipratropium 0.5 Mg/Albuterol Sulfate 2.5 Mg Ampul.Neb 3 Ml INHALATION 3 ml Q6HRT PRN Administration Shortness Of Breath Or Wheezing Bisacodyl 10 mg 12/30/24 09:00 01/03/25 08:51 Bisacodyl 10 Mg Suppository RECTAL 10 mg QAM DANI Administration Bumetanide 1 mg 01/02/25 10:15 01/03/25 08:51 Bumetanide Inj 1 Mg/4 Ml Vial IV PUSH 1 mg Q12HR DANI Administration Dextrose 12.5 gm 12/30/24 08:02 Dextrose 50% 25 Gm/50 Ml Syringe IV PUSH PRN PRN Hypoglycemia Protocol Docusate Sodium 100 mg 12/29/24 09:00 01/01/25 08:00 Docusate Sodium Liq 100 Mg/10 Ml Udc FEED TUBE 100 mg DAILY DANI Administration Enoxaparin Sodium 40 mg 12/30/24 09:00 01/03/25 08:52 Enoxaparin 40 Mg/0.4 Ml Syringe SUB-Q 40 mg QAM DANI Administration Fentanyl Citrate 25 mcg 12/29/24 15:33 01/02/25 01:32 Fentanyl Citrate Inj (*Crx) 100 Mcg/2 Ml Vial IV PUSH 25 mcg Q1H PRN Administration Pain while on vent Gabapentin 100 mg 12/29/24 06:00 01/02/25 05:10 Gabapentin 100 Mg Capsule FEED TUBE 100 mg Q8HR DANI Administration Glucagon 1 mg 12/30/24 08:02 Glucagon For Inj 1 Mg Vial IM PRN PRN Hypoglycemia Protocol Glucose 15 gm 12/30/24 08:02 Glucose Oral Gel 15 Gm Of Glucse In 37.5 Gm Tube PO PRN PRN Hypoglycemia Protocol Hydralazine HCl 10 mg 01/02/25 07:32 Hydralazine Hcl 20 Mg/Ml Vial IV PUSH Q4H PRN Blood Pressure - High Ceftriaxone Sodium 1 gm in 50 mls @ 100 mls/hr 12/29/24 09:00 01/03/25 09:30 Rocephin 1 Gm/Ns 50 Ml IVPB 01/05/25 08:59 Infused Q24H DANI Infusion Doxycycline Hyclate 100 mg in 100 mls @ 100 mls/hr 12/29/24 22:00 01/03/25 11:40 Vibramycin 100 Mg/Ns 100 Ml IVPB 01/03/25 21:59 Infused Q12H DANI Infusion Dexmedetomidine HCl 400 mcg in 100 mls @ 8.475 mls/hr 12/29/24 15:10 01/03/25 12:00 Precedex 400 Mcg/100 Ml IV CONT 0.6 mcg/kg/hr .[id number] DANI 8.48 mls/hr Titration Protocol 0.6 MCG/KG/HR Dextrose 1,000 mls @ 100 mls/hr 12/30/24 08:02 Dextrose 5% 1,000 Ml IVPB PRN PRN Hypoglycemia Protocol Valproate Sodium 250 mg/ 52.5 mls @ 52.5 mls/hr 01/02/25 12:00 01/03/25 12:53 Dextrose IVPB Infused Q6HR DANI Infusion Norepinephrine Bitartrate 8 mg in 250 mls @ 0 mls/hr 01/02/25 13:20 01/03/25 06:00 Levophed 8 Mg/D5w 250 Ml IV CONT 0 mcg/min .Q0M DANI 0 mls/hr Titration Protocol 0 MCG/MIN Dobutamine HCl/Dextrose 250 mg in 250 mls @ 9.915 mls/hr 01/03/25 10:30 01/03/25 12:00 Dobutamine 250 Mg/D5w 250 Ml IV CONT 2.5 mcg/kg/min .Q24H DANI 9.92 mls/hr Infusion 2.5 MCG/KG/MIN Insulin Aspart 2 - 5 units 12/30/24 12:00 01/03/25 11:56 Insulin Aspart (*Bkc) 100 Units/Ml SUB-Q Not Given Q6HR [facility] Protocol Lisinopril 10 mg 01/02/25 09:00 Lisinopril 10 Mg Tablet PO DAILY [facility] Metoprolol Tartrate 12.5 mg 01/02/25 09:00 Metoprolol Tartrate 12.5 Mg Tablet PO Q12HR [facility] Midazolam HCl 2 mg 12/29/24 15:10 01/02/25 10:39 Midazolam Hcl (*Crx) 2 Mg/2 Ml Vial IV PUSH 2 mg Q5M PRN Administration ventilator asynchrony Multi-Ingred Cream/Lotion/Oil/Oint 1 applic 12/29/24 21:00 01/03/25 08:53 Mineral Oil/White Petrolatum Ointment EACH EYE 1 applic Q12HR DANI Administration Pantoprazole Sodium 40 mg 12/29/24 15:15 01/03/25 08:51 Pantoprazole Sodium Iv 40 Mg Vial IV PUSH 40 mg QAM DANI Administration Polyethylene Glycol 17 gm 12/30/24 09:00 01/01/25 08:00 Polyethylene Glycol 3350 17 Gm Powd.Pack PO 17 gm QAM DANI Administration Radiology Results: ITS Impressions Venous Doppler Study 12/28/24 15:55 IMPRESSION: Negative left and right upper extremity venous US. No deep vein thrombosis. Chest/Abdomen/Pelvis CTA 12/29/24 14:43 IMPRESSION: 1. Extensive patchy airspace opacities throughout both lungs and favor severe congestive heart failure related pulmonary edema over pneumonia. 2. Small left and moderate sized right dependently layering pleural effusions with associated compressive atelectasis in the dependent lungs. 3. Cardiomegaly with enlargement of the central pulmonary consistent with pulmonary arterial hypertension. 4. Large amount of stool throughout the colon with 9.6 x 6.7 cm ball of stool the rectum consistent with likely constipation with fecal impaction. 5. Hepatomegaly. Chest/Abdomen/Pelvis CT 01/02/25 10:10 IMPRESSION: 1. Significant improvement in previously moderate, now minimal pulmonary edema with unchanged small left and small to moderate-sized right pleural effusions. 2. Persistent large amount of stool in the distal colon suggestive of constipation with fluid consistent with diarrhea and the more proximal colon. 3. No change in position of a small foreign body correlating with the finding on the earlier KUB which is located along the luminal side of the posterior wall of the cecum which could represent either an ingested foreign body or a clip fixed to the wall given the lack of movement. Correlate with clinical/surgical history. Chest X-Ray 01/03/25 06:56 IMPRESSION: 1. Small to moderate-sized right and small left pleural effusions with associated atelectasis and/or pneumonia in the lower lung zones. Abdomen X-Ray 01/03/25 08:24 IMPRESSION: 1. Large amount of stool in the distal colon which can be seen with constipation. No free intraperineal gas or dilated bowel to suggest obstruction. 2. Small bilateral pleural effusions with associated basilar atelectasis and/or pneumonia. 3. Unchanged small foreign body projecting over the cecum Labs Labs: Laboratory Results - last 24 hr 01/02/25 01/02/25 01/03/25 13:52 18:36 00:26 WBC RBC Hgb Hct MCV MCH MCHC RDW Plt Count MPV Puncture Site ABG pH ABG pCO2 ABG pO2 ABG PO2/FiO2 Ratio ABG HCO3 ABG O2 Saturation ABG O2 Content ABG Base Excess A-a Gradient Oxyhemoglobin Carboxyhemoglobin Methemoglobin Reduced Hemoglobin Total Hemoglobin O2 Delivery Device O2 Liters/Min Minute Volume Vent Rate Vent Mode FiO2 Tidal Volume PEEP Peak Inspir Pressure Pressure Support Sodium Potassium Chloride Carbon Dioxide Anion Gap BUN Creatinine Estim Creat Clear Calc Estimated GFR Glucose POC Capillary Glucose 101 110 H Lactic Acid 1.2 Calcium Phosphorus Magnesium Total Bilirubin AST ALT Alkaline Phosphatase Total Protein Albumin 01/03/25 01/03/25 01/03/25 05:16 05:34 11:55 WBC 5.6 RBC 2.59 L Hgb 8.3 L Hct 27.4 L MCV 105.8 H MCH 32.0 MCHC 30.3 L RDW 15.0 H Plt Count 182 MPV 10.0 Puncture Site Right radial ABG pH 7.465 H ABG pCO2 31.7 L ABG pO2 76.0 L ABG PO2/FiO2 Ratio 3.04 ABG HCO3 22.3 ABG O2 Saturation 96.1 ABG O2 Content 12.1 L ABG Base Excess -1.0 A-a Gradient 64.6 Oxyhemoglobin 93.9 Carboxyhemoglobin 1.0 Methemoglobin 0.3 Reduced Hemoglobin 4.8 Total Hemoglobin 9.1 L O2 Delivery Device Ventilator O2 Liters/Min Not Reportable Minute Volume Not Reportable Vent Rate 14 Vent Mode Cmv FiO2 25 Tidal Volume 300 PEEP 8 Peak Inspir Pressure Not Reportable Pressure Support Not Reportable Sodium 142 Potassium 3.7 Chloride 111 H Carbon Dioxide 26 Anion Gap 5 BUN 25 H Creatinine 0.45 L Estim Creat Clear Calc 126 Estimated GFR > 60 Glucose 109 POC Capillary Glucose 102 Lactic Acid 0.8 Calcium 7.9 L Phosphorus 2.7 Magnesium 2.1 Total Bilirubin 0.6 AST 245 H ALT 536 H Alkaline Phosphatase 76 Total Protein 6.0 L Albumin 2.8 L
--- NOTE | 2025-01-03 14:11 | P.PNINT_ITS ---
Progress Note: A&P Assessment and Plan (1) Obstructive ileus of small intestine due to impaction: Code(s): K56.699 - Other intestinal obstruction unspecified as to partial versus complete obstruction; K56.49 - Other impaction of intestine Status: Acute Assessment and Plan: Abdominal distension, obstructive series dilated small bowel and colon with large amounts of fecal impaction in the distal colon and rectum, consistent with obstruction. Residual catheter fragment present in the abdomen consider correlation with CT -NG tube was inserted on 01/02 -appreciate surgery evaluation -discussed with GI, started patient on soapsuds enema q.6 hours on 01/02 01/03: Patient has had multiple multiple bowel movements with soapsuds enema, discussed with GI, will continue them as as KUB this morning continues to show f large amount of stool in the distal colon. No free intraperitoneal gas or dilated bowel to suggest obstruction 01/02: CT scan of the abdomen and pelvis IMPRESSION: 1. Significant improvement in previously moderate, now minimal pulmonary edema with unchanged small left and small to moderate-sized right pleural effusions. 2. Persistent large amount of stool in the distal colon suggestive of constipation with fluid consistent with diarrhea and the more proximal colon. 3. No change in position of a small foreign body correlating with the finding on the earlier KUB which is located along the luminal side of the posterior wall of the cecum which could represent either an ingested foreign body or a clip fixed to the wall given the lack of movement. Correlate with clinical/surgical history. (2) Acute hypoxemic respiratory failure: Code(s): J96.01 - Acute respiratory failure with hypoxia Status: Acute Assessment and Plan: Acute hypoxic respiratory failure likely secondary to congestive heart failure, cardiomyopathy, pulmonary edema, possible pneumonia, pleural effusion -12/29: patient was in the intermediate Unit, was tachycardic, tachypneic, hemodynamic instability, patient was transferred to ICU and emergently intubated after discussion with patient's sister. -12/29/2024: Intubated in the ICU -Chest x-ray and ABGs reviewed, ventilator adjusted -continue Diuril and monitor urine output - management of pneumonia as below -bronchodilator p.r.n. -sedated with Precedex infusion, his eyes, does not follow commands. Looks comfortable, patient is nonverbal at baseline (3) Cardiomyopathy: Code(s): I42.9 - Cardiomyopathy, unspecified Status: Acute Assessment and Plan: patient does have history of congestive heart failure. Now cardiomyopathy with EF of 15-20% -appreciate cardiology following the base -restarted dobutamine on 01/02 after it was briefly discontinued to see how the patient would do without dobutamine. He dropped his blood pressure is significantly dobutamine was restarted for inotropic support, he was on Levophed for brief period of time which is currently off -continue diuresis -patient to be started on guideline directed medical therapy once of dobutamine and more stable -p.r.n. hydralazine for elevated blood pressure 12/29 echocardiogram showed Summary 1. The left ventricle is mildly dilated with severely reduced systolic function. There is mild eccentric left ventricular hypertrophy. The left ventricular ejection fraction is visually estimated to be 15-20%. There is no left ventricular thrombus. 2. The right ventricle is normal in size with reduced systolic function. 3. The left atrium is severely dilated. 4. The aortic valve is trileaflet and thickened. The right coronary cusp is calcified and restricted. There is no hemodynamically significant stenosis. There is moderate aortic regurgitation. 5. The mitral valve leaflets are thickened but opens well. There is mild mitral regurgitation. 6. The tricuspid valve leaflets are sclerotic but opens well. There is moderate tricuspid regurgitation. There is moderate hypertension. The PASP is estimated to be 60 mmHg. 7. Dilated inferior vena cava with <50% collapse upon inspiration consistent with significantly elevated right atrial pressure, 15 mmHg. 8. There is left-sided pleural effusion (4) CHF exacerbation: Qualifiers: Heart failure type: unspecified Qualified Code(s): I50.9 - Heart failure, unspecified Code(s): I50.9 - Heart failure, unspecified Status: Acute Assessment and Plan: Continue treatment as above (5) Sepsis: Code(s): A41.9 - Sepsis, unspecified organism Status: Acute Assessment and Plan: Patient does have UTI and may have pneumonia. Possible community-acquired or aspiration - elevated lactic acid can be secondary to sepsis or cardiogenic -procalcitonin was intermediate at 0.3 - blood culture 1/2 growing Staph hominis which is likely contaminant - discontinue vancomycin - continue Rocephin doxycycline and Flagyl for total of 5 days -urine cultures negative -sputum cultures pending 01/02: Patient was hypotensive requiring Levophed after his dobutamine was discontinued. Dobutamine was restarted -patient currently off Levophed (6) UTI (urinary tract infection): Code(s): N39.0 - Urinary tract infection, site not specified Status: Acute Assessment and Plan: Urine cultures are negative (7) Community acquired pneumonia: Qualifiers: Laterality: unspecified laterality Qualified Code(s): J18.9 - Pneumonia, unspecified organism Code(s): J18.9 - Pneumonia, unspecified organism Status: Acute Assessment and Plan: Treatment as above (8) Seizures: Code(s): R56.9 - Unspecified convulsions Status: Acute Assessment and Plan: continue valproic acid -hold gabapentin as patient has gabapentin bowel obstruct (9) Tachycardia: Code(s): R00.0 - Tachycardia, unspecified Status: Acute Assessment and Plan: tachycardia secondary to cardiomyopathy, respiratory failure and possibly sepsis improved after intubation and sedation (10) Swelling of right upper extremity: Code(s): M79.89 - Other specified soft tissue disorders Status: Acute Assessment and Plan: right upper extremity venous Dopplers were negative for DVT -elevate right upper extremity on pillows further evaluation and testing deferred at this time. Plan to diurese and achieve euvolemia possible at this time (11) Constipation: Qualifiers: Constipation type: chronic idiopathic constipation Qualified Code(s): K59.04 - Chronic idiopathic constipation Code(s): K59.00 - Constipation, unspecified Status: Acute Assessment and Plan: Patient on bowel regimen currently on hold as patient has obstruction -GI follow-up -appreciate GI evaluation, -treatment as above (12) Fecal impaction: Code(s): K56.41 - Fecal impaction Status: Acute Assessment and Plan: 01/01: Obstructive series showed fecal impaction and bowel obstruction -CT abdomen and pelvis as above -treatment as above (13) Elevated LFTs: Code(s): R79.89 - Other specified abnormal findings of blood chemistry Status: Acute Assessment and Plan: elevated LFTs likely secondary to shock liver and possible hepatic congestion, cardiogenic shock. -LFTs improving -continue to monitor (14) Electrolyte abnormality: Code(s): E87.8 - Other disorders of electrolyte and fluid balance, not elsewhere classified Status: Acute Assessment and Plan: Replace potassium Plan DVT prophylaxis - Lovenox Stress ulcer prophylaxis - Protonix Nutrition -continue to hold tube feeds for now due to severe constipation and ileus Code Status - full code. 12/29 I had extensive discussion with patient's sister by phone. I updated her with patient's current status which involves respiratory failure, sepsis, cardiomyopathy. I also discussed goals of care. Patient's sister appears on informed of patient's medical problems and unrealistic of prognosis. She wants patient to be full code at this time. Patient was hence intubated and placed on mechanical ventilation. Total Critical Care Time - 33 minutes Due to a high probability of clinically significant, life threatening deterioration, the patient required my highest level of preparedness to intervene emergently and I personally spent this critical care time directly and personally managing the patient. This critical care time included obtaining a history; examining the patient; pulse oximetry; ordering and review of studies; arranging urgent treatment with development of a management plan; evaluation of patient's response to treatment; frequent reassessment; and discussions with other providers. It was exclusive of separately billable procedures and treating other patients and teaching time. Please see Assessment and Plan section and the rest of the note for further information on patient assessment and treatment Subjective Date/time seen: 01/03/25 14:11 Interval history: Reason for visit: CHF exacerbate, acute respiratory failure requiring intubation on 12/29/2024, pneumonia, UTI, cardiomyopathy HPI: 59-year-old man with schizophrenia, seizures, heart failure with unknown systolic function, who is nonverbal with a G-tube transfer from alf due to respiratory distress. 01/03/2025: Patient seen and examined the ICU, remains intubated on CMV mode of ventilation, peep of 8, 25% FiO2. Sedated with Precedex infusion. Patient opens his eyes, does not follow simple commands. Urine output has been adequate in response to diuresis, afebrile, patient was hypotensive yesterday after discontinuing dobutamine infusion. Requiring Levophed. Dobutamine was restarted with improvement in blood pressures and now off Levophed P -patient had multiple bowel movements with soapsuds enema -NG tube is to suction Review of Systems Review of Systems: ROS unobtainable: Yes unobtainable due to endotracheal tube, unobtainable due to medical condition and unobtainable due to mental status Exam Narrative: General: Intubated, on Precedex, opens his eyes, in no acute distress HEENT: Pupils equal and reactive, sclera is clear, ETT in place Lungs/Chest: Coarse breath sounds bilaterally, rales RT > LT, no wheezing Cardiac: S1-S2 normal, regular rate and rhythm, Circulation: Pedal pulses are intact and symmetrical. Abdomen: Abdominal more soft, tympanic to percussion, nontender, hypoactive bowel sounds. G-tube in place Extremities: he has left mid tarsal amputation, he has a signed off bone injury on his right hand with looks like a graft, : Burdick in place Neurologic: Intubated, on Precedex, opens his eyes, does not follow simple commands. Skin: he has a large sternotomy incision scar in the midline of his chest. Objective Data Vital Signs Vital Signs: Vital Signs - 24 hr 01/02/25 15:00 01/02/25 16:00 01/02/25 16:00 Temperature Pulse Rate 110 H 106 H 92 Respiratory Rate 17 Blood Pressure 127/81 Pulse Oximetry 100 Oxygen Delivery Mechanical Ventilation Fraction of Inspired Oxygen 01/02/25 16:00 01/02/25 16:00 01/02/25 16:00 Temperature Pulse Rate 110 H 94 Respiratory Rate 15 Blood Pressure 111/77 Pulse Oximetry Oxygen Delivery Fraction of Inspired Oxygen 01/02/25 17:06 01/02/25 17:20 01/02/25 17:20 Temperature Pulse Rate 91 116 H 116 H Respiratory Rate 19 19 Blood Pressure Pulse Oximetry 100 Oxygen Delivery Mechanical Ventilation Fraction of Inspired Oxygen 01/02/25 17:21 01/02/25 18:00 01/02/25 18:00 Temperature Pulse Rate 115 H 119 H 110 H Respiratory Rate 19 Blood Pressure 120/77 119/82 Pulse Oximetry 100 Oxygen Delivery Fraction of Inspired Oxygen 01/02/25 18:00 01/02/25 18:00 01/02/25 19:44 Temperature Pulse Rate 93 122 H 93 Respiratory Rate 17 Blood Pressure 121/82 Pulse Oximetry 100 Oxygen Delivery Mechanical Ventilation Fraction of Inspired Oxygen 01/02/25 19:47 01/02/25 20:00 01/02/25 20:00 Temperature Pulse Rate 92 91 Respiratory Rate 16 Blood Pressure 109/73 Pulse Oximetry 100 Oxygen Delivery Mechanical Ventilation Fraction of Inspired Oxygen 01/02/25 20:00 01/02/25 20:00 01/02/25 20:00 Temperature Pulse Rate 91 93 Respiratory Rate 19 Blood Pressure 109/73 Pulse Oximetry 100 Oxygen Delivery Mechanical Ventilation Fraction of Inspired Oxygen 25 01/02/25 20:00 01/02/25 20:00 01/02/25 20:46 Temperature 98.0 F Pulse Rate 93 94 90 Respiratory Rate 19 Blood Pressure 109/73 112/72 Pulse Oximetry 100 Oxygen Delivery Fraction of Inspired Oxygen 01/02/25 22:00 01/02/25 22:00 01/02/25 22:00 Temperature Pulse Rate 92 92 91 Respiratory Rate 16 16 Blood Pressure 111/72 Pulse Oximetry 100 Oxygen Delivery Fraction of Inspired Oxygen 01/02/25 22:00 01/02/25 22:00 01/02/25 23:01 Temperature Pulse Rate 91 92 88 Respiratory Rate Blood Pressure 111/72 111/72 Pulse Oximetry 100 Oxygen Delivery Mechanical Ventilation Fraction of Inspired Oxygen 01/02/25 23:52 01/02/25 23:52 01/03/25 00:00 Temperature Pulse Rate 84 84 84 Respiratory Rate 14 14 14 Blood Pressure Pulse Oximetry 99 Oxygen Delivery Mechanical Ventilation Fraction of Inspired Oxygen 01/03/25 00:00 01/03/25 00:00 01/03/25 00:00 Temperature 98.5 F Pulse Rate 85 85 Respiratory Rate 14 Blood Pressure 97/65 L Pulse Oximetry 100 Oxygen Delivery Fraction of Inspired Oxygen 01/03/25 00:01 01/03/25 00:01 01/03/25 00:01 Temperature Pulse Rate 85 85 85 Respiratory Rate 14 Blood Pressure 97/65 L 97/65 L Pulse Oximetry Oxygen Delivery Fraction of Inspired Oxygen 01/03/25 01:31 01/03/25 02:00 01/03/25 02:00 Temperature Pulse Rate 84 85 84 Respiratory Rate 14 Blood Pressure 101/67 Pulse Oximetry 99 100 Oxygen Delivery Mechanical Ventilation Fraction of Inspired Oxygen 01/03/25 02:00 01/03/25 02:00 01/03/25 02:00 Temperature Pulse Rate 84 84 84 Respiratory Rate 14 Blood Pressure 101/67 101/67 Pulse Oximetry Oxygen Delivery Fraction of Inspired Oxygen 01/03/25 03:16 01/03/25 03:18 01/03/25 04:00 Temperature 98.1 F Pulse Rate 84 84 Respiratory Rate 14 14 Blood Pressure 114/73 Pulse Oximetry 100 98 Oxygen Delivery Mechanical Ventilation Fraction of Inspired Oxygen 25 25 01/03/25 04:00 01/03/25 04:00 01/03/25 04:00 Temperature Pulse Rate 88 88 84 Respiratory Rate 14 Blood Pressure 114/73 114/73 Pulse Oximetry Oxygen Delivery Fraction of Inspired Oxygen 01/03/25 04:00 01/03/25 05:30 01/03/25 06:00 Temperature Pulse Rate 84 78 78 Respiratory Rate 15 Blood Pressure 109/73 Pulse Oximetry 100 99 Oxygen Delivery Mechanical Ventilation Fraction of Inspired Oxygen 25 01/03/25 06:00 01/03/25 06:00 01/03/25 06:00 Temperature Pulse Rate 78 78 78 Respiratory Rate 15 Blood Pressure 109/73 109/73 Pulse Oximetry Oxygen Delivery Fraction of Inspired Oxygen 01/03/25 06:00 01/03/25 07:41 01/03/25 08:00 Temperature Pulse Rate 78 79 78 Respiratory Rate 16 Blood Pressure Pulse Oximetry 100 Oxygen Delivery Mechanical Ventilation Fraction of Inspired Oxygen 25 01/03/25 08:00 01/03/25 08:00 01/03/25 08:00 Temperature 98.0 F Pulse Rate 78 78 78 Respiratory Rate 16 Blood Pressure 111/73 111/73 Pulse Oximetry 98 Oxygen Delivery Fraction of Inspired Oxygen 01/03/25 08:00 01/03/25 08:00 01/03/25 08:51 Temperature Pulse Rate 77 Respiratory Rate 14 Blood Pressure Pulse Oximetry 98 Oxygen Delivery Mechanical Ventilation Fraction of Inspired Oxygen 25 01/03/25 08:51 01/03/25 10:00 01/03/25 10:00 Temperature Pulse Rate 77 89 89 Respiratory Rate 14 14 Blood Pressure 111/75 Pulse Oximetry Oxygen Delivery Fraction of Inspired Oxygen 01/03/25 10:00 01/03/25 10:00 01/03/25 10:40 Temperature Pulse Rate 89 89 85 Respiratory Rate 14 Blood Pressure 111/75 116/76 Pulse Oximetry 98 Oxygen Delivery Fraction of Inspired Oxygen 01/03/25 11:05 01/03/25 11:48 01/03/25 11:49 Temperature Pulse Rate 78 Respiratory Rate Blood Pressure Pulse Oximetry 100 98 Oxygen Delivery Mechanical Ventilation Mechanical Ventilation Fraction of Inspired Oxygen 25 25 25 01/03/25 12:00 01/03/25 12:00 01/03/25 12:00 Temperature Pulse Rate 78 78 82 Respiratory Rate 16 Blood Pressure 111/75 Pulse Oximetry Oxygen Delivery Fraction of Inspired Oxygen 01/03/25 12:00 Temperature 97.7 F Pulse Rate 78 Respiratory Rate 16 Blood Pressure 111/75 Pulse Oximetry 100 Oxygen Delivery Fraction of Inspired Oxygen Intake/Output Intake/Output: Intake & Output 12/31/24 01/01/25 01/02/25 01/03/25 23:59 23:59 23:59 23:59 Intake Total 2389.9 3063.1 2330.0 692.6 Output Total 1600 2000 1300 350 Balance 789.9 1063.1 1030.0 342.6 Meds/Results Medications: Active Medications Generic Name Dose Route Start Last Admin Trade Name Freq PRN Reason Stop Dose Admin Albuterol/Ipratropium 3 ml 12/28/24 21:13 12/29/24 02:41 Ipratropium 0.5 Mg/Albuterol Sulfate 2.5 Mg Ampul.Neb 3 Ml INHALATION 3 ml Q6HRT PRN Administration Shortness Of Breath Or Wheezing Bisacodyl 10 mg 12/30/24 09:00 01/03/25 08:51 Bisacodyl 10 Mg Suppository RECTAL 10 mg QAM DANI Administration Bumetanide 1 mg 01/02/25 10:15 01/03/25 08:51 Bumetanide Inj 1 Mg/4 Ml Vial IV PUSH 1 mg Q12HR DANI Administration Dextrose 12.5 gm 12/30/24 08:02 Dextrose 50% 25 Gm/50 Ml Syringe IV PUSH PRN PRN Hypoglycemia Protocol Docusate Sodium 100 mg 12/29/24 09:00 01/01/25 08:00 Docusate Sodium Liq 100 Mg/10 Ml Udc FEED TUBE 100 mg DAILY DANI Administration Enoxaparin Sodium 40 mg 12/30/24 09:00 01/03/25 08:52 Enoxaparin 40 Mg/0.4 Ml Syringe SUB-Q 40 mg QAM DANI Administration Fentanyl Citrate 25 mcg 12/29/24 15:33 01/02/25 01:32 Fentanyl Citrate Inj (*Crx) 100 Mcg/2 Ml Vial IV PUSH 25 mcg Q1H PRN Administration Pain while on vent Gabapentin 100 mg 12/29/24 06:00 01/02/25 05:10 Gabapentin 100 Mg Capsule FEED TUBE 100 mg Q8HR DANI Administration Glucagon 1 mg 12/30/24 08:02 Glucagon For Inj 1 Mg Vial IM PRN PRN Hypoglycemia Protocol Glucose 15 gm 12/30/24 08:02 Glucose Oral Gel 15 Gm Of Glucse In 37.5 Gm Tube PO PRN PRN Hypoglycemia Protocol Hydralazine HCl 10 mg 01/02/25 07:32 Hydralazine Hcl 20 Mg/Ml Vial IV PUSH Q4H PRN Blood Pressure - High Ceftriaxone Sodium 1 gm in 50 mls @ 100 mls/hr 12/29/24 09:00 01/03/25 09:30 Rocephin 1 Gm/Ns 50 Ml IVPB 01/05/25 08:59 Infused Q24H DANI Infusion Doxycycline Hyclate 100 mg in 100 mls @ 100 mls/hr 12/29/24 22:00 01/03/25 11:40 Vibramycin 100 Mg/Ns 100 Ml IVPB 01/03/25 21:59 Infused Q12H DANI Infusion Dexmedetomidine HCl 400 mcg in 100 mls @ 8.475 mls/hr 12/29/24 15:10 01/03/25 12:00 Precedex 400 Mcg/100 Ml IV CONT 0.6 mcg/kg/hr .[id number] DANI 8.48 mls/hr Titration Protocol 0.6 MCG/KG/HR Dextrose 1,000 mls @ 100 mls/hr 12/30/24 08:02 Dextrose 5% 1,000 Ml IVPB PRN PRN Hypoglycemia Protocol Valproate Sodium 250 mg/ 52.5 mls @ 52.5 mls/hr 01/02/25 12:00 01/03/25 12:53 Dextrose IVPB Infused Q6HR DANI Infusion Norepinephrine Bitartrate 8 mg in 250 mls @ 0 mls/hr 01/02/25 13:20 01/03/25 06:00 Levophed 8 Mg/D5w 250 Ml IV CONT 0 mcg/min .Q0M DANI 0 mls/hr Titration Protocol 0 MCG/MIN Dobutamine HCl/Dextrose 250 mg in 250 mls @ 9.915 mls/hr 01/03/25 10:30 01/03/25 12:00 Dobutamine 250 Mg/D5w 250 Ml IV CONT 2.5 mcg/kg/min .Q24H DANI 9.92 mls/hr Infusion 2.5 MCG/KG/MIN Insulin Aspart 2 - 5 units 12/30/24 12:00 01/03/25 11:56 Insulin Aspart (*Bkc) 100 Units/Ml SUB-Q Not Given Q6HR [facility] Protocol Lisinopril 10 mg 01/02/25 09:00 Lisinopril 10 Mg Tablet PO DAILY [facility] Metoprolol Tartrate 12.5 mg 01/02/25 09:00 Metoprolol Tartrate 12.5 Mg Tablet PO Q12HR [facility] Midazolam HCl 2 mg 12/29/24 15:10 01/02/25 10:39 Midazolam Hcl (*Crx) 2 Mg/2 Ml Vial IV PUSH 2 mg Q5M PRN Administration ventilator asynchrony Multi-Ingred Cream/Lotion/Oil/Oint 1 applic 12/29/24 21:00 01/03/25 08:53 Mineral Oil/White Petrolatum Ointment EACH EYE 1 applic Q12HR DANI Administration Pantoprazole Sodium 40 mg 12/29/24 15:15 01/03/25 08:51 Pantoprazole Sodium Iv 40 Mg Vial IV PUSH 40 mg QAM DANI Administration Polyethylene Glycol 17 gm 12/30/24 09:00 01/01/25 08:00 Polyethylene Glycol 3350 17 Gm Powd.Pack PO 17 gm QAM DANI Administration Radiology Results: ITS Impressions Venous Doppler Study 12/28/24 15:55 IMPRESSION: Negative left and right upper extremity venous US. No deep vein thrombosis. Chest/Abdomen/Pelvis CTA 12/29/24 14:43 IMPRESSION: 1. Extensive patchy airspace opacities throughout both lungs and favor severe congestive heart failure related pulmonary edema over pneumonia. 2. Small left and moderate sized right dependently layering pleural effusions with associated compressive atelectasis in the dependent lungs. 3. Cardiomegaly with enlargement of the central pulmonary consistent with pulmonary arterial hypertension. 4. Large amount of stool throughout the colon with 9.6 x 6.7 cm ball of stool t he rectum consistent with likely constipation with fecal impaction. 5. Hepatomegaly. Chest/Abdomen/Pelvis CT 01/02/25 10:10 IMPRESSION: 1. Significant improvement in previously moderate, now minimal pulmonary edema with unchanged small left and small to moderate-sized right pleural effusions. 2. Persistent large amount of stool in the distal colon suggestive of constipation with fluid consistent with diarrhea and the more proximal colon. 3. No change in position of a small foreign body correlating with the finding on the earlier KUB which is located along the luminal side of the posterior wall of the cecum which could represent either an ingested foreign body or a clip fixed to the wall given the lack of movement. Correlate with clinical/surgical history. Chest X-Ray 01/03/25 06:56 IMPRESSION: 1. Small to moderate-sized right and small left pleural effusions with associated atelectasis and/or pneumonia in the lower lung zones. Abdomen X-Ray 01/03/25 08:24 IMPRESSION: 1. Large amount of stool in the distal colon which can be seen with constipation. No free intraperineal gas or dilated bowel to suggest obstruction. 2. Small bilateral pleural effusions with associated basilar atelectasis and/or pneumonia. 3. Unchanged small foreign body projecting over the cecum Labs Labs: Laboratory Results - last 24 hr 01/02/25 01/02/25 01/03/25 13:52 18:36 00:26 WBC RBC Hgb Hct MCV MCH MCHC RDW Plt Count MPV Puncture Site ABG pH ABG pCO2 ABG pO2 ABG PO2/FiO2 Ratio ABG HCO3 ABG O2 Saturation ABG O2 Content ABG Base Excess A-a Gradient Oxyhemoglobin Carboxyhemoglobin Methemoglobin Reduced Hemoglobin Total Hemoglobin O2 Delivery Device O2 Liters/Min Minute Volume Vent Rate Vent Mode FiO2 Tidal Volume PEEP Peak Inspir Pressure Pressure Support Sodium Potassium Chloride Carbon Dioxide Anion Gap BUN Creatinine Estim Creat Clear Calc Estimated GFR Glucose POC Capillary Glucose 101 110 H Lactic Acid 1.2 Calcium Phosphorus Magnesium Total Bilirubin AST ALT Alkaline Phosphatase Total Protein Albumin 01/03/25 01/03/25 01/03/25 05:16 05:34 11:55 WBC 5.6 RBC 2.59 L Hgb 8.3 L Hct 27.4 L MCV 105.8 H MCH 32.0 MCHC 30.3 L RDW 15.0 H Plt Count 182 MPV 10.0 Puncture Site Right radial ABG pH 7.465 H ABG pCO2 31.7 L ABG pO2 76.0 L ABG PO2/FiO2 Ratio 3.04 ABG HCO3 22.3 ABG O2 Saturation 96.1 ABG O2 Content 12.1 L ABG Base Excess -1.0 A-a Gradient 64.6 Oxyhemoglobin 93.9 Carboxyhemoglobin 1.0 Methemoglobin 0.3 Reduced Hemoglobin 4.8 Total Hemoglobin 9.1 L O2 Delivery Device Ventilator O2 Liters/Min Not Reportable Minute Volume Not Reportable Vent Rate 14 Vent Mode Cmv FiO2 25 Tidal Volume 300 PEEP 8 Peak Inspir Pressure Not Reportable Pressure Support Not Reportable Sodium 142 Potassium 3.7 Chloride 111 H Carbon Dioxide 26 Anion Gap 5 BUN 25 H Creatinine 0.45 L Estim Creat Clear Calc 126 Estimated GFR > 60 Glucose 109 POC Capillary Glucose 102 Lactic Acid 0.8 Calcium 7.9 L Phosphorus 2.7 Magnesium 2.1 Total Bilirubin 0.6 AST 245 H ALT 536 H Alkaline Phosphatase 76 Total Protein 6.0 L Albumin 2.8 L Quality VTE Prophylaxis VTE prophylaxis: pharmacologic ordered
--- NOTE | 2025-01-03 14:35 | P.CONGS_ITS ---
Assessment and Plan Assessment and plan (1) Obstructive ileus of small intestine due to impaction: Code(s): K56.699 - Other intestinal obstruction unspecified as to partial versus complete obstruction; K56.49 - Other impaction of intestine Status: Acute Assessment and Plan: NG suction has helped with abdominal distension. Continue nasogastric tube to constant suction and follow serial imaging. (2) Fecal impaction: Code(s): K56.41 - Fecal impaction Status: Acute Assessment and Plan: Unable to give stool softeners per NG tube while patient has obstruction. Gastroenterology as ordered q.6 our soap suds enemas. Follow plain films for resolution of fecal impaction. (3) Acute hypoxemic respiratory failure: Code(s): J96.01 - Acute respiratory failure with hypoxia Status: Acute (4) Community acquired pneumonia: Qualifiers: Laterality: unspecified laterality Qualified Code(s): J18.9 - Pneumonia, unspecified organism Code(s): J18.9 - Pneumonia, unspecified organism Status: Acute (5) UTI (urinary tract infection): Code(s): N39.0 - Urinary tract infection, site not specified Status: Acute (6) Cardiomyopathy: Code(s): I42.9 - Cardiomyopathy, unspecified Status: Acute (7) Sepsis: Code(s): A41.9 - Sepsis, unspecified organism Status: Acute History of Present Illness Consult details Consult date: 01/03/25 Reason for consult: other (Fecal impaction, bowel obstruction) Requesting physician: Leticia Turk MD Narrative: Patient is a 59-year-old man with schizophrenia and seizures who presented to the emergency room about a week ago with severe shortness of breath thought to be due to congestive heart failure. He became more unstable and was intubated. He has been in the ICU intubated since then. He has grown Gram-positive cocci from his blood and is thought to have a urinary tract infection and likely pneumonia. Patient has become very distended and imaging shows evidence of small-bowel obstruction and a large fecal impaction. We were asked to see the patient regarding these abdominal findings. Review of Systems 2 Review of Systems: ROS unobtainable: Yes unobtainable due to endotracheal tube PMFSH Past Medical History Medical History History of jejunostomy tube placement Idiopathic progressive neuropathy History of CHF (congestive heart failure) History of epilepsy History of schizophrenia History of gastroesophageal reflux (GERD) Surgical History Surgical History Status post insertion of percutaneous endoscopic gastrostomy (PEG) tube Family History Family History Other Unknown family medical history Social History Social History Smoking status: Unknown if ever smoked Alcohol intake: unknown Substance use: unknown Spiritual care concerns: No Meds Home Medications and Allergies Home Medications ?Medication ?Instructions ?Recorded ?Confirmed ?Type bisacodyl 10 mg rectal suppository 10 mg RECTAL DAILY PRN constipation 12/28/24 12/28/24 History chlorpromazine 50 mg tablet 50 mg feeding tube Q8H 12/28/24 12/28/24 History cholecalciferol (vitamin D3) 25 25 mcg feeding tube DAILY 12/28/24 12/28/24 History mcg (1,000 unit) chewable tablet docusate sodium 50 mg/5 mL oral 100 mg feeding tube DAILY 12/28/24 12/28/24 History liquid folic acid 400 mcg tablet 400 mcg feeding tube DAILY 12/28/24 12/28/24 History gabapentin 100 mg capsule 100 mg feeding tube Q8H 12/28/24 12/28/24 History hydroxyzine HCl 10 mg tablet 10 mg feeding tube Q4H PRN dementia 12/28/24 12/28/24 History hydroxyzine HCl 10 mg/5 mL oral 10 mg feeding tube Q4H PRN anxiety 12/28/24 12/28/24 History solution lactulose 10 gram/15 mL oral 20 g feeding tube Q8H PRN 12/28/24 12/28/24 History solution constipation melatonin 5 mg tablet 5 mg feeding tube HS 12/28/24 12/28/24 History olanzapine 2.5 mg tablet 2.5 mg feeding tube BID 12/28/24 12/28/24 History polyethylene glycol 3350 17 gram 17 g feeding tube DAILY 12/28/24 12/28/24 History oral powder packet (Miralax) valproic acid (as sodium salt) 250 750 mg feeding tube BID 12/28/24 12/28/24 History mg/5 mL oral solution Allergies Allergy/AdvReac Type Severity Reaction Status Date / Time No Known Allergies Allergy Verified 12/28/24 14:53 Vital Signs Vital Signs - 24 hr 01/02/25 15:00 01/02/25 16:00 01/02/25 16:00 Temperature Pulse Rate 110 H 106 H 92 Respiratory Rate 17 Blood Pressure 127/81 Pulse Oximetry 100 Oxygen Delivery Mechanical Ventilation Fraction of Inspired Oxygen 25 01/02/25 16:00 01/02/25 16:00 01/02/25 16:00 Temperature Pulse Rate 110 H 94 Respiratory Rate 15 Blood Pressure 111/77 Pulse Oximetry Oxygen Delivery Fraction of Inspired Oxygen 25 01/02/25 17:06 01/02/25 17:20 01/02/25 17:20 Temperature Pulse Rate 91 116 H 116 H Respiratory Rate 19 19 Blood Pressure Pulse Oximetry 100 Oxygen Delivery Mechanical Ventilation Fraction of Inspired Oxygen 25 01/02/25 17:21 01/02/25 18:00 01/02/25 18:00 Temperature Pulse Rate 115 H 119 H 110 H Respiratory Rate 19 Blood Pressure 120/77 119/82 Pulse Oximetry 100 Oxygen Delivery Fraction of Inspired Oxygen 01/02/25 18:00 01/02/25 18:00 01/02/25 19:44 Temperature Pulse Rate 93 122 H 93 Respiratory Rate 17 Blood Pressure 121/82 Pulse Oximetry 100 Oxygen Delivery Mechanical Ventilation Fraction of Inspired Oxygen 25 01/02/25 19:47 01/02/25 20:00 01/02/25 20:00 Temperature Pulse Rate 92 91 Respiratory Rate 16 Blood Pressure 109/73 Pulse Oximetry 100 Oxygen Delivery Mechanical Ventilation Fraction of Inspired Oxygen 25 01/02/25 20:00 01/02/25 20:00 01/02/25 20:00 Temperature Pulse Rate 91 93 Respiratory Rate 19 Blood Pressure 109/73 Pulse Oximetry 100 Oxygen Delivery Mechanical Ventilation Fraction of Inspired Oxygen 25 25 01/02/25 20:00 01/02/25 20:00 01/02/25 20:46 Temperature 36.7 C Pulse Rate 93 94 90 Respiratory Rate 19 Blood Pressure 109/73 112/72 Pulse Oximetry 100 Oxygen Delivery Fraction of Inspired Oxygen 01/02/25 22:00 01/02/25 22:00 01/02/25 22:00 Temperature Pulse Rate 92 92 91 Respiratory Rate 16 16 Blood Pressure 111/72 Pulse Oximetry 100 Oxygen Delivery Fraction of Inspired Oxygen 01/02/25 22:00 01/02/25 22:00 01/02/25 23:01 Temperature Pulse Rate 91 92 88 Respiratory Rate Blood Pressure 111/72 111/72 Pulse Oximetry 100 Oxygen Delivery Mechanical Ventilation Fraction of Inspired Oxygen 25 01/02/25 23:52 01/02/25 23:52 01/03/25 00:00 Temperature Pulse Rate 84 84 84 Respiratory Rate 14 14 14 Blood Pressure Pulse Oximetry 99 Oxygen Delivery Mechanical Ventilation Fraction of Inspired Oxygen 01/03/25 00:00 01/03/25 00:00 01/03/25 00:00 Temperature 36.9 C Pulse Rate 85 85 Respiratory Rate 14 Blood Pressure 97/65 L Pulse Oximetry 100 Oxygen Delivery Fraction of Inspired Oxygen 01/03/25 00:01 01/03/25 00:01 01/03/25 00:01 Temperature Pulse Rate 85 85 85 Respiratory Rate 14 Blood Pressure 97/65 L 97/65 L Pulse Oximetry Oxygen Delivery Fraction of Inspired Oxygen 01/03/25 01:31 01/03/25 02:00 01/03/25 02:00 Temperature Pulse Rate 84 85 84 Respiratory Rate 14 Blood Pressure 101/67 Pulse Oximetry 99 100 Oxygen Delivery Mechanical Ventilation Fraction of Inspired Oxygen 01/03/25 02:00 01/03/25 02:00 01/03/25 02:00 Temperature Pulse Rate 84 84 84 Respiratory Rate 14 Blood Pressure 101/67 101/67 Pulse Oximetry Oxygen Delivery Fraction of Inspired Oxygen 01/03/25 03:16 01/03/25 03:18 01/03/25 04:00 Temperature 36.7 C Pulse Rate 84 84 Respiratory Rate 14 14 Blood Pressure 114/73 Pulse Oximetry 100 98 Oxygen Delivery Mechanical Ventilation Fraction of Inspired Oxygen 01/03/25 04:00 01/03/25 04:00 01/03/25 04:00 Temperature Pulse Rate 88 88 84 Respiratory Rate 14 Blood Pressure 114/73 114/73 Pulse Oximetry Oxygen Delivery Fraction of Inspired Oxygen 01/03/25 04:00 01/03/25 05:30 01/03/25 06:00 Temperature Pulse Rate 84 78 78 Respiratory Rate 15 Blood Pressure 109/73 Pulse Oximetry 100 99 Oxygen Delivery Mechanical Ventilation Fraction of Inspired Oxygen 01/03/25 06:00 01/03/25 06:00 01/03/25 06:00 Temperature Pulse Rate 78 78 78 Respiratory Rate 15 Blood Pressure 109/73 109/73 Pulse Oximetry Oxygen Delivery Fraction of Inspired Oxygen 01/03/25 06:00 01/03/25 07:41 01/03/25 08:00 Temperature Pulse Rate 78 79 78 Respiratory Rate 16 Blood Pressure Pulse Oximetry 100 Oxygen Delivery Mechanical Ventilation Fraction of Inspired Oxygen 25 01/03/25 08:00 01/03/25 08:00 01/03/25 08:00 Temperature 36.7 C Pulse Rate 78 78 78 Respiratory Rate 16 Blood Pressure 111/73 111/73 Pulse Oximetry 98 Oxygen Delivery Fraction of Inspired Oxygen 01/03/25 08:00 01/03/25 08:00 01/03/25 08:51 Temperature Pulse Rate 77 Respiratory Rate 14 Blood Pressure Pulse Oximetry 98 Oxygen Delivery Mechanical Ventilation Fraction of Inspired Oxygen 25 01/03/25 08:51 01/03/25 10:00 01/03/25 10:00 Temperature Pulse Rate 77 89 89 Respiratory Rate 14 14 Blood Pressure 111/75 Pulse Oximetry Oxygen Delivery Fraction of Inspired Oxygen 01/03/25 10:00 01/03/25 10:00 01/03/25 10:40 Temperature Pulse Rate 89 89 85 Respiratory Rate 14 Blood Pressure 111/75 116/76 Pulse Oximetry 98 Oxygen Delivery Fraction of Inspired Oxygen 01/03/25 11:05 01/03/25 11:48 01/03/25 11:49 Temperature Pulse Rate 78 Respiratory Rate Blood Pressure Pulse Oximetry 100 98 Oxygen Delivery Mechanical Ventilation Mechanical Ventilation Fraction of Inspired Oxygen 25 25 25 01/03/25 12:00 01/03/25 12:00 01/03/25 12:00 Temperature Pulse Rate 78 78 82 Respiratory Rate 16 Blood Pressure 111/75 Pulse Oximetry Oxygen Delivery Fraction of Inspired Oxygen 01/03/25 12:00 Temperature 36.5 C Pulse Rate 78 Respiratory Rate 16 Blood Pressure 111/75 Pulse Oximetry 100 Oxygen Delivery Fraction of Inspired Oxygen Exam 2 Const: General: comfortable and other (Intubated on ventilator) Resp: Effort & Inspection: other (On mechanical ventilator) Auscultation: r honchi Cardio: Rate: tachycardic Rhythm: regular rhythm GI: Inspection: distended and scar GI Palp: Yes Soft to palpation, Yes Tenderness to palpation present (GI) (Minimal appreciable tenderness), No Hernia present and No Palpable mass present Auscultation: absent bowel sounds Urinary Catheter: Urinary Catheter: patent and draining Skin: Lesions: no lesions Rashes: no rashes Results Labs 01/03/25 05:16 01/03/25 05:16 Labs: Abnormal lab results 01/03/25 01/03/25 01/03/25 Range/Units 00:26 05:16 05:34 RBC 2.59 L (4.6-6.20) M/mm3 Hgb 8.3 L (14.0-18.0) g/dL Hct 27.4 L (42.0-52.0) % MCV 105.8 H (80-100) fl MCHC 30.3 L (32-36) g/dl RDW 15.0 H (11.5-14.5) % ABG pH 7.465 H (7.350-7.450) ABG pCO2 31.7 L (35.0-45.0) mmHg ABG pO2 76.0 L (80.0-100.0) mmHg ABG O2 Content 12.1 L (16.0-22.0) %vol Total Hemoglobin 9.1 L (12.0-18.0) g/dL Chloride 111 H (98-107) mmol/L BUN 25 H (9-20) mg/dL Creatinine 0.45 L (0.7-1.3) mg/dL POC Capillary Glucose 110 H (65-105) mg/dl Calcium 7.9 L (8.4-10.2) mg/dL AST 245 H (17-59) U/L ALT 536 H (6-50) U/L Total Protein 6.0 L (6.3-8.2) g/dL Albumin 2.8 L (3.5-5.1) g/dL Diabetes panel 01/03/25 Range/Units 05:16 Sodium 142 (137-145) mmol/L Potassium 3.7 (3.4-5.0) mmol/L Chloride 111 H (98-107) mmol/L Carbon Dioxide 26 (22-30) mmol/L BUN 25 H (9-20) mg/dL Creatinine 0.45 L (0.7-1.3) mg/dL Glucose 109 (65-110) mg/dL Calcium 7.9 L (8.4-10.2) mg/dL AST 245 H (17-59) U/L ALT 536 H (6-50) U/L Alkaline Phosphatase 76 (38-126) U/L Total Protein 6.0 L (6.3-8.2) g/dL Albumin 2.8 L (3.5-5.1) g/dL Calcium panel 01/03/25 Range/Units 05:16 Calcium 7.9 L (8.4-10.2) mg/dL Phosphorus 2.7 (2.5-4.5) mg/dL Albumin 2.8 L (3.5-5.1) g/dL Pituitary panel 01/03/25 Range/Units 05:16 Sodium 142 (137-145) mmol/L Potassium 3.7 (3.4-5.0) mmol/L Chloride 111 H (98-107) mmol/L Carbon Dioxide 26 (22-30) mmol/L BUN 25 H (9-20) mg/dL Creatinine 0.45 L (0.7-1.3) mg/dL Glucose 109 (65-110) mg/dL Calcium 7.9 L (8.4-10.2) mg/dL Adrenal panel 01/03/25 Range/Units 05:16 Sodium 142 (137-145) mmol/L Potassium 3.7 (3.4-5.0) mmol/L Chloride 111 H (98-107) mmol/L Carbon Dioxide 26 (22-30) mmol/L BUN 25 H (9-20) mg/dL Creatinine 0.45 L (0.7-1.3) mg/dL Glucose 109 (65-110) mg/dL Calcium 7.9 L (8.4-10.2) mg/dL Total Bilirubin 0.6 (0.2-1.3) mg/dL AST 245 H (17-59) U/L ALT 536 H (6-50) U/L Alkaline Phosphatase 76 (38-126) U/L Total Protein 6.0 L (6.3-8.2) g/dL Albumin 2.8 L (3.5-5.1) g/dL All other labs normal.
[2025-01-03 19:18] LABS: Glucose Point of Care 89 mg/dl (65-105)
[2025-01-03] MEDS: dexmedeTOMIDine 400 MCG/100 ML 400 MCG/100 ML BAG 11.3 MCG IV CONT (20:37)
[2025-01-04] VITALS (47 sets, daily range): BP systolic 96–115; BP diastolic 61–78; PULSE 78–105; RESP 10–25; TEMP 35.7–36.7; O2SAT 96–100
[2025-01-04] MEDS: VALPROATE SODIUM INJ 250 MG in DEXTROSE 5% IN WATER 50 ML 52.5 MG IVPB ×4 (00:31→17:07)
[2025-01-04 00:38] LABS: Glucose Point of Care 107 mg/dl (65-105)
[2025-01-04] MEDS: dexmedeTOMIDine 400 MCG/100 ML 400 MCG/100 ML BAG 11.3 MCG IV CONT (05:23)
[2025-01-04 05:26] LABS: Alveolar/Arterial O2 Gradient 57.2 mmHg; Base Excess ABG 1.2 mEq/l (+/-2.0); Fractional Inspired Oxygen 25 %; HCO3 ABG 24.7 mEq/l (22.0-26.0); Methemoglobin ABG 0.1 %THb (0-1.5); Oxygen Content ABG 12.8 %vol (16.0-22.0); Oxygen Saturation ABG 96.5 % (95.0-100.0); Oxyhemoglobin 94.8 % THb (90.0-100.0); PCO2 ABG 34.7 mmHg (35.0-45.0); PO2 ABG 79.8 mmHg (80.0-100.0); PO2 FiO2 Ratio Arterial Blood 3.19 %; Reduced Hemoglobin 4.1 %THb (0-5.0); Total Hemoglobin 9.5 g/dL (12.0-18.0)
[2025-01-04 05:27] LABS: Device VENTILATOR; Modified Allen's Test Pass; Site Drawn RIGHT RADIAL
[2025-01-04 05:28] LABS: Arterial Blood Gas PEEP 8 cmH2O; Arterial Blood Gas Tidal Volume 300 ml; Arterial Blood Gas Vent Mode CMV; Arterial Blood Gas Ventilator rate 14 /MIN
[2025-01-04 05:34] LABS: Alanine Aminotransferase 422 U/L (6-50); Albumin Level 2.9 g/dL (3.5-5.1); Alkaline Phosphatase 74 U/L (38-126); Anion Gap 5 mmol/L (4-12); Aspartate Amino Transferase 166 U/L (17-59); Bilirubin,Total 0.5 mg/dL (0.2-1.3); Blood Urea Nitrogen 21 mg/dL (9-20); Calcium 8.1 mg/dL (8.4-10.2); Carbon Dioxide 27 mmol/L (22-30); Chloride 110 mmol/L (98-107); Estimated CRCL calculation 126 ml/min; Estimated Glomerular Filt Rate > 60; Glucose 93 mg/dL (65-110); Magnesium 2.1 mg/dL (1.6-2.3); Phosphorus 2.9 mg/dL (2.5-4.5); Potassium 3.3 mmol/L (3.4-5.0); Sodium 142 mmol/L (137-145)
[2025-01-04 06:09] LABS: Basophils Percent Auto 0.2 % (0.2-1.2); Eosinophils Absolute Auto 0.1 K/mm3 (0-0.3); Hemoglobin 10.2 g/dL (14.0-18.0); Immature Granulocyte Absolute 0.03 K/mm3 (0.00-0.031); Immature Granulocyte Percent A 0.6 % (0-0.5); Lymphocytes Absolute Auto 0.71 K/mm3 (0.9-3.2); Lymphocytes Percent Auto 13.6 % (18.3-44.2); Mean Corpuscular HGB Conc 30.9 g/dl (32-36); Mean Corpuscular Hemoglobin 32.1 pg (26-34); Mean Corpuscular Volume 103.8 fl (80-100); Mean Platelet Volume 11.2 fl (7.4-10.4); Monocytes Absolute Auto 0.6 K/mm3 (0.1-0.6); Monocytes Percent Auto 11.7 % (2.6-8.5); Neutrophils Absolute Auto 3.8 K/mm3 (1.3-6.7); Neutrophils Percent Auto 72.9 % (45.5-73.1); Platelet Count Result 144 k/mm3 (150-375); Red Blood Count 3.18 M/mm3 (4.6-6.20); Red Cell Distribution Width 15.4 % (11.5-14.5); White Blood Count 5.2 K/mm3 (4.5-10.0)
[2025-01-04] MEDS: POTASSIUM CHLORIDE 20 MEQ PACKET (FOR LIQUID) 40 MEQ FEED TUBE (07:56)
[2025-01-04] MEDS: KCL 40 MEQ/WATER 100 ML 100 ML 25 ML IVPB ×2 (07:56→14:56)
[2025-01-04] MEDS: PANTOPRAZOLE SODIUM IV 40 MG VIAL IV PUSH (08:02)
[2025-01-04] MEDS: FUROSEMIDE INJ 40 MG/4 ML VIAL IV PUSH ×2 (08:02→17:07)
[2025-01-04] MEDS: ENOXAPARIN 40 MG/0.4 ML SYRINGE SUB-Q (08:03)
[2025-01-04] MEDS: MINERAL OIL/WHITE PETROLATUM OINTMENT 1 APPLIC EACH EYE ×2 (08:04→20:17)
--- NOTE | 2025-01-04 09:03 | WPDINTPN ---
Progress Note: A&P Assessment and Plan (1) Obstructive ileus of small intestine due to impaction: Code(s): K56.699 - Other intestinal obstruction unspecified as to partial versus complete obstruction; K56.49 - Other impaction of intestine Status: Acute Assessment and Plan: Abdominal distension, obstructive series dilated small bowel and colon with large amounts of fecal impaction in the distal colon and rectum, consistent with obstruction. Residual catheter fragment present in the abdomen consider correlation with CT -NG tube was inserted on 01/02 -appreciate surgery evaluation -discussed with GI, started patient on soapsuds enema q.6 hours on 01/02 01/03: Patient has had multiple multiple bowel movements with soapsuds enema, discussed with GI, will continue them as as KUB this morning continues to show large amount of stool in the distal colon. No free intraperitoneal gas or dilated bowel to suggest obstruction 01/04: Patient is not having much response to enemas, discussed with GI, will start MiraLax 17 g Q 4 hours per G-tube, GI also wants to continue with the enemas, check obstructive series today 01/02: CT scan of the abdomen and pelvis IMPRESSION: 1. Significant improvement in previously moderate, now minimal pulmonary edema with unchanged small left and small to moderate-sized right pleural effusions. 2. Persistent large amount of stool in the distal colon suggestive of constipation with fluid consistent with diarrhea and the more proximal colon. 3. No change in position of a small foreign body correlating with the finding on the earlier KUB which is located along the luminal side of the posterior wall of the cecum which could represent either an ingested foreign body or a clip fixed to the wall given the lack of movement. Correlate with clinical/surgical history. (2) Acute hypoxemic respiratory failure: Code(s): J96.01 - Acute respiratory failure with hypoxia Status: Acute Assessment and Plan: Acute hypoxic respiratory failure likely secondary to congestive heart failure, cardiomyopathy, pulmonary edema, possible pneumonia, pleural effusion -12/29: patient was in the intermediate Unit, was tachycardic, tachypneic, hemodynamic instability, patient was transferred to ICU and emergently intubated after discussion with patient's sister. -12/29/2024: Intubated in the ICU -Chest x-ray and ABGs reviewed, ventilator adjusted -continue Diuril and monitor urine output - management of pneumonia as below -bronchodilator p.r.n. -01/04: Placed patient on spontaneous breathing trial, did not tolerate as is respiratory rate was very low, low tidal volumes and low minute ventilation, so switch the mode to ASV, tolerating well -sedated with Precedex infusion, his eyes, does not follow commands. Looks comfortable, patient is nonverbal at baseline -have asked the bedside RN to decrease Precedex infusion (3) Cardiomyopathy: Code(s): I42.9 - Cardiomyopathy, unspecified Status: Acute Assessment and Plan: patient does have history of congestive heart failure. Now cardiomyopathy with EF of 15-20% -appreciate cardiology following the base -restarted dobutamine on 01/02 after it was briefly discontinued to see how the patient would do without dobutamine. He dropped his blood pressure is significantly dobutamine was restarted for inotropic support, he was on Levophed for brief period of time which is currently off -patient to be started on guideline directed medical therapy once of dobutamine and more stable -p.r.n. hydralazine for elevated blood pressure -continue diuresis with Lasix -chest x-ray improving 12/29 echocardiogram showed Summary 1. The left ventricle is mildly dilated with severely reduced systolic function. There is mild eccentric left ventricular hypertrophy. The left ventricular ejection fraction is visually estimated to be 15-20%. There is no left ventricular thrombus. 2. The right ventricle is normal in size with reduced systolic function. 3. The left atrium is severely dilated. 4. The aortic valve is trileaflet and thickened. The right coronary cusp is calcified and restricted. There is no hemodynamically significant stenosis. There is moderate aortic regurgitation. 5. The mitral valve leaflets are thickened but opens well. There is mild mitral regurgitation. 6. The tricuspid valve leaflets are sclerotic but opens well. There is moderate tricuspid regurgitation. There is moderate hypertension. The PASP is estimated to be 60 mmHg. 7. Dilated inferior vena cava with <50% collapse upon inspiration consistent with significantly elevated right atrial pressure, 15 mmHg. 8. There is left-sided pleural effusion (4) CHF exacerbation: Qualifiers: Heart failure type: unspecified Qualified Code(s): I50.9 - Heart failure, unspecified Code(s): I50.9 - Heart failure, unspecified Status: Acute Assessment and Plan: Continue treatment as above (5) Sepsis: Code(s): A41.9 - Sepsis, unspecified organism Status: Acute Assessment and Plan: Patient does have UTI and may have pneumonia. Possible community-acquired or aspiration - elevated lactic acid can be secondary to sepsis or cardiogenic -procalcitonin was intermediate at 0.3 - blood culture 1/2 growing Staph hominis which is likely contaminant - discontinue vancomycin - continue Rocephin doxycycline and Flagyl for total of 5 days -urine cultures negative -sputum cultures pending 01/02: Patient was hypotensive requiring Levophed after his dobutamine was discontinued. Dobutamine was restarted -patient currently off Levophed (6) UTI (urinary tract infection): Code(s): N39.0 - Urinary tract infection, site not specified Status: Acute Assessment and Plan: Urine cultures are negative (7) Community acquired pneumonia: Qualifiers: Laterality: unspecified laterality Qualified Code(s): J18.9 - Pneumonia, unspecified organism Code(s): J18.9 - Pneumonia, unspecified organism Status: Acute Assessment and Plan: Treatment as above (8) Seizures: Code(s): R56.9 - Unspecified convulsions Status: Acute Assessment and Plan: continue valproic acid -hold gabapentin as patient has gabapentin bowel obstruct (9) Tachycardia: Code(s): R00.0 - Tachycardia, unspecified Status: Acute Assessment and Plan: tachycardia secondary to cardiomyopathy, respiratory failure and possibly sepsis improved after intubation and sedation (10) Swelling of right upper extremity: Code(s): M79.89 - Other specified soft tissue disorders Status: Acute Assessment and Plan: right upper extremity venous Dopplers were negative for DVT -elevate right upper extremity on pillows further evaluation and testing deferred at this time. Plan to diurese and achieve euvolemia possible at this time (11) Constipation: Qualifiers: Constipation type: chronic idiopathic constipation Qualified Code(s): K59.04 - Chronic idiopathic constipation Code(s): K59.00 - Constipation, unspecified Status: Acute Assessment and Plan: Patient on bowel regimen currently on hold as patient has obstruction -GI follow-up -appreciate GI evaluation, -treatment as above (12) Fecal impaction: Code(s): K56.41 - Fecal impaction Status: Acute Assessment and Plan: 01/01: Obstructive series showed fecal impaction and bowel obstruction -CT abdomen and pelvis as above -treatment as above (13) Elevated LFTs: Code(s): R79.89 - Other specified abnormal findings of blood chemistry Status: Acute Assessment and Plan: elevated LFTs likely secondary to shock liver and possible hepatic congestion, cardiogenic shock. -LFTs improving -continue to monitor (14) Electrolyte abnormality: Code(s): E87.8 - Other disorders of electrolyte and fluid balance, not elsewhere classified Status: Acute Assessment and Plan: Replace potassium Plan DVT prophylaxis - Lovenox Stress ulcer prophylaxis - Protonix Nutrition -continue to hold tube feeds for now due to severe constipation and ileus Code Status - full code. 12/29 I had extensive discussion with patient's sister by phone. I updated her with patient's current status which involves respiratory failure, sepsis, cardiomyopathy. I also discussed goals of care. Patient's sister appears on informed of patient's medical problems and unrealistic of prognosis. She wants patient to be full code at this time. Patient was hence intubated and placed on mechanical ventilation. 01/02: I had an discussion with patient's sister on the phone and explained to her patient's condition and plan of care. She is aware that he has respiratory failure, severe heart failure, I also told her that he has fecal impaction, ileus/bowel obstruction. Patient's daughter stated that he would want everything to be done at this time including CPR. She is going to be coming on Thursday 01/04 to see him, I discussed with her code status, she said she will think about it and get back to me Total Critical Care Time - 33 minutes Due to a high probability of clinically significant, life threatening deterioration, the patient required my highest level of preparedness to intervene emergently and I personally spent this critical care time directly and personally managing the patient. This critical care time included obtaining a history; examining the patient; pulse oximetry; ordering and review of studies; arranging urgent treatment with development of a management plan; evaluation of patient's response to treatment; frequent reassessment; and discussions with other providers. It was exclusive of separately billable procedures and treating other patients and teaching time. Please see Assessment and Plan section and the rest of the note for further information on patient assessment and treatment Subjective Date/time seen: 01/04/25 09:03 Interval history: Reason for visit: CHF exacerbate, acute respiratory failure requiring intubation on 12/29/2024, pneumonia, UTI, cardiomyopathy HPI: 59-year-old man with schizophrenia, seizures, heart failure with unknown systolic function, who is nonverbal with a G-tube transfer from skilled nursing due to respiratory distress. 01/04/2025: Patient seen and examined the ICU. Remains intubated on CMV mode of ventilation, peep of 8, 25% FiO2. Sedated with Precedex infusion. Patient opens eyes but does not follow simple commands. Urine output has been adequate in response to diuresis. Patient is afebrile, hemodynamically stable, remains on dobutamine infusion at 2.5 mcg/kg/min. Not much response any more to the enemas -NG tube remains to suction Review of Systems Review of Systems: ROS unobtainable: Yes unobtainable due to endotracheal tube, unobtainable due to medical condition and unobtainable due to mental status Exam Narrative: General: Intubated, on Precedex, opens his eyes, in no acute distress HEENT: Pupils equal and reactive, sclera is clear, ETT in place Lungs/Chest: Coarse breath sounds bilaterally, rales RT > LT, no wheezing Cardiac: S1-S2 normal, regular rate and rhythm, Circulation: Pedal pulses are intact and symmetrical. Abdomen: Abdominal more soft, tympanic to percussion, nontender, hypoactive bowel sounds. G-tube in place Extremities: he has left mid tarsal amputation, he has a signed off bone injury on his right hand with looks like a graft, : Burdick in place Neurologic: Intubated, on Precedex, opens his eyes, does not follow simple commands. Skin: he has a large sternotomy incision scar in the midline of his chest. Objective Data Vital Signs Vital Signs: Vital Signs - 24 hr 01/03/25 10:00 01/03/25 10:00 01/03/25 10:00 Temperature Pulse Rate 89 89 89 Respiratory Rate 14 14 Blood Pressure 111/75 111/75 Pulse Oximetry 98 Oxygen Delivery Fraction of Inspired Oxygen 01/03/25 10:00 01/03/25 10:00 01/03/25 10:40 Temperature Pulse Rate 89 89 85 Respiratory Rate Blood Pressure 111/75 116/76 Pulse Oximetry Oxygen Delivery Fraction of Inspired Oxygen 01/03/25 11:05 01/03/25 11:48 01/03/25 11:49 Temperature Pulse Rate 78 Respiratory Rate Blood Pressure Pulse Oximetry 100 98 Oxygen Delivery Mechanical Ventilation Mechanical Ventilation Fraction of Inspired Oxygen 25 25 25 01/03/25 12:00 01/03/25 12:00 01/03/25 12:00 Temperature Pulse Rate 78 78 82 Respiratory Rate 16 Blood Pressure 111/75 Pulse Oximetry Oxygen Delivery Fraction of Inspired Oxygen 01/03/25 12:00 01/03/25 12:00 01/03/25 14:00 Temperature 97.7 F Pulse Rate 78 78 86 Respiratory Rate 16 Blood Pressure 111/75 111/75 Pulse Oximetry 100 Oxygen Delivery Fraction of Inspired Oxygen 01/03/25 14:00 01/03/25 14:00 01/03/25 14:00 Temperature Pulse Rate 86 86 86 Respiratory Rate 20 20 Blood Pressure 129/78 129/78 Pulse Oximetry 100 Oxygen Delivery Fraction of Inspired Oxygen 01/03/25 14:00 01/03/25 14:44 01/03/25 15:54 Temperature Pulse Rate 86 89 Respiratory Rate Blood Pressure 129/78 Pulse Oximetry 99 98 Oxygen Delivery Mechanical Ventilation Mechanical Ventilation Fraction of Inspired Oxygen 25 25 01/03/25 15:55 01/03/25 16:00 01/03/25 16:00 Temperature 97.9 F Pulse Rate 92 89 Respiratory Rate 18 Blood Pressure 113/83 Pulse Oximetry 98 Oxygen Delivery Fraction of Inspired Oxygen 25 01/03/25 16:00 01/03/25 16:00 01/03/25 16:00 Temperature Pulse Rate 89 89 89 Respiratory Rate 18 Blood Pressure 113/83 113/83 Pulse Oximetry Oxygen Delivery Fraction of Inspired Oxygen 01/03/25 17:42 01/03/25 18:00 01/03/25 18:00 Temperature Pulse Rate 85 90 90 Respiratory Rate 20 Blood Pressure 105/61 Pulse Oximetry 99 Oxygen Delivery Mechanical Ventilation Fraction of Inspired Oxygen 25 01/03/25 18:00 01/03/25 18:00 01/03/25 18:00 Temperature Pulse Rate 90 90 90 Respiratory Rate 20 Blood Pressure 105/61 105/61 Pulse Oximetry 100 Oxygen Delivery Fraction of Inspired Oxygen 01/03/25 19:24 01/03/25 19:58 01/03/25 20:00 Temperature Pulse Rate 81 79 81 Respiratory Rate 15 16 Blood Pressure 103/67 Pulse Oximetry 100 Oxygen Delivery Fraction of Inspired Oxygen 01/03/25 20:00 01/03/25 20:00 01/03/25 20:00 Temperature Pulse Rate 81 Respiratory Rate 15 Blood Pressure 103/67 Pulse Oximetry 99 99 Oxygen Delivery Fraction of Inspired Oxygen 01/03/25 20:00 01/03/25 20:15 01/03/25 20:37 Temperature Pulse Rate 80 79 79 Respiratory Rate 16 Blood Pressure Pulse Oximetry 98 Oxygen Delivery Mechanical Ventilation Fraction of Inspired Oxygen 01/03/25 21:57 01/03/25 22:00 01/03/25 22:00 Temperature Pulse Rate 79 79 79 Respiratory Rate 16 15 Blood Pressure 109/86 Pulse Oximetry 100 Oxygen Delivery Fraction of Inspired Oxygen 01/03/25 22:00 01/03/25 22:00 01/03/25 22:00 Temperature 96.2 F L Pulse Rate 79 79 79 Respiratory Rate 15 Blood Pressure 109/86 Pulse Oximetry 100 Oxygen Delivery Fraction of Inspired Oxygen 01/03/25 22:00 01/03/25 22:01 01/03/25 22:15 Temperature Pulse Rate 79 80 78 Respiratory Rate 15 16 19 Blood Pressure 109/86 Pulse Oximetry 100 100 100 Oxygen Delivery Fraction of Inspired Oxygen 01/03/25 22:30 01/03/25 22:45 01/03/25 22:59 Temperature Pulse Rate 79 86 80 Respiratory Rate 14 17 Blood Pressure Pulse Oximetry 97 98 98 Oxygen Delivery Mechanical Ventilation Fraction of Inspired Oxygen 01/03/25 23:00 01/03/25 23:01 01/03/25 23:15 Temperature Pulse Rate 79 80 79 Respiratory Rate 16 18 17 Blood Pressure 103/74 Pulse Oximetry 98 99 99 Oxygen Delivery Fraction of Inspired Oxygen 01/03/25 23:30 01/03/25 23:45 01/04/25 00:00 Temperature Pulse Rate 80 83 81 Respiratory Rate 16 18 Blood Pressure Pulse Oximetry 100 100 Oxygen Delivery Fraction of Inspired Oxygen 01/04/25 00:00 01/04/25 00:00 01/04/25 00:00 Temperature Pulse Rate 79 Respiratory Rate 14 Blood Pressure Pulse Oximetry 100 Oxygen Delivery Mechanical Ventilation Fraction of Inspired Oxygen 01/04/25 00:00 01/04/25 00:00 01/04/25 00:00 Temperature 96.2 F L Pulse Rate 81 81 84 Respiratory Rate 20 19 Blood Pressure 113/65 113/65 Pulse Oximetry 100 99 Oxygen Delivery Fraction of Inspired Oxygen 01/04/25 00:01 01/04/25 00:15 01/04/25 00:30 Temperature Pulse Rate 78 81 79 Respiratory Rate 22 H 19 14 Blood Pressure 113/65 Pulse Oximetry 99 99 99 Oxygen Delivery Fraction of Inspired Oxygen 01/04/25 00:45 01/04/25 01:00 01/04/25 01:01 Temperature Pulse Rate 79 79 82 Respiratory Rate 15 15 15 Blood Pressure 96/70 L Pulse Oximetry 99 100 100 Oxygen Delivery Fraction of Inspired Oxygen 01/04/25 01:15 01/04/25 01:15 01/04/25 01:30 Temperature 97.6 F Pulse Rate 82 82 Respiratory Rate 17 15 Blood Pressure Pulse Oximetry 99 97 Oxygen Delivery Fraction of Inspired Oxygen 01/04/25 01:45 01/04/25 01:52 01/04/25 02:00 Temperature Pulse Rate 80 79 81 Respiratory Rate 18 Blood Pressure Pulse Oximetry 96 97 Oxygen Delivery Mechanical Ventilation Fraction of Inspired Oxygen 01/04/25 02:00 01/04/25 02:00 01/04/25 02:00 Temperature Pulse Rate 81 81 81 Respiratory Rate 15 15 Blood Pressure 108/73 108/73 Pulse Oximetry 97 Oxygen Delivery Fraction of Inspired Oxygen 01/04/25 02:00 01/04/25 02:01 01/04/25 02:15 Temperature Pulse Rate 82 78 83 Respiratory Rate 16 16 14 Blood Pressure 108/73 Pulse Oximetry 97 97 97 Oxygen Delivery Fraction of Inspired Oxygen 01/04/25 03:37 01/04/25 04:00 01/04/25 04:00 Temperature Pulse Rate 81 Respiratory Rate Blood Pressure Pulse Oximetry 100 Oxygen Delivery Mechanical Ventilation Fraction of Inspired Oxygen 01/04/25 04:00 01/04/25 04:00 01/04/25 04:00 Temperature 97.5 F L Pulse Rate 81 81 81 Respiratory Rate 16 16 Blood Pressure 112/72 112/72 Pulse Oximetry 100 Oxygen Delivery Fraction of Inspired Oxygen 01/04/25 05:18 01/04/25 05:23 01/04/25 05:23 Temperature Pulse Rate 97 98 98 Respiratory Rate 16 16 Blood Pressure Pulse Oximetry 100 Oxygen Delivery Mechanical Ventilation Fraction of Inspired Oxygen 25 01/04/25 06:00 01/04/25 06:00 01/04/25 06:18 Temperature Pulse Rate 96 96 96 Respiratory Rate 14 14 Blood Pressure 115/78 Pulse Oximetry 100 Oxygen Delivery Fraction of Inspired Oxygen 01/04/25 06:19 01/04/25 07:50 01/04/25 08:00 Temperature 97.7 F Pulse Rate 95 101 H 101 H Respiratory Rate 18 14 Blood Pressure 115/78 110/74 Pulse Oximetry 99 Oxygen Delivery Fraction of Inspired Oxygen 01/04/25 08:03 01/04/25 08:24 Temperature Pulse Rate 99 104 H Respiratory Rate 12 Blood Pressure Pulse Oximetry 100 Oxygen Delivery Mechanical Ventilation Fraction of Inspired Oxygen 25 Intake/Output Intake/Output: Intake & Output 01/01/25 01/02/25 01/03/25 01/04/25 23:59 23:59 23:59 23:59 Intake Total 3063.1 2330.0 932.9 312.4 Output Total 1999 1300 1600 875 Balance 1063.1 1030.0 -667.1 -562.6 Meds/Results Medications: Active Medications Generic Name Dose Route Start Last Admin Trade Name Freq PRN Reason Stop Dose Admin Albuterol/Ipratropium 3 ml 12/28/24 21:13 12/29/24 02:41 Ipratropium 0.5 Mg/Albuterol Sulfate 2.5 Mg Ampul.Neb 3 Ml INHALATION 3 ml Q6HRT PRN Administration Shortness Of Breath Or Wheezing Dextrose 12.5 gm 12/30/24 08:02 Dextrose 50% 25 Gm/50 Ml Syringe IV PUSH PRN PRN Hypoglycemia Protocol Docusate Sodium 100 mg 12/29/24 09:00 01/01/25 08:00 Docusate Sodium Liq 100 Mg/10 Ml Udc FEED TUBE 100 mg DAILY DANI Administration Enoxaparin Sodium 40 mg 12/30/24 09:00 01/04/25 08:03 Enoxaparin 40 Mg/0.4 Ml Syringe SUB-Q 40 mg QAM DANI Administration Fentanyl Citrate 25 mcg 12/29/24 15:33 01/02/25 01:32 Fentanyl Citrate Inj (*Crx) 100 Mcg/2 Ml Vial IV PUSH 25 mcg Q1H PRN Administration Pain while on vent Furosemide 40 mg 01/04/25 09:00 01/04/25 08:02 Furosemide Inj 40 Mg/4 Ml Vial IV PUSH 40 mg BID DANI Administration Gabapentin 100 mg 12/29/24 06:00 01/02/25 05:10 Gabapentin 100 Mg Capsule FEED TUBE 100 mg Q8HR DANI Administration Glucagon 1 mg 12/30/24 08:02 Glucagon For Inj 1 Mg Vial IM PRN PRN Hypoglycemia Protocol Glucose 15 gm 12/30/24 08:02 Glucose Oral Gel 15 Gm Of Glucse In 37.5 Gm Tube PO PRN PRN Hypoglycemia Protocol Hydralazine HCl 10 mg 01/02/25 07:32 Hydralazine Hcl 20 Mg/Ml Vial IV PUSH Q4H PRN Blood Pressure - High Ceftriaxone Sodium 1 gm in 50 mls @ 100 mls/hr 12/29/24 09:00 01/04/25 08:03 Rocephin 1 Gm/Ns 50 Ml IVPB 01/05/25 08:59 100 mls/hr Q24H DANI Administration Dexmedetomidine HCl 400 mcg in 100 mls @ 8.475 mls/hr 12/29/24 15:10 01/04/25 08:24 Precedex 400 Mcg/100 Ml IV CONT 0.6 mcg/kg/hr .[id number] DANI 8.48 mls/hr Titration Protocol 0.6 MCG/KG/HR Dextrose 1,000 mls @ 100 mls/hr 12/30/24 08:02 Dextrose 5% 1,000 Ml IVPB PRN PRN Hypoglycemia Protocol Valproate Sodium 250 mg/ 52.5 mls @ 52.5 mls/hr 01/02/25 12:00 01/04/25 05:24 Dextrose IVPB 52.5 mls/hr Q6HR DANI Administration Norepinephrine Bitartrate 8 mg in 250 mls @ 0 mls/hr 01/02/25 13:20 01/03/25 18:00 Levophed 8 Mg/D5w 250 Ml IV CONT 0 mcg/min .Q0M DANI 0 mls/hr Titration Protocol 0 MCG/MIN Dobutamine HCl/Dextrose 250 mg in 250 mls @ 9.915 mls/hr 01/03/25 10:30 01/04/25 06:19 Dobutamine 250 Mg/D5w 250 Ml IV CONT 2.5 mcg/kg/min .Q24H DANI 9.92 mls/hr Infusion 2.5 MCG/KG/MIN Potassium Chloride 100 mls @ 25 mls/hr 01/04/25 07:50 01/04/25 07:56 Kcl 40 Meq/Water 100 Ml IVPB 01/04/25 11:49 25 mls/hr ONCE ONE Administration Insulin Aspart 2 - 5 units 12/30/24 12:00 01/04/25 05:55 Insulin Aspart (*Bkc) 100 Units/Ml SUB-Q Not Given Q6HR [facility] Protocol Lisinopril 10 mg 01/02/25 09:00 Lisinopril 10 Mg Tablet PO DAILY [facility] Metoprolol Tartrate 12.5 mg 01/02/25 09:00 Metoprolol Tartrate 12.5 Mg Tablet PO Q12HR [facility] Midazolam HCl 2 mg 12/29/24 15:10 01/02/25 10:39 Midazolam Hcl (*Crx) 2 Mg/2 Ml Vial IV PUSH 2 mg Q5M PRN Administration ventilator asynchrony Multi-Ingred Cream/Lotion/Oil/Oint 1 applic 12/29/24 21:00 01/04/25 08:04 Mineral Oil/White Petrolatum Ointment EACH EYE 1 applic Q12HR [facility] Administration Pantoprazole Sodium 40 mg 12/29/24 15:15 01/04/25 08:02 Pantoprazole Sodium Iv 40 Mg Vial IV PUSH 40 mg QAM DANI Administration Polyethylene Glycol 17 gm 12/30/24 09:00 01/01/25 08:00 Polyethylene Glycol 3350 17 Gm Powd.Pack PO 17 gm QAM DANI Administration Polyethylene Glycol 17 gm 01/04/25 09:00 Polyethylene Glycol 3350 17 Gm Powd.Pack PO 01/05/25 05:01 Q4H [facility] Radiology Results: ITS Impressions Venous Doppler Study 12/28/24 15:55 IMPRESSION: Negative left and right upper extremity venous US. No deep vein thrombosis. Chest/Abdomen/Pelvis CTA 12/29/24 14:43 IMPRESSION: 1. Extensive patchy airspace opacities throughout both lungs and favor severe congestive heart failure related pulmonary edema over pneumonia. 2. Small left and moderate sized right dependently layering pleural effusions with associated compressive atelectasis in the dependent lungs. 3. Cardiomegaly with enlargement of the central pulmonary consistent with pulmonary arterial hypertension. 4. Large amount of stool throughout the colon with 9.6 x 6.7 cm ball of stool the rectum consistent with likely constipation with fecal impaction. 5. Hepatomegaly. Chest/Abdomen/Pelvis CT 01/02/25 10:10 IMPRESSION: 1. Significant improvement in previously moderate, now minimal pulmonary edema with unchanged small left and small to moderate-sized right pleural effusions. 2. Persistent large amount of stool in the distal colon suggestive of constipation with fluid consistent with diarrhea and the more proximal colon. 3. No change in position of a small foreign body correlating with the finding on the earlier KUB which is located along the luminal side of the posterior wall of the cecum which could represent either an ingested foreign body or a clip fixed to the wall given the lack of movement. Correlate with clinical/surgical history. Abdomen X-Ray 01/04/25 05:57 Impression: Stable nonspecific bowel gas pattern with NG tube in place. Chest X-Ray 01/04/25 05:58 Impression: Bibasilar pulmonary edema/atelectasis with small right pleural effusion. Support tubes, as above. Labs Labs: Laboratory Results - last 24 hr 01/03/25 01/03/25 01/04/25 11:55 18:03 00:36 WBC RBC Hgb Hct MCV MCH MCHC RDW Plt Count MPV Immature Gran % (Auto) Neut % (Auto) Lymph % (Auto) [place] % (Auto) Eos % (Auto) Baso % (Auto) Lymph # (Auto) [place] # (Auto) Eos # (Auto) Baso # (Auto) Abs Immat Gran (auto) Absolute Neuts (auto) Absolute Nucleated RBC Nucleated RBC % Puncture Site ABG pH ABG pCO2 ABG pO2 ABG PO2/FiO2 Ratio ABG HCO3 ABG O2 Saturation ABG O2 Content ABG Base Excess A-a Gradient Oxyhemoglobin Carboxyhemoglobin Methemoglobin Reduced Hemoglobin Total Hemoglobin O2 Delivery Device O2 Liters/Min Minute Volume Vent Rate Vent Mode FiO2 Tidal Volume PEEP Peak Inspir Pressure Pressure Support Sodium Potassium Chloride Carbon Dioxide Anion Gap BUN Creatinine Estim Creat Clear Calc Estimated GFR Glucose POC Capillary Glucose 102 89 107 H Calcium Phosphorus Magnesium Total Bilirubin AST ALT Alkaline Phosphatase Total Protein Albumin 01/04/25 01/04/25 05:04 05:18 WBC 5.2 RBC 3.18 L Hgb 10.2 L Hct 33.0 L MCV 103.8 H MCH 32.1 MCHC 30.9 L RDW 15.4 H Plt Count 144 L MPV 11.2 H Immature Gran % (Auto) 0.6 H Neut % (Auto) 72.9 Lymph % (Auto) 13.6 L [place] % (Auto) 11.7 H Eos % (Auto) 1.0 Baso % (Auto) 0.2 Lymph # (Auto) 0.71 L [place] # (Auto) 0.6 Eos # (Auto) 0.1 Baso # (Auto) 0.0 Abs Immat Gran (auto) 0.03 Absolute Neuts (auto) 3.8 Absolute Nucleated RBC 0.000 Nucleated RBC % 0.0 Puncture Site Right radial ABG pH 7.470 H ABG pCO2 34.7 L ABG pO2 79.8 L ABG PO2/FiO2 Ratio 3.19 ABG HCO3 24.7 ABG O2 Saturation 96.5 ABG O2 Content 12.8 L ABG Base Excess 1.2 A-a Gradient 57.2 Oxyhemoglobin 94.8 Carboxyhemoglobin 1.0 Methemoglobin 0.1 Reduced Hemoglobin 4.1 Total Hemoglobin 9.5 L O2 Delivery Device Ventilator O2 Liters/Min Not Reportable Minute Volume Not Reportable Vent Rate 14 Vent Mode Cmv FiO2 25 Tidal Volume 300 PEEP 8 Peak Inspir Pressure Not Reportable Pressure Support Not Reportable Sodium 142 Potassium 3.3 L Chloride 110 H Carbon Dioxide 27 Anion Gap 5 BUN 21 H Creatinine 0.45 L Estim Creat Clear Calc 126 Estimated GFR > 60 Glucose 93 POC Capillary Glucose Calcium 8.1 L Phosphorus 2.9 Magnesium 2.1 Total Bilirubin 0.5 AST 166 H ALT 422 H Alkaline Phosphatase 74 Total Protein 6.0 L Albumin 2.9 L Quality VTE Prophylaxis VTE prophylaxis: pharmacologic ordered
[2025-01-04] MEDS: polyethylene glycoL 3350 17 GM POWD.PACK PO ×4 (10:03→20:17)
--- NOTE | 2025-01-04 10:33 | PM.PNCARD ---
Progress Note: A&P Assessment and Plan (1) CHF exacerbation: Qualifiers: Heart failure type: unspecified Qualified Code(s): I50.9 - Heart failure, unspecified Code(s): I50.9 - Heart failure, unspecified Status: Acute Plan 59-year-old man with schizophrenia and seizures who is nonverbal with [facility] to [facility] now found to have systolic heart failure and possible pneumonia Acute decompensated systolic heart failure -Now on IV Bumex, continue. Also on pressors and inotropes in the form of Levophed and dobutamine. Continue for now --Not able to take oral meds at this time due to bowel obstruction, but when able to take pills, agree with starting Lisinopril and Metoprolol. Uptitrate heart failure GDMT as tolerated. -Overall poor prognosis when taken into consideration his other chronic conditions. Creatinine stable Potassium today is 3.3 a potassium has already been replaced. Follow electrolytes Bowel obstruction -General Surgery following Moderate mitral regurgitation -Will reassess likely a outpatient clinic once euvolemic Moderate aortic regurgitation -Outpatient surveillance echocardiogram Recommendations and plan discussed with ICU Physician. Subjective Date/time seen: 01/04/25 10:33 Interval history: Reason for visit: CHF HPI: 59-year-old man with schizophrenia, seizures, heart failure with unknown systolic function, who is nonverbal with [facility]. Given his medical condition, limited subjective history was obtainable and all subjective history was obtained through chart review. Date of service 12/30: Remains intubated and sedated. Date of service 12/31: Remains intubated/sedated. On Dobutamine drip. Date of service 01/01: Patient is intubated and sedated. Date of service 01/02: Remains intubated. Now has a bowel obstruction. Continues to diurese. Date of service 01/03/2025: Intubated but awakens. Some swelling Date of service 01/04/2025: Failed dobutamine wean again yesterday and also failed breathing trials. Now on Levophed also Exam Const: Other: Intubated, sedated HENMT: Mouth: Yes moist mucous membranes Other: OETT in place Eyes: Sclera: sclerae normal EOM: EOMs intact bilaterally Neck: Neck: no JVD Resp: Auscultation: rales and rhonchi Other: On mechanical ventilation Cardio: Rate: regular rate and tachycardic Rhythm: regular rhythm Heart sounds: no murmurs Other: + Lower extremity swelling Skin: General skin exam: normal color Neuro: Other: Sedated Extrem: General: pedal edema Other: Right upper extremity swelling. Objective Data Vital Signs Vital Signs: Vital Signs - 24 hr 01/03/25 10:40 01/03/25 11:05 01/03/25 11:48 Temperature Pulse Rate 85 78 Respiratory Rate Blood Pressure 116/76 Pulse Oximetry 100 98 Oxygen Delivery Mechanical Ventilation Mechanical Ventilation Fraction of Inspired Oxygen 25 25 01/03/25 11:49 01/03/25 12:00 01/03/25 12:00 Temperature Pulse Rate 78 78 Respiratory Rate 16 Blood Pressure 111/75 Pulse Oximetry Oxygen Delivery Fraction of Inspired Oxygen 25 01/03/25 12:00 01/03/25 12:00 01/03/25 12:00 Temperature 36.5 C Pulse Rate 82 78 78 Respiratory Rate 16 Blood Pressure 111/75 111/75 Pulse Oximetry 100 Oxygen Delivery Fraction of Inspired Oxygen 01/03/25 14:00 01/03/25 14:00 01/03/25 14:00 Temperature Pulse Rate 86 86 86 Respiratory Rate 20 20 Blood Pressure 129/78 Pulse Oximetry 100 Oxygen Delivery Fraction of Inspired Oxygen 01/03/25 14:00 01/03/25 14:00 01/03/25 14:44 Temperature Pulse Rate 86 86 89 Respiratory Rate Blood Pressure 129/78 129/78 Pulse Oximetry 99 Oxygen Delivery Mechanical Ventilation Fraction of Inspired Oxygen 25 01/03/25 15:54 01/03/25 15:55 01/03/25 16:00 Temperature Pulse Rate 92 Respiratory Rate Blood Pressure Pulse Oximetry 98 Oxygen Delivery Mechanical Ventilation Fraction of Inspired Oxygen 25 25 01/03/25 16:00 01/03/25 16:00 01/03/25 16:00 Temperature 36.6 C Pulse Rate 89 89 89 Respiratory Rate 18 18 Blood Pressure 113/83 113/83 Pulse Oximetry 98 Oxygen Delivery Fraction of Inspired Oxygen 01/03/25 16:00 01/03/25 17:42 01/03/25 18:00 Temperature Pulse Rate 89 85 90 Respiratory Rate 20 Blood Pressure 113/83 Pulse Oximetry 99 Oxygen Delivery Mechanical Ventilation Fraction of Inspired Oxygen 25 01/03/25 18:00 01/03/25 18:00 01/03/25 18:00 Temperature Pulse Rate 90 90 90 Respiratory Rate 20 Blood Pressure 105/61 105/61 Pulse Oximetry 100 Oxygen Delivery Fraction of Inspired Oxygen 01/03/25 18:00 01/03/25 19:24 01/03/25 19:58 Temperature Pulse Rate 90 81 79 Respiratory Rate 15 16 Blood Pressure 105/61 Pulse Oximetry 100 Oxygen Delivery Fraction of Inspired Oxygen 01/03/25 20:00 01/03/25 20:00 01/03/25 20:00 Temperature Pulse Rate 81 Respiratory Rate Blood Pressure 103/67 Pulse Oximetry 99 Oxygen Delivery Fraction of Inspired Oxygen 25 01/03/25 20:00 01/03/25 20:00 01/03/25 20:15 Temperature Pulse Rate 81 80 79 Respiratory Rate 15 Blood Pressure 103/67 Pulse Oximetry 99 98 Oxygen Delivery Mechanical Ventilation Fraction of Inspired Oxygen 01/03/25 20:37 01/03/25 21:57 01/03/25 22:00 Temperature Pulse Rate 79 79 79 Respiratory Rate 16 16 15 Blood Pressure Pulse Oximetry 100 Oxygen Delivery Fraction of Inspired Oxygen 01/03/25 22:00 01/03/25 22:00 01/03/25 22:00 Temperature 35.7 C L Pulse Rate 79 79 79 Respiratory Rate 15 Blood Pressure 109/86 109/86 Pulse Oximetry 100 Oxygen Delivery Fraction of Inspired Oxygen 01/03/25 22:00 01/03/25 22:00 01/03/25 22:01 Temperature Pulse Rate 79 79 80 Respiratory Rate 15 16 Blood Pressure 109/86 Pulse Oximetry 100 100 Oxygen Delivery Fraction of Inspired Oxygen 01/03/25 22:15 01/03/25 22:30 01/03/25 22:45 Temperature Pulse Rate 78 79 86 Respiratory Rate 19 14 17 Blood Pressure Pulse Oximetry 100 97 98 Oxygen Delivery Fraction of Inspired Oxygen 01/03/25 22:59 01/03/25 23:00 01/03/25 23:01 Temperature Pulse Rate 80 79 80 Respiratory Rate 16 18 Blood Pressure 103/74 Pulse Oximetry 98 98 99 Oxygen Delivery Mechanical Ventilation Fraction of Inspired Oxygen 01/03/25 23:15 01/03/25 23:30 01/03/25 23:45 Temperature Pulse Rate 79 80 83 Respiratory Rate 17 16 18 Blood Pressure Pulse Oximetry 99 100 100 Oxygen Delivery Fraction of Inspired Oxygen 01/04/25 00:00 01/04/25 00:00 01/04/25 00:00 Temperature Pulse Rate 81 79 Respiratory Rate 14 Blood Pressure Pulse Oximetry 100 Oxygen Delivery Mechanical Ventilation Fraction of Inspired Oxygen 01/04/25 00:00 01/04/25 00:00 01/04/25 00:00 Temperature 35.7 C L Pulse Rate 81 81 Respiratory Rate 20 Blood Pressure 113/65 113/65 Pulse Oximetry 100 Oxygen Delivery Fraction of Inspired Oxygen 01/04/25 00:00 01/04/25 00:01 01/04/25 00:15 Temperature Pulse Rate 84 78 81 Respiratory Rate 19 22 H 19 Blood Pressure 113/65 Pulse Oximetry 99 99 99 Oxygen Delivery Fraction of Inspired Oxygen 01/04/25 00:30 01/04/25 00:45 01/04/25 01:00 Temperature Pulse Rate 79 79 79 Respiratory Rate 14 15 15 Blood Pressure Pulse Oximetry 99 99 100 Oxygen Delivery Fraction of Inspired Oxygen 01/04/25 01:01 01/04/25 01:15 01/04/25 01:15 Temperature 36.4 C Pulse Rate 82 82 Respiratory Rate 15 17 Blood Pressure 96/70 L Pulse Oximetry 100 99 Oxygen Delivery Fraction of Inspired Oxygen 01/04/25 01:30 01/04/25 01:45 01/04/25 01:52 Temperature Pulse Rate 82 80 79 Respiratory Rate 15 18 Blood Pressure Pulse Oximetry 97 96 97 Oxygen Delivery Mechanical Ventilation Fraction of Inspired Oxygen 01/04/25 02:00 01/04/25 02:00 01/04/25 02:00 Temperature Pulse Rate 81 81 81 Respiratory Rate 15 15 Blood Pressure 108/73 Pulse Oximetry 97 Oxygen Delivery Fraction of Inspired Oxygen 01/04/25 02:00 01/04/25 02:00 01/04/25 02:01 Temperature Pulse Rate 81 82 78 Respiratory Rate 16 16 Blood Pressure 108/73 108/73 Pulse Oximetry 97 97 Oxygen Delivery Fraction of Inspired Oxygen 01/04/25 02:15 01/04/25 03:37 01/04/25 04:00 Temperature Pulse Rate 83 Respiratory Rate 14 Blood Pressure Pulse Oximetry 97 100 Oxygen Delivery Mechanical Ventilation Fraction of Inspired Oxygen 01/04/25 04:00 01/04/25 04:00 01/04/25 04:00 Temperature 36.4 C L Pulse Rate 81 81 81 Respiratory Rate 16 16 Blood Pressure 112/72 Pulse Oximetry 100 Oxygen Delivery Fraction of Inspired Oxygen 01/04/25 04:00 01/04/25 05:18 01/04/25 05:23 Temperature Pulse Rate 81 97 98 Respiratory Rate 16 Blood Pressure 112/72 Pulse Oximetry 100 Oxygen Delivery Mechanical Ventilation Fraction of Inspired Oxygen 01/04/25 05:23 01/04/25 06:00 01/04/25 06:00 Temperature Pulse Rate 98 96 96 Respiratory Rate 16 14 Blood Pressure 115/78 Pulse Oximetry 100 Oxygen Delivery Fraction of Inspired Oxygen 01/04/25 06:18 01/04/25 06:19 01/04/25 07:50 Temperature 36.5 C Pulse Rate 96 95 101 H Respiratory Rate 14 18 Blood Pressure 115/78 110/74 Pulse Oximetry 99 Oxygen Delivery Fraction of Inspired Oxygen 01/04/25 08:00 01/04/25 08:00 01/04/25 08:00 Temperature Pulse Rate 101 H 101 H 101 H Respiratory Rate 14 Blood Pressure 111/73 Pulse Oximetry Oxygen Delivery Fraction of Inspired Oxygen 01/04/25 08:03 01/04/25 08:24 01/04/25 09:15 Temperature Pulse Rate 99 104 H 105 H Respiratory Rate 12 10 L Blood Pressure Pulse Oximetry 100 Oxygen Delivery Mechanical Ventilation Fraction of Inspired Oxygen 01/04/25 10:00 01/04/25 10:00 Temperature Pulse Rate 105 H 105 H Respiratory Rate 13 Blood Pressure 98/68 L Pulse Oximetry Oxygen Delivery Fraction of Inspired Oxygen Intake/Output Intake/Output: Intake & Output 01/01/25 01/02/25 01/03/25 01/04/25 23:59 23:59 23:59 23:59 Intake Total 3063.1 2330.0 932.9 413.9 Output Total 1999 1300 1600 875 Balance 1063.1 1030.0 -667.1 -461.1 Meds/Results Medications: Active Medications Generic Name Dose Route Start Last Admin Trade Name Freq PRN Reason Stop Dose Admin Albuterol/Ipratropium 3 ml 12/28/24 21:13 12/29/24 02:41 Ipratropium 0.5 Mg/Albuterol Sulfate 2.5 Mg Ampul.Neb 3 Ml INHALATION 3 ml Q6HRT PRN Administration Shortness Of Breath Or Wheezing Dextrose 12.5 gm 12/30/24 08:02 Dextrose 50% 25 Gm/50 Ml Syringe IV PUSH PRN PRN Hypoglycemia Protocol Docusate Sodium 100 mg 12/29/24 09:00 01/01/25 08:00 Docusate Sodium Liq 100 Mg/10 Ml Udc FEED TUBE 100 mg DAILY DANI Administration Enoxaparin Sodium 40 mg 12/30/24 09:00 01/04/25 08:03 Enoxaparin 40 Mg/0.4 Ml Syringe SUB-Q 40 mg QAM DANI Administration Fentanyl Citrate 25 mcg 12/29/24 15:33 01/02/25 01:32 Fentanyl Citrate Inj (*Crx) 100 Mcg/2 Ml Vial IV PUSH 25 mcg Q1H PRN Administration Pain while on vent Furosemide 40 mg 01/04/25 09:00 01/04/25 08:02 Furosemide Inj 40 Mg/4 Ml Vial IV PUSH 40 mg BID DANI Administration Gabapentin 100 mg 12/29/24 06:00 01/02/25 05:10 Gabapentin 100 Mg Capsule FEED TUBE 100 mg Q8HR DANI Administration Glucagon 1 mg 12/30/24 08:02 Glucagon For Inj 1 Mg Vial IM PRN PRN Hypoglycemia Protocol Glucose 15 gm 12/30/24 08:02 Glucose Oral Gel 15 Gm Of Glucse In 37.5 Gm Tube PO PRN PRN Hypoglycemia Protocol Hydralazine HCl 10 mg 01/02/25 07:32 Hydralazine Hcl 20 Mg/Ml Vial IV PUSH Q4H PRN Blood Pressure - High Ceftriaxone Sodium 1 gm in 50 mls @ 100 mls/hr 12/29/24 09:00 01/04/25 08:03 Rocephin 1 Gm/Ns 50 Ml IVPB 01/05/25 08:59 100 mls/hr Q24H DANI Administration Dexmedetomidine HCl 400 mcg in 100 mls @ 7.063 mls/hr 12/29/24 15:10 01/04/25 10:00 Precedex 400 Mcg/100 Ml IV CONT 0.5 mcg/kg/hr .[id number] DAIN 7.06 mls/hr Titration Protocol 0.5 MCG/KG/HR Dextrose 1,000 mls @ 100 mls/hr 12/30/24 08:02 Dextrose 5% 1,000 Ml IVPB PRN PRN Hypoglycemia Protocol Valproate Sodium 250 mg/ 52.5 mls @ 52.5 mls/hr 01/02/25 12:00 01/04/25 06:24 Dextrose IVPB Infused Q6HR DANI Infusion Norepinephrine Bitartrate 8 mg in 250 mls @ 0 mls/hr 01/02/25 13:20 01/03/25 18:00 Levophed 8 Mg/D5w 250 Ml IV CONT 0 mcg/min .Q0M DANI 0 mls/hr Titration Protocol 0 MCG/MIN Dobutamine HCl/Dextrose 250 mg in 250 mls @ 9.915 mls/hr 01/03/25 10:30 01/04/25 10:00 Dobutamine 250 Mg/D5w 250 Ml IV CONT 2.5 mcg/kg/min .Q24H DANI 9.92 mls/hr Infusion 2.5 MCG/KG/MIN Potassium Chloride 100 mls @ 25 mls/hr 01/04/25 07:50 01/04/25 07:56 Kcl 40 Meq/Water 100 Ml IVPB 01/04/25 11:49 25 mls/hr ONCE ONE Administration Potassium Chloride 100 mls @ 25 mls/hr 01/04/25 15:00 Kcl 40 Meq/Water 100 Ml IVPB 01/04/25 18:59 ONCE ONE Insulin Aspart 2 - 5 units 12/30/24 12:00 01/04/25 05:55 Insulin Aspart (*Bkc) 100 Units/Ml SUB-Q Not Given Q6HR [facility] Protocol Lisinopril 10 mg 01/02/25 09:00 Lisinopril 10 Mg Tablet PO DAILY [facility] Metoprolol Tartrate 12.5 mg 01/02/25 09:00 Metoprolol Tartrate 12.5 Mg Tablet PO Q12HR [facility] Midazolam HCl 2 mg 12/29/24 15:10 01/02/25 10:39 Midazolam Hcl (*Crx) 2 Mg/2 Ml Vial IV PUSH 2 mg Q5M PRN Administration ventilator asynchrony Multi-Ingred Cream/Lotion/Oil/Oint 1 applic 12/29/24 21:00 01/04/25 08:04 Mineral Oil/White Petrolatum Ointment EACH EYE 1 applic Q12HR DANI Administration Pantoprazole Sodium 40 mg 12/29/24 15:15 01/04/25 08:02 Pantoprazole Sodium Iv 40 Mg Vial IV PUSH 40 mg QAM [facility] Administration Polyethylene Glycol 17 gm 12/30/24 09:00 01/01/25 08:00 Polyethylene Glycol 3350 17 Gm Powd.Pack PO 17 gm QAM DANI Administration Polyethylene Glycol 17 gm 01/04/25 09:00 01/04/25 10:03 Polyethylene Glycol 3350 17 Gm Powd.Pack PO 01/05/25 05:01 17 gm Q4H DANI Administration Radiology Results: ITS Impressions Venous Doppler Study 12/28/24 15:55 IMPRESSION: Negative left and right upper extremity venous US. No deep vein thrombosis. Chest/Abdomen/Pelvis CTA 12/29/24 14:43 IMPRESSION: 1. Extensive patchy airspace opacities throughout both lungs and favor severe congestive heart failure related pulmonary edema over pneumonia. 2. Small left and moderate sized right dependently layering pleural effusions with associated compressive atelectasis in the dependent lungs. 3. Cardiomegaly with enlargement of the central pulmonary consistent with pulmonary arterial hypertension. 4. Large amount of stool throughout the colon with 9.6 x 6.7 cm ball of stool the rectum consistent with likely constipation with fecal impaction. 5. Hepatomegaly. Chest/Abdomen/Pelvis CT 01/02/25 10:10 IMPRESSION: 1. Significant improvement in previously moderate, now minimal pulmonary edema with unchanged small left and small to moderate-sized right pleural effusions. 2. Persistent large amount of stool in the distal colon suggestive of constipation with fluid consistent with diarrhea and the more proximal colon. 3. No change in position of a small foreign body correlating with the finding on the earlier KUB which is located along the luminal side of the posterior wall of the cecum which could represent either an ingested foreign body or a clip fixed to the wall given the lack of movement. Correlate with clinical/surgical history. Abdomen X-Ray 01/04/25 05:57 Impression: Stable nonspecific bowel gas pattern with NG tube in place. Chest X-Ray 01/04/25 05:58 Impression: Bibasilar pulmonary edema/atelectasis with small right pleural effusion. Support tubes, as above. Labs Labs: Laboratory Results - last 24 hr 01/03/25 01/03/25 01/04/25 11:55 18:03 00:36 WBC RBC Hgb Hct MCV MCH MCHC RDW Plt Count MPV Immature Gran % (Auto) Neut % (Auto) Lymph % (Auto) [place] % (Auto) Eos % (Auto) Baso % (Auto) Lymph # (Auto) [place] # (Auto) Eos # (Auto) Baso # (Auto) Abs Immat Gran (auto) Absolute Neuts (auto) Absolute Nucleated RBC Nucleated RBC % Puncture Site ABG pH ABG pCO2 ABG pO2 ABG PO2/FiO2 Ratio ABG HCO3 ABG O2 Saturation ABG O2 Content ABG Base Excess A-a Gradient Oxyhemoglobin Carboxyhemoglobin Methemoglobin Reduced Hemoglobin Total Hemoglobin O2 Delivery Device O2 Liters/Min Minute Volume Vent Rate Vent Mode FiO2 Tidal Volume PEEP Peak Inspir Pressure Pressure Support Sodium Potassium Chloride Carbon Dioxide Anion Gap BUN Creatinine Estim Creat Clear Calc Estimated GFR Glucose POC Capillary Glucose 102 89 107 H Calcium Phosphorus Magnesium Total Bilirubin AST ALT Alkaline Phosphatase Total Protein Albumin 01/04/25 01/04/25 05:04 05:18 WBC 5.2 RBC 3.18 L Hgb 10.2 L Hct 33.0 L MCV 103.8 H MCH 32.1 MCHC 30.9 L RDW 15.4 H Plt Count 144 L MPV 11.2 H Immature Gran % (Auto) 0.6 H Neut % (Auto) 72.9 Lymph % (Auto) 13.6 L [place] % (Auto) 11.7 H Eos % (Auto) 1.0 Baso % (Auto) 0.2 Lymph # (Auto) 0.71 L [place] # (Auto) 0.6 Eos # (Auto) 0.1 Baso # (Auto) 0.0 Abs Immat Gran (auto) 0.03 Absolute Neuts (auto) 3.8 Absolute Nucleated RBC 0.000 Nucleated RBC % 0.0 Puncture Site Right radial ABG pH 7.470 H ABG pCO2 34.7 L ABG pO2 79.8 L ABG PO2/FiO2 Ratio 3.19 ABG HCO3 24.7 ABG O2 Saturation 96.5 ABG O2 Content 12.8 L ABG Base Excess 1.2 A-a Gradient 57.2 Oxyhemoglobin 94.8 Carboxyhemoglobin 1.0 Methemoglobin 0.1 Reduced Hemoglobin 4.1 Total Hemoglobin 9.5 L O2 Delivery Device Ventilator O2 Liters/Min Not Reportable Minute Volume Not Reportable Vent Rate 14 Vent Mode Cmv FiO2 25 Tidal Volume 300 PEEP 8 Peak Inspir Pressure Not Reportable Pressure Support Not Reportable Sodium 142 Potassium 3.3 L Chloride 110 H Carbon Dioxide 27 Anion Gap 5 BUN 21 H Creatinine 0.45 L Estim Creat Clear Calc 126 Estimated GFR > 60 Glucose 93 POC Capillary Glucose Calcium 8.1 L Phosphorus 2.9 Magnesium 2.1 Total Bilirubin 0.5 AST 166 H ALT 422 H Alkaline Phosphatase 74 Total Protein 6.0 L Albumin 2.9 L
[2025-01-04 11:56] LABS: Glucose Point of Care 82 mg/dl (65-105)
[2025-01-04] MEDS: DOBUTamine 250 MG/D5W 250 ML 250 MG/250 ML BAG 9.92 MG IV CONT (12:12)
--- NOTE | 2025-01-04 13:26 | P.PNGS_ITS ---
Progress Note: A&P Assessment and Plan (1) Fecal impaction: Code(s): K56.41 - Fecal impaction Status: Acute Assessment and Plan: Resolved by plain films of the abdomen. Discontinue enemas when okay with Gastroenterology. (2) Obstructive ileus of small intestine due to impaction: Code(s): K56.699 - Other intestinal obstruction unspecified as to partial versus complete obstruction; K56.49 - Other impaction of intestine Status: Acute Assessment and Plan: Now looks more like an ileus pattern. Very few bowel sounds. Discussed with Dr. Turk-hold off on tube feeds as yet. Continue G-tube to gravity for now. Getting MiraLax per NG tube. (3) Acute hypoxemic respiratory failure: Code(s): J96.01 - Acute respiratory failure with hypoxia Status: Chronic Assessment and Plan: Stable on ventilator Subjective Subjective Date/Time Seen: 01/04/25 13:26 Patient reports: other (Intubated) Review of Systems Review of Systems: ROS unobtainable: Yes unobtainable due to endotracheal tube Exam GI: Inspection: distended and scar GI Palp: Yes Soft to palpation, No Tenderness to palpation present (GI), No Guarding due to palpation present (GI), No Hernia present and No Palpable mass present Auscultation: absent bowel sounds Objective Data Vital Signs Vital Signs: Vital Signs - 24 hr 01/03/25 14:00 01/03/25 14:00 01/03/25 14:00 Temperature Pulse Rate 86 86 86 Respiratory Rate 20 20 Blood Pressure 129/78 Pulse Oximetry 100 Oxygen Delivery Fraction of Inspired Oxygen 01/03/25 14:00 01/03/25 14:00 01/03/25 14:44 Temperature Pulse Rate 86 86 89 Respiratory Rate Blood Pressure 129/78 129/78 Pulse Oximetry 99 Oxygen Delivery Mechanical Ventilation Fraction of Inspired Oxygen 01/03/25 15:54 01/03/25 15:55 01/03/25 16:00 Temperature Pulse Rate 92 Respiratory Rate Blood Pressure Pulse Oximetry 98 Oxygen Delivery Mechanical Ventilation Fraction of Inspired Oxygen 01/03/25 16:00 01/03/25 16:00 01/03/25 16:00 Temperature 36.6 C Pulse Rate 89 89 89 Respiratory Rate 18 18 Blood Pressure 113/83 113/83 Pulse Oximetry 98 Oxygen Delivery Fraction of Inspired Oxygen 01/03/25 16:00 01/03/25 17:42 01/03/25 18:00 Temperature Pulse Rate 89 85 90 Respiratory Rate 20 Blood Pressure 113/83 Pulse Oximetry 99 Oxygen Delivery Mechanical Ventilation Fraction of Inspired Oxygen 25 01/03/25 18:00 01/03/25 18:00 01/03/25 18:00 Temperature Pulse Rate 90 90 90 Respiratory Rate 20 Blood Pressure 105/61 105/61 Pulse Oximetry 100 Oxygen Delivery Fraction of Inspired Oxygen 01/03/25 18:00 01/03/25 19:24 01/03/25 19:58 Temperature Pulse Rate 90 81 79 Respiratory Rate 15 16 Blood Pressure 105/61 Pulse Oximetry 100 Oxygen Delivery Fraction of Inspired Oxygen 01/03/25 20:00 01/03/25 20:00 01/03/25 20:00 Temperature Pulse Rate 81 Respiratory Rate Blood Pressure 103/67 Pulse Oximetry 99 Oxygen Delivery Fraction of Inspired Oxygen 25 25 01/03/25 20:00 01/03/25 20:00 01/03/25 20:15 Temperature Pulse Rate 81 80 79 Respiratory Rate 15 Blood Pressure 103/67 Pulse Oximetry 99 98 Oxygen Delivery Mechanical Ventilation Fraction of Inspired Oxygen 25 01/03/25 20:37 01/03/25 21:57 01/03/25 22:00 Temperature Pulse Rate 79 79 79 Respiratory Rate 16 16 15 Blood Pressure Pulse Oximetry 100 Oxygen Delivery Fraction of Inspired Oxygen 01/03/25 22:00 01/03/25 22:00 01/03/25 22:00 Temperature 35.7 C L Pulse Rate 79 79 79 Respiratory Rate 15 Blood Pressure 109/86 109/86 Pulse Oximetry 100 Oxygen Delivery Fraction of Inspired Oxygen 01/03/25 22:00 01/03/25 22:00 01/03/25 22:01 Temperature Pulse Rate 79 79 80 Respiratory Rate 15 16 Blood Pressure 109/86 Pulse Oximetry 100 100 Oxygen Delivery Fraction of Inspired Oxygen 01/03/25 22:15 01/03/25 22:30 01/03/25 22:45 Temperature Pulse Rate 78 79 86 Respiratory Rate 19 14 17 Blood Pressure Pulse Oximetry 100 97 98 Oxygen Delivery Fraction of Inspired Oxygen 01/03/25 22:59 01/03/25 23:00 01/03/25 23:01 Temperature Pulse Rate 80 79 80 Respiratory Rate 16 18 Blood Pressure 103/74 Pulse Oximetry 98 98 99 Oxygen Delivery Mechanical Ventilation Fraction of Inspired Oxygen 01/03/25 23:15 01/03/25 23:30 01/03/25 23:45 Temperature Pulse Rate 79 80 83 Respiratory Rate 17 16 18 Blood Pressure Pulse Oximetry 99 100 100 Oxygen Delivery Fraction of Inspired Oxygen 01/04/25 00:00 01/04/25 00:00 01/04/25 00:00 Temperature Pulse Rate 81 79 Respiratory Rate 14 Blood Pressure Pulse Oximetry 100 Oxygen Delivery Mechanical Ventilation Fraction of Inspired Oxygen 01/04/25 00:00 01/04/25 00:00 01/04/25 00:00 Temperature 35.7 C L Pulse Rate 81 81 Respiratory Rate 20 Blood Pressure 113/65 113/65 Pulse Oximetry 100 Oxygen Delivery Fraction of Inspired Oxygen 01/04/25 00:00 01/04/25 00:01 01/04/25 00:15 Temperature Pulse Rate 84 78 81 Respiratory Rate 19 22 H 19 Blood Pressure 113/65 Pulse Oximetry 99 99 99 Oxygen Delivery Fraction of Inspired Oxygen 01/04/25 00:30 01/04/25 00:45 01/04/25 01:00 Temperature Pulse Rate 79 79 79 Respiratory Rate 14 15 15 Blood Pressure Pulse Oximetry 99 99 100 Oxygen Delivery Fraction of Inspired Oxygen 01/04/25 01:01 01/04/25 01:15 01/04/25 01:15 Temperature 36.4 C Pulse Rate 82 82 Respiratory Rate 15 17 Blood Pressure 96/70 L Pulse Oximetry 100 99 Oxygen Delivery Fraction of Inspired Oxygen 01/04/25 01:30 01/04/25 01:45 01/04/25 01:52 Temperature Pulse Rate 82 80 79 Respiratory Rate 15 18 Blood Pressure Pulse Oximetry 97 96 97 Oxygen Delivery Mechanical Ventilation Fraction of Inspired Oxygen 01/04/25 02:00 01/04/25 02:00 01/04/25 02:00 Temperature Pulse Rate 81 81 81 Respiratory Rate 15 15 Blood Pressure 108/73 Pulse Oximetry 97 Oxygen Delivery Fraction of Inspired Oxygen 01/04/25 02:00 01/04/25 02:00 01/04/25 02:01 Temperature Pulse Rate 81 82 78 Respiratory Rate 16 16 Blood Pressure 108/73 108/73 Pulse Oximetry 97 97 Oxygen Delivery Fraction of Inspired Oxygen 01/04/25 02:15 01/04/25 03:37 01/04/25 04:00 Temperature Pulse Rate 83 Respiratory Rate 14 Blood Pressure Pulse Oximetry 97 100 Oxygen Delivery Mechanical Ventilation Fraction of Inspired Oxygen 25 25 01/04/25 04:00 01/04/25 04:00 01/04/25 04:00 Temperature 36.4 C L Pulse Rate 81 81 81 Respiratory Rate 16 16 Blood Pressure 112/72 Pulse Oximetry 100 Oxygen Delivery Fraction of Inspired Oxygen 01/04/25 04:00 01/04/25 05:18 01/04/25 05:23 Temperature Pulse Rate 81 97 98 Respiratory Rate 16 Blood Pressure 112/72 Pulse Oximetry 100 Oxygen Delivery Mechanical Ventilation Fraction of Inspired Oxygen 25 01/04/25 05:23 01/04/25 06:00 01/04/25 06:00 Temperature Pulse Rate 98 96 96 Respiratory Rate 16 14 Blood Pressure 115/78 Pulse Oximetry 100 Oxygen Delivery Fraction of Inspired Oxygen 01/04/25 06:18 01/04/25 06:19 01/04/25 07:50 Temperature 36.5 C Pulse Rate 96 95 101 H Respiratory Rate 14 18 Blood Pressure 115/78 110/74 Pulse Oximetry 99 Oxygen Delivery Fraction of Inspired Oxygen 01/04/25 08:00 01/04/25 08:00 01/04/25 08:00 Temperature Pulse Rate 101 H 101 H 101 H Respiratory Rate 14 Blood Pressure 111/73 Pulse Oximetry Oxygen Delivery Fraction of Inspired Oxygen 01/04/25 08:00 01/04/25 08:00 01/04/25 08:03 Temperature Pulse Rate 99 Respiratory Rate Blood Pressure Pulse Oximetry 100 Oxygen Delivery Mechanical Ventilation Mechanical Ventilation Fraction of Inspired Oxygen 25 25 01/04/25 08:24 01/04/25 09:15 01/04/25 10:00 Temperature Pulse Rate 104 H 105 H 105 H Respiratory Rate 12 10 L Blood Pressure 98/68 L Pulse Oximetry Oxygen Delivery Fraction of Inspired Oxygen 01/04/25 10:00 01/04/25 10:00 01/04/25 10:00 Temperature Pulse Rate 105 H 103 H 103 H Respiratory Rate 13 12 Blood Pressure 98/68 L Pulse Oximetry 99 Oxygen Delivery Fraction of Inspired Oxygen 01/04/25 10:34 01/04/25 10:45 01/04/25 11:55 Temperature Pulse Rate 85 84 83 Respiratory Rate 18 Blood Pressure 96/67 L Pulse Oximetry 99 Oxygen Delivery Mechanical Ventilation Fraction of Inspired Oxygen 25 01/04/25 12:00 01/04/25 12:00 01/04/25 12:00 Temperature 36.6 C Pulse Rate 83 83 83 Respiratory Rate 17 17 Blood Pressure 96/67 L Pulse Oximetry 96 Oxygen Delivery Fraction of Inspired Oxygen 01/04/25 12:00 01/04/25 12:00 01/04/25 12:12 Temperature Pulse Rate 83 Respiratory Rate Blood Pressure 96/67 L Pulse Oximetry Oxygen Delivery Mechanical Ventilation Fraction of Inspired Oxygen 01/04/25 12:52 Temperature Pulse Rate 84 Respiratory Rate 15 Blood Pressure Pulse Oximetry Oxygen Delivery Fraction of Inspired Oxygen Intake/Output Intake/Output: Intake & Output 01/01/25 01/02/25 01/03/25 01/04/25 23:59 23:59 23:59 23:59 Intake Total 3063.1 2330.0 932.9 449.8 Output Total 1999 1300 1600 875 Balance 1063.1 1030.0 -667.1 -425.2 Meds/Results Medications: Active Medications Generic Name Dose Route Start Last Admin Trade Name Freq PRN Reason Stop Dose Admin Albuterol/Ipratropium 3 ml 12/28/24 21:13 12/29/24 02:41 Ipratropium 0.5 Mg/Albuterol Sulfate 2.5 Mg Ampul.Neb 3 Ml INHALATION 3 ml Q6HRT PRN Administration Shortness Of Breath Or Wheezing Dextrose 12.5 gm 12/30/24 08:02 Dextrose 50% 25 Gm/50 Ml Syringe IV PUSH PRN PRN Hypoglycemia Protocol Docusate Sodium 100 mg 12/29/24 09:00 01/01/25 08:00 Docusate Sodium Liq 100 Mg/10 Ml Udc FEED TUBE 100 mg DAILY DANI Administration Enoxaparin Sodium 40 mg 12/30/24 09:00 01/04/25 08:03 Enoxaparin 40 Mg/0.4 Ml Syringe SUB-Q 40 mg QAM DANI Administration Fentanyl Citrate 25 mcg 12/29/24 15:33 01/02/25 01:32 Fentanyl Citrate Inj (*Crx) 100 Mcg/2 Ml Vial IV PUSH 25 mcg Q1H PRN Administration Pain while on vent Furosemide 40 mg 01/04/25 09:00 01/04/25 08:02 Furosemide Inj 40 Mg/4 Ml Vial IV PUSH 40 mg BID DANI Administration Gabapentin 100 mg 12/29/24 06:00 01/02/25 05:10 Gabapentin 100 Mg Capsule FEED TUBE 100 mg Q8HR DANI Administration Glucagon 1 mg 12/30/24 08:02 Glucagon For Inj 1 Mg Vial IM PRN PRN Hypoglycemia Protocol Glucose 15 gm 12/30/24 08:02 Glucose Oral Gel 15 Gm Of Glucse In 37.5 Gm Tube PO PRN PRN Hypoglycemia Protocol Hydralazine HCl 10 mg 01/02/25 07:32 Hydralazine Hcl 20 Mg/Ml Vial IV PUSH Q4H PRN Blood Pressure - High Ceftriaxone Sodium 1 gm in 50 mls @ 100 mls/hr 12/29/24 09:00 01/04/25 08:03 Rocephin 1 Gm/Ns 50 Ml IVPB 01/05/25 08:59 100 mls/hr Q24H DANI Administration Dexmedetomidine HCl 400 mcg in 100 mls @ 4.238 mls/hr 12/29/24 15:10 01/04/25 12:52 Precedex 400 Mcg/100 Ml IV CONT 0.3 mcg/kg/hr .[id number] DANI 4.24 mls/hr Titration Protocol 0.3 MCG/KG/HR Dextrose 1,000 mls @ 100 mls/hr 12/30/24 08:02 Dextrose 5% 1,000 Ml IVPB PRN PRN Hypoglycemia Protocol Valproate Sodium 250 mg/ 52.5 mls @ 52.5 mls/hr 01/02/25 12:00 01/04/25 12:13 Dextrose IVPB 52.5 mls/hr Q6HR DANI Administration Norepinephrine Bitartrate 8 mg in 250 mls @ 0 mls/hr 01/02/25 13:20 01/03/25 18:00 Levophed 8 Mg/D5w 250 Ml IV CONT 0 mcg/min .Q0M DANI 0 mls/hr Titration Protocol 0 MCG/MIN Dobutamine HCl/Dextrose 250 mg in 250 mls @ 9.915 mls/hr 01/03/25 10:30 01/04/25 12:12 Dobutamine 250 Mg/D5w 250 Ml IV CONT 2.5 mcg/kg/min .Q24H DANI 9.92 mls/hr Administration 2.5 MCG/KG/MIN Potassium Chloride 100 mls @ 25 mls/hr 01/04/25 15:00 Kcl 40 Meq/Water 100 Ml IVPB 01/04/25 18:59 ONCE ONE Insulin Aspart 2 - 5 units 12/30/24 12:00 01/04/25 12:08 Insulin Aspart (*Bkc) 100 Units/Ml SUB-Q Not Given Q6HR [facility] Protocol Lisinopril 10 mg 01/02/25 09:00 Lisinopril 10 Mg Tablet PO DAILY [facility] Metoprolol Tartrate 12.5 mg 01/02/25 09:00 Metoprolol Tartrate 12.5 Mg Tablet PO Q12HR [facility] Midazolam HCl 2 mg 12/29/24 15:10 01/02/25 10:39 Midazolam Hcl (*Crx) 2 Mg/2 Ml Vial IV PUSH 2 mg Q5M PRN Administration ventilator asynchrony Multi-Ingred Cream/Lotion/Oil/Oint 1 applic 12/29/24 21:00 01/04/25 08:04 Mineral Oil/White Petrolatum Ointment EACH EYE 1 applic Q12HR DANI Administration Pantoprazole Sodium 40 mg 12/29/24 15:15 01/04/25 08:02 Pantoprazole Sodium Iv 40 Mg Vial IV PUSH 40 mg QAM DANI Administration Polyethylene Glycol 17 gm 12/30/24 09:00 01/01/25 08:00 Polyethylene Glycol 3350 17 Gm Powd.Pack PO 17 gm QAM DANI Administration Polyethylene Glycol 17 gm 01/04/25 09:00 01/04/25 13:26 Polyethylene Glycol 3350 17 Gm Powd.Pack PO 01/05/25 05:01 17 gm Q4H DANI Administration Radiology Results: ITS Impressions Venous Doppler Study 12/28/24 15:55 IMPRESSION: Negative left and right upper extremity venous US. No deep vein thrombosis. Chest/Abdomen/Pelvis CTA 12/29/24 14:43 IMPRESSION: 1. Extensive patchy airspace opacities throughout both lungs and favor severe congestive heart failure related pulmonary edema over pneumonia. 2. Small left and moderate sized right dependently layering pleural effusions with associated compressive atelectasis in the dependent lungs. 3. Cardiomegaly with enlargement of the central pulmonary consistent with pulmonary arterial hypertension. 4. Large amount of stool throughout the colon with 9.6 x 6.7 cm ball of stool the rectum consistent with likely constipation with fecal impaction. 5. Hepatomegaly. Chest/Abdomen/Pelvis CT 01/02/25 10:10 IMPRESSION: 1. Significant improvement in previously moderate, now minimal pulmonary edema with unchanged small left and small to moderate-sized right pleural effusions. 2. Persistent large amount of stool in the distal colon suggestive of constipation with fluid consistent with diarrhea and the more proximal colon. 3. No change in position of a small foreign body correlating with the finding on the earlier KUB which is located along the luminal side of the posterior wall of the cecum which could represent either an ingested foreign body or a clip fixed to the wall given the lack of movement. Correlate with clinical/surgical history. Chest X-Ray 01/04/25 05:58 Impression: Bibasilar pulmonary edema/atelectasis with small right pleural effusion. Support tubes, as above. Abdomen X-Ray 01/04/25 10:47 Impression: Nonspecific bowel gas pattern with moderate stool left colon. NG tube in place. Labs Labs: Laboratory Results - last 24 hr 01/03/25 01/04/25 01/04/25 18:03 00:36 05:04 WBC 5.2 RBC 3.18 L Hgb 10.2 L Hct 33.0 L MCV 103.8 H MCH 32.1 MCHC 30.9 L RDW 15.4 H Plt Count 144 L MPV 11.2 H Immature Gran % (Auto) 0.6 H Neut % (Auto) 72.9 Lymph % (Auto) 13.6 L [place] % (Auto) 11.7 H Eos % (Auto) 1.0 Baso % (Auto) 0.2 Lymph # (Auto) 0.71 L [place] # (Auto) 0.6 Eos # (Auto) 0.1 Baso # (Auto) 0.0 Abs Immat Gran (auto) 0.03 Absolute Neuts (auto) 3.8 Absolute Nucleated RBC 0.000 Nucleated RBC % 0.0 Puncture Site ABG pH ABG pCO2 ABG pO2 ABG PO2/FiO2 Ratio ABG HCO3 ABG O2 Saturation ABG O2 Content ABG Base Excess A-a Gradient Oxyhemoglobin Carboxyhemoglobin Methemoglobin Reduced Hemoglobin Total Hemoglobin O2 Delivery Device O2 Liters/Min Minute Volume Vent Rate Vent Mode FiO2 Tidal Volume PEEP Peak Inspir Pressure Pressure Support Sodium 142 Potassium 3.3 L Chloride 110 H Carbon Dioxide 27 Anion Gap 5 BUN 21 H Creatinine 0.45 L Estim Creat Clear Calc 126 Estimated GFR > 60 Glucose 93 POC Capillary Glucose 89 107 H Calcium 8.1 L Phosphorus 2.9 Magnesium 2.1 Total Bilirubin 0.5 AST 166 H ALT 422 H Alkaline Phosphatase 74 Total Protein 6.0 L Albumin 2.9 L 01/04/25 01/04/25 05:18 11:53 WBC RBC Hgb Hct MCV MCH MCHC RDW Plt Count MPV Immature Gran % (Auto) Neut % (Auto) Lymph % (Auto) [place] % (Auto) Eos % (Auto) Baso % (Auto) Lymph # (Auto) [place] # (Auto) Eos # (Auto) Baso # (Auto) Abs Immat Gran (auto) Absolute Neuts (auto) Absolute Nucleated RBC Nucleated RBC % Puncture Site Right radial ABG pH 7.470 H ABG pCO2 34.7 L ABG pO2 79.8 L ABG PO2/FiO2 Ratio 3.19 ABG HCO3 24.7 ABG O2 Saturation 96.5 ABG O2 Content 12.8 L ABG Base Excess 1.2 A-a Gradient 57.2 Oxyhemoglobin 94.8 Carboxyhemoglobin 1.0 Methemoglobin 0.1 Reduced Hemoglobin 4.1 Total Hemoglobin 9.5 L O2 Delivery Device Ventilator O2 Liters/Min Not Reportable Minute Volume Not Reportable Vent Rate 14 Vent Mode Cmv FiO2 25 Tidal Volume 300 PEEP 8 Peak Inspir Pressure Not Reportable Pressure Support Not Reportable Sodium Potassium Chloride Carbon Dioxide Anion Gap BUN Creatinine Estim Creat Clear Calc Estimated GFR Glucose POC Capillary Glucose 82 Calcium Phosphorus Magnesium Total Bilirubin AST ALT Alkaline Phosphatase Total Protein Albumin Imaging Attestation: I personally reviewed and interpreted this imaging study as follows: (KUB from this morning) My impression: Fecal impaction gone, still some dilated bowel and more dilated small intestine that usual. Radiologist's impression: Nonspecific bowel gas pattern
[2025-01-04 17:12] LABS: Glucose Point of Care 79 mg/dl (65-105)
[2025-01-04] MEDS: dexmedeTOMIDine 400 MCG/100 ML 400 MCG/100 ML BAG IV CONT (20:59)
[2025-01-04 23:13] LABS: Glucose Point of Care 80 mg/dl (65-105)
[2025-01-05] VITALS (32 sets, daily range): BP systolic 97–110; BP diastolic 62–73; PULSE 81–107; RESP 12–20; TEMP 36.6–36.9; O2SAT 97–100
[2025-01-05] MEDS: VALPROATE SODIUM INJ 250 MG in DEXTROSE 5% IN WATER 50 ML 52.5 MG IVPB ×5 (00:10→23:50)
[2025-01-05] MEDS: polyethylene glycoL 3350 17 GM POWD.PACK PO ×4 (00:11→20:34)
[2025-01-05 05:32] LABS: Base Excess ABG 1.9 mEq/l (+/-2.0); Fractional Inspired Oxygen 25 %; HCO3 ABG 24.8 mEq/l (22.0-26.0); Oxygen Content ABG 16.9 %vol (16.0-22.0); Oxygen Saturation ABG 97.1 % (95.0-100.0); Oxyhemoglobin 95.6 % THb (90.0-100.0); PO2 ABG 84.1 mmHg (80.0-100.0); PO2 FiO2 Ratio Arterial Blood 3.36 %; Reduced Hemoglobin 3.4 %THb (0-5.0); Total Hemoglobin 12.5 g/dL (12.0-18.0); pH ABG 7.493 (7.350-7.450)
[2025-01-05 05:43] LABS: Device VENTILATOR; Modified Allen's Test Pass; Site Drawn RIGHT RADIAL
[2025-01-05 05:44] LABS: Arterial Blood Gas PEEP 8 cmH2O; Arterial Blood Gas Tidal Volume 300 ml; Arterial Blood Gas Vent Mode CMV; Arterial Blood Gas Ventilator rate 14 /MIN
[2025-01-05 05:59] LABS: Hematocrit 27.3 % (42.0-52.0); Hemoglobin 8.5 g/dL (14.0-18.0); Mean Corpuscular HGB Conc 31.1 g/dl (32-36); Mean Corpuscular Hemoglobin 32.1 pg (26-34); Mean Platelet Volume 10.2 fl (7.4-10.4); Platelet Count Result 192 k/mm3 (150-375); Red Blood Count 2.65 M/mm3 (4.6-6.20); Red Cell Distribution Width 15.9 % (11.5-14.5); White Blood Count 7.2 K/mm3 (4.5-10.0)
[2025-01-05 06:09] LABS: Alanine Aminotransferase 334 U/L (6-50); Alkaline Phosphatase 75 U/L (38-126); Anion Gap 7 mmol/L (4-12); Aspartate Amino Transferase 118 U/L (17-59); Bilirubin,Total 0.5 mg/dL (0.2-1.3); Blood Urea Nitrogen 17 mg/dL (9-20); Calcium 8.3 mg/dL (8.4-10.2); Carbon Dioxide 28 mmol/L (22-30); Chloride 111 mmol/L (98-107); Estimated CRCL calculation 124 ml/min; Estimated Glomerular Filt Rate > 60; Glucose 85 mg/dL (65-110); Magnesium 2.1 mg/dL (1.6-2.3); Phosphorus 3.4 mg/dL (2.5-4.5); Potassium 3.5 mmol/L (3.4-5.0); Sodium 146 mmol/L (137-145)
--- NOTE | 2025-01-05 08:02 | WPDINTPN ---
Progress Note: A&P Assessment and Plan (1) Obstructive ileus of small intestine due to impaction: Code(s): K56.699 - Other intestinal obstruction unspecified as to partial versus complete obstruction; K56.49 - Other impaction of intestine Status: Acute Assessment and Plan: Abdominal distension, obstructive series dilated small bowel and colon with large amounts of fecal impaction in the distal colon and rectum, consistent with obstruction. Residual catheter fragment present in the abdomen consider correlation with CT -NG tube was inserted on 01/02 -appreciate surgery evaluation -discussed with GI, started patient on soapsuds enema q.6 hours on 01/02 01/03: Patient has had multiple multiple bowel movements with soapsuds enema, discussed with GI, will continue them as as KUB this morning continues to show large amount of stool in the distal colon. No free intraperitoneal gas or dilated bowel to suggest obstruction 01/04: Patient is not having much response to enemas, discussed with GI, will start MiraLax 17 g Q 4 hours per G-tube, GI also wants to continue with the enemas, check obstructive series today 01/05: Not responding was to and was, 6 receiving MiraLax Q4H per GI along with soapsuds enema as q.6 hours. Abdominal x-ray still shows air in distended large and small bowel continues to have moderate stool descending colon and sigmoid colon 01/02: CT scan of the abdomen and pelvis IMPRESSION: 1. Significant improvement in previously moderate, now minimal pulmonary edema with unchanged small left and small to moderate-sized right pleural effusions. 2. Persistent large amount of stool in the distal colon suggestive of constipation with fluid consistent with diarrhea and the more proximal colon. 3. No change in position of a small foreign body correlating with the finding on the earlier KUB which is located along the luminal side of the posterior wall of the cecum which could represent either an ingested foreign body or a clip fixed to the wall given the lack of movement. Correlate with clinical/surgical history. (2) Acute hypoxemic respiratory failure: Code(s): J96.01 - Acute respiratory failure with hypoxia Status: Chronic Assessment and Plan: Acute hypoxic respiratory failure likely secondary to congestive heart failure, cardiomyopathy, pulmonary edema, possible pneumonia, pleural effusion -12/29: patient was in the intermediate Unit, was tachycardic, tachypneic, hemodynamic instability, patient was transferred to ICU and emergently intubated after discussion with patient's sister. -12/29/2024: Intubated in the ICU -Chest x-ray and ABGs reviewed, ventilator adjusted -continue Diuril and monitor urine output - management of pneumonia as below -bronchodilator p.r.n. -01/04: Placed patient on spontaneous breathing trial, did not tolerate as is respiratory rate was very low, low tidal volumes and low minute ventilation, so switch the mode to ASV, tolerating well -01/05: Tolerated ASV mode all day yesterday, approximately [address] patient on pressure support ventilation this morning 05/24 as he is more awake. Given his abdominal distension, stool impaction, possible ileus will be cautious in extubating the patient -sedated with Precedex infusion, his eyes, does not follow commands. Looks comfortable, patient is nonverbal at baseline -have asked the bedside RN to decrease Precedex infusion (3) Cardiomyopathy: Code(s): I42.9 - Cardiomyopathy, unspecified Status: Acute Assessment and Plan: patient does have history of congestive heart failure. Now cardiomyopathy with EF of 15-20% -appreciate cardiology following the base -restarted dobutamine on 01/02 after it was briefly discontinued to see how the patient would do without dobutamine. He dropped his blood pressure is significantly dobutamine was restarted for inotropic support, he was on Levophed for brief period of time which is currently off -patient to be started on guideline directed medical therapy once of dobutamine and more stable -p.r.n. hydralazine for elevated blood pressure -continue diuresis with Lasix -chest x-ray improving 12/29 echocardiogram showed Summary 1. The left ventricle is mildly dilated with severely reduced systolic function. There is mild eccentric left ventricular hypertrophy. The left ventricular ejection fraction is visually estimated to be 15-20%. There is no left ventricular thrombus. 2. The right ventricle is normal in size with reduced systolic function. 3. The left atrium is severely dilated. 4. The aortic valve is trileaflet and thickened. The right coronary cusp is calcified and restricted. There is no hemodynamically significant stenosis. There is moderate aortic regurgitation. 5. The mitral valve leaflets are thickened but opens well. There is mild mitral regurgitation. 6. The tricuspid valve leaflets are sclerotic but opens well. There is moderate tricuspid regurgitation. There is moderate hypertension. The PASP is estimated to be 60 mmHg. 7. Dilated inferior vena cava with <50% collapse upon inspiration consistent with significantly elevated right atrial pressure, 15 mmHg. 8. There is left-sided pleural effusion (4) CHF exacerbation: Qualifiers: Heart failure type: unspecified Qualified Code(s): I50.9 - Heart failure, unspecified Code(s): I50.9 - Heart failure, unspecified Status: Acute Assessment and Plan: Continue treatment as above (5) Sepsis: Code(s): A41.9 - Sepsis, unspecified organism Status: Acute Assessment and Plan: Patient does have UTI and may have pneumonia. Possible community-acquired or aspiration - elevated lactic acid can be secondary to sepsis or cardiogenic -procalcitonin was intermediate at 0.3 - blood culture 1/2 growing Staph hominis which is likely contaminant - discontinue vancomycin - continue Rocephin doxycycline and Flagyl for total of 5 days -urine cultures negative -sputum cultures pending 01/02: Patient was hypotensive requiring Levophed after his dobutamine was discontinued. Dobutamine was restarted -patient currently off Levophed (6) UTI (urinary tract infection): Code(s): N39.0 - Urinary tract infection, site not specified Status: Acute Assessment and Plan: Urine cultures are negative (7) Community acquired pneumonia: Qualifiers: Laterality: unspecified laterality Qualified Code(s): J18.9 - Pneumonia, unspecified organism Code(s): J18.9 - Pneumonia, unspecified organism Status: Acute Assessment and Plan: Treatment as above (8) Seizures: Code(s): R56.9 - Unspecified convulsions Status: Acute Assessment and Plan: continue valproic acid -hold gabapentin as patient has gabapentin bowel obstruct (9) Tachycardia: Code(s): R00.0 - Tachycardia, unspecified Status: Acute Assessment and Plan: tachycardia secondary to cardiomyopathy, respiratory failure and possibly sepsis improved after intubation and sedation (10) Swelling of right upper extremity: Code(s): M79.89 - Other specified soft tissue disorders Status: Acute Assessment and Plan: right upper extremity venous Dopplers were negative for DVT -elevate right upper extremity on pillows further evaluation and testing deferred at this time. Plan to diurese and achieve euvolemia possible at this time (11) Constipation: Qualifiers: Constipation type: chronic idiopathic constipation Qualified Code(s): K59.04 - Chronic idiopathic constipation Code(s): K59.00 - Constipation, unspecified Status: Acute Assessment and Plan: Patient on bowel regimen currently on hold as patient has obstruction -GI follow-up -appreciate GI evaluation, -treatment as above (12) Fecal impaction: Code(s): K56.41 - Fecal impaction Status: Acute Assessment and Plan: 01/01: Obstructive series showed fecal impaction and bowel obstruction -CT abdomen and pelvis as above -treatment as above (13) Elevated LFTs: Code(s): R79.89 - Other specified abnormal findings of blood chemistry Status: Acute Assessment and Plan: elevated LFTs likely secondary to shock liver and possible hepatic congestion, cardiogenic shock. -LFTs improving -continue to monitor (14) Electrolyte abnormality: Code(s): E87.8 - Other disorders of electrolyte and fluid balance, not elsewhere classified Status: Acute Assessment and Plan: Replace potassium Plan DVT prophylaxis - Lovenox Stress ulcer prophylaxis - Protonix Nutrition -continue to hold tube feeds for now due to severe constipation and ileus Code Status - full code. 12/29 I had extensive discussion with patient's sister by phone. I updated her with patient's current status which involves respiratory failure, sepsis, cardiomyopathy. I also discussed goals of care. Patient's sister appears on informed of patient's medical problems and unrealistic of prognosis. She wants patient to be full code at this time. Patient was hence intubated and placed on mechanical ventilation. Total Critical Care Time - 33 minutes 01/04/2025: Patient discuss with patient's sister Margy, who is the POA. Updated with patient's condition and plan of care. She stated she was everything to be done to keep the patient alive even if it meant to get a tracheostomy and moved to an LTAC. Patient already has a G-tube. She does understand the patient's heart is only pumping 15%, she notes that he has a poor quality of life given being nonverbal and bed-bound at baseline. She stated she was him to be a full code for now 01/02: I had an discussion with patient's sister on the phone and explained to her patient's condition and plan of care. She is aware that he has respiratory failure, severe heart failure, I also told her that he has fecal impaction, ileus/bowel obstruction. Patient's daughter stated that he would want everything to be done at this time including CPR. She is going to be coming on Thursday 01/04 to see him, I discussed with her code status, she said she will think about it and get back to me Due to a high probability of clinically significant, life threatening deterioration, the patient required my highest level of preparedness to intervene emergently and I personally spent this critical care time directly and personally managing the patient. This critical care time included obtaining a history; examining the patient; pulse oximetry; ordering and review of studies; arranging urgent treatment with development of a management plan; evaluation of patient's response to treatment; frequent reassessment; and discussions with other providers. It was exclusive of separately billable procedures and treating other patients and teaching time. Please see Assessment and Plan section and the rest of the note for further information on patient assessment and treatment Subjective Date/time seen: 01/05/25 08:02 Interval history: Reason for visit: CHF exacerbate, acute respiratory failure requiring intubation on 12/29/2024, pneumonia, UTI, cardiomyopathy HPI: 59-year-old man with schizophrenia, seizures, heart failure with unknown systolic function, who is nonverbal with a G-tube transfer from senior living due to respiratory distress. 01/05/2025: Patient seen and examined the ICU. Remains intubated on CMV mode of ventilation, peep of 8, 25% FiO2. Sedated with Precedex infusion. Patient opens eyes but does not follow simple commands. Urine output has been good in response to diuresis, negative 1662 mL in fluid balance in the last 24 hour. Patient is afebrile, hemodynamically stable, remains on dobutamine infusion at 2.5 mcg/kg/min. Not much response any more to the enemas. Patient also has been receiving MiraLax Q 4 hours -NG tube remains to suction Review of Systems Review of Systems: ROS unobtainable: Yes unobtainable due to endotracheal tube, unobtainable due to medical condition and unobtainable due to mental status Exam Narrative: General: Intubated, on Precedex, opens his eyes, in no acute distress HEENT: Pupils equal and reactive, sclera is clear, ETT in place Lungs/Chest: Coarse breath sounds bilaterally, rales RT > LT, no wheezing Cardiac: S1-S2 normal, regular rate and rhythm, Circulation: Pedal pulses are intact and symmetrical. Abdomen: Abdominal more soft, tympanic to percussion, nontender, hypoactive bowel sounds. G-tube in place Extremities: he has left mid tarsal amputation, he has a signed off bone injury on his right hand with looks like a graft, : Burdick in place Neurologic: Intubated, on Precedex, opens his eyes, does not follow simple commands. Skin: he has a large sternotomy incision scar in the midline of his chest. Objective Data Vital Signs Vital Signs: Vital Signs - 24 hr 01/04/25 08:03 01/04/25 08:24 01/04/25 09:15 Temperature Pulse Rate 99 104 H 105 H Respiratory Rate 12 10 L Blood Pressure Pulse Oximetry 100 Oxygen Delivery Mechanical Ventilation Fraction of Inspired Oxygen 01/04/25 10:00 01/04/25 10:00 01/04/25 10:00 Temperature Pulse Rate 105 H 105 H 103 H Respiratory Rate 13 Blood Pressure 98/68 L Pulse Oximetry Oxygen Delivery Fraction of Inspired Oxygen 01/04/25 10:00 01/04/25 10:34 01/04/25 10:45 Temperature Pulse Rate 103 H 85 84 Respiratory Rate 12 18 Blood Pressure 98/68 L Pulse Oximetry 99 99 Oxygen Delivery Mechanical Ventilation Fraction of Inspired Oxygen 01/04/25 11:55 01/04/25 12:00 01/04/25 12:00 Temperature 97.8 F Pulse Rate 83 83 83 Respiratory Rate 17 17 Blood Pressure 96/67 L 96/67 L Pulse Oximetry 96 Oxygen Delivery Fraction of Inspired Oxygen 01/04/25 12:00 01/04/25 12:00 01/04/25 12:00 Temperature Pulse Rate 83 Respiratory Rate Blood Pressure Pulse Oximetry Oxygen Delivery Mechanical Ventilation Fraction of Inspired Oxygen 01/04/25 12:12 01/04/25 12:52 01/04/25 14:00 Temperature Pulse Rate 83 84 82 Respiratory Rate 15 Blood Pressure 96/67 L Pulse Oximetry Oxygen Delivery Fraction of Inspired Oxygen 01/04/25 14:00 01/04/25 14:00 01/04/25 14:00 Temperature Pulse Rate 82 82 82 Respiratory Rate 16 16 Blood Pressure 99/67 L 99/67 L Pulse Oximetry 97 Oxygen Delivery Fraction of Inspired Oxygen 01/04/25 14:34 01/04/25 16:00 01/04/25 16:00 Temperature 98.1 F Pulse Rate 82 86 Respiratory Rate 12 Blood Pressure 101/66 Pulse Oximetry 96 98 Oxygen Delivery Mechanical Ventilation Fraction of Inspired Oxygen 25 25 01/04/25 16:00 01/04/25 16:00 01/04/25 16:00 Temperature Pulse Rate 86 86 Respiratory Rate 12 Blood Pressure 101/66 Pulse Oximetry Oxygen Delivery Mechanical Ventilation Fraction of Inspired Oxygen 25 01/04/25 16:00 01/04/25 17:29 01/04/25 18:00 Temperature Pulse Rate 84 86 84 Respiratory Rate 14 Blood Pressure Pulse Oximetry 100 Oxygen Delivery Mechanical Ventilation Fraction of Inspired Oxygen 25 01/04/25 18:00 01/04/25 18:00 01/04/25 18:00 Temperature Pulse Rate 84 84 84 Respiratory Rate 14 Blood Pressure 101/61 101/61 Pulse Oximetry 98 Oxygen Delivery Fraction of Inspired Oxygen 01/04/25 19:46 01/04/25 19:55 01/04/25 20:00 Temperature Pulse Rate 90 90 Respiratory Rate 25 H 25 H Blood Pressure Pulse Oximetry 98 Oxygen Delivery Mechanical Ventilation Fraction of Inspired Oxygen 25 25 01/04/25 20:00 01/04/25 20:00 01/04/25 20:00 Temperature 97.9 F Pulse Rate 86 86 86 Respiratory Rate 10 L 12 Blood Pressure 100/64 100/64 Pulse Oximetry 98 Oxygen Delivery Fraction of Inspired Oxygen 01/04/25 20:00 01/04/25 20:10 01/04/25 20:22 Temperature Pulse Rate 86 85 89 Respiratory Rate Blood Pressure Pulse Oximetry 99 Oxygen Delivery Mechanical Ventilation Fraction of Inspired Oxygen 25 01/04/25 20:59 01/04/25 20:59 01/04/25 22:00 Temperature Pulse Rate 84 84 86 Respiratory Rate 22 H 22 H Blood Pressure Pulse Oximetry Oxygen Delivery Fraction of Inspired Oxygen 01/04/25 22:00 01/04/25 22:00 01/04/25 22:00 Temperature Pulse Rate 86 87 86 Respiratory Rate 15 16 Blood Pressure 99/63 L 99/63 L Pulse Oximetry 97 Oxygen Delivery Fraction of Inspired Oxygen 01/04/25 22:03 01/04/25 23:30 01/04/25 23:36 Temperature Pulse Rate 85 95 Respiratory Rate 25 H Blood Pressure Pulse Oximetry 97 Oxygen Delivery Mechanical Ventilation Fraction of Inspired Oxygen 01/04/25 23:37 01/05/25 00:00 01/05/25 00:00 Temperature 98.3 F Pulse Rate 95 90 90 Respiratory Rate 25 H 18 17 Blood Pressure 102/66 Pulse Oximetry 97 98 Oxygen Delivery Mechanical Ventilation Fraction of Inspired Oxygen 01/05/25 00:00 01/05/25 00:01 01/05/25 01:48 Temperature Pulse Rate 89 90 85 Respiratory Rate Blood Pressure 102/66 Pulse Oximetry 100 Oxygen Delivery Mechanical Ventilation Fraction of Inspired Oxygen 01/05/25 02:00 01/05/25 02:00 01/05/25 02:00 Temperature Pulse Rate 91 87 87 Respiratory Rate 18 18 Blood Pressure 105/67 Pulse Oximetry 100 Oxygen Delivery Fraction of Inspired Oxygen 01/05/25 02:00 01/05/25 03:13 01/05/25 03:13 Temperature Pulse Rate 85 85 Respiratory Rate 18 Blood Pressure 105/67 Pulse Oximetry 100 Oxygen Delivery Mechanical Ventilation Fraction of Inspired Oxygen 01/05/25 04:00 01/05/25 04:00 01/05/25 04:00 Temperature 98.5 F Pulse Rate 105 H 105 H 104 H Respiratory Rate 16 18 Blood Pressure 110/73 Pulse Oximetry 99 Oxygen Delivery Fraction of Inspired Oxygen 01/05/25 04:00 01/05/25 05:01 01/05/25 05:30 Temperature Pulse Rate 105 H 85 87 Respiratory Rate 14 Blood Pressure 110/73 Pulse Oximetry 100 Oxygen Delivery Mechanical Ventilation Fraction of Inspired Oxygen 01/05/25 06:00 01/05/25 06:00 01/05/25 06:00 Temperature Pulse Rate 91 91 91 Respiratory Rate 20 15 Blood Pressure 103/67 Pulse Oximetry 100 Oxygen Delivery Fraction of Inspired Oxygen 01/05/25 06:00 Temperature Pulse Rate 87 Respiratory Rate Blood Pressure 103/67 Pulse Oximetry Oxygen Delivery Fraction of Inspired Oxygen Intake/Output Intake/Output: Intake & Output 01/02/25 01/03/25 01/04/25 01/05/25 23:59 23:59 23:59 23:59 Intake Total 2330.0 932.9 1147.8 166.6 Output Total 1300 1600 2125 1350 Balance 1030.0 -667.1 -977.2 -1183.4 Meds/Results Medications: Active Medications Generic Name Dose Route Start Last Admin Trade Name Freq PRN Reason Stop Dose Admin Albuterol/Ipratropium 3 ml 12/28/24 21:13 12/29/24 02:41 Ipratropium 0.5 Mg/Albuterol Sulfate 2.5 Mg Ampul.Neb 3 Ml INHALATION 3 ml Q6HRT PRN Administration Shortness Of Breath Or Wheezing Dextrose 12.5 gm 12/30/24 08:02 Dextrose 50% 25 Gm/50 Ml Syringe IV PUSH PRN PRN Hypoglycemia Protocol Docusate Sodium 100 mg 12/29/24 09:00 01/01/25 08:00 Docusate Sodium Liq 100 Mg/10 Ml Udc FEED TUBE 100 mg DAILY DANI Administration Enoxaparin Sodium 40 mg 12/30/24 09:00 01/04/25 08:03 Enoxaparin 40 Mg/0.4 Ml Syringe SUB-Q 40 mg QAM DANI Administration Fentanyl Citrate 25 mcg 12/29/24 15:33 01/02/25 01:32 Fentanyl Citrate Inj (*Crx) 100 Mcg/2 Ml Vial IV PUSH 25 mcg Q1H PRN Administration Pain while on vent Furosemide 40 mg 01/04/25 09:00 01/04/25 17:07 Furosemide Inj 40 Mg/4 Ml Vial IV PUSH 40 mg BID DANI Administration Gabapentin 100 mg 12/29/24 06:00 01/02/25 05:10 Gabapentin 100 Mg Capsule FEED TUBE 100 mg Q8HR DANI Administration Glucagon 1 mg 12/30/24 08:02 Glucagon For Inj 1 Mg Vial IM PRN PRN Hypoglycemia Protocol Glucose 15 gm 12/30/24 08:02 Glucose Oral Gel 15 Gm Of Glucse In 37.5 Gm Tube PO PRN PRN Hypoglycemia Protocol Hydralazine HCl 10 mg 01/02/25 07:32 Hydralazine Hcl 20 Mg/Ml Vial IV PUSH Q4H PRN Blood Pressure - High Ceftriaxone Sodium 1 gm in 50 mls @ 100 mls/hr 12/29/24 09:00 01/04/25 08:33 Rocephin 1 Gm/Ns 50 Ml IVPB 01/05/25 08:59 Infused Q24H DANI Infusion Dexmedetomidine HCl 400 mcg in 100 mls @ 2.825 mls/hr 12/29/24 15:10 01/05/25 06:00 Precedex 400 Mcg/100 Ml IV CONT 0.2 mcg/kg/hr .[id number] DANI 2.83 mls/hr Titration Protocol 0.2 MCG/KG/HR Dextrose 1,000 mls @ 100 mls/hr 12/30/24 08:02 Dextrose 5% 1,000 Ml IVPB PRN PRN Hypoglycemia Protocol Valproate Sodium 250 mg/ 52.5 mls @ 52.5 mls/hr 01/02/25 12:00 01/05/25 05:42 Dextrose IVPB 52.5 mls/hr Q6HR DANI Administration Norepinephrine Bitartrate 8 mg in 250 mls @ 0 mls/hr 01/02/25 13:20 01/04/25 20:10 Levophed 8 Mg/D5w 250 Ml IV CONT Infused .Q0M DANI Titration Protocol 0 MCG/MIN Dobutamine HCl/Dextrose 250 mg in 250 mls @ 9.915 mls/hr 01/03/25 10:30 01/05/25 06:00 Dobutamine 250 Mg/D5w 250 Ml IV CONT 2.5 mcg/kg/min .Q24H DANI 9.92 mls/hr Infusion 2.5 MCG/KG/MIN Potassium Chloride 100 mls @ 25 mls/hr 01/05/25 07:45 Kcl 40 Meq/Water 100 Ml IVPB 01/05/25 11:44 ONCE ONE Potassium Chloride 100 mls @ 25 mls/hr 01/05/25 16:00 Kcl 40 Meq/Water 100 Ml IVPB 01/05/25 19:59 ONCE ONE Insulin Aspart 2 - 5 units 12/30/24 12:00 01/05/25 06:15 Insulin Aspart (*Bkc) 100 Units/Ml SUB-Q Not Given Q6HR [facility] Protocol Lisinopril 10 mg 01/02/25 09:00 Lisinopril 10 Mg Tablet PO DAILY DANI Metoprolol Tartrate 12.5 mg 01/02/25 09:00 Metoprolol Tartrate 12.5 Mg Tablet PO Q12HR [facility] Midazolam HCl 2 mg 12/29/24 15:10 01/02/25 10:39 Midazolam Hcl (*Crx) 2 Mg/2 Ml Vial IV PUSH 2 mg Q5M PRN Administration ventilator asynchrony Multi-Ingred Cream/Lotion/Oil/Oint 1 applic 12/29/24 21:00 01/04/25 20:17 Mineral Oil/White Petrolatum Ointment EACH EYE 1 applic Q12HR DANI Administration Pantoprazole Sodium 40 mg 12/29/24 15:15 01/04/25 08:02 Pantoprazole Sodium Iv 40 Mg Vial IV PUSH 40 mg QAM DANI Administration Polyethylene Glycol 17 gm 12/30/24 09:00 01/01/25 08:00 Polyethylene Glycol 3350 17 Gm Powd.Pack PO 17 gm QAM DANI Administration Polyethylene Glycol 17 gm 01/05/25 08:00 Polyethylene Glycol 3350 17 Gm Powd.Pack PO 01/06/25 01:01 Q4HR DANI Radiology Results: ITS Impressions Venous Doppler Study 12/28/24 15:55 IMPRESSION: Negative left and right upper extremity venous US. No deep vein thrombosis. Chest/Abdomen/Pelvis CTA 12/29/24 14:43 IMPRESSION: 1. Extensive patchy airspace opacities throughout both lungs and favor severe congestive heart failure related pulmonary edema over pneumonia. 2. Small left and moderate sized right dependently layering pleural effusions with associated compressive atelectasis in the dependent lungs. 3. Cardiomegaly with enlargement of the central pulmonary consistent with pulmonary arterial hypertension. 4. Large amount of stool throughout the colon with 9.6 x 6.7 cm ball of stool the rectum consistent with likely constipation with fecal impaction. 5. Hepatomegaly. Chest/Abdomen/Pelvis CT 01/02/25 10:10 IMPRESSION: 1. Significant improvement in previously moderate, now minimal pulmonary edema with unchanged small left and small to moderate-sized right pleural effusions. 2. Persistent large amount of stool in the distal colon suggestive of constipation with fluid consistent with diarrhea and the more proximal colon. 3. No change in position of a small foreign body correlating with the finding on the earlier KUB which is located along the luminal side of the posterior wall of the cecum which could represent either an ingested foreign body or a clip fixed to the wall given the lack of movement. Correlate with clinical/surgical history. Labs Labs: Laboratory Results - last 24 hr 01/04/25 01/04/25 01/04/25 11:53 17:10 23:09 WBC RBC Hgb Hct MCV MCH MCHC RDW Plt Count MPV Puncture Site ABG pH ABG pCO2 ABG pO2 ABG PO2/FiO2 Ratio ABG HCO3 ABG O2 Saturation ABG O2 Content ABG Base Excess A-a Gradient Oxyhemoglobin Carboxyhemoglobin Methemoglobin Reduced Hemoglobin Total Hemoglobin O2 Delivery Device O2 Liters/Min Minute Volume Vent Rate Vent Mode FiO2 Tidal Volume PEEP Peak Inspir Pressure Pressure Support Sodium Potassium Chloride Carbon Dioxide Anion Gap BUN Creatinine Estim Creat Clear Calc Estimated GFR Glucose POC Capillary Glucose 82 79 80 Calcium Phosphorus Magnesium Total Bilirubin AST ALT Alkaline Phosphatase Total Protein Albumin 01/05/25 01/05/25 05:30 05:44 WBC 7.2 RBC 2.65 L Hgb 8.5 L Hct 27.3 L MCV 103.0 H MCH 32.1 MCHC 31.1 L RDW 15.9 H Plt Count 192 MPV 10.2 Puncture Site Right radial ABG pH 7.493 H ABG pCO2 33.0 L ABG pO2 84.1 ABG PO2/FiO2 Ratio 3.36 ABG HCO3 24.8 ABG O2 Saturation 97.1 ABG O2 Content 16.9 ABG Base Excess 1.9 A-a Gradient 55.0 Oxyhemoglobin 95.6 Carboxyhemoglobin 1.0 Methemoglobin 0.0 Reduced Hemoglobin 3.4 Total Hemoglobin 12.5 O2 Delivery Device Ventilator O2 Liters/Min Not Reportable Minute Volume Not Reportable Vent Rate 14 Vent Mode Cmv FiO2 25 Tidal Volume 300 PEEP 8 Peak Inspir Pressure Not Reportable Pressure Support Not Reportable Sodium 146 H Potassium 3.5 Chloride 111 H Carbon Dioxide 28 Anion Gap 7 BUN 17 Creatinine 0.47 L Estim Creat Clear Calc 124 Estimated GFR > 60 Glucose 85 POC Capillary Glucose Calcium 8.3 L Phosphorus 3.4 Magnesium 2.1 Total Bilirubin 0.5 AST 118 H ALT 334 H Alkaline Phosphatase 75 Total Protein 7.0 Albumin 3.0 L Quality VTE Prophylaxis VTE prophylaxis: pharmacologic ordered
[2025-01-05] MEDS: FUROSEMIDE INJ 40 MG/4 ML VIAL IV PUSH ×2 (09:20→16:21)
[2025-01-05] MEDS: ENOXAPARIN 40 MG/0.4 ML SYRINGE SUB-Q (09:20)
[2025-01-05] MEDS: PANTOPRAZOLE SODIUM IV 40 MG VIAL IV PUSH (09:20)
[2025-01-05] MEDS: POTASSIUM CHLORIDE 20 MEQ PACKET (FOR LIQUID) 40 MEQ FEED TUBE (09:21)
[2025-01-05] MEDS: KCL 40 MEQ/WATER 100 ML 100 ML 25 ML IVPB ×2 (09:21→16:21)
[2025-01-05] MEDS: MINERAL OIL/WHITE PETROLATUM OINTMENT 1 APPLIC EACH EYE ×2 (09:39→20:34)
--- NOTE | 2025-01-05 10:12 | PM.PNCARD ---
Progress Note: A&P Assessment and Plan (1) CHF exacerbation: Qualifiers: Heart failure type: unspecified Qualified Code(s): I50.9 - Heart failure, unspecified Code(s): I50.9 - Heart failure, unspecified Status: Acute Plan 59-year-old man with schizophrenia and seizures who is nonverbal with a G-tube transfer from group home due to respiratory distress now found to have systolic heart failure and possible pneumonia Acute decompensated systolic heart failure -continue Lasix 40 mg IV b.i.d. -unable to up titrate diuretics due to ileus and fecal impaction -continue dobutamine -overall poor prognosis when taking into account his other remaining chronic conditions Moderate mitral regurgitation -reassess outpatient when euvolemic Moderate aortic regurgitation -outpatient surveillance echocardiogram Subjective Date/time seen: 01/05/25 10:12 Interval history: Eyes open spontaneously. Intubated. Review of Systems Review of Systems: ROS unobtainable: Yes unobtainable due to endotracheal tube and unobtainable due to medical condition Exam Const: General: no acute distress HENMT: Mouth: Yes moist mucous membranes Eyes: EOM: EOMs intact bilaterally Neck: Neck: no JVD Resp: Other: Ventilator noise Cardio: Rate: tachycardic Rhythm: regular rhythm Objective Data Vital Signs Vital Signs: Vital Signs - 24 hr 01/04/25 10:34 01/04/25 10:45 01/04/25 11:55 Temperature Pulse Rate 85 84 83 Respiratory Rate 18 Blood Pressure 96/67 L Pulse Oximetry 99 Oxygen Delivery Mechanical Ventilation Fraction of Inspired Oxygen 01/04/25 12:00 01/04/25 12:00 01/04/25 12:00 Temperature 36.6 C Pulse Rate 83 83 83 Respiratory Rate 17 17 Blood Pressure 96/67 L Pulse Oximetry 96 Oxygen Delivery Fraction of Inspired Oxygen 01/04/25 12:00 01/04/25 12:00 01/04/25 12:12 Temperature Pulse Rate 83 Respiratory Rate Blood Pressure 96/67 L Pulse Oximetry Oxygen Delivery Mechanical Ventilation Fraction of Inspired Oxygen 01/04/25 12:52 01/04/25 14:00 01/04/25 14:00 Temperature Pulse Rate 84 82 82 Respiratory Rate 15 16 Blood Pressure 99/67 L Pulse Oximetry 97 Oxygen Delivery Fraction of Inspired Oxygen 01/04/25 14:00 01/04/25 14:00 01/04/25 14:34 Temperature Pulse Rate 82 82 82 Respiratory Rate 16 Blood Pressure 99/67 L Pulse Oximetry 96 Oxygen Delivery Mechanical Ventilation Fraction of Inspired Oxygen 25 01/04/25 16:00 01/04/25 16:00 01/04/25 16:00 Temperature 36.7 C Pulse Rate 86 Respiratory Rate 12 Blood Pressure 101/66 Pulse Oximetry 98 Oxygen Delivery Mechanical Ventilation Fraction of Inspired Oxygen 25 25 01/04/25 16:00 01/04/25 16:00 01/04/25 16:00 Temperature Pulse Rate 86 86 84 Respiratory Rate 12 Blood Pressure 101/66 Pulse Oximetry Oxygen Delivery Fraction of Inspired Oxygen 01/04/25 17:29 01/04/25 18:00 01/04/25 18:00 Temperature Pulse Rate 86 84 84 Respiratory Rate 14 Blood Pressure 101/61 Pulse Oximetry 100 Oxygen Delivery Mechanical Ventilation Fraction of Inspired Oxygen 25 01/04/25 18:00 01/04/25 18:00 01/04/25 19:46 Temperature Pulse Rate 84 84 90 Respiratory Rate 14 25 H Blood Pressure 101/61 Pulse Oximetry 98 Oxygen Delivery Fraction of Inspired Oxygen 01/04/25 19:55 01/04/25 20:00 01/04/25 20:00 Temperature Pulse Rate 90 86 Respiratory Rate 25 H 10 L Blood Pressure Pulse Oximetry 98 Oxygen Delivery Mechanical Ventilation Fraction of Inspired Oxygen 25 25 01/04/25 20:00 01/04/25 20:00 01/04/25 20:00 Temperature 36.6 C Pulse Rate 86 86 86 Respiratory Rate 12 Blood Pressure 100/64 100/64 Pulse Oximetry 98 Oxygen Delivery Fraction of Inspired Oxygen 01/04/25 20:10 01/04/25 20:22 01/04/25 20:59 Temperature Pulse Rate 85 89 84 Respiratory Rate 22 H Blood Pressure Pulse Oximetry 99 Oxygen Delivery Mechanical Ventilation Fraction of Inspired Oxygen 25 01/04/25 20:59 01/04/25 22:00 01/04/25 22:00 Temperature Pulse Rate 84 86 86 Respiratory Rate 22 H 15 Blood Pressure 99/63 L Pulse Oximetry 97 Oxygen Delivery Fraction of Inspired Oxygen 01/04/25 22:00 01/04/25 22:00 01/04/25 22:03 Temperature Pulse Rate 87 86 85 Respiratory Rate 16 Blood Pressure 99/63 L Pulse Oximetry 97 Oxygen Delivery Mechanical Ventilation Fraction of Inspired Oxygen 25 01/04/25 23:30 01/04/25 23:36 01/04/25 23:37 Temperature Pulse Rate 95 95 Respiratory Rate 25 H 25 H Blood Pressure Pulse Oximetry 97 Oxygen Delivery Mechanical Ventilation Fraction of Inspired Oxygen 25 25 01/05/25 00:00 01/05/25 00:00 01/05/25 00:00 Temperature 36.8 C Pulse Rate 90 90 89 Respiratory Rate 18 17 Blood Pressure 102/66 Pulse Oximetry 98 Oxygen Delivery Fraction of Inspired Oxygen 01/05/25 00:01 01/05/25 01:48 01/05/25 02:00 Temperature Pulse Rate 90 85 91 Respiratory Rate Blood Pressure 102/66 Pulse Oximetry 100 Oxygen Delivery Mechanical Ventilation Fraction of Inspired Oxygen 25 01/05/25 02:00 01/05/25 02:00 01/05/25 02:00 Temperature Pulse Rate 87 87 85 Respiratory Rate 18 18 Blood Pressure 105/67 105/67 Pulse Oximetry 100 Oxygen Delivery Fraction of Inspired Oxygen 01/05/25 03:13 01/05/25 03:13 01/05/25 04:00 Temperature Pulse Rate 85 105 H Respiratory Rate 18 Blood Pressure Pulse Oximetry 100 Oxygen Delivery Mechanical Ventilation Fraction of Inspired Oxygen 01/05/25 04:00 01/05/25 04:00 01/05/25 04:00 Temperature 36.9 C Pulse Rate 105 H 104 H 105 H Respiratory Rate 16 18 Blood Pressure 110/73 110/73 Pulse Oximetry 99 Oxygen Delivery Fraction of Inspired Oxygen 01/05/25 05:01 01/05/25 05:30 01/05/25 06:00 Temperature Pulse Rate 85 87 91 Respiratory Rate 14 Blood Pressure Pulse Oximetry 100 Oxygen Delivery Mechanical Ventilation Fraction of Inspired Oxygen 01/05/25 06:00 01/05/25 06:00 01/05/25 06:00 Temperature Pulse Rate 91 91 87 Respiratory Rate 20 15 Blood Pressure 103/67 103/67 Pulse Oximetry 100 Oxygen Delivery Fraction of Inspired Oxygen 01/05/25 08:00 01/05/25 08:00 01/05/25 08:00 Temperature Pulse Rate 97 101 H Respiratory Rate 15 Blood Pressure Pulse Oximetry 98 Oxygen Delivery Mechanical Ventilation Fraction of Inspired Oxygen 25 01/05/25 08:00 01/05/25 08:44 Temperature 36.9 C Pulse Rate 101 H 97 Respiratory Rate 12 Blood Pressure 99/63 L Pulse Oximetry 98 98 Oxygen Delivery Mechanical Ventilation Fraction of Inspired Oxygen 25 Intake/Output Intake/Output: Intake & Output 01/02/25 01/03/25 01/04/25 01/05/25 23:59 23:59 23:59 23:59 Intake Total 2330.0 932.9 1147.8 166.6 Output Total 1300 1600 2125 1350 Balance 1030.0 -667.1 -977.2 -1183.4 Meds/Results Medications: Active Medications Generic Name Dose Route Start Last Admin Trade Name Freq PRN Reason Stop Dose Admin Albuterol/Ipratropium 3 ml 12/28/24 21:13 12/29/24 02:41 Ipratropium 0.5 Mg/Albuterol Sulfate 2.5 Mg Ampul.Neb 3 Ml INHALATION 3 ml Q6HRT PRN Administration Shortness Of Breath Or Wheezing Dextrose 12.5 gm 12/30/24 08:02 Dextrose 50% 25 Gm/50 Ml Syringe IV PUSH PRN PRN Hypoglycemia Protocol Docusate Sodium 100 mg 12/29/24 09:00 01/01/25 08:00 Docusate Sodium Liq 100 Mg/10 Ml Udc FEED TUBE 100 mg DAILY DANI Administration Enoxaparin Sodium 40 mg 12/30/24 09:00 01/05/25 09:20 Enoxaparin 40 Mg/0.4 Ml Syringe SUB-Q 40 mg QAM DANI Administration Fentanyl Citrate 25 mcg 12/29/24 15:33 01/02/25 01:32 Fentanyl Citrate Inj (*Crx) 100 Mcg/2 Ml Vial IV PUSH 25 mcg Q1H PRN Administration Pain while on vent Furosemide 40 mg 01/04/25 09:00 01/05/25 09:20 Furosemide Inj 40 Mg/4 Ml Vial IV PUSH 40 mg BID DANI Administration Gabapentin 100 mg 12/29/24 06:00 01/02/25 05:10 Gabapentin 100 Mg Capsule FEED TUBE 100 mg Q8HR DANI Administration Glucagon 1 mg 12/30/24 08:02 Glucagon For Inj 1 Mg Vial IM PRN PRN Hypoglycemia Protocol Glucose 15 gm 12/30/24 08:02 Glucose Oral Gel 15 Gm Of Glucse In 37.5 Gm Tube PO PRN PRN Hypoglycemia Protocol Hydralazine HCl 10 mg 01/02/25 07:32 Hydralazine Hcl 20 Mg/Ml Vial IV PUSH Q4H PRN Blood Pressure - High Dexmedetomidine HCl 400 mcg in 100 mls @ 2.825 mls/hr 12/29/24 15:10 01/05/25 06:00 Precedex 400 Mcg/100 Ml IV CONT 0.2 mcg/kg/hr .[id number] DANI 2.83 mls/hr Titration Protocol 0.2 MCG/KG/HR Dextrose 1,000 mls @ 100 mls/hr 12/30/24 08:02 Dextrose 5% 1,000 Ml IVPB PRN PRN Hypoglycemia Protocol Valproate Sodium 250 mg/ 52.5 mls @ 52.5 mls/hr 01/02/25 12:00 01/05/25 05:42 Dextrose IVPB 52.5 mls/hr Q6HR DANI Administration Norepinephrine Bitartrate 8 mg in 250 mls @ 0 mls/hr 01/02/25 13:20 01/04/25 20:10 Levophed 8 Mg/D5w 250 Ml IV CONT Infused .Q0M DANI Titration Protocol 0 MCG/MIN Dobutamine HCl/Dextrose 250 mg in 250 mls @ 9.915 mls/hr 01/03/25 10:30 01/05/25 06:00 Dobutamine 250 Mg/D5w 250 Ml IV CONT 2.5 mcg/kg/min .Q24H DANI 9.92 mls/hr Infusion 2.5 MCG/KG/MIN Potassium Chloride 100 mls @ 25 mls/hr 01/05/25 07:45 01/05/25 09:21 Kcl 40 Meq/Water 100 Ml IVPB 01/05/25 11:44 25 mls/hr ONCE ONE Administration Potassium Chloride 100 mls @ 25 mls/hr 01/05/25 16:00 Kcl 40 Meq/Water 100 Ml IVPB 01/05/25 19:59 ONCE ONE Insulin Aspart 2 - 5 units 12/30/24 12:00 01/05/25 06:15 Insulin Aspart (*Bkc) 100 Units/Ml SUB-Q Not Given Q6HR [facility] Protocol Lisinopril 10 mg 01/02/25 09:00 Lisinopril 10 Mg Tablet PO DAILY DANI Metoprolol Tartrate 12.5 mg 01/02/25 09:00 Metoprolol Tartrate 12.5 Mg Tablet PO Q12HR DANI Midazolam HCl 2 mg 12/29/24 15:10 01/02/25 10:39 Midazolam Hcl (*Crx) 2 Mg/2 Ml Vial IV PUSH 2 mg Q5M PRN Administration ventilator asynchrony Multi-Ingred Cream/Lotion/Oil/Oint 1 applic 12/29/24 21:00 01/05/25 09:39 Mineral Oil/White Petrolatum Ointment EACH EYE 1 applic Q12HR DANI Administration Pantoprazole Sodium 40 mg 12/29/24 15:15 01/05/25 09:20 Pantoprazole Sodium Iv 40 Mg Vial IV PUSH 40 mg QAM DANI Administration Polyethylene Glycol 17 gm 12/30/24 09:00 01/01/25 08:00 Polyethylene Glycol 3350 17 Gm Powd.Pack PO 17 gm QAM DANI Administration Polyethylene Glycol 17 gm 01/05/25 08:00 01/05/25 09:21 Polyethylene Glycol 3350 17 Gm Powd.Pack PO 01/06/25 01:01 17 gm Q4HR DAIN Administration Radiology Results: ITS Impressions Venous Doppler Study 12/28/24 15:55 IMPRESSION: Negative left and right upper extremity venous US. No deep vein thrombosis. Chest/Abdomen/Pelvis CTA 12/29/24 14:43 IMPRESSION: 1. Extensive patchy airspace opacities throughout both lungs and favor severe congestive heart failure related pulmonary edema over pneumonia. 2. Small left and moderate sized right dependently layering pleural effusions with associated compressive atelectasis in the dependent lungs. 3. Cardiomegaly with enlargement of the central pulmonary consistent with pulmonary arterial hypertension. 4. Large amount of stool throughout the colon with 9.6 x 6.7 cm ball of stool the rectum consistent with likely constipation with fecal impaction. 5. Hepatomegaly. Chest/Abdomen/Pelvis CT 01/02/25 10:10 IMPRESSION: 1. Significant improvement in previously moderate, now minimal pulmonary edema with unchanged small left and small to moderate-sized right pleural effusions. 2. Persistent large amount of stool in the distal colon suggestive of constipation with fluid consistent with diarrhea and the more proximal colon. 3. No change in position of a small foreign body correlating with the finding on the earlier KUB which is located along the luminal side of the posterior wall of the cecum which could represent either an ingested foreign body or a clip fixed to the wall given the lack of movement. Correlate with clinical/surgical history. Chest X-Ray 01/05/25 08:15 IMPRESSION: 1. Persistent small bilateral pleural effusions with bibasilar atelectasis and/or pneumonia. Abdomen X-Ray 01/05/25 08:17 IMPRESSION: 1. No significant change in nonspecific bowel gas pattern with prominent gas throughout the colon but no definitive dilated loops of small bowel to suggest obstruction. 2. Small bilateral pleural effusions. Labs Labs: Laboratory Results - last 24 hr 01/04/25 01/04/25 01/04/25 11:53 17:10 23:09 WBC RBC Hgb Hct MCV MCH MCHC RDW Plt Count MPV Puncture Site ABG pH ABG pCO2 ABG pO2 ABG PO2/FiO2 Ratio ABG HCO3 ABG O2 Saturation ABG O2 Content ABG Base Excess A-a Gradient Oxyhemoglobin Carboxyhemoglobin Methemoglobin Reduced Hemoglobin Total Hemoglobin O2 Delivery Device O2 Liters/Min Minute Volume Vent Rate Vent Mode FiO2 Tidal Volume PEEP Peak Inspir Pressure Pressure Support Sodium Potassium Chloride Carbon Dioxide Anion Gap BUN Creatinine Estim Creat Clear Calc Estimated GFR Glucose POC Capillary Glucose 82 79 80 Calcium Phosphorus Magnesium Total Bilirubin AST ALT Alkaline Phosphatase Total Protein Albumin 01/05/25 01/05/25 05:30 05:44 WBC 7.2 RBC 2.65 L Hgb 8.5 L Hct 27.3 L MCV 103.0 H MCH 32.1 MCHC 31.1 L RDW 15.9 H Plt Count 192 MPV 10.2 Puncture Site Right radial ABG pH 7.493 H ABG pCO2 33.0 L ABG pO2 84.1 ABG PO2/FiO2 Ratio 3.36 ABG HCO3 24.8 ABG O2 Saturation 97.1 ABG O2 Content 16.9 ABG Base Excess 1.9 A-a Gradient 55.0 Oxyhemoglobin 95.6 Carboxyhemoglobin 1.0 Methemoglobin 0.0 Reduced Hemoglobin 3.4 Total Hemoglobin 12.5 O2 Delivery Device Ventilator O2 Liters/Min Not Reportable Minute Volume Not Reportable Vent Rate 14 Vent Mode Cmv FiO2 25 Tidal Volume 300 PEEP 8 Peak Inspir Pressure Not Reportable Pressure Support Not Reportable Sodium 146 H Potassium 3.5 Chloride 111 H Carbon Dioxide 28 Anion Gap 7 BUN 17 Creatinine 0.47 L Estim Creat Clear Calc 124 Estimated GFR > 60 Glucose 85 POC Capillary Glucose Calcium 8.3 L Phosphorus 3.4 Magnesium 2.1 Total Bilirubin 0.5 AST 118 H ALT 334 H Alkaline Phosphatase 75 Total Protein 7.0 Albumin 3.0 L
--- NOTE | 2025-01-05 10:44 | PCFNICU ---
ICU Rounding Note: Pt current nutrition is NPO - tube feedings on hold for resolution of bowel obstruction. Nutrition recommendation: Resume tube feeding when medically able Last recorded weight is 64 kg. Bowel Motility: Smear BMs overnight 01/05/25. Soap suds enemas today Labs Reviewed: Hgb 8.5, Hct 27.3, Na 146, K+ 3.0,Cre 0.47 Meds Noted: Novolog, colace, miralax, precedex Skin: No skin issues Additional Notes: Still NPO for resolution of bowel obstruction. Continue to monitor Following daily in ICU rounds. Will reassess every Sunday and Sunday. .
--- NOTE | 2025-01-05 10:54 | P.PNGS_ITS ---
Progress Note: A&P Assessment and Plan (1) Obstructive ileus of small intestine due to impaction: Code(s): K56.699 - Other intestinal obstruction unspecified as to partial versus complete obstruction; K56.49 - Other impaction of intestine Status: Acute Assessment and Plan: * Improving on plain films and bowels are moving. Currently receiving enemas Q6H and Miralax changed to Q4H. No signs of a mechanical obstruction and no surgical indication at this time. Will follow peripherally at this point. Call with any surgical questions or concerns. (2) Fecal impaction: Code(s): K56.41 - Fecal impaction Status: Acute Assessment and Plan: * Resolved on plain films. Bowels are moving. Discontinue enemas when okay with Gastroenterology. (3) Acute hypoxemic respiratory failure: Code(s): J96.01 - Acute respiratory failure with hypoxia Status: Chronic Assessment and Plan: * Stable on ventilator. Management per Materials Handling Equipment Operator. Plan I have discussed the patient's case and plan of care with Dr. Conti. Subjective Subjective Date/Time Seen: 01/05/25 10:54 Interval history: Patient intubated in ICU. No longer on vasopressors. He is alert. Nursing reports some small smear BM earlier this am. GJ tube is to gravity. NG tube is to wall suction with only 100 cc out in the past 24 hours. Exam Const: General: comfortable and ill appearing Resp: Effort & Inspection: other (On mechanical ventilator) GI: Inspection: distended GI Palp: Yes Soft to palpation, No Tenderness to palpation present (GI), No Guarding due to palpation present (GI) and No Rebound tenderness present Auscultation: Hypoactive bowel sounds present Objective Data Vital Signs Vital Signs: Vital Signs - 24 hr 01/04/25 11:55 01/04/25 12:00 01/04/25 12:00 Temperature 97.8 F Pulse Rate 83 83 83 Respiratory Rate 17 17 Blood Pressure 96/67 L 96/67 L Pulse Oximetry 96 Oxygen Delivery Fraction of Inspired Oxygen 01/04/25 12:00 01/04/25 12:00 01/04/25 12:00 Temperature Pulse Rate 83 Respiratory Rate Blood Pressure Pulse Oximetry Oxygen Delivery Mechanical Ventilation Fraction of Inspired Oxygen 01/04/25 12:12 01/04/25 12:52 01/04/25 14:00 Temperature Pulse Rate 83 84 82 Respiratory Rate 15 Blood Pressure 96/67 L Pulse Oximetry Oxygen Delivery Fraction of Inspired Oxygen 01/04/25 14:00 01/04/25 14:00 01/04/25 14:00 Temperature Pulse Rate 82 82 82 Respiratory Rate 16 16 Blood Pressure 99/67 L 99/67 L Pulse Oximetry 97 Oxygen Delivery Fraction of Inspired Oxygen 01/04/25 14:34 01/04/25 16:00 01/04/25 16:00 Temperature 98.1 F Pulse Rate 82 86 Respiratory Rate 12 Blood Pressure 101/66 Pulse Oximetry 96 98 Oxygen Delivery Mechanical Ventilation Fraction of Inspired Oxygen 25 25 01/04/25 16:00 01/04/25 16:00 01/04/25 16:00 Temperature Pulse Rate 86 86 Respiratory Rate 12 Blood Pressure 101/66 Pulse Oximetry Oxygen Delivery Mechanical Ventilation Fraction of Inspired Oxygen 25 01/04/25 16:00 01/04/25 17:29 01/04/25 18:00 Temperature Pulse Rate 84 86 84 Respiratory Rate 14 Blood Pressure Pulse Oximetry 100 Oxygen Delivery Mechanical Ventilation Fraction of Inspired Oxygen 25 01/04/25 18:00 01/04/25 18:00 01/04/25 18:00 Temperature Pulse Rate 84 84 84 Respiratory Rate 14 Blood Pressure 101/61 101/61 Pulse Oximetry 98 Oxygen Delivery Fraction of Inspired Oxygen 01/04/25 19:46 01/04/25 19:55 01/04/25 20:00 Temperature Pulse Rate 90 90 Respiratory Rate 25 H 25 H Blood Pressure Pulse Oximetry 98 Oxygen Delivery Mechanical Ventilation Fraction of Inspired Oxygen 25 25 01/04/25 20:00 01/04/25 20:00 01/04/25 20:00 Temperature 97.9 F Pulse Rate 86 86 86 Respiratory Rate 10 L 12 Blood Pressure 100/64 100/64 Pulse Oximetry 98 Oxygen Delivery Fraction of Inspired Oxygen 01/04/25 20:00 01/04/25 20:10 01/04/25 20:22 Temperature Pulse Rate 86 85 89 Respiratory Rate Blood Pressure Pulse Oximetry 99 Oxygen Delivery Mechanical Ventilation Fraction of Inspired Oxygen 25 01/04/25 20:59 01/04/25 20:59 01/04/25 22:00 Temperature Pulse Rate 84 84 86 Respiratory Rate 22 H 22 H Blood Pressure Pulse Oximetry Oxygen Delivery Fraction of Inspired Oxygen 01/04/25 22:00 01/04/25 22:00 01/04/25 22:00 Temperature Pulse Rate 86 87 86 Respiratory Rate 15 16 Blood Pressure 99/63 L 99/63 L Pulse Oximetry 97 Oxygen Delivery Fraction of Inspired Oxygen 01/04/25 22:03 01/04/25 23:30 01/04/25 23:36 Temperature Pulse Rate 85 95 Respiratory Rate 25 H Blood Pressure Pulse Oximetry 97 Oxygen Delivery Mechanical Ventilation Fraction of Inspired Oxygen 25 01/04/25 23:37 01/05/25 00:00 01/05/25 00:00 Temperature 98.3 F Pulse Rate 95 90 90 Respiratory Rate 25 H 18 17 Blood Pressure 102/66 Pulse Oximetry 97 98 Oxygen Delivery Mechanical Ventilation Fraction of Inspired Oxygen 01/05/25 00:00 01/05/25 00:01 01/05/25 01:48 Temperature Pulse Rate 89 90 85 Respiratory Rate Blood Pressure 102/66 Pulse Oximetry 100 Oxygen Delivery Mechanical Ventilation Fraction of Inspired Oxygen 01/05/25 02:00 01/05/25 02:00 01/05/25 02:00 Temperature Pulse Rate 91 87 87 Respiratory Rate 18 18 Blood Pressure 105/67 Pulse Oximetry 100 Oxygen Delivery Fraction of Inspired Oxygen 01/05/25 02:00 01/05/25 03:13 01/05/25 03:13 Temperature Pulse Rate 85 85 Respiratory Rate 18 Blood Pressure 105/67 Pulse Oximetry 100 Oxygen Delivery Mechanical Ventilation Fraction of Inspired Oxygen 01/05/25 04:00 01/05/25 04:00 01/05/25 04:00 Temperature 98.5 F Pulse Rate 105 H 105 H 104 H Respiratory Rate 16 18 Blood Pressure 110/73 Pulse Oximetry 99 Oxygen Delivery Fraction of Inspired Oxygen 01/05/25 04:00 01/05/25 05:01 01/05/25 05:30 Temperature Pulse Rate 105 H 85 87 Respiratory Rate 14 Blood Pressure 110/73 Pulse Oximetry 100 Oxygen Delivery Mechanical Ventilation Fraction of Inspired Oxygen 01/05/25 06:00 01/05/25 06:00 01/05/25 06:00 Temperature Pulse Rate 91 91 91 Respiratory Rate 20 15 Blood Pressure 103/67 Pulse Oximetry 100 Oxygen Delivery Fraction of Inspired Oxygen 01/05/25 06:00 01/05/25 08:00 01/05/25 08:00 Temperature Pulse Rate 87 97 Respiratory Rate 15 Blood Pressure 103/67 Pulse Oximetry 98 Oxygen Delivery Mechanical Ventilation Fraction of Inspired Oxygen 01/05/25 08:00 01/05/25 08:00 01/05/25 08:44 Temperature 98.4 F Pulse Rate 101 H 101 H 97 Respiratory Rate 12 Blood Pressure 99/63 L Pulse Oximetry 98 98 Oxygen Delivery Mechanical Ventilation Fraction of Inspired Oxygen 01/05/25 10:21 Temperature Pulse Rate 107 H Respiratory Rate Blood Pressure Pulse Oximetry 97 Oxygen Delivery Mechanical Ventilation Fraction of Inspired Oxygen 25 Intake/Output Intake/Output: Intake & Output 01/02/25 01/03/25 01/04/25 01/05/25 23:59 23:59 23:59 23:59 Intake Total 2330.0 932.9 1147.8 166.6 Output Total 1300 1600 2125 1350 Balance 1030.0 -667.1 -977.2 -1183.4 Meds/Results Medications: Active Medications Generic Name Dose Route Start Last Admin Trade Name Freq PRN Reason Stop Dose Admin Albuterol/Ipratropium 3 ml 12/28/24 21:13 12/29/24 02:41 Ipratropium 0.5 Mg/Albuterol Sulfate 2.5 Mg Ampul.Neb 3 Ml INHALATION 3 ml Q6HRT PRN Administration Shortness Of Breath Or Wheezing Dextrose 12.5 gm 12/30/24 08:02 Dextrose 50% 25 Gm/50 Ml Syringe IV PUSH PRN PRN Hypoglycemia Protocol Docusate Sodium 100 mg 12/29/24 09:00 01/01/25 08:00 Docusate Sodium Liq 100 Mg/10 Ml Udc FEED TUBE 100 mg DAILY DANI Administration Enoxaparin Sodium 40 mg 12/30/24 09:00 01/05/25 09:20 Enoxaparin 40 Mg/0.4 Ml Syringe SUB-Q 40 mg QAM DANI Administration Fentanyl Citrate 25 mcg 12/29/24 15:33 01/02/25 01:32 Fentanyl Citrate Inj (*Crx) 100 Mcg/2 Ml Vial IV PUSH 25 mcg Q1H PRN Administration Pain while on vent Furosemide 40 mg 01/04/25 09:00 01/05/25 09:20 Furosemide Inj 40 Mg/4 Ml Vial IV PUSH 40 mg BID DANI Administration Gabapentin 100 mg 12/29/24 06:00 01/02/25 05:10 Gabapentin 100 Mg Capsule FEED TUBE 100 mg Q8HR DANI Administration Glucagon 1 mg 12/30/24 08:02 Glucagon For Inj 1 Mg Vial IM PRN PRN Hypoglycemia Protocol Glucose 15 gm 12/30/24 08:02 Glucose Oral Gel 15 Gm Of Glucse In 37.5 Gm Tube PO PRN PRN Hypoglycemia Protocol Hydralazine HCl 10 mg 01/02/25 07:32 Hydralazine Hcl 20 Mg/Ml Vial IV PUSH Q4H PRN Blood Pressure - High Dexmedetomidine HCl 400 mcg in 100 mls @ 2.825 mls/hr 12/29/24 15:10 01/05/25 06:00 Precedex 400 Mcg/100 Ml IV CONT 0.2 mcg/kg/hr .[id number] DANI 2.83 mls/hr Titration Protocol 0.2 MCG/KG/HR Dextrose 1,000 mls @ 100 mls/hr 12/30/24 08:02 Dextrose 5% 1,000 Ml IVPB PRN PRN Hypoglycemia Protocol Valproate Sodium 250 mg/ 52.5 mls @ 52.5 mls/hr 01/02/25 12:00 01/05/25 05:42 Dextrose IVPB 52.5 mls/hr Q6HR DANI Administration Norepinephrine Bitartrate 8 mg in 250 mls @ 0 mls/hr 01/02/25 13:20 01/04/25 20:10 Levophed 8 Mg/D5w 250 Ml IV CONT Infused .Q0M DANI Titration Protocol 0 MCG/MIN Dobutamine HCl/Dextrose 250 mg in 250 mls @ 9.915 mls/hr 01/03/25 10:30 01/05/25 06:00 Dobutamine 250 Mg/D5w 250 Ml IV CONT 2.5 mcg/kg/min .Q24H DANI 9.92 mls/hr Infusion 2.5 MCG/KG/MIN Potassium Chloride 100 mls @ 25 mls/hr 01/05/25 07:45 01/05/25 09:21 Kcl 40 Meq/Water 100 Ml IVPB 01/05/25 11:44 25 mls/hr ONCE ONE Administration Potassium Chloride 100 mls @ 25 mls/hr 01/05/25 16:00 Kcl 40 Meq/Water 100 Ml IVPB 01/05/25 19:59 ONCE ONE Insulin Aspart 2 - 5 units 12/30/24 12:00 01/05/25 06:15 Insulin Aspart (*Bkc) 100 Units/Ml SUB-Q Not Given Q6HR [facility] Protocol Lisinopril 10 mg 01/02/25 09:00 Lisinopril 10 Mg Tablet PO DAILY [facility] Metoprolol Tartrate 12.5 mg 01/02/25 09:00 Metoprolol Tartrate 12.5 Mg Tablet PO Q12HR [facility] Midazolam HCl 2 mg 12/29/24 15:10 01/02/25 10:39 Midazolam Hcl (*Crx) 2 Mg/2 Ml Vial IV PUSH 2 mg Q5M PRN Administration ventilator asynchrony Multi-Ingred Cream/Lotion/Oil/Oint 1 applic 12/29/24 21:00 01/05/25 09:39 Mineral Oil/White Petrolatum Ointment EACH EYE 1 applic Q12HR DANI Administration Pantoprazole Sodium 40 mg 12/29/24 15:15 01/05/25 09:20 Pantoprazole Sodium Iv 40 Mg Vial IV PUSH 40 mg QAM DANI Administration Polyethylene Glycol 17 gm 12/30/24 09:00 01/01/25 08:00 Polyethylene Glycol 3350 17 Gm Powd.Pack PO 17 gm QAM DANI Administration Polyethylene Glycol 17 gm 01/05/25 08:00 01/05/25 09:21 Polyethylene Glycol 3350 17 Gm Powd.Pack PO 01/06/25 01:01 17 gm Q4HR DANI Administration Radiology Results: ITS Impressions Venous Doppler Study 12/28/24 15:55 IMPRESSION: Negative left and right upper extremity venous US. No deep vein thrombosis. Chest/Abdomen/Pelvis CTA 12/29/24 14:43 IMPRESSION: 1. Extensive patchy airspace opacities throughout both lungs and favor severe congestive heart failure related pulmonary edema over pneumonia. 2. Small left and moderate sized right dependently layering pleural effusions with associated compressive atelectasis in the dependent lungs. 3. Cardiomegaly with enlargement of the central pulmonary consistent with pulmonary arterial hypertension. 4. Large amount of stool throughout the colon with 9.6 x 6.7 cm ball of stool the rectum consistent with likely constipation with fecal impaction. 5. Hepatomegaly. Chest/Abdomen/Pelvis CT 01/02/25 10:10 IMPRESSION: 1. Significant improvement in previously moderate, now minimal pulmonary edema with unchanged small left and small to moderate-sized right pleural effusions. 2. Persistent large amount of stool in the distal colon suggestive of constipation with fluid consistent with diarrhea and the more proximal colon. 3. No change in position of a small foreign body correlating with the finding on the earlier KUB which is located along the luminal side of the posterior wall of the cecum which could represent either an ingested foreign body or a clip fixed to the wall given the lack of movement. Correlate with clinical/surgical history. Chest X-Ray 01/05/25 08:15 IMPRESSION: 1. Persistent small bilateral pleural effusions with bibasilar atelectasis and/or pneumonia. Abdomen X-Ray 01/05/25 08:17 IMPRESSION: 1. No significant change in nonspecific bowel gas pattern with prominent gas throughout the colon but no definitive dilated loops of small bowel to suggest obstruction. 2. Small bilateral pleural effusions. Labs Labs: Laboratory Results - last 24 hr 01/04/25 01/04/25 01/04/25 11:53 17:10 23:09 WBC RBC Hgb Hct MCV MCH MCHC RDW Plt Count MPV Puncture Site ABG pH ABG pCO2 ABG pO2 ABG PO2/FiO2 Ratio ABG HCO3 ABG O2 Saturation ABG O2 Content ABG Base Excess A-a Gradient Oxyhemoglobin Carboxyhemoglobin Methemoglobin Reduced Hemoglobin Total Hemoglobin O2 Delivery Device O2 Liters/Min Minute Volume Vent Rate Vent Mode FiO2 Tidal Volume PEEP Peak Inspir Pressure Pressure Support Sodium Potassium Chloride Carbon Dioxide Anion Gap BUN Creatinine Estim Creat Clear Calc Estimated GFR Glucose POC Capillary Glucose 82 79 80 Calcium Phosphorus Magnesium Total Bilirubin AST ALT Alkaline Phosphatase Total Protein Albumin 01/05/25 01/05/25 05:30 05:44 WBC 7.2 RBC 2.65 L Hgb 8.5 L Hct 27.3 L MCV 103.0 H MCH 32.1 MCHC 31.1 L RDW 15.9 H Plt Count 192 MPV 10.2 Puncture Site Right radial ABG pH 7.493 H ABG pCO2 33.0 L ABG pO2 84.1 ABG PO2/FiO2 Ratio 3.36 ABG HCO3 24.8 ABG O2 Saturation 97.1 ABG O2 Content 16.9 ABG Base Excess 1.9 A-a Gradient 55.0 Oxyhemoglobin 95.6 Carboxyhemoglobin 1.0 Methemoglobin 0.0 Reduced Hemoglobin 3.4 Total Hemoglobin 12.5 O2 Delivery Device Ventilator O2 Liters/Min Not Reportable Minute Volume Not Reportable Vent Rate 14 Vent Mode Cmv FiO2 25 Tidal Volume 300 PEEP 8 Peak Inspir Pressure Not Reportable Pressure Support Not Reportable Sodium 146 H Potassium 3.5 Chloride 111 H Carbon Dioxide 28 Anion Gap 7 BUN 17 Creatinine 0.47 L Estim Creat Clear Calc 124 Estimated GFR > 60 Glucose 85 POC Capillary Glucose Calcium 8.3 L Phosphorus 3.4 Magnesium 2.1 Total Bilirubin 0.5 AST 118 H ALT 334 H Alkaline Phosphatase 75 Total Protein 7.0 Albumin 3.0 L
[2025-01-05] MEDS: DOBUTamine 250 MG/D5W 250 ML 250 MG/250 ML BAG 9.92 MG IV CONT (15:22)
[2025-01-05 16:53] LABS: Glucose Point of Care 85 mg/dl (65-105)
[2025-01-05 18:07] LABS: Glucose Point of Care 91 mg/dl (65-105)
[2025-01-05] MEDS: DEXTROSE 50% 25 GM/50 ML SYRINGE IV PUSH (23:55)
[2025-01-05] MEDS: dexmedeTOMIDine 400 MCG/100 ML 400 MCG/100 ML BAG IV CONT (23:56)
[2025-01-06] VITALS (23 sets, daily range): BP systolic 97–112; BP diastolic 61–78; PULSE 80–105; RESP 12–20; TEMP 35.9–36.9; O2SAT 95–100
[2025-01-06 00:04] LABS: Glucose Point of Care 72 mg/dl (65-105)
[2025-01-06] MEDS: VALPROATE SODIUM INJ 250 MG in DEXTROSE 5% IN WATER 50 ML 52.5 MG IVPB ×2 (05:01→17:53)
[2025-01-06 05:04] LABS: Basophils Percent Auto 0.2 % (0.2-1.2); Eosinophils Percent Auto 0.5 % (0-4.4); Hematocrit 28.7 % (42.0-52.0); Hemoglobin 8.5 g/dL (14.0-18.0); Immature Granulocyte Absolute 0.02 K/mm3 (0.00-0.031); Immature Granulocyte Percent A 0.4 % (0-0.5); Lymphocytes Absolute Auto 0.94 K/mm3 (0.9-3.2); Lymphocytes Percent Auto 17.1 % (18.3-44.2); Mean Corpuscular HGB Conc 29.6 g/dl (32-36); Mean Corpuscular Hemoglobin 31.4 pg (26-34); Mean Corpuscular Volume 105.9 fl (80-100); Mean Platelet Volume 9.6 fl (7.4-10.4); Monocytes Absolute Auto 0.7 K/mm3 (0.1-0.6); Monocytes Percent Auto 12.9 % (2.6-8.5); Neutrophils Absolute Auto 3.8 K/mm3 (1.3-6.7); Neutrophils Percent Auto 68.9 % (45.5-73.1); Platelet Count Result 182 k/mm3 (150-375); Red Blood Count 2.71 M/mm3 (4.6-6.20); Red Cell Distribution Width 16.1 % (11.5-14.5); White Blood Count 5.5 K/mm3 (4.5-10.0)
[2025-01-06 05:15] LABS: Alanine Aminotransferase 280 U/L (6-50); Albumin Level 3.1 g/dL (3.5-5.1); Alkaline Phosphatase 78 U/L (38-126); Anion Gap 5 mmol/L (4-12); Aspartate Amino Transferase 84 U/L (17-59); Bilirubin,Total 0.5 mg/dL (0.2-1.3); Blood Urea Nitrogen 13 mg/dL (9-20); Calcium 8.5 mg/dL (8.4-10.2); Carbon Dioxide 30 mmol/L (22-30); Chloride 111 mmol/L (98-107); Estimated CRCL calculation 129 ml/min; Estimated Glomerular Filt Rate > 60; Glucose 92 mg/dL (65-110); Lactic Acid Reflex 0.6 mmol/L (0.7-2.0); Magnesium 2.2 mg/dL (1.6-2.3); Phosphorus 3.8 mg/dL (2.5-4.5); Potassium 3.5 mmol/L (3.4-5.0); Sodium 146 mmol/L (137-145)
[2025-01-06 05:26] LABS: Alveolar/Arterial O2 Gradient 36.4 mmHg; Base Excess ABG 4.1 mEq/l (+/-2.0); Carboxyhemoglobin 0.5 % THb (0-2.0); Fractional Inspired Oxygen 25 %; HCO3 ABG 27.1 mEq/l (22.0-26.0); Methemoglobin ABG 0.1 %THb (0-1.5); Oxygen Content ABG 13.4 %vol (16.0-22.0); Oxygen Saturation ABG 98.1 % (95.0-100.0); Oxyhemoglobin 96.8 % THb (90.0-100.0); PCO2 ABG 34.7 mmHg (35.0-45.0); PO2 ABG 100.6 mmHg (80.0-100.0); PO2 FiO2 Ratio Arterial Blood 4.02 %; Reduced Hemoglobin 2.6 %THb (0-5.0); Total Hemoglobin 9.7 g/dL (12.0-18.0)
[2025-01-06 05:28] LABS: Device VENTILATOR; Modified Allen's Test Pass; Site Drawn RIGHT RADIAL; pH ABG 7.511 (7.350-7.450)
[2025-01-06 05:29] LABS: Arterial Blood Gas PEEP 5 cmH2O; Arterial Blood Gas Tidal Volume 300 ml; Arterial Blood Gas Vent Mode CMV; Arterial Blood Gas Ventilator rate 14 /MIN
[2025-01-06 06:28] LABS: Platelet Estimate Adequate (Adequate)
[2025-01-06 06:29] LABS: Anisocytosis 1+; Hypochromasia 1+; Schistocytes None Seen
[2025-01-06] MEDS: PANTOPRAZOLE SODIUM IV 40 MG VIAL IV PUSH (08:10)
[2025-01-06] MEDS: FUROSEMIDE INJ 40 MG/4 ML VIAL IV PUSH ×2 (08:10→17:42)
[2025-01-06] MEDS: POTASSIUM CHLORIDE 20 MEQ PACKET (FOR LIQUID) 40 MEQ FEED TUBE (08:10)
[2025-01-06] MEDS: ENOXAPARIN 40 MG/0.4 ML SYRINGE SUB-Q (08:11)
[2025-01-06] MEDS: MINERAL OIL/WHITE PETROLATUM OINTMENT 1 APPLIC EACH EYE ×2 (08:11→21:00)
[2025-01-06] MEDS: polyethylene glycoL 3350 17 GM POWD.PACK PO ×2 (08:12→23:56)
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
--- NOTE | 2025-01-06 09:05 | P.PNGS_ITS ---
Progress Note: A&P Assessment and Plan (1) Fecal impaction: Code(s): K56.41 - Fecal impaction Status: Acute Assessment and Plan: Fecal impaction and relative obstruction have resolved. Patient no longer getting enemas and is receiving MiraLax q.12 hours. We will sign off. (2) Obstructive ileus of small intestine due to impaction: Code(s): K56.699 - Other intestinal obstruction unspecified as to partial versus complete obstruction; K56.49 - Other impaction of intestine Status: Acute Subjective Subjective Date/Time Seen: 01/06/25 09:05 Patient reports: bowel movement and other (Remains intubated but much more awake and alert) Review of Systems Review of Systems: ROS unobtainable: Yes unobtainable due to endotracheal tube Exam Const: General: comfortable, alert and awake GI: Inspection: normal to inspection GI Palp: Yes Soft to palpation and No Tenderness to palpation present (GI) Objective Data Vital Signs Vital Signs: Vital Signs - 24 hr 01/05/25 10:00 01/05/25 10:00 01/05/25 10:00 Temperature Pulse Rate 102 H 93 103 H Respiratory Rate 14 14 Blood Pressure 100/69 Pulse Oximetry 99 Oxygen Delivery Fraction of Inspired Oxygen 01/05/25 10:00 01/05/25 10:21 01/05/25 12:00 Temperature Pulse Rate 104 H 107 H Respiratory Rate Blood Pressure 100/69 Pulse Oximetry 97 Oxygen Delivery Mechanical Ventilation Fraction of Inspired Oxygen 01/05/25 12:00 01/05/25 12:00 01/05/25 12:00 Temperature Pulse Rate 97 105 H 105 H Respiratory Rate 15 15 Blood Pressure 101/69 Pulse Oximetry 98 98 Oxygen Delivery Mechanical Ventilation Fraction of Inspired Oxygen 01/05/25 12:10 01/05/25 12:11 01/05/25 14:00 Temperature Pulse Rate 105 H 105 H 99 Respiratory Rate 14 Blood Pressure 101/69 Pulse Oximetry Oxygen Delivery Fraction of Inspired Oxygen 01/05/25 14:00 01/05/25 14:00 01/05/25 14:00 Temperature Pulse Rate 99 99 100 Respiratory Rate 15 14 Blood Pressure 105/62 Pulse Oximetry 100 Oxygen Delivery Fraction of Inspired Oxygen 01/05/25 14:23 01/05/25 15:22 01/05/25 16:00 Temperature Pulse Rate 99 99 83 Respiratory Rate 17 Blood Pressure Pulse Oximetry 100 Oxygen Delivery Mechanical Ventilation Fraction of Inspired Oxygen 25 01/05/25 16:00 01/05/25 16:00 01/05/25 16:00 Temperature 36.6 C Pulse Rate 97 85 Respiratory Rate 15 15 Blood Pressure 108/63 Pulse Oximetry 98 100 Oxygen Delivery Mechanical Ventilation Fraction of Inspired Oxygen 25 25 01/05/25 16:00 01/05/25 17:04 01/05/25 17:42 Temperature Pulse Rate 100 84 85 Respiratory Rate 15 Blood Pressure Pulse Oximetry 100 Oxygen Delivery Mechanical Ventilation Fraction of Inspired Oxygen 25 01/05/25 17:51 01/05/25 18:00 01/05/25 19:51 Temperature Pulse Rate 84 88 100 Respiratory Rate 17 17 Blood Pressure 102/63 Pulse Oximetry 100 100 Oxygen Delivery Mechanical Ventilation Fraction of Inspired Oxygen 25 01/05/25 20:00 01/05/25 20:00 01/05/25 20:00 Temperature 36.6 C Pulse Rate 102 H 100 Respiratory Rate 20 Blood Pressure 103/66 Pulse Oximetry 100 Oxygen Delivery Fraction of Inspired Oxygen 25 01/05/25 20:00 01/05/25 20:00 01/05/25 20:09 Temperature Pulse Rate 100 100 102 H Respiratory Rate 16 Blood Pressure 103/66 Pulse Oximetry 99 Oxygen Delivery Mechanical Ventilation Fraction of Inspired Oxygen 01/05/25 22:00 01/05/25 22:00 01/05/25 22:00 Temperature Pulse Rate 99 99 99 Respiratory Rate 15 15 Blood Pressure 97/64 L Pulse Oximetry 98 Oxygen Delivery Fraction of Inspired Oxygen 01/05/25 22:00 01/05/25 23:10 01/05/25 23:21 Temperature Pulse Rate 99 81 82 Respiratory Rate 13 Blood Pressure 97/64 L Pulse Oximetry 99 98 Oxygen Delivery Mechanical Ventilation Mechanical Ventilation Fraction of Inspired Oxygen 01/05/25 23:56 01/05/25 23:56 01/06/25 00:00 Temperature Pulse Rate 83 83 84 Respiratory Rate 15 15 Blood Pressure Pulse Oximetry Oxygen Delivery Fraction of Inspired Oxygen 01/06/25 00:00 01/06/25 00:00 01/06/25 00:01 Temperature Pulse Rate 84 83 Respiratory Rate 14 12 Blood Pressure 101/62 Pulse Oximetry 99 Oxygen Delivery Fraction of Inspired Oxygen 25 01/06/25 00:01 01/06/25 01:05 01/06/25 02:00 Temperature Pulse Rate 83 81 80 Respiratory Rate Blood Pressure 101/62 Pulse Oximetry 100 Oxygen Delivery Mechanical Ventilation Fraction of Inspired Oxygen 25 01/06/25 02:00 01/06/25 02:00 01/06/25 02:00 Temperature Pulse Rate 80 83 81 Respiratory Rate 20 19 Blood Pressure 101/61 101/65 Pulse Oximetry 100 Oxygen Delivery Fraction of Inspired Oxygen 01/06/25 03:09 01/06/25 03:24 01/06/25 04:00 Temperature Pulse Rate 81 97 Respiratory Rate 14 14 Blood Pressure Pulse Oximetry 100 Oxygen Delivery Mechanical Ventilation Fraction of Inspired Oxygen 01/06/25 04:00 01/06/25 04:00 01/06/25 04:00 Temperature 36.8 C Pulse Rate 97 97 97 Respiratory Rate 14 Blood Pressure 110/69 110/69 Pulse Oximetry 100 Oxygen Delivery Fraction of Inspired Oxygen 01/06/25 05:17 01/06/25 06:00 01/06/25 06:00 Temperature Pulse Rate 97 97 96 Respiratory Rate 16 Blood Pressure 104/72 Pulse Oximetry 100 100 Oxygen Delivery Mechanical Ventilation Fraction of Inspired Oxygen 25 01/06/25 06:00 01/06/25 06:00 01/06/25 07:55 Temperature Pulse Rate 95 94 97 Respiratory Rate 16 Blood Pressure 104/72 Pulse Oximetry 100 Oxygen Delivery Mechanical Ventilation Fraction of Inspired Oxygen 25 01/06/25 08:00 01/06/25 08:00 01/06/25 08:00 Temperature 35.9 C L Pulse Rate 94 94 82 Respiratory Rate 14 14 Blood Pressure 111/71 Pulse Oximetry 100 100 Oxygen Delivery Mechanical Ventilation Fraction of Inspired Oxygen 01/06/25 08:00 01/06/25 08:07 Temperature Pulse Rate 94 Respiratory Rate 14 Blood Pressure Pulse Oximetry Oxygen Delivery Fraction of Inspired Oxygen 25 Intake/Output Intake/Output: Intake & Output 01/03/25 01/04/25 01/05/25 01/06/25 23:59 23:59 23:59 23:59 Intake Total 932.9 1147.8 734.4 155.0 Output Total 1600 2125 4050 690 Balance -667.1 -977.2 -3315.6 -535.0 Meds/Results Medications: Active Medications Generic Name Dose Route Start Last Admin Trade Name Freq PRN Reason Stop Dose Admin Albuterol/Ipratropium 3 ml 12/28/24 21:13 12/29/24 02:41 Ipratropium 0.5 Mg/Albuterol Sulfate 2.5 Mg Ampul.Neb 3 Ml INHALATION 3 ml Q6HRT PRN Administration Shortness Of Breath Or Wheezing Dextrose 12.5 gm 12/30/24 08:02 01/05/25 23:55 Dextrose 50% 25 Gm/50 Ml Syringe IV PUSH 12.5 gm PRN PRN Administration Hypoglycemia Protocol Docusate Sodium 100 mg 12/29/24 09:00 01/01/25 08:00 Docusate Sodium Liq 100 Mg/10 Ml Udc FEED TUBE 100 mg DAILY DANI Administration Enoxaparin Sodium 40 mg 12/30/24 09:00 01/06/25 08:11 Enoxaparin 40 Mg/0.4 Ml Syringe SUB-Q 40 mg QAM DANI Administration Fentanyl Citrate 25 mcg 12/29/24 15:33 01/02/25 01:32 Fentanyl Citrate Inj (*Crx) 100 Mcg/2 Ml Vial IV PUSH 25 mcg Q1H PRN Administration Pain while on vent Furosemide 40 mg 01/04/25 09:00 01/06/25 08:10 Furosemide Inj 40 Mg/4 Ml Vial IV PUSH 40 mg BID DANI Administration Gabapentin 100 mg 12/29/24 06:00 01/02/25 05:10 Gabapentin 100 Mg Capsule FEED TUBE 100 mg Q8HR DANI Administration Glucagon 1 mg 12/30/24 08:02 Glucagon For Inj 1 Mg Vial IM PRN PRN Hypoglycemia Protocol Glucose 15 gm 12/30/24 08:02 Glucose Oral Gel 15 Gm Of Glucse In 37.5 Gm Tube PO PRN PRN Hypoglycemia Protocol Hydralazine HCl 10 mg 01/02/25 07:32 Hydralazine Hcl 20 Mg/Ml Vial IV PUSH Q4H PRN Blood Pressure - High Dexmedetomidine HCl 400 mcg in 100 mls @ 1.413 mls/hr 12/29/24 15:10 01/06/25 08:07 Precedex 400 Mcg/100 Ml IV CONT 0.1 mcg/kg/hr .[id number] DANI 1.41 mls/hr Titration Protocol 0.1 MCG/KG/HR Dextrose 1,000 mls @ 100 mls/hr 12/30/24 08:02 Dextrose 5% 1,000 Ml IVPB PRN PRN Hypoglycemia Protocol Valproate Sodium 250 mg/ 52.5 mls @ 52.5 mls/hr 01/02/25 12:00 01/06/25 05:01 Dextrose IVPB 52.5 mls/hr Q6HR DANI Administration Norepinephrine Bitartrate 8 mg in 250 mls @ 0 mls/hr 01/02/25 13:20 01/04/25 20:10 Levophed 8 Mg/D5w 250 Ml IV CONT Infused .Q0M DANI Titration Protocol 0 MCG/MIN Dobutamine HCl/Dextrose 250 mg in 250 mls @ 9.915 mls/hr 01/03/25 10:30 01/06/25 06:00 Dobutamine 250 Mg/D5w 250 Ml IV CONT 2.5 mcg/kg/min .Q24H DANI 9.92 mls/hr Infusion 2.5 MCG/KG/MIN Insulin Aspart 2 - 5 units 12/30/24 12:00 01/06/25 06:14 Insulin Aspart (*Bkc) 100 Units/Ml SUB-Q Not Given Q6HR DANI Protocol Lisinopril 10 mg 01/02/25 09:00 Lisinopril 10 Mg Tablet PO DAILY DANI Metoprolol Tartrate 12.5 mg 01/02/25 09:00 Metoprolol Tartrate 12.5 Mg Tablet PO Q12HR DANI Midazolam HCl 2 mg 12/29/24 15:10 01/02/25 10:39 Midazolam Hcl (*Crx) 2 Mg/2 Ml Vial IV PUSH 2 mg Q5M PRN Administration ventilator asynchrony Multi-Ingred Cream/Lotion/Oil/Oint 1 applic 12/29/24 21:00 01/06/25 08:11 Mineral Oil/White Petrolatum Ointment EACH EYE 1 applic Q12HR DANI Administration Pantoprazole Sodium 40 mg 12/29/24 15:15 01/06/25 08:10 Pantoprazole Sodium Iv 40 Mg Vial IV PUSH 40 mg QAM DANI Administration Polyethylene Glycol 17 gm 12/30/24 09:00 01/01/25 08:00 Polyethylene Glycol 3350 17 Gm Powd.Pack PO 17 gm QAM DANI Administration Polyethylene Glycol 17 gm 01/05/25 21:00 01/06/25 08:12 Polyethylene Glycol 3350 17 Gm Powd.Pack PO 01/07/25 21:01 17 gm Q12HR DANI Administration Radiology Results: ITS Impressions Venous Doppler Study 12/28/24 15:55 IMPRESSION: Negative left and right upper extremity venous US. No deep vein thrombosis. Chest/Abdomen/Pelvis CTA 12/29/24 14:43 IMPRESSION: 1. Extensive patchy airspace opacities throughout both lungs and favor severe congestive heart failure related pulmonary edema over pneumonia. 2. Small left and moderate sized right dependently layering pleural effusions with associated compressive atelectasis in the dependent lungs. 3. Cardiomegaly with enlargement of the central pulmonary consistent with pulmonary arterial hypertension. 4. Large amount of stool throughout the colon with 9.6 x 6.7 cm ball of stool the rectum consistent with likely constipation with fecal impaction. 5. Hepatomegaly. Chest/Abdomen/Pelvis CT 01/02/25 10:10 IMPRESSION: 1. Significant improvement in previously moderate, now minimal pulmonary edema with unchanged small left and small to moderate-sized right pleural effusions. 2. Persistent large amount of stool in the distal colon suggestive of constipation with fluid consistent with diarrhea and the more proximal colon. 3. No change in position of a small foreign body correlating with the finding on the earlier KUB which is located along the luminal side of the posterior wall of the cecum which could represent either an ingested foreign body or a clip fixed to the wall given the lack of movement. Correlate with clinical/surgical history. Abdomen X-Ray 01/06/25 07:16 IMPRESSION: 1. No interval change in a nonspecific bowel gas pattern with prominent gas throughout the colon but no definitive dilated loops of small bowel to suggest obstruction. Chest X-Ray 01/06/25 07:19 IMPRESSION: 1. Unchanged small bilateral pleural effusions with associated atelectasis and/or pneumonia in the lower lung zones. Labs Labs: Laboratory Results - last 24 hr 01/05/25 01/05/25 01/05/25 13:18 17:41 23:49 WBC RBC Hgb Hct MCV MCH MCHC RDW Plt Count MPV Immature Gran % (Auto) Neut % (Auto) Lymph % (Auto) [place] % (Auto) Eos % (Auto) Baso % (Auto) Lymph # (Auto) [place] # (Auto) Eos # (Auto) Baso # (Auto) Abs Immat Gran (auto) Absolute Neuts (auto) Absolute Nucleated RBC Band Neutrophils % Nucleated RBC % Platelet Estimate Hypochromasia Anisocytosis Schistocytes Puncture Site ABG pH ABG pCO2 ABG pO2 ABG PO2/FiO2 Ratio ABG HCO3 ABG O2 Saturation ABG O2 Content ABG Base Excess A-a Gradient Oxyhemoglobin Carboxyhemoglobin Methemoglobin Reduced Hemoglobin Total Hemoglobin O2 Delivery Device O2 Liters/Min Minute Volume Vent Rate Vent Mode FiO2 Tidal Volume PEEP Peak Inspir Pressure Pressure Support Sodium Potassium Chloride Carbon Dioxide Anion Gap BUN Creatinine Estim Creat Clear Calc Estimated GFR Glucose POC Capillary Glucose 85 91 72 Lactic Acid Calcium Phosphorus Magnesium Total Bilirubin AST ALT Alkaline Phosphatase Total Protein Albumin 01/06/25 01/06/25 04:55 05:18 WBC 5.5 RBC 2.71 L Hgb 8.5 L Hct 28.7 L MCV 105.9 H MCH 31.4 MCHC 29.6 L RDW 16.1 H Plt Count 182 MPV 9.6 Immature Gran % (Auto) 0.4 Neut % (Auto) 68.9 Lymph % (Auto) 17.1 L [place] % (Auto) 12.9 H Eos % (Auto) 0.5 Baso % (Auto) 0.2 Lymph # (Auto) 0.94 [place] # (Auto) 0.7 H Eos # (Auto) 0.0 Baso # (Auto) 0.0 Abs Immat Gran (auto) 0.02 Absolute Neuts (auto) 3.8 Absolute Nucleated RBC 0.000 Band Neutrophils % Not Reportable Nucleated RBC % 0.0 Platelet Estimate Adequate Hypochromasia 1+ Anisocytosis 1+ Schistocytes None seen Puncture Site Right radial ABG pH 7.511 H* ABG pCO2 34.7 L ABG pO2 100.6 H ABG PO2/FiO2 Ratio 4.02 ABG HCO3 27.1 H ABG O2 Saturation 98.1 ABG O2 Content 13.4 L ABG Base Excess 4.1 A-a Gradient 36.4 Oxyhemoglobin 96.8 Carboxyhemoglobin 0.5 Methemoglobin 0.1 Reduced Hemoglobin 2.6 Total Hemoglobin 9.7 L O2 Delivery Device Ventilator O2 Liters/Min Not Reportable Minute Volume Not Reportable Vent Rate 14 Vent Mode Cmv FiO2 25 Tidal Volume 300 PEEP 5 Peak Inspir Pressure Not Reportable Pressure Support Not Reportable Sodium 146 H Potassium 3.5 Chloride 111 H Carbon Dioxide 30 Anion Gap 5 BUN 13 Creatinine 0.45 L Estim Creat Clear Calc 129 Estimated GFR > 60 Glucose 92 POC Capillary Glucose Lactic Acid 0.6 L Calcium 8.5 Phosphorus 3.8 Magnesium 2.2 Total Bilirubin 0.5 AST 84 H ALT 280 H Alkaline Phosphatase 78 Total Protein 7.0 Albumin 3.1 L
[2025-01-06 09:17] LABS: Alveolar/Arterial O2 Gradient 38.6 mmHg; Base Excess ABG 4.4 mEq/l (+/-2.0); Fractional Inspired Oxygen 25 %; HCO3 ABG 27.1 mEq/l (22.0-26.0); Oxygen Content ABG 14.3 %vol (16.0-22.0); Oxygen Saturation ABG 98.2 % (95.0-100.0); Oxyhemoglobin 97.5 % THb (90.0-100.0); PCO2 ABG 33.4 mmHg (35.0-45.0); Total Hemoglobin 10.3 g/dL (12.0-18.0)
[2025-01-06 09:24] LABS: Arterial Blood Gas PEEP 5 cmH2O; Arterial Blood Gas Vent Mode SPONTANEOUS; Device VENTILATOR; Modified Allen's Test Pass; Site Drawn LEFT RADIAL; pH ABG 7.527 (7.350-7.450)
[2025-01-06 09:25] LABS: Arterial Blood Gas Pressure Support 5 cmH2O
--- NOTE | 2025-01-06 10:27 | P.PNCA_ITS ---
Progress Note: A&P Assessment and Plan (1) CHF exacerbation: Qualifiers: Heart failure type: unspecified Qualified Code(s): I50.9 - Heart failure, unspecified Code(s): I50.9 - Heart failure, unspecified Status: Acute Plan 59-year-old man with schizophrenia and seizures who is nonverbal with a [facility] transfer [facility] due to respiratory distress now found to have systolic heart failure and possible pneumonia Acute decompensated systolic heart failure -continue Lasix 40 mg IV b.i.d. -unable to up titrate diuretics due to ileus and fecal impaction -continue dobutamine, wean off as tolerated -Start heart failure GDMT when able to take pills -overall poor prognosis when taking into account his other remaining chronic conditions Moderate mitral regurgitation -reassess outpatient when euvolemic Moderate aortic regurgitation -outpatient surveillance echocardiogram Subjective Date/time seen: 01/06/25 10:27 Interval history: Reason for visit: CHF Remains intubated. Awake on vent. Review of Systems Review of Systems: ROS unobtainable: Yes unobtainable due to endotracheal tube Exam Const: Other: Intubated. Awake on vent HENMT: Other: OETT in place Resp: Other: On mechanical ventilation Cardio: Rate: regular rate Rhythm: regular rhythm Neuro: Other: Awake on vent Objective Data Vital Signs Vital Signs: Vital Signs - 24 hr 01/05/25 12:00 01/05/25 12:00 01/05/25 12:00 Temperature Pulse Rate 97 105 H Respiratory Rate 15 Blood Pressure Pulse Oximetry 98 Oxygen Delivery Mechanical Ventilation Fraction of Inspired Oxygen 01/05/25 12:00 01/05/25 12:10 01/05/25 12:11 Temperature Pulse Rate 105 H 105 H 105 H Respiratory Rate 15 14 Blood Pressure 101/69 101/69 Pulse Oximetry 98 Oxygen Delivery Fraction of Inspired Oxygen 01/05/25 14:00 01/05/25 14:00 01/05/25 14:00 Temperature Pulse Rate 99 99 99 Respiratory Rate 15 14 Blood Pressure 105/62 Pulse Oximetry 100 Oxygen Delivery Fraction of Inspired Oxygen 01/05/25 14:00 01/05/25 14:23 01/05/25 15:22 Temperature Pulse Rate 100 99 99 Respiratory Rate Blood Pressure Pulse Oximetry 100 Oxygen Delivery Mechanical Ventilation Fraction of Inspired Oxygen 01/05/25 16:00 01/05/25 16:00 01/05/25 16:00 Temperature Pulse Rate 83 97 Respiratory Rate 17 15 Blood Pressure Pulse Oximetry 98 Oxygen Delivery Mechanical Ventilation Fraction of Inspired Oxygen 25 25 01/05/25 16:00 01/05/25 16:00 01/05/25 17:04 Temperature 36.6 C Pulse Rate 85 100 84 Respiratory Rate 15 Blood Pressure 108/63 Pulse Oximetry 100 100 Oxygen Delivery Mechanical Ventilation Fraction of Inspired Oxygen 25 01/05/25 17:42 01/05/25 17:51 01/05/25 18:00 Temperature Pulse Rate 85 84 88 Respiratory Rate 15 17 Blood Pressure 102/63 Pulse Oximetry 100 Oxygen Delivery Fraction of Inspired Oxygen 01/05/25 19:51 01/05/25 20:00 01/05/25 20:00 Temperature 36.6 C Pulse Rate 100 102 H Respiratory Rate 17 20 Blood Pressure 103/66 Pulse Oximetry 100 100 Oxygen Delivery Mechanical Ventilation Fraction of Inspired Oxygen 25 25 01/05/25 20:00 01/05/25 20:00 01/05/25 20:00 Temperature Pulse Rate 100 100 100 Respiratory Rate 16 Blood Pressure 103/66 Pulse Oximetry Oxygen Delivery Fraction of Inspired Oxygen 01/05/25 20:09 01/05/25 22:00 01/05/25 22:00 Temperature Pulse Rate 102 H 99 99 Respiratory Rate 15 Blood Pressure 97/64 L Pulse Oximetry 99 98 Oxygen Delivery Mechanical Ventilation Fraction of Inspired Oxygen 25 01/05/25 22:00 01/05/25 22:00 01/05/25 23:10 Temperature Pulse Rate 99 99 81 Respiratory Rate 15 Blood Pressure 97/64 L Pulse Oximetry 99 Oxygen Delivery Mechanical Ventilation Fraction of Inspired Oxygen 25 01/05/25 23:21 01/05/25 23:56 01/05/25 23:56 Temperature Pulse Rate 82 83 83 Respiratory Rate 13 15 15 Blood Pressure Pulse Oximetry 98 Oxygen Delivery Mechanical Ventilation Fraction of Inspired Oxygen 25 01/06/25 00:00 01/06/25 00:00 01/06/25 00:00 Temperature Pulse Rate 84 84 Respiratory Rate 14 Blood Pressure 101/62 Pulse Oximetry 99 Oxygen Delivery Fraction of Inspired Oxygen 25 01/06/25 00:01 01/06/25 00:01 01/06/25 01:05 Temperature Pulse Rate 83 83 81 Respiratory Rate 12 Blood Pressure 101/62 Pulse Oximetry 100 Oxygen Delivery Mechanical Ventilation Fraction of Inspired Oxygen 25 25 02:00 01/06/25 02:00 01/06/25 02:00 Temperature Pulse Rate 80 80 83 Respiratory Rate 20 19 Blood Pressure 101/61 Pulse Oximetry 100 Oxygen Delivery Fraction of Inspired Oxygen 01/06/25 02:00 01/06/25 03:09 01/06/25 03:24 Temperature Pulse Rate 81 81 Respiratory Rate 14 Blood Pressure 101/65 Pulse Oximetry 100 Oxygen Delivery Mechanical Ventilation Fraction of Inspired Oxygen 01/06/25 04:00 01/06/25 04:00 01/06/25 04:00 Temperature Pulse Rate 97 97 97 Respiratory Rate 14 Blood Pressure 110/69 Pulse Oximetry Oxygen Delivery Fraction of Inspired Oxygen 01/06/25 04:00 01/06/25 05:17 01/06/25 06:00 Temperature 36.8 C Pulse Rate 97 97 97 Respiratory Rate 14 Blood Pressure 110/69 Pulse Oximetry 100 100 Oxygen Delivery Mechanical Ventilation Fraction of Inspired Oxygen 01/06/25 06:00 01/06/25 06:00 01/06/25 06:00 Temperature Pulse Rate 96 95 94 Respiratory Rate 16 16 Blood Pressure 104/72 104/72 Pulse Oximetry 100 Oxygen Delivery Fraction of Inspired Oxygen 01/06/25 07:55 01/06/25 08:00 01/06/25 08:00 Temperature 35.9 C L Pulse Rate 97 94 94 Respiratory Rate 14 14 Blood Pressure 111/71 Pulse Oximetry 100 100 100 Oxygen Delivery Mechanical Ventilation Mechanical Ventilation Fraction of Inspired Oxygen 01/06/25 08:00 01/06/25 08:00 01/06/25 08:07 Temperature Pulse Rate 82 94 Respiratory Rate 14 Blood Pressure Pulse Oximetry Oxygen Delivery Fraction of Inspired Oxygen 01/06/25 09:23 01/06/25 10:00 Temperature 36.9 C Pulse Rate 90 103 H Respiratory Rate 14 14 Blood Pressure 108/78 Pulse Oximetry 98 Oxygen Delivery Fraction of Inspired Oxygen Intake/Output Intake/Output: Intake & Output 01/03/25 01/04/25 01/05/25 01/06/25 23:59 23:59 23:59 23:59 Intake Total 932.9 1147.8 734.4 156.8 Output Total 1600 7455 4050 690 Balance -667.1 -977.2 -3315.6 -533.2 Meds/Results Medications: Active Medications Generic Name Dose Route Start Last Admin Trade Name Freq PRN Reason Stop Dose Admin Albuterol/Ipratropium 3 ml 12/28/24 21:13 12/29/24 02:41 Ipratropium 0.5 Mg/Albuterol Sulfate 2.5 Mg Ampul.Neb 3 Ml INHALATION 3 ml Q6HRT PRN Administration Shortness Of Breath Or Wheezing Dextrose 12.5 gm 12/30/24 08:02 01/05/25 23:55 Dextrose 50% 25 Gm/50 Ml Syringe IV PUSH 12.5 gm PRN PRN Administration Hypoglycemia Protocol Docusate Sodium 100 mg 12/29/24 09:00 01/01/25 08:00 Docusate Sodium Liq 100 Mg/10 Ml Udc FEED TUBE 100 mg DAILY DANI Administration Enoxaparin Sodium 40 mg 12/30/24 09:00 01/06/25 08:11 Enoxaparin 40 Mg/0.4 Ml Syringe SUB-Q 40 mg QAM DANI Administration Fentanyl Citrate 25 mcg 12/29/24 15:33 01/02/25 01:32 Fentanyl Citrate Inj (*Crx) 100 Mcg/2 Ml Vial IV PUSH 25 mcg Q1H PRN Administration Pain while on vent Furosemide 40 mg 01/04/25 09:00 01/06/25 08:10 Furosemide Inj 40 Mg/4 Ml Vial IV PUSH 40 mg BID DANI Administration Gabapentin 100 mg 12/29/24 06:00 01/02/25 05:10 Gabapentin 100 Mg Capsule FEED TUBE 100 mg Q8HR DANI Administration Glucagon 1 mg 12/30/24 08:02 Glucagon For Inj 1 Mg Vial IM PRN PRN Hypoglycemia Protocol Glucose 15 gm 12/30/24 08:02 Glucose Oral Gel 15 Gm Of Glucse In 37.5 Gm Tube PO PRN PRN Hypoglycemia Protocol Hydralazine HCl 10 mg 01/02/25 07:32 Hydralazine Hcl 20 Mg/Ml Vial IV PUSH Q4H PRN Blood Pressure - High Dextrose 1,000 mls @ 100 mls/hr 12/30/24 08:02 Dextrose 5% 1,000 Ml IVPB PRN PRN Hypoglycemia Protocol Valproate Sodium 250 mg/ 52.5 mls @ 52.5 mls/hr 01/02/25 12:00 01/06/25 05:01 Dextrose IVPB 52.5 mls/hr Q6HR DANI Administration Norepinephrine Bitartrate 8 mg in 250 mls @ 0 mls/hr 01/02/25 13:20 01/04/25 20:10 Levophed 8 Mg/D5w 250 Ml IV CONT Infused .Q0M DANI Titration Protocol 0 MCG/MIN Dobutamine HCl/Dextrose 250 mg in 250 mls @ 9.915 mls/hr 01/03/25 10:30 01/06/25 06:00 Dobutamine 250 Mg/D5w 250 Ml IV CONT 2.5 mcg/kg/min .Q24H DANI 9.92 mls/hr Infusion 2.5 MCG/KG/MIN Insulin Aspart 2 - 5 units 12/30/24 12:00 01/06/25 06:14 Insulin Aspart (*Bkc) 100 Units/Ml SUB-Q Not Given Q6HR [facility] Protocol Lisinopril 10 mg 01/02/25 09:00 Lisinopril 10 Mg Tablet PO DAILY DANI Metoprolol Tartrate 12.5 mg 01/02/25 09:00 Metoprolol Tartrate 12.5 Mg Tablet PO Q12HR [facility] Midazolam HCl 2 mg 12/29/24 15:10 01/02/25 10:39 Midazolam Hcl (*Crx) 2 Mg/2 Ml Vial IV PUSH 2 mg Q5M PRN Administration ventilator asynchrony Multi-Ingred Cream/Lotion/Oil/Oint 1 applic 12/29/24 21:00 01/06/25 08:11 Mineral Oil/White Petrolatum Ointment EACH EYE 1 applic Q12HR DANI Administration Pantoprazole Sodium 40 mg 12/29/24 15:15 01/06/25 08:10 Pantoprazole Sodium Iv 40 Mg Vial IV PUSH 40 mg QAM DANI Administration Polyethylene Glycol 17 gm 12/30/24 09:00 01/01/25 08:00 Polyethylene Glycol 3350 17 Gm Powd.Pack PO 17 gm QAM DANI Administration Polyethylene Glycol 17 gm 01/05/25 21:00 01/06/25 08:12 Polyethylene Glycol 3350 17 Gm Powd.Pack PO 01/07/25 21:01 17 gm Q12HR DANI Administration Radiology Results: ITS Impressions Venous Doppler Study 12/28/24 15:55 IMPRESSION: Negative left and right upper extremity venous US. No deep vein thrombosis. Chest/Abdomen/Pelvis CTA 12/29/24 14:43 IMPRESSION: 1. Extensive patchy airspace opacities throughout both lungs and favor severe congestive heart failure related pulmonary edema over pneumonia. 2. Small left and moderate sized right dependently layering pleural effusions with associated compressive atelectasis in the dependent lungs. 3. Cardiomegaly with enlargement of the central pulmonary consistent with pulmonary arterial hypertension. 4. Large amount of stool throughout the colon with 9.6 x 6.7 cm ball of stool the rectum consistent with likely constipation with fecal impaction. 5. Hepatomegaly. Chest/Abdomen/Pelvis CT 01/02/25 10:10 IMPRESSION: 1. Significant improvement in previously moderate, now minimal pulmonary edema with unchanged small left and small to moderate-sized right pleural effusions. 2. Persistent large amount of stool in the distal colon suggestive of constipation with fluid consistent with diarrhea and the more proximal colon. 3. No change in position of a small foreign body correlating with the finding on the earlier KUB which is located along the luminal side of the posterior wall of the cecum which could represent either an ingested foreign body or a clip fixed to the wall given the lack of movement. Correlate with clinical/surgical history. Abdomen X-Ray 01/06/25 07:16 IMPRESSION: 1. No interval change in a nonspecific bowel gas pattern with prominent gas throughout the colon but no definitive dilated loops of small bowel to suggest obstruction. Chest X-Ray 01/06/25 07:19 IMPRESSION: 1. Unchanged small bilateral pleural effusions with associated atelectasis and/or pneumonia in the lower lung zones. Labs Labs: Laboratory Results - last 24 hr 01/05/25 01/05/25 01/05/25 13:18 17:41 23:49 WBC RBC Hgb Hct MCV MCH MCHC RDW Plt Count MPV Immature Gran % (Auto) Neut % (Auto) Lymph % (Auto) [place] % (Auto) Eos % (Auto) Baso % (Auto) Lymph # (Auto) [place] # (Auto) Eos # (Auto) Baso # (Auto) Abs Immat Gran (auto) Absolute Neuts (auto) Absolute Nucleated RBC Band Neutrophils % Nucleated RBC % Platelet Estimate Hypochromasia Anisocytosis Schistocytes Puncture Site ABG pH ABG pCO2 ABG pO2 ABG PO2/FiO2 Ratio ABG HCO3 ABG O2 Saturation ABG O2 Content ABG Base Excess A-a Gradient Oxyhemoglobin Carboxyhemoglobin Methemoglobin Reduced Hemoglobin Total Hemoglobin O2 Delivery Device O2 Liters/Min Minute Volume Vent Rate Vent Mode FiO2 Tidal Volume PEEP Peak Inspir Pressure Pressure Support Sodium Potassium Chloride Carbon Dioxide Anion Gap BUN Creatinine Estim Creat Clear Calc Estimated GFR Glucose POC Capillary Glucose 85 91 72 Lactic Acid Calcium Phosphorus Magnesium Total Bilirubin AST ALT Alkaline Phosphatase Total Protein Albumin 01/06/25 01/06/25 01/06/25 04:55 05:18 09:12 WBC 5.5 RBC 2.71 L Hgb 8.5 L Hct 28.7 L MCV 105.9 H MCH 31.4 MCHC 29.6 L RDW 16.1 H Plt Count 182 MPV 9.6 Immature Gran % (Auto) 0.4 Neut % (Auto) 68.9 Lymph % (Auto) 17.1 L [place] % (Auto) 12.9 H Eos % (Auto) 0.5 Baso % (Auto) 0.2 Lymph # (Auto) 0.94 [place] # (Auto) 0.7 H Eos # (Auto) 0.0 Baso # (Auto) 0.0 Abs Immat Gran (auto) 0.02 Absolute Neuts (auto) 3.8 Absolute Nucleated RBC 0.000 Band Neutrophils % Not Reportable Nucleated RBC % 0.0 Platelet Estimate Adequate Hypochromasia 1+ Anisocytosis 1+ Schistocytes None seen Puncture Site Right radial Left radial ABG pH 7.511 H* 7.527 H* ABG pCO2 34.7 L 33.4 L ABG pO2 100.6 H 100.0 ABG PO2/FiO2 Ratio 4.02 4.00 ABG HCO3 27.1 H 27.1 H ABG O2 Saturation 98.1 98.2 ABG O2 Content 13.4 L 14.3 L ABG Base Excess 4.1 4.4 A-a Gradient 36.4 38.6 Oxyhemoglobin 96.8 97.5 Carboxyhemoglobin 0.5 Methemoglobin 0.1 Reduced Hemoglobin 2.6 Total Hemoglobin 9.7 L 10.3 L O2 Delivery Device Ventilator Ventilator O2 Liters/Min Not Reportable Not Reportable Minute Volume Not Reportable Not Reportable Vent Rate 14 Not Reportable Vent Mode Cmv Spontaneous FiO2 25 25 Tidal Volume 300 Not Reportable PEEP 5 5 Peak Inspir Pressure Not Reportable Not Reportable Pressure Support Not Reportable 5 Sodium 146 H Potassium 3.5 Chloride 111 H Carbon Dioxide 30 Anion Gap 5 BUN 13 Creatinine 0.45 L Estim Creat Clear Calc 129 Estimated GFR > 60 Glucose 92 POC Capillary Glucose Lactic Acid 0.6 L Calcium 8.5 Phosphorus 3.8 Magnesium 2.2 Total Bilirubin 0.5 AST 84 H ALT 280 H Alkaline Phosphatase 78 Total Protein 7.0 Albumin 3.1 L
[2025-01-06 11:26] LABS: Glucose Point of Care 88 mg/dl (65-105)
--- NOTE | 2025-01-06 11:26 | PCFNICU ---
ICU Rounding Note: Pt current nutrition is NPO. Nutrition recommendation: long-term tube feeding orders: Jevity 1.5 @ 55 ml/h with flushes 150 ml q 4 hours Last recorded weight is 67.4 kg. Bowel Motility: + 3 BMs 01/05 Labs Reviewed: Hgb 8.5, Hct 28.7, Alb 3.1, Na 146, Cre 0.45 Meds Noted: Miralax, precedex Skin: No pressure Additional Notes: Existing G-tube. Extubated today. Called [facility] and got current tube feeding order. Jevity 1.5 @ 55 ml/h (22h) with water flushes 150 ml q 4 h. Provides 1815 kcal, 77 g protein, 1820 ml total water. Okay to start. Agree with orders. Following daily in ICU rounds. Will reassess every Sunday and Sunday. .
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
[2025-01-06 17:39] LABS: Glucose Point of Care 105 mg/dl (65-105)
[2025-01-06] MEDS: DOBUTamine 250 MG/D5W 250 ML 250 MG/250 ML BAG 9.92 MG IV CONT (20:00)
[2025-01-07] VITALS (18 sets, daily range): BP systolic 99–125; BP diastolic 56–80; PULSE 82–121; RESP 13–21; TEMP 36.6–36.9; O2SAT 93–97
[2025-01-07] MEDS: VALPROATE SODIUM INJ 250 MG in DEXTROSE 5% IN WATER 50 ML 52.5 MG IVPB ×4 (00:50→17:24)
[2025-01-07 01:46] LABS: Glucose Point of Care 114 mg/dl (65-105)
[2025-01-07 06:18] LABS: Hematocrit 30.3 % (42.0-52.0); Hemoglobin 9.4 g/dL (14.0-18.0); Mean Corpuscular Volume 103.1 fl (80-100); Mean Platelet Volume 10.2 fl (7.4-10.4); Platelet Count Result 220 k/mm3 (150-375); Red Blood Count 2.94 M/mm3 (4.6-6.20); Red Cell Distribution Width 15.9 % (11.5-14.5); White Blood Count 6.4 K/mm3 (4.5-10.0)
[2025-01-07 06:29] LABS: Alanine Aminotransferase 229 U/L (6-50); Albumin Level 3.1 g/dL (3.5-5.1); Alkaline Phosphatase 79 U/L (38-126); Anion Gap 2 mmol/L (4-12); Aspartate Amino Transferase 67 U/L (17-59); Bilirubin,Total 0.5 mg/dL (0.2-1.3); Blood Urea Nitrogen 12 mg/dL (9-20); Calcium 8.5 mg/dL (8.4-10.2); Carbon Dioxide 35 mmol/L (22-30); Chloride 111 mmol/L (98-107); Estimated CRCL calculation 138 ml/min; Estimated Glomerular Filt Rate > 60; Glucose 114 mg/dL (65-110); Magnesium 2.4 mg/dL (1.6-2.3); Potassium 3.2 mmol/L (3.4-5.0); Sodium 148 mmol/L (137-145)
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
[2025-01-07] MEDS: PANTOPRAZOLE SODIUM IV 40 MG VIAL IV PUSH (09:02)
[2025-01-07] MEDS: POTASSIUM CHLORIDE 20 MEQ PACKET (FOR LIQUID) 40 MEQ FEED TUBE ×3 (09:02→16:50)
[2025-01-07] MEDS: FUROSEMIDE INJ 40 MG/4 ML VIAL IV PUSH (09:02)
[2025-01-07] MEDS: ENOXAPARIN 40 MG/0.4 ML SYRINGE SUB-Q (09:02)
[2025-01-07] MEDS: MINERAL OIL/WHITE PETROLATUM OINTMENT 1 APPLIC EACH EYE (09:03)
[2025-01-07] MEDS: polyethylene glycoL 3350 17 GM POWD.PACK PO ×2 (09:03→20:46)
--- NOTE | 2025-01-07 11:04 | PCFNICU ---
ICU Rounding Note: Pt current nutrition is Jevity 1.5 at 55 ml/hr. Last recorded weight is 67.4 kg, up from 56 kg on admit. Bowel Motility: +BM reported 01/06 Labs Reviewed: Na 148, Alb 3.1, Hct 30.3, Hgb 9.1, Cr 0.43, Glu 114, PO4 2.0 Meds Noted: Colace, Miralax, Protonix, NovoLog. Skin: WNL Additional Notes: Patient has G tube, tolerating standard formula as given at NH of Jevity 1.5 at 55 m/hr. Flush decreased from 150 ml q 4 hours to 100 ml q 4 hours 09/21 Na 148. Total Nutrition: 1815 kcal/77 gm protein/920 ml water. Agree with diet orders. Will reassess every Sunday and Sunday.
--- NOTE | 2025-01-07 12:43 | P.PNCA_ITS ---
Progress Note: A&P Assessment and Plan (1) CHF exacerbation: Qualifiers: Heart failure type: unspecified Qualified Code(s): I50.9 - Heart failure, unspecified Code(s): I50.9 - Heart failure, unspecified Status: Acute Plan 59-year-old man with schizophrenia and seizures who is nonverbal with a G-tube transfer from alf due to respiratory distress now found to have systolic heart failure and possible pneumonia Acute decompensated systolic heart failure -agree with reduction furosemide 40 mg IV daily. Further reduction over the next couple of days. Potassium 3.2 today. Replaced potassium. -unable to up titrate diuretics due to ileus and fecal impaction -continue dobutamine, wean off as tolerated. To be to be in drip is reduced. - -overall poor prognosis when taking into account his other remaining chronic conditions Moderate mitral regurgitation -reassess outpatient when euvolemic Moderate aortic regurgitation -outpatient surveillance echocardiogram Subjective Date/time seen: 01/07/25 12:43 Interval history: Reason for visit: CHF Date of service 01/07/2025: Extubated. Awake. Minimal swelling Review of Systems Review of Systems: ROS unobtainable: Yes unobtainable due to medical condition and unobtainable due to mental status Exam Narrative: Extubated Const: General: no acute distress HENMT: Mouth: Yes moist mucous membranes Eyes: Sclera: sclerae normal Neck: Neck: no JVD Resp: Auscultation: rales Cardio: Rate: regular rate Rhythm: regular rhythm Heart sounds: no murmurs Other: Trivial lower extremity edema GI: Inspection: non-distended Skin: General skin exam: normal color Neuro: General: No gait normal Extrem: General: pedal edema Other: Right upper extremity swelling. Psych: Mental Status: mental status grossly abnormal Objective Data Vital Signs Vital Signs: Vital Signs - 24 hr 01/06/25 14:00 01/06/25 14:00 01/06/25 14:00 Temperature 36.7 C Pulse Rate 102 H 101 H 99 Respiratory Rate 14 Blood Pressure 108/63 108/63 Pulse Oximetry 97 Oxygen Delivery Oxygen Flow Rate Fraction of Inspired Oxygen 01/06/25 16:00 01/06/25 16:00 01/06/25 16:00 Temperature 36.5 C Pulse Rate 98 98 100 Respiratory Rate 16 16 Blood Pressure 111/69 Pulse Oximetry 97 97 Oxygen Delivery Nasal Cannula Oxygen Flow Rate 2 Fraction of Inspired Oxygen 25 01/06/25 16:00 01/06/25 18:00 01/06/25 18:00 Temperature 36.7 C Pulse Rate 101 H 100 100 Respiratory Rate 17 Blood Pressure 111/69 109/67 Pulse Oximetry 96 Oxygen Delivery Oxygen Flow Rate Fraction of Inspired Oxygen 01/06/25 18:29 01/06/25 20:00 01/06/25 20:00 Temperature Pulse Rate 100 101 H 101 H Respiratory Rate 17 Blood Pressure 109/67 Pulse Oximetry 96 Oxygen Delivery Nasal Cannula Oxygen Flow Rate 2 Fraction of Inspired Oxygen 01/06/25 20:00 01/06/25 20:00 01/06/25 21:25 Temperature 36.7 C Pulse Rate 101 H 101 H 105 H Respiratory Rate 16 16 Blood Pressure 105/65 105/65 Pulse Oximetry 96 95 Oxygen Delivery Nasal Cannula Oxygen Flow Rate 1 Fraction of Inspired Oxygen 01/06/25 22:00 01/06/25 22:00 01/06/25 22:00 Temperature 36.6 C Pulse Rate 103 H 103 H 101 H Respiratory Rate 16 Blood Pressure 107/78 97/64 L Pulse Oximetry 97 Oxygen Delivery Oxygen Flow Rate Fraction of Inspired Oxygen 01/07/25 00:00 01/07/25 00:00 01/07/25 00:00 Temperature 36.7 C Pulse Rate 103 H 103 H 86 Respiratory Rate 16 16 Blood Pressure 103/65 Pulse Oximetry 97 97 Oxygen Delivery Nasal Cannula Oxygen Flow Rate 1 Fraction of Inspired Oxygen 01/07/25 00:00 01/07/25 02:00 01/07/25 02:00 Temperature Pulse Rate 86 100 100 Respiratory Rate 13 Blood Pressure 101/62 104/71 Pulse Oximetry 95 Oxygen Delivery Oxygen Flow Rate Fraction of Inspired Oxygen 01/07/25 02:00 01/07/25 02:00 01/07/25 04:00 Temperature Pulse Rate 82 83 89 Respiratory Rate 13 Blood Pressure 101/65 101/65 Pulse Oximetry 95 Oxygen Delivery Room Air Oxygen Flow Rate Fraction of Inspired Oxygen 01/07/25 04:00 01/07/25 04:00 01/07/25 04:00 Temperature 36.9 C Pulse Rate 89 85 93 Respiratory Rate 18 Blood Pressure 111/67 110/69 Pulse Oximetry 94 Oxygen Delivery Oxygen Flow Rate Fraction of Inspired Oxygen 01/07/25 06:00 01/07/25 06:00 01/07/25 06:00 Temperature 36.6 C Pulse Rate 97 97 93 Respiratory Rate 16 Blood Pressure 125/73 104/72 Pulse Oximetry 95 Oxygen Delivery Oxygen Flow Rate Fraction of Inspired Oxygen 01/07/25 08:00 01/07/25 08:00 01/07/25 08:00 Temperature 36.7 C Pulse Rate 92 92 93 Respiratory Rate 15 15 Blood Pressure 112/75 112/75 Pulse Oximetry 97 97 Oxygen Delivery Room Air Oxygen Flow Rate Fraction of Inspired Oxygen 01/07/25 08:00 01/07/25 10:00 01/07/25 10:00 Temperature Pulse Rate 86 95 93 Respiratory Rate 19 Blood Pressure 117/73 Pulse Oximetry 93 Oxygen Delivery Oxygen Flow Rate Fraction of Inspired Oxygen 01/07/25 10:00 01/07/25 11:32 01/07/25 12:10 Temperature Pulse Rate 95 102 H Respiratory Rate Blood Pressure 108/80 Pulse Oximetry 96 Oxygen Delivery Room Air Oxygen Flow Rate Fraction of Inspired Oxygen Intake/Output Intake/Output: Intake & Output 01/04/25 01/05/25 01/06/25 01/07/25 23:59 23:59 23:59 23:59 Intake Total 1147.8 734.4 386.5 758.3 Output Total 2125 4050 1640 1000 Balance -977.2 -3315.6 -1253.5 -241.7 Meds/Results Medications: Active Medications Generic Name Dose Route Start Last Admin Trade Name Freq PRN Reason Stop Dose Admin Albuterol/Ipratropium 3 ml 12/28/24 21:13 12/29/24 02:41 Ipratropium 0.5 Mg/Albuterol Sulfate 2.5 Mg Ampul.Neb 3 Ml INHALATION 3 ml Q6HRT PRN Administration Shortness Of Breath Or Wheezing Dextrose 12.5 gm 12/30/24 08:02 01/05/25 23:55 Dextrose 50% 25 Gm/50 Ml Syringe IV PUSH 12.5 gm PRN PRN Administration Hypoglycemia Protocol Docusate Sodium 100 mg 12/29/24 09:00 01/01/25 08:00 Docusate Sodium Liq 100 Mg/10 Ml Udc FEED TUBE 100 mg DAILY DANI Administration Enoxaparin Sodium 40 mg 12/30/24 09:00 01/07/25 09:02 Enoxaparin 40 Mg/0.4 Ml Syringe SUB-Q 40 mg QAM DANI Administration Fentanyl Citrate 25 mcg 12/29/24 15:33 01/02/25 01:32 Fentanyl Citrate Inj (*Crx) 100 Mcg/2 Ml Vial IV PUSH 25 mcg Q1H PRN Administration Pain while on vent Furosemide 40 mg 01/07/25 09:00 01/07/25 09:02 Furosemide Inj 40 Mg/4 Ml Vial IV PUSH 40 mg DAILY DANI Administration Gabapentin 100 mg 12/29/24 06:00 01/02/25 05:10 Gabapentin 100 Mg Capsule FEED TUBE 100 mg Q8HR DANI Administration Glucagon 1 mg 12/30/24 08:02 Glucagon For Inj 1 Mg Vial IM PRN PRN Hypoglycemia Protocol Glucose 15 gm 12/30/24 08:02 Glucose Oral Gel 15 Gm Of Glucse In 37.5 Gm Tube PO PRN PRN Hypoglycemia Protocol Hydralazine HCl 10 mg 01/02/25 07:32 Hydralazine Hcl 20 Mg/Ml Vial IV PUSH Q4H PRN Blood Pressure - High Dextrose 1,000 mls @ 100 mls/hr 12/30/24 08:02 Dextrose 5% 1,000 Ml IVPB PRN PRN Hypoglycemia Protocol Valproate Sodium 250 mg/ 52.5 mls @ 52.5 mls/hr 01/02/25 12:00 01/07/25 12:35 Dextrose IVPB 52.5 mls/hr Q6HR DANI Administration Norepinephrine Bitartrate 8 mg in 250 mls @ 0 mls/hr 01/02/25 13:20 01/04/25 20:10 Levophed 8 Mg/D5w 250 Ml IV CONT Infused .Q0M DANI Titration Protocol 0 MCG/MIN Dobutamine HCl/Dextrose 250 mg in 250 mls @ 9.915 mls/hr 01/03/25 10:30 01/07/25 12:10 Dobutamine 250 Mg/D5w 250 Ml IV CONT 2.5 mcg/kg/min .Q24H DANI 9.92 mls/hr Infusion 2.5 MCG/KG/MIN Insulin Aspart 2 - 5 units 12/30/24 12:00 01/07/25 07:16 Insulin Aspart (*Bkc) 100 Units/Ml SUB-Q Not Given Q6HR DANI Protocol Lisinopril 10 mg 01/02/25 09:00 Lisinopril 10 Mg Tablet PO DAILY DANI Metoprolol Tartrate 12.5 mg 01/02/25 09:00 Metoprolol Tartrate 12.5 Mg Tablet PO Q12HR DANI Multi-Ingred Cream/Lotion/Oil/Oint 1 applic 12/29/24 21:00 01/07/25 09:03 Mineral Oil/White Petrolatum Ointment EACH EYE 1 applic Q12HR DANI Administration Pantoprazole Sodium 40 mg 12/29/24 15:15 01/07/25 09:02 Pantoprazole Sodium Iv 40 Mg Vial IV PUSH 40 mg QAM DANI Administration Polyethylene Glycol 17 gm 12/30/24 09:00 01/01/25 08:00 Polyethylene Glycol 3350 17 Gm Powd.Pack PO 17 gm QAM DANI Administration Polyethylene Glycol 17 gm 01/05/25 21:00 01/07/25 09:03 Polyethylene Glycol 3350 17 Gm Powd.Pack PO 01/07/25 21:01 17 gm Q12HR DANI Administration Potassium Chloride 40 meq 01/07/25 07:45 01/07/25 12:35 Potassium Chloride 20 Meq Packet (For Liquid) FEED TUBE 01/07/25 15:46 40 meq Q4H DANI Administration Radiology Results: ITS Impressions Venous Doppler Study 12/28/24 15:55 IMPRESSION: Negative left and right upper extremity venous US. No deep vein thrombosis. Chest/Abdomen/Pelvis CTA 12/29/24 14:43 IMPRESSION: 1. Extensive patchy airspace opacities throughout both lungs and favor severe congestive heart failure related pulmonary edema over pneumonia. 2. Small left and moderate sized right dependently layering pleural effusions with associated compressive atelectasis in the dependent lungs. 3. Cardiomegaly with enlargement of the central pulmonary consistent with pulmonary arterial hypertension. 4. Large amount of stool throughout the colon with 9.6 x 6.7 cm ball of stool the rectum consistent with likely constipation with fecal impaction. 5. Hepatomegaly. Chest/Abdomen/Pelvis CT 01/02/25 10:10 IMPRESSION: 1. Significant improvement in previously moderate, now minimal pulmonary edema with unchanged small left and small to moderate-sized right pleural effusions. 2. Persistent large amount of stool in the distal colon suggestive of constipation with fluid consistent with diarrhea and the more proximal colon. 3. No change in position of a small foreign body correlating with the finding on the earlier KUB which is located along the luminal side of the posterior wall of the cecum which could represent either an ingested foreign body or a clip fixed to the wall given the lack of movement. Correlate with clinical/surgical histor y. Abdomen X-Ray 01/06/25 07:16 IMPRESSION: 1. No interval change in a nonspecific bowel gas pattern with prominent gas throughout the colon but no definitive dilated loops of small bowel to suggest obstruction. Chest X-Ray 01/07/25 06:33 Impression: Mild to moderate pulmonary edema pattern with small right pleural effusion. Support tubes, as above. Labs Labs: Laboratory Results - last 24 hr 01/06/25 01/07/25 01/07/25 17:34 01:42 05:58 WBC 6.4 RBC 2.94 L Hgb 9.4 L Hct 30.3 L MCV 103.1 H MCH 32.0 MCHC 31.0 L RDW 15.9 H Plt Count 220 MPV 10.2 Sodium 148 H Potassium 3.2 L Chloride 111 H Carbon Dioxide 35 H Anion Gap 2 L BUN 12 Creatinine 0.43 L Estim Creat Clear Calc 138 Estimated GFR > 60 Glucose 114 H POC Capillary Glucose 105 114 H Calcium 8.5 Magnesium 2.4 H Total Bilirubin 0.5 AST 67 H ALT 229 H Alkaline Phosphatase 79 Total Protein 7.0 Albumin 3.1 L
[2025-01-07 12:51] LABS: Device VENTILATOR
[2025-01-07 12:52] LABS: Arterial Blood Gas PEEP 8 cmH2O; Arterial Blood Gas Tidal Volume 300 ml; Arterial Blood Gas Vent Mode CMV; Arterial Blood Gas Ventilator rate 14 /MIN
[2025-01-07 13:32] LABS: Glucose Point of Care 139 mg/dl (65-105)
[2025-01-07 16:59] LABS: Glucose Point of Care 117 mg/dl (65-105)
[2025-01-07 18:12] LABS: Glucose Point of Care 105 mg/dl (65-105)
--- NOTE | 2025-01-07 18:58 | PC.NURSE ---
This patient, Fito King, was received from ICU6 on 01/07/25 at 1707. Patient oriented to unit policies and routines
[2025-01-08] VITALS (22 sets, daily range): BP systolic 107–131; BP diastolic 63–83; PULSE 95–125; RESP 18–24; TEMP 36.9–37.9; O2SAT 88–99
[2025-01-08 00:10] LABS: Glucose Point of Care 137 mg/dl (65-105)
[2025-01-08] MEDS: VALPROATE SODIUM INJ 250 MG in DEXTROSE 5% IN WATER 50 ML 52.5 MG IVPB ×5 (00:55→23:44)
[2025-01-08 05:47] LABS: Hematocrit 30.3 % (42.0-52.0); Hemoglobin 9.1 g/dL (14.0-18.0); Mean Corpuscular Hemoglobin 31.8 pg (26-34); Mean Corpuscular Volume 105.9 fl (80-100); Mean Platelet Volume 10.2 fl (7.4-10.4); Platelet Count Result 228 k/mm3 (150-375); Red Blood Count 2.86 M/mm3 (4.6-6.20); Red Cell Distribution Width 15.9 % (11.5-14.5); White Blood Count 5.5 K/mm3 (4.5-10.0)
[2025-01-08 05:57] LABS: Alanine Aminotransferase 183 U/L (6-50); Albumin Level 3.2 g/dL (3.5-5.1); Alkaline Phosphatase 71 U/L (38-126); Anion Gap 2 mmol/L (4-12); Aspartate Amino Transferase 56 U/L (17-59); Bilirubin,Total 0.5 mg/dL (0.2-1.3); Blood Urea Nitrogen 13 mg/dL (9-20); Calcium 8.4 mg/dL (8.4-10.2); Carbon Dioxide 34 mmol/L (22-30); Chloride 113 mmol/L (98-107); Estimated CRCL calculation 138 ml/min; Estimated Glomerular Filt Rate > 60; Glucose 144 mg/dL (65-110); Magnesium 2.4 mg/dL (1.6-2.3); Potassium 4.3 mmol/L (3.4-5.0); Sodium 149 mmol/L (137-145)
[2025-01-08] MEDS: FUROSEMIDE INJ 40 MG/4 ML VIAL IV PUSH (09:05)
[2025-01-08] MEDS: ENOXAPARIN 40 MG/0.4 ML SYRINGE SUB-Q (09:05)
[2025-01-08] MEDS: PANTOPRAZOLE SODIUM IV 40 MG VIAL IV PUSH (09:05)
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
[2025-01-08 11:18] LABS: Glucose Point of Care 126 mg/dl (65-105)
[2025-01-08] MEDS: ACETAMINOPHEN ELIXIR 325 MG/10.15 ML UDC 650 MG PO ×2 (12:33→18:05)
--- NOTE | 2025-01-08 12:37 | PM.PNCARD ---
Progress Note: A&P Assessment and Plan (1) CHF exacerbation: Qualifiers: Heart failure type: unspecified Qualified Code(s): I50.9 - Heart failure, unspecified Code(s): I50.9 - Heart failure, unspecified Status: Acute Plan 59-year-old man with schizophrenia and seizures who is nonverbal with a G-tube transfer from senior care due to respiratory distress now found to have systolic heart failure and possible pneumonia Acute decompensated systolic heart failure -continue Lasix 40 mg IV push daily given that he is starting to become the positive -will resume his lisinopril 10 mg p.o. daily today -likely resume his metoprolol at metoprolol succinate 25 mg p.o. daily tomorrow -overall poor prognosis when taking into account his other remaining chronic conditions Moderate mitral regurgitation -reassess outpatient when euvolemic Moderate aortic regurgitation -outpatient surveillance echocardiogram Subjective Date/time seen: 01/08/25 12:37 Interval history: Appears to be at his baseline with no significant distress. Review of Systems Review of Systems: ROS unobtainable: Yes unobtainable due to medical condition Exam Const: General: no acute distress HENMT: Mouth: Yes moist mucous membranes Eyes: EOM: EOMs intact bilaterally Neck: Neck: no JVD Resp: Effort & Inspection: normal respiratory effort Auscultation: rales Cardio: Rate: tachycardic Rhythm: regular rhythm GI: GI Palp: Yes Soft to palpation Extrem: General: no pedal edema Objective Data Vital Signs Vital Signs: Vital Signs - 24 hr 01/07/25 14:00 01/07/25 14:00 01/07/25 14:00 Temperature Pulse Rate 103 H 103 H 103 H Respiratory Rate 19 Blood Pressure 109/77 109/77 Pulse Oximetry 96 Oxygen Delivery Fraction of Inspired Oxygen 01/07/25 14:09 01/07/25 16:00 01/07/25 16:00 Temperature Pulse Rate 114 H Respiratory Rate Blood Pressure Pulse Oximetry 95 Oxygen Delivery Room Air Room Air Fraction of Inspired Oxygen 01/07/25 18:00 01/07/25 18:00 01/07/25 19:45 Temperature 36.8 C 36.9 C Pulse Rate 118 H 121 H 100 Respiratory Rate 20 20 Blood Pressure 106/68 99/56 L Pulse Oximetry 95 93 Oxygen Delivery Fraction of Inspired Oxygen 01/07/25 20:00 01/07/25 20:00 01/07/25 21:04 Temperature Pulse Rate 95 101 H Respiratory Rate 20 Blood Pressure Pulse Oximetry 95 Oxygen Delivery Room Air Room Air Fraction of Inspired Oxygen 21 01/07/25 22:00 01/07/25 23:56 01/08/25 00:00 Temperature 36.9 C Pulse Rate 102 H 107 H Respiratory Rate 20 Blood Pressure 102/59 L Pulse Oximetry 93 Oxygen Delivery Room Air Fraction of Inspired Oxygen 01/08/25 00:00 01/08/25 02:00 01/08/25 03:54 Temperature 36.9 C Pulse Rate 105 H 106 H 123 H Respiratory Rate 20 Blood Pressure 107/63 Pulse Oximetry 92 Oxygen Delivery Fraction of Inspired Oxygen 01/08/25 04:00 01/08/25 04:00 01/08/25 06:00 Temperature Pulse Rate 125 H 111 H Respiratory Rate Blood Pressure Pulse Oximetry Oxygen Delivery Room Air Fraction of Inspired Oxygen 01/08/25 07:32 01/08/25 07:49 01/08/25 08:00 Temperature 37.9 C H Pulse Rate 116 H 111 H 122 H Respiratory Rate 22 H 24 H Blood Pressure 131/83 Pulse Oximetry 93 94 Oxygen Delivery Room Air Fraction of Inspired Oxygen 01/08/25 10:00 01/08/25 11:31 01/08/25 12:33 Temperature 37.9 C H 37.9 C H Pulse Rate 111 H 97 Respiratory Rate 20 Blood Pressure 124/63 Pulse Oximetry 95 Oxygen Delivery Fraction of Inspired Oxygen Intake/Output Intake/Output: Intake & Output 01/05/25 01/06/25 01/07/25 01/08/25 23:59 23:59 23:59 23:59 Intake Total 734.4 386.5 1301.5 995.0 Output Total 4050 1640 2000 400 Balance -3315.6 -1253.5 -698.5 595.0 Meds/Results Medications: Active Medications Generic Name Dose Route Start Last Admin Trade Name Freq PRN Reason Stop Dose Admin Acetaminophen 650 mg 01/08/25 11:54 01/08/25 12:33 Acetaminophen Elixir 325 Mg/10.15 Ml Udc PO 650 mg Q4H PRN Administration pain or fever Albuterol/Ipratropium 3 ml 12/28/24 21:13 12/29/24 02:41 Ipratropium 0.5 Mg/Albuterol Sulfate 2.5 Mg Ampul.Neb 3 Ml INHALATION 3 ml Q6HRT PRN Administration Shortness Of Breath Or Wheezing Dextrose 12.5 gm 12/30/24 08:02 01/05/25 23:55 Dextrose 50% 25 Gm/50 Ml Syringe IV PUSH 12.5 gm PRN PRN Administration Hypoglycemia Protocol Docusate Sodium 100 mg 12/29/24 09:00 01/01/25 08:00 Docusate Sodium Liq 100 Mg/10 Ml Udc FEED TUBE 100 mg DAILY DANI Administration Enoxaparin Sodium 40 mg 12/30/24 09:00 01/08/25 09:05 Enoxaparin 40 Mg/0.4 Ml Syringe SUB-Q 40 mg QAM DANI Administration Furosemide 40 mg 01/07/25 09:00 01/08/25 09:05 Furosemide Inj 40 Mg/4 Ml Vial IV PUSH 40 mg DAILY DANI Administration Gabapentin 100 mg 12/29/24 06:00 01/02/25 05:10 Gabapentin 100 Mg Capsule FEED TUBE 100 mg Q8HR DANI Administration Glucagon 1 mg 12/30/24 08:02 Glucagon For Inj 1 Mg Vial IM PRN PRN Hypoglycemia Protocol Glucose 15 gm 12/30/24 08:02 Glucose Oral Gel 15 Gm Of Glucse In 37.5 Gm Tube PO PRN PRN Hypoglycemia Protocol Hydralazine HCl 10 mg 01/02/25 07:32 Hydralazine Hcl 20 Mg/Ml Vial IV PUSH Q4H PRN Blood Pressure - High Dextrose 1,000 mls @ 100 mls/hr 12/30/24 08:02 Dextrose 5% 1,000 Ml IVPB PRN PRN Hypoglycemia Protocol Valproate Sodium 250 mg/ 52.5 mls @ 52.5 mls/hr 01/02/25 12:00 01/08/25 12:32 Dextrose IVPB 52.5 mls/hr Q6HR DANI Administration Norepinephrine Bitartrate 8 mg in 250 mls @ 0 mls/hr 01/02/25 13:20 01/04/25 20:10 Levophed 8 Mg/D5w 250 Ml IV CONT Infused .Q0M DANI Titration Protocol 0 MCG/MIN Dobutamine HCl/Dextrose 250 mg in 250 mls @ 0 mls/hr 01/03/25 10:30 01/07/25 17:43 Dobutamine 250 Mg/D5w 250 Ml IV CONT Not Given .Q0M [facility] [place] Insulin Aspart 2 - 5 units 12/30/24 12:00 01/08/25 12:31 Insulin Aspart (*Bkc) 100 Units/Ml SUB-Q Not Given Q6HR [facility] [place] Protocol Lisinopril 10 mg 01/02/25 09:00 Lisinopril 10 Mg Tablet PO DAILY [facility] [place] Metoprolol Tartrate 12.5 mg 01/02/25 09:00 Metoprolol Tartrate 12.5 Mg Tablet PO Q12HR [facility] [place] Pantoprazole Sodium 40 mg 12/29/24 15:15 01/08/25 09:05 Pantoprazole Sodium Iv 40 Mg Vial IV PUSH 40 mg QAM DANI Administration Polyethylene Glycol 17 gm 12/30/24 09:00 01/01/25 08:00 Polyethylene Glycol 3350 17 Gm Powd.Pack PO 17 gm QAM DANI Administration Radiology Results: ITS Impressions Venous Doppler Study 12/28/24 15:55 IMPRESSION: Negative left and right upper extremity venous US. No deep vein thrombosis. Chest/Abdomen/Pelvis CTA 12/29/24 14:43 IMPRESSION: 1. Extensive patchy airspace opacities throughout both lungs and favor severe congestive heart failure related pulmonary edema over pneumonia. 2. Small left and moderate sized right dependently layering pleural effusions with associated compressive atelectasis in the dependent lungs. 3. Cardiomegaly with enlargement of the central pulmonary consistent with pulmonary arterial hypertension. 4. Large amount of stool throughout the colon with 9.6 x 6.7 cm ball of stool the rectum consistent with likely constipation with fecal impaction. 5. Hepatomegaly. Chest/Abdomen/Pelvis CT 01/02/25 10:10 IMPRESSION: 1. Significant improvement in previously moderate, now minimal pulmonary edema with unchanged small left and small to moderate-sized right pleural effusions. 2. Persistent large amount of stool in the distal colon suggestive of constipation with fluid consistent with diarrhea and the more proximal colon. 3. No change in position of a small foreign body correlating with the finding on the earlier KUB which is located along the luminal side of the posterior wall of the cecum which could represent either an ingested foreign body or a clip fixed to the wall given the lack of movement. Correlate with clinical/surgical history. Abdomen X-Ray 01/06/25 07:16 IMPRESSION: 1. No interval change in a nonspecific bowel gas pattern with prominent gas throughout the colon but no definitive dilated loops of small bowel to suggest obstruction. Chest X-Ray 01/08/25 06:15 Impression: Moderate bilateral pulmonary edema, right worse than left, with small right pleural effusion. Correlate clinically for pneumonia. Left-sided PICC line in place. Labs Labs: Laboratory Results - last 24 hr 01/02/25 01/07/25 01/07/25 05:27 13:30 16:55 WBC RBC Hgb Hct MCV MCH MCHC RDW Plt Count MPV Puncture Site Not Reportable ABG pH 7.462 H ABG pCO2 34.6 L ABG pO2 105.7 H ABG PO2/FiO2 Ratio 4.23 ABG HCO3 24.2 ABG O2 Saturation 98.1 ABG O2 Content 14.1 L ABG Base Excess 0.6 A-a Gradient 31.5 Oxyhemoglobin 97.2 Carboxyhemoglobin 1.1 Methemoglobin 0.1 Reduced Hemoglobin 1.6 Total Hemoglobin 10.2 L O2 Delivery Device Ventilator O2 Liters/Min Not Reportable Minute Volume Not Reportable Vent Rate 14 Vent Mode Cmv FiO2 25 Tidal Volume 300 PEEP 8 Peak Inspir Pressure Not Reportable Pressure Support Not Reportable Sodium Potassium Chloride Carbon Dioxide Anion Gap BUN Creatinine Estim Creat Clear Calc Estimated GFR Glucose POC Capillary Glucose 139 H 117 H Calcium Magnesium Total Bilirubin AST ALT Alkaline Phosphatase Total Protein Albumin 01/07/25 01/08/25 01/08/25 18:07 00:07 05:39 WBC 5.5 RBC 2.86 L Hgb 9.1 L Hct 30.3 L MCV 105.9 H MCH 31.8 MCHC 30.0 L RDW 15.9 H Plt Count 228 MPV 10.2 Puncture Site ABG pH ABG pCO2 ABG pO2 ABG PO2/FiO2 Ratio ABG HCO3 ABG O2 Saturation ABG O2 Content ABG Base Excess A-a Gradient Oxyhemoglobin Carboxyhemoglobin Methemoglobin Reduced Hemoglobin Total Hemoglobin O2 Delivery Device O2 Liters/Min Minute Volume Vent Rate Vent Mode FiO2 Tidal Volume PEEP Peak Inspir Pressure Pressure Support Sodium 149 H Potassium 4.3 Chloride 113 H Carbon Dioxide 34 H Anion Gap 2 L BUN 13 Creatinine 0.43 L Estim Creat Clear Calc 138 Estimated GFR > 60 Glucose 144 H POC Capillary Glucose 105 137 H Calcium 8.4 Magnesium 2.4 H Total Bilirubin 0.5 AST 56 ALT 183 H Alkaline Phosphatase 71 Total Protein 7.0 Albumin 3.2 L 01/08/25 11:15 WBC RBC Hgb Hct MCV MCH MCHC RDW Plt Count MPV Puncture Site ABG pH ABG pCO2 ABG pO2 ABG PO2/FiO2 Ratio ABG HCO3 ABG O2 Saturation ABG O2 Content ABG Base Excess A-a Gradient Oxyhemoglobin Carboxyhemoglobin Methemoglobin Reduced Hemoglobin Total Hemoglobin O2 Delivery Device O2 Liters/Min Minute Volume Vent Rate Vent Mode FiO2 Tidal Volume PEEP Peak Inspir Pressure Pressure Support Sodium Potassium Chloride Carbon Dioxide Anion Gap BUN Creatinine Estim Creat Clear Calc Estimated GFR Glucose POC Capillary Glucose 126 H Calcium Magnesium Total Bilirubin AST ALT Alkaline Phosphatase Total Protein Albumin
[2025-01-08 17:51] LABS: Glucose Point of Care 129 mg/dl (65-105)
[2025-01-09] VITALS (22 sets, daily range): BP systolic 116–132; BP diastolic 66–79; PULSE 50–126; RESP 18–22; TEMP 36.4–38.3; O2SAT 91–100
[2025-01-09 04:43] LABS: Hematocrit 28.6 % (42.0-52.0); Hemoglobin 8.7 g/dL (14.0-18.0); Mean Corpuscular HGB Conc 30.4 g/dl (32-36); Mean Corpuscular Hemoglobin 32.1 pg (26-34); Mean Corpuscular Volume 105.5 fl (80-100); Mean Platelet Volume 9.6 fl (7.4-10.4); Platelet Count Result 202 k/mm3 (150-375); Red Blood Count 2.71 M/mm3 (4.6-6.20); White Blood Count 4.9 K/mm3 (4.5-10.0)
[2025-01-09 04:53] LABS: Alanine Aminotransferase 149 U/L (6-50); Albumin Level 3.2 g/dL (3.5-5.1); Alkaline Phosphatase 65 U/L (38-126); Anion Gap 4 mmol/L (4-12); Aspartate Amino Transferase 52 U/L (17-59); Bilirubin,Total 0.5 mg/dL (0.2-1.3); Blood Urea Nitrogen 17 mg/dL (9-20); Calcium 8.3 mg/dL (8.4-10.2); Carbon Dioxide 36 mmol/L (22-30); Chloride 109 mmol/L (98-107); Estimated CRCL calculation 104 ml/min; Estimated Glomerular Filt Rate > 60; Glucose 133 mg/dL (65-110); Magnesium 2.6 mg/dL (1.6-2.3); Potassium 4.2 mmol/L (3.4-5.0); Sodium 149 mmol/L (137-145)
[2025-01-09 05:20] LABS: Glucose Point of Care 112 mg/dl (65-105)
[2025-01-09] MEDS: VALPROATE SODIUM INJ 250 MG in DEXTROSE 5% IN WATER 50 ML 52.5 MG IVPB ×3 (05:38→18:18)
[2025-01-09] MEDS: lisinopriL 10 MG TABLET PO (08:14)
[2025-01-09] MEDS: METOPROLOL SUCCINATE EXT REL 25 MG TABCR PO (08:14)
[2025-01-09] MEDS: ACETAMINOPHEN ELIXIR 325 MG/10.15 ML UDC 650 MG PO (08:14)
[2025-01-09] MEDS: FUROSEMIDE INJ 40 MG/4 ML VIAL IV PUSH (08:15)
[2025-01-09] MEDS: PANTOPRAZOLE SODIUM IV 40 MG VIAL IV PUSH (08:15)
[2025-01-09] MEDS: ENOXAPARIN 40 MG/0.4 ML SYRINGE SUB-Q (08:27)
--- NOTE | 2025-01-09 10:09 | PCNFU ---
Nutrition Follow-Up Complete: Suboptimal Energy Intake as related to mechanical vent as evidenced by tube feedings. Meet estimated nutritional needs - meeting goal with tube feeding Goal: Pt current nutrition is Jevity 1.5 @ 55 ml/h with flushes 100 ml q 4 hours. Nutrition recommendation: No new nutrition recommendations. Continue current nutrition care plan and orders. Agree with orders Last recorded weight is 55 kg. Bowel Motility: Liquid stool + 1 01/07 Labs Reviewed: Hgb 8.7, Hct 28.6, Alb 3.2, Na 149, Cre 0.49, Glu 133, Mag 2.6 Meds Noted: Novolog, protonix Skin: No skin issues Additional Notes: tolerating tube feeding. Sodium has been elevated since 12/30 running 146-149. Jevity 1.5 @ 55 ml/h with flushes 100 ml q 4 hours provides 1815 kcal, 77 g protein, 1520 ml free water. Meeting needs @ 33 kcal/kg, 1.4 g protein/kg. Adequate for needs. Continue with orders Will reassess every Sunday and Sunday.
[2025-01-09 11:48] LABS: Glucose Point of Care 111 mg/dl (65-105)
--- NOTE | 2025-01-09 13:53 | PM.PNCARD ---
Progress Note: A&P Assessment and Plan (1) CHF exacerbation: Qualifiers: Heart failure type: unspecified Qualified Code(s): I50.9 - Heart failure, unspecified Code(s): I50.9 - Heart failure, unspecified Status: Acute Plan 59-year-old man with schizophrenia and seizures who is nonverbal with a G[facility]tube transfer from [facility] due [facility] respiratory distress now found to have systolic heart failure and possible pneumonia Acute decompensated systolic heart failure -continue Lasix 40 mg IV push daily -Continue Metoprolol, Lisinopril. -overall poor prognosis when taking into account his other remaining chronic conditions Moderate mitral regurgitation -reassess outpatient when euvolemic Moderate aortic regurgitation -outpatient surveillance echocardiogram Family considering Hospice. Subjective Date/time seen: 01/09/25 13:53 Interval history: Reason for visit: CHF Unable to obtain history from the patient. No acute events overnight. Review of Systems Review of Systems: ROS unobtainable: Yes unobtainable due to medical condition Exam Const: General: no acute distress Resp: Effort & Inspection: normal respiratory effort Cardio: Rate: regular rate Rhythm: regular rhythm Objective Data Vital Signs Vital Signs: Vital Signs - 24 hr 01/08/25 14:00 01/08/25 15:32 01/08/25 16:00 Temperature 37.9 C H Pulse Rate 99 99 Respiratory Rate 18 Blood Pressure 123/68 Pulse Oximetry 97 96 Oxygen Delivery Nasal Cannula Oxygen Flow Rate 2 Fraction of Inspired Oxygen 01/08/25 16:00 01/08/25 16:12 01/08/25 17:51 Temperature 37.9 C H Pulse Rate 99 101 H Respiratory Rate Blood Pressure Pulse Oximetry Oxygen Delivery Oxygen Flow Rate Fraction of Inspired Oxygen 01/08/25 18:05 01/08/25 19:00 01/08/25 20:00 Temperature 37.9 C H 37.9 C H 37.9 C H Pulse Rate 106 H Respiratory Rate 20 Blood Pressure 123/77 Pulse Oximetry 99 Oxygen Delivery Oxygen Flow Rate Fraction of Inspired Oxygen 01/08/25 20:00 01/08/25 20:00 01/08/25 20:30 Temperature Pulse Rate 95 95 Respiratory Rate 20 Blood Pressure Pulse Oximetry 98 98 Oxygen Delivery Nasal Cannula Nasal Cannula Oxygen Flow Rate 2 2 Fraction of Inspired Oxygen 21 01/08/25 21:44 01/09/25 00:00 01/09/25 00:00 Temperature 38.2 C H Pulse Rate 116 H 122 H 126 H Respiratory Rate 20 20 Blood Pressure 125/76 Pulse Oximetry 95 95 Oxygen Delivery Nasal Cannula Oxygen Flow Rate 2 Fraction of Inspired Oxygen 01/09/25 00:00 01/09/25 02:00 01/09/25 04:00 Temperature 36.6 C Pulse Rate 126 H 124 H 120 H Respiratory Rate 18 Blood Pressure 118/67 Pulse Oximetry 96 Oxygen Delivery Oxygen Flow Rate Fraction of Inspired Oxygen 01/09/25 04:00 01/09/25 04:00 01/09/25 06:00 Temperature Pulse Rate 125 H 125 H 104 H Respiratory Rate 18 Blood Pressure Pulse Oximetry 96 Oxygen Delivery Nasal Cannula Oxygen Flow Rate 2 Fraction of Inspired Oxygen 01/09/25 07:40 01/09/25 08:00 01/09/25 08:14 Temperature 37.7 C H Pulse Rate 108 H 108 H Respiratory Rate 20 Blood Pressure 116/79 Pulse Oximetry 98 96 Oxygen Delivery Nasal Cannula Oxygen Flow Rate 2 Fraction of Inspired Oxygen 01/09/25 09:06 01/09/25 09:51 01/09/25 10:00 Temperature Pulse Rate 90 Respiratory Rate Blood Pressure Pulse Oximetry 96 93 Oxygen Delivery Nasal Cannula Room Air Oxygen Flow Rate 1.5 Fraction of Inspired Oxygen 01/09/25 11:42 01/09/25 12:00 01/09/25 12:00 Temperature 36.4 C Pulse Rate 97 98 Respiratory Rate 18 Blood Pressure 122/66 Pulse Oximetry 93 91 Oxygen Delivery Room Air Oxygen Flow Rate Fraction of Inspired Oxygen Intake/Output Intake/Output: Intake & Output 01/06/25 01/07/25 01/08/25 01/09/25 23:59 23:59 23:59 23:59 Intake Total 386.5 1301.5 1895.0 105.0 Output Total 1640 2000 1840 1100 Balance -1253.5 -698.5 55.0 -995.0 Meds/Results Medications: Active Medications Generic Name Dose Route Start Last Admin Trade Name Freq PRN Reason Stop Dose Admin Acetaminophen 650 mg 01/08/25 11:54 01/09/25 08:14 Acetaminophen Elixir 325 Mg/10.15 Ml Udc PO 650 mg Q4H PRN Administration pain or fever Albuterol/Ipratropium 3 ml 12/28/24 21:12/29/24 02:41 Ipratropium 0.5 Mg/Albuterol Sulfate 2.5 Mg Ampul.Neb 3 Ml INHALATION 3 ml Q6HRT PRN Administration Shortness Of Breath Or Wheezing Dextrose 12.5 gm 12/30/24 08:02 01/05/25 23:55 Dextrose 50% 25 Gm/50 Ml Syringe IV PUSH 12.5 gm PRN PRN Administration Hypoglycemia Protocol Docusate Sodium 100 mg 12/29/24 09:00 01/01/25 08:00 Docusate Sodium Liq 100 Mg/10 Ml Udc FEED TUBE 100 mg DAILY DANI Administration Enoxaparin Sodium 40 mg 12/30/24 09:00 01/09/25 08:27 Enoxaparin 40 Mg/0.4 Ml Syringe SUB-Q 40 mg QAM DANI Administration Furosemide 40 mg 01/07/25 09:00 01/09/25 08:15 Furosemide Inj 40 Mg/4 Ml Vial IV PUSH 40 mg DAILY DANI Administration Gabapentin 100 mg 12/29/24 06:00 01/02/25 05:10 Gabapentin 100 Mg Capsule FEED TUBE 100 mg Q8HR DANI Administration Glucagon 1 mg 12/30/24 08:02 Glucagon For Inj 1 Mg Vial IM PRN PRN Hypoglycemia Protocol Glucose 15 gm 12/30/24 08:02 Glucose Oral Gel 15 Gm Of Glucse In 37.5 Gm Tube PO PRN PRN Hypoglycemia Protocol Hydralazine HCl 10 mg 01/02/25 07:32 Hydralazine Hcl 20 Mg/Ml Vial IV PUSH Q4H PRN Blood Pressure - High Dextrose 1,000 mls @ 100 mls/hr 12/30/24 08:02 Dextrose 5% 1,000 Ml IVPB PRN PRN Hypoglycemia Protocol Valproate Sodium 250 mg/ 52.5 mls @ 52.5 mls/hr 01/02/25 12:00 01/09/25 06:40 Dextrose IVPB Infused Q6HR DANI Infusion Norepinephrine Bitartrate 8 mg in 250 mls @ 0 mls/hr 01/02/25 13:20 01/04/25 20:10 Levophed 8 Mg/D5w 250 Ml IV CONT Infused .Q0M DANI Titration Protocol 0 MCG/MIN Insulin Aspart 2 - 5 units 12/30/24 12:00 01/09/25 05:02 Insulin Aspart (*Bkc) 100 Units/Ml SUB-Q Not Given Q6HR [facility] Protocol Lisinopril 10 mg 01/02/25 09:00 01/09/25 08:14 Lisinopril 10 Mg Tablet PO 10 mg DAILY DANI Administration Metoprolol Succinate 25 mg 01/09/25 09:00 01/09/25 08:14 Metoprolol Succinate Ext Rel 25 Mg Tabcr PO 25 mg QAM DANI Administration Pantoprazole Sodium 40 mg 12/29/24 15:15 01/09/25 08:15 Pantoprazole Sodium Iv 40 Mg Vial IV PUSH 40 mg QAM DANI Administration Polyethylene Glycol 17 gm 12/30/24 09:00 01/01/25 08:00 Polyethylene Glycol 3350 17 Gm Powd.Pack PO 17 gm QAM DANI Administration Radiology Results: ITS Impressions Venous Doppler Study 12/28/24 15:55 IMPRESSION: Negative left and right upper extremity venous US. No deep vein thrombosis. Chest/Abdomen/Pelvis CTA 12/29/24 14:43 IMPRESSION: 1. Extensive patchy airspace opacities throughout both lungs and favor severe congestive heart failure related pulmonary edema over pneumonia. 2. Small left and moderate sized right dependently layering pleural effusions with associated compressive atelectasis in the dependent lungs. 3. Cardiomegaly with enlargement of the central pulmonary consistent with pulmonary arterial hypertension. 4. Large amount of stool throughout the colon with 9.6 x 6.7 cm ball of stool the rectum consistent with likely constipation with fecal impaction. 5. Hepatomegaly. Chest/Abdomen/Pelvis CT 01/02/25 10:10 IMPRESSION: 1. Significant improvement in previously moderate, now minimal pulmonary edema with unchanged small left and small to moderate-sized right pleural effusions. 2. Persistent large amount of stool in the distal colon suggestive of constipation with fluid consistent with diarrhea and the more proximal colon. 3. No change in position of a small foreign body correlating with the finding on the earlier KUB which is located along the luminal side of the posterior wall of the cecum which could represent either an ingested foreign body or a clip fixed to the wall given the lack of movement. Correlate with clinical/surgical history. Abdomen X-Ray 01/06/25 07:16 IMPRESSION: 1. No interval change in a nonspecific bowel gas pattern with prominent gas throughout the colon but no definitive dilated loops of small bowel to suggest obstruction. Chest X-Ray 01/09/25 06:31 Impression: Moderate pulmonary edema pattern, asymmetrically worse in the right lung than the left, with small right pleural effusion. Correlate clinically for pneumonia. Left-sided PICC line. Labs Labs: Laboratory Results - last 24 hr 01/08/25 01/08/25 01/09/25 17:43 23:47 04:37 WBC 4.9 RBC 2.71 L Hgb 8.7 L Hct 28.6 L MCV 105.5 H MCH 32.1 MCHC 30.4 L RDW 16.0 H Plt Count 202 MPV 9.6 Sodium 149 H Potassium 4.2 Chloride 109 H Carbon Dioxide 36 H Anion Gap 4 BUN 17 Creatinine 0.49 L Estim Creat Clear Calc 104 Estimated GFR > 60 Glucose 133 H POC Capillary Glucose 129 H 112 H Calcium 8.3 L Magnesium 2.6 H Total Bilirubin 0.5 AST 52 ALT 149 H Alkaline Phosphatase 65 Total Protein 7.0 Albumin 3.2 L 01/09/25 11:44 WBC RBC Hgb Hct MCV MCH MCHC RDW Plt Count MPV Sodium Potassium Chloride Carbon Dioxide Anion Gap BUN Creatinine Estim Creat Clear Calc Estimated GFR Glucose POC Capillary Glucose 111 H Calcium Magnesium Total Bilirubin AST ALT Alkaline Phosphatase Total Protein Albumin
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
[2025-01-09 18:26] LABS: Glucose Point of Care 126 mg/dl (65-105)
[2025-01-09 18:58] LABS: Legionella pneumophila Ag Ur NOT DETECTED
[2025-01-10] VITALS (16 sets, daily range): BP systolic 113–124; BP diastolic 69–78; PULSE 88–129; RESP 18–28; TEMP 37.6–38.8; O2SAT 87–100
[2025-01-10 00:06] LABS: Glucose Point of Care 123 mg/dl (65-105)
[2025-01-10] MEDS: VALPROATE SODIUM INJ 250 MG in DEXTROSE 5% IN WATER 50 ML 52.5 MG IVPB ×2 (00:18→06:16)
[2025-01-10] MEDS: ACETAMINOPHEN ELIXIR 325 MG/10.15 ML UDC 650 MG PO ×2 (05:00→09:18)
[2025-01-10 05:18] LABS: Hematocrit 28.3 % (42.0-52.0); Hemoglobin 8.6 g/dL (14.0-18.0); Mean Corpuscular HGB Conc 30.4 g/dl (32-36); Mean Corpuscular Hemoglobin 31.6 pg (26-34); Mean Platelet Volume 10.7 fl (7.4-10.4); Platelet Count Result 225 k/mm3 (150-375); Red Blood Count 2.72 M/mm3 (4.6-6.20); Red Cell Distribution Width 16.1 % (11.5-14.5); White Blood Count 5.9 K/mm3 (4.5-10.0)
[2025-01-10 05:38] LABS: Alanine Aminotransferase 124 U/L (6-50); Albumin Level 3.3 g/dL (3.5-5.1); Alkaline Phosphatase 70 U/L (38-126); Anion Gap 5 mmol/L (4-12); Aspartate Amino Transferase 55 U/L (17-59); Bilirubin,Total 0.5 mg/dL (0.2-1.3); Blood Urea Nitrogen 21 mg/dL (9-20); Calcium 8.3 mg/dL (8.4-10.2); Carbon Dioxide 37 mmol/L (22-30); Chloride 106 mmol/L (98-107); Estimated CRCL calculation 91 ml/min; Estimated Glomerular Filt Rate > 60; Glucose 124 mg/dL (65-110); Magnesium 2.6 mg/dL (1.6-2.3); Potassium 3.6 mmol/L (3.4-5.0); Sodium 148 mmol/L (137-145)
[2025-01-10] MEDS: PANTOPRAZOLE SODIUM IV 40 MG VIAL IV PUSH (09:17)
[2025-01-10] MEDS: FUROSEMIDE INJ 40 MG/4 ML VIAL IV PUSH (09:17)
[2025-01-10] MEDS: METOPROLOL TARTRATE 25 MG TABLET PO (09:17)
[2025-01-10] MEDS: lisinopriL 10 MG TABLET PO (09:17)
[2025-01-10] MEDS: IBUPROFEN SUSPENSION 200 MG/10 ML UDC 400 MG PO (09:17)
[2025-01-10] MEDS: ENOXAPARIN 40 MG/0.4 ML SYRINGE SUB-Q (09:18)
[2025-01-10 11:47] LABS: Glucose Point of Care 128 mg/dl (65-105)
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
[2025-01-10 16:34] LABS: Glucose Point of Care 93 mg/dl (65-105)
== END 2025-01-10 18:40 | disposition hospice, home (50) | DRG 720 ==
LOC: ANHED 16:36 → ANHIMU 17:22 → ANHICU 12-29 15:06 → ANHIMU 01-10 14:02 → ANHICU 01-13 09:50 → ANHIMU 01-13 09:50
PROVIDERS: Internal Medicine; Nurse Practitioner Gerontology; Admitting Provider General Practice; Emergency Provider Physician Assistant; Visit Provider General Practice
DX: A41.9 Sepsis, unspecified organism (principal); J18.9 Pneumonia, unspecified organism; J96.01 Acute respiratory failure with hypoxia; R94.31 Abnormal electrocardiogram [ECG] [EKG]; J44.0 Chronic obstructive pulmonary disease with (acute) lower respiratory infection; G40.909 Epilepsy, unspecified, not intractable, without status epilepticus; F20.9 Schizophrenia, unspecified; K21.9 Gastro-esophageal reflux disease without esophagitis; G60.3 Idiopathic progressive neuropathy; D64.9 Anemia, unspecified; Z20.822 Contact with and (suspected) exposure to COVID-19; E87.0 Hyperosmolality and hypernatremia; I50.23 Acute on chronic systolic (congestive) heart failure; N39.0 Urinary tract infection, site not specified; J69.0 Pneumonitis due to inhalation of food and vomit; K94.23 Gastrostomy malfunction; R00.0 Tachycardia, unspecified; R64 Cachexia; Z68.1 Body mass index [BMI] 19.9 or less, adult; Z74.01 Bed confinement status; I42.9 Cardiomyopathy, unspecified; I34.0 Nonrheumatic mitral (valve) insufficiency; I35.1 Nonrheumatic aortic (valve) insufficiency; K56.699 Other intestinal obstruction unspecified as to partial versus complete obstruction; K56.49 Other impaction of intestine; K72.00 Acute and subacute hepatic failure without coma; R57.0 Cardiogenic shock
CPT/HCPCS: 31500; 36415; 36569; 36600; 71045; 71250; 71275; 74018; 74019; 74174; 74176; 80048; 80053; 81001; 82375; 82565; 82607; 82746; 82805; 82948; 83050; 83540; 83550; 83605; 83735; 83880; 84100; 84145; 84484; 85018; 85025; 85027; 85610; 85730; 86140; 87040; 87070; 87086; 87181; 87205; 87449; 87637; 87641; 87899; 93005; 93970; 94002; 94003; 94640; 94667; 94668; 96365; 96375; 96376; 99285; A9270; C1751; C8929; G0378; G0379; J0330; J0456; J0696; J1205; J1250; J1650; J1836; J1938; J1939; J2250; J2470; J2919; J3010; J3370; J3480; J7030; J7040; P9047; Q9957; Q9967